=== PATIENT | male | born 1945 | race Caucasian/White ===

== ENCOUNTER 2020-01-08 07:59 | Emergency (ER) | payer MEDICARE, MEDICAID, SELFPAY ==
--- NOTE | ~2020-01-08 | CT_ITS ---
EXAMINATION: CT lumbar spine wo con DATE: 01/08/2020 09:04 INDICATION: Fall presenting with pain at the low back/buttock's. TECHNIQUE: Computed tomography (CT) of the lumbar spine was performed without intravenous contrast. A utomated exposure control and iterative reconstruction technique were employed. The dose-length produ ct was 911.61 mGy-cm. COMPARISON: None FINDINGS: Mild lumbar dextroscoliosis. There is anterior fusion across the left side of the L4-L5 disc space an d across portions of the T12-L1 disc space. There is also posterior spinal fusion at the bilateral fa cet joints L4-L5. Vertebral body heights are normal. No fracture. Severe disc height loss at L2-L3, r ight side of L1-L2 and L5-S1. Moderate disc height loss at L3-L4. L5 is partially sacralized on the r ight 2 mm noncalcified stone at the lower pole of the right kidney. Anastomotic suture line a few div erticula along the sigmoid colon. The following disc levels are specifically discussed: T11-T12: The disc does not extend beyond the endplate margin. There is mild bilateral facet joint ost eoarthritis. There is no neural foraminal stenosis. There is no central canal stenosis. T12-L1: Mild hypertrophic change across the fused mid to left posterior margin of the disc space. The re is mild to moderate bilateral facet joint osteoarthritis. There is no neural foraminal stenosis. T here is minimal central canal stenosis. L1-L2: Disc osteophyte complex with small posterior endplate osteophytes along the inferior endplate of L1. There is mild to moderate bilateral facet joint osteoarthritis. There is moderate bilateral ne ural foraminal stenosis. There is mild central canal stenosis. L2-L3: Mild disc osteophyte complex. There is moderate right and severe left facet joint osteoarthrit is. There is moderate bilateral neural foraminal stenosis. There is mild central canal stenosis. L3-L4: The disc does not extend beyond the endplate margin. There is moderate left and moderate to se dominic right facet joint osteoarthritis. There is moderate right and mild to moderate left neural kelechi inal stenosis. There is mild central canal stenosis. L4-L5: Mild hypertrophic change along the posterior margin of the fused disc space. Prominent hypertr ophic change at the bilateral fused facet joints. There is moderate right and mild to moderate left n eural foraminal stenosis. There is moderate to severe central canal stenosis. L5-S1: The disc does not extend beyond the endplate margin. There is moderate to severe left and lashonda re right facet joint osteoarthritis. There is mild bilateral neural foraminal stenosis. There is no c entral canal stenosis. IMPRESSION: 1. Mild lumbar dextroscoliosis with severe spondylosis. No acute osseous abnormality. Reviewed, dictated and finalized at location A. EHOLD COORDINATOR IMPRESSION: 1. Mild lumbar dextroscoliosis with severe spondylosis. No acute osseous abnorm ality.
--- NOTE | ~2020-01-08 | CT_ITS ---
EXAMINATION: CT brain wo con DATE: 01/08/2020 09:05 INDICATION: Fall. Head injury. TECHNIQUE: Computed tomography (CT) of the head was performed without intravenous contrast. The mA wa s adjusted according to patient size. Iterative reconstruction technique was employed. Exam dose: 68 1.00 mGy-cm total exam DLP. COMPARISON: 12/05/2018 CT brain FINDINGS: There are prominent bilateral carotid siphon and right supraclinoid internal carotid artery calcifications. There is nonspecific diminished attenuation of the subcortical and periventricular cerebral white mat ter, likely due to chronic small vessel ischemic changes. There is prominent cerebral atrophy. No intracranial mass lesion or hemorrhage or cerebrovascular accident is evident. No midline shifts o r mass effects. There is minimal mucoperiosteal thickening of the maxillary sinuses. The paranasal sinuses and mastoi d air cells otherwise appear well-developed and aerated. No fracture or bone destruction of the cranial vault is detected. IMPRESSION: Cerebral atherosclerosis and chronic small vessel ischemic changes of the cerebral white matter No acute intracranial finding or skull fracture Reviewed, dictated and finalized at Location A. Reviewed, dictated and finalized at location B. DRY BAG PUNCH OPERATOR
[2020-01-08 08:06] VITALS: BP 103/67; PULSE 80; RESP 16; TEMP 36.2; O2SAT 96
--- NOTE | 2020-01-08 08:16 | ECG_ITS ---
Measurements Intervals [place] Rate: 61 P: 57 [place]: 173 QRS: -52 QRSD: 110 T: 26 QT: 398 QTc: 401 Interpretive Statements SINUS RHYTHM LEFT ANTERIOR FASCICULAR BLOCK BORDERLINE ST-T WAVE ABNORMALITY- ANTERIOR LEADS ABNORMAL ECG Electronically Signed On 01-08-2020 10:51:49 STERILIZATION TECHNICIAN by Angel Meeks D.O.
[2020-01-08 08:40] LABS: Basophils Percent Auto 0.3 % (0.2-1.2); Eosinophils Absolute Auto 0.1 K/mm3 (0-0.3); Eosinophils Percent Auto 1.5 % (0-4.4); Hemoglobin 14.8 g/dL (14.0-18.0); Immature Granulocyte Absolute 0.02 K/mm3 (0.00-0.031); Immature Granulocyte Percent A 0.3 % (0-0.5); Lymphocytes Absolute Auto 1.32 K/mm3 (0.9-3.2); Lymphocytes Percent Auto 22.4 % (18.3-44.2); Mean Corpuscular HGB Conc 33.6 g/dl (32-36); Mean Corpuscular Hemoglobin 30.3 pg (26-34); Monocytes Absolute Auto 0.5 K/mm3 (0.1-0.6); Monocytes Percent Auto 8.3 % (2.6-8.5); Neutrophils Percent Auto 67.2 % (45.5-73.1); Platelet Count Result 219 k/mm3 (150-375); Red Blood Count 4.89 M/mm3 (4.6-6.20); Red Cell Distribution Width 12.7 % (11.5-14.5); White Blood Count 5.9 K/mm3 (4.5-10.0)
--- NOTE | 2020-01-08 08:45 | ED.GENADULT ---
HPI - General Adult General Chief complaint: Fall Stated complaint: fall out of bed, buttock, right arm pain Time Seen by Provider: 01/08/20 08:04 Source: patient Mode of arrival: ambulatory Limitations: no limitations History of Present Illness HPI narrative: Patient is a 74-year-old male who presents to emergency department for evaluation of buttock pain after rolling out of his bed this morning also sustaining some skin tears to the right elbow region but denies any right upper extremity pain denies head injury syncope loss of consciousness presents per private vehicle resting comfortably in the room in no distress patient is afebrile nontoxic-appearing on arrival resting comfortably in the room on arrival per private vehicle patient has not taken anything for his symptoms. Patient notes feeling slightly dizzy since the fall but did take 100 mg tramadol Related Data Home Medications Medication Instructions Recorded Confirmed cholecalciferol (vitamin D3) 25 1,000 unit PO DAILY 10/23/19 12/15/19 mcg (1,000 unit) capsule diltiazem HCl 240 mg 240 mg PO DAILY 10/23/19 01/08/20 capsule,extended release 24 hr lisinopril 5 mg tablet 5 mg PO DAILY 10/23/19 12/15/19 rivaroxaban 20 mg tablet 20 mg PO DAILY 10/23/19 12/15/19 sildenafil (pulm.hypertension) 20 40 mg PO TID tablet 10/23/19 12/15/19 mg tablet tamsulosin 0.4 mg capsule 0.4 mg PO DAILY 10/23/19 12/15/19 tramadol 50 mg tablet 50 mg PO Q6H PRN 10/23/19 12/15/19 valacyclovir 1 gram tablet 1,000 mg PO DAILY 10/23/19 12/15/19 bupropion HCl 150 mg PO BID 01/08/20 mirabegron [Myrbetriq] 50 mg PO DAILY 01/08/20 01/08/20 multivitamin 1 cap PO DAILY 01/08/20 01/08/20 Allergies Allergy/AdvReac Type Severity Reaction Status Date / Time hydromorphone Allergy Unknown Unknown Verified 12/15/19 11:52 escitalopram [From Lexapro] AdvReac sexual Verified 12/15/19 11:52 disfunction Review of Systems Review of Systems: All systems reviewed & are unremarkable except as noted in HPI and below PMFSH Past Medical History Medical History (Updated 01/08/20 @ 10:29 by Sukhwinder Penn PA-C) Arthritis Atrial fibrillation Atrial fibrillation and flutter Basal cell carcinoma (BCC) Erectile dysfunction Essential (primary) hypertension Hypertension Surgical History Surgical History H/O arthroscopy of left knee H/O arthroscopy of right knee H/O hernia repair H/O prostate biopsy History of knee replacement History of liver biopsy Social History Social History Smoking status: Former smoker Smoking end date: 11/22/17 Alcohol intake: never Exam Narrative: Exam Narrative: GENERAL: Well-appearing, well-nourished, and in no acute distress. HEAD: Normocephalic, atraumatic. EYES: PERRLA and EOMI. ENT: Nares clear, no rhinorrhea or epistaxis. Mucous membranes moist. Oropharynx without tonsillar hypertrophy exudate or other lesions. NECK: Supple. No adenopathy or masses. CHEST: Clear to auscultation. No respiratory distress. No wheezes rales or rhonchi HEART: Regular rate and rhythm. No murmur heard. Normal peripheral pulses. ABDOMEN: Soft, nontender, nondistended EXTREMITIES: Normal range of motion. No edema midline lumbar sacral tenderness no bruising or deformity no cervical or thoracic tenderness. SKIN: Warm, dry, no rash. Superficial half centimeter skin tear right upper extremity just above the elbow NEURO: No focal deficits. Alert and oriented x3. Cranial nerves II through XII grossly intact. Neurovascularly intact. Normal speech PSYCH: Normal mood and affect. Course Course Emergency Course: Patient in the room in no distress aware of case findings treatment plan and diagnosis felt appropriate for outpatient reevaluation agreeing to follow-up as directed or to return if symptoms worsen or concerns Vital Signs Vital signs: Vital Signs Tempera
[2020-01-08 08:51] LABS: Alanine Aminotransferase 16 U/L (4-50); Albumin Level 4.1 g/dL (3.5-5.1); Alkaline Phosphatase 70 U/L (38-126); Aspartate Amino Transferase 23 U/L (17-59); Bilirubin,Total 0.8 mg/dL (0.2-1.3); Blood Urea Nitrogen 18 mg/dL (9-20); Calcium 9.3 mg/dL (8.4-10.2); Carbon Dioxide 23 mmol/L (22-30); Chloride 101 mmol/L (98-107); Estimated CRCL calculation 66 ml/min; Estimated Glomerular Filt Rate > 60; Glucose 98 mg/dL (75-110); Potassium 3.8 mmol/L (3.4-5.0); Sodium 138 mmol/L (137-145)
[2020-01-08 09:30] VITALS: BP 136/87; PULSE 74; RESP 16; O2SAT 94
[2020-01-08 09:40] LABS: Add Urine Microscopic? YES; Appearance Urine Clear (Clear); Bilirubin Urine Negative (Negative); Blood Urine 1+ (Negative); Color Urine Yellow (Yellow); Glucose Urine UA Negative (Negative); Ketones Urine 1+ mg/dL (Negative); Leukocyte Esterase Ur Negative LEU/UL (Negative); Mucus Urine Rare /lpf; Nitrate Urine Negative (Negative); Protein Urine Negative (Negative); Specific Grav Ur 1.011 (1.001-1.035); Squamous Epithelial Cell Urine Rare /hpf (Few); Urobilinogen Urine Negative mg/dL (<2.0); WBC Urine 0-3 /hpf
[2020-01-08 09:58] VITALS: BP 128/77; PULSE 64
[2020-01-08 10:00] VITALS: BP 102/71; PULSE 78
[2020-01-08 10:02] VITALS: BP 110/78; PULSE 76
[2020-01-08 10:30] VITALS: BP 120/72; PULSE 63; RESP 16; O2SAT 94
== END 2020-01-08 10:30 | disposition home or self-care (01) ==
PROVIDERS: Emergency Medicine Emergency Medical Services; Emergency Provider Family Medicine; PCP Family Medicine
DX: S39.92XA Unspecified injury of lower back, initial encounter (principal); M19.90 Unspecified osteoarthritis, unspecified site; I48.91 Unspecified atrial fibrillation; Z79.01 Long term (current) use of anticoagulants; Z85.828 Personal history of other malignant neoplasm of skin; I10 Essential (primary) hypertension; I48.92 Unspecified atrial flutter; Z87.891 Personal history of nicotine dependence; W06.XXXA Fall from bed, initial encounter; Z96.659 Presence of unspecified artificial knee joint
CPT/HCPCS: 36415; 70450; 72131; 80053; 81001; 85025; 93005; 99284

== ENCOUNTER 2020-07-08 14:00 | Emergency (ER) | payer MEDICARE, MEDICAID, SELFPAY ==
--- NOTE | ~2020-07-08 | XR_ITS ---
EXAMINATION: XR finger 4th LT min 2V INDICATION: Left fourth finger laceration TECHNIQUE: Three views of the left fourth finger are obtained. COMPARISON: None available FINDINGS: There is a soft tissue laceration involving the tuft of the fourth finger. There appears to be a subtle osseous deformity at the proximal base of the volar aspect of the fourth distal phalanx extending to the distal interphalangeal joint. Moderate polyarticular osteoarthritis is noted. No add itional acute osseous abnormality is suspected. IMPRESSION: 1. Suspected open fracture at the palmar base of the fourth distal phalanx. Reviewed, dictated and finalized at location A.
[2020-07-08 14:00] VITALS: BP 117/63; PULSE 70; RESP 18; TEMP 36.7; O2SAT 98
[2020-07-08 15:15] VITALS: BP 127/81; PULSE 66; RESP 18; O2SAT 99
[2020-07-08] MEDS: TETANUS,DIPHTHERIA,AC PERTUSSIS ADULT (0.5 ML) BOOSTRIX IM (16:08)
--- NOTE | 2020-07-08 16:16 | ED.GENADULT ---
HPI - General Adult General Chief complaint: Wound/Laceration Stated complaint: Finger injury Source: patient History of Present Illness HPI narrative: Patient is a 75 y/o male complaining of left ring finger laceration prior to arrival. He states that he got his finger caught in a lawn tractor accidentally. He has severe pain to his finger. He denies any other injury. He denies falling. He is not sure when he had a Tetanus shot last time. Related Data Home Medications Medication Instructions Recorded Confirmed cholecalciferol (vitamin D3) 25 1,000 unit PO DAILY 10/23/19 06/25/20 mcg (1,000 unit) capsule rivaroxaban 20 mg tablet 20 mg PO DAILY 10/23/19 06/25/20 tamsulosin 0.4 mg capsule 0.4 mg PO DAILY 10/23/19 06/25/20 mirabegron [Myrbetriq] 50 mg PO DAILY 01/08/20 06/25/20 multivitamin 1 cap PO DAILY 01/08/20 06/25/20 bupropion HCl 100 mg tablet,12 hr 150 mg PO DAILY tablet 02/22/20 06/25/20 sustained-release melatonin 3 mg tablet 5 mg PO .qhs tablet 04/03/20 06/25/20 Allergies Allergy/AdvReac Type Severity Reaction Status Date / Time hydromorphone Allergy Unknown Unknown Verified 04/03/20 13:35 escitalopram [From Lexapro] AdvReac sexual Verified 04/03/20 13:34 disfunction Review of Systems Constitutional: Constitutional: Denies chills, Denies fever(s), Denies headache(s) and Denies weakness Eyes: Eyes: Denies blurry vision ENT: Denies headache(s) and Denies neck pain Cardiovascular: Cardiovascular: Denies chest pain and Denies dyspnea Respiratory: Respiratory: Denies cough and Denies dyspnea Gastrointestinal: Gastrointestinal: Denies abdominal pain, Denies diarrhea, Denies nausea and Denies vomiting Genitourinary: Genitourinary: Denies hematuria and Denies dysuria Musculoskeletal: Musculoskeletal: Denies back pain, Denies neck pain and Reports other (left ring finger pain) Integumentary/Breasts: Skin/Breast: Reports as per HPI Neurologic: Denies headache(s) and Denies weakness [facility] Past Medical History Medical History Arthritis Atrial fibrillation Atrial fibrillation and flutter Basal cell carcinoma (BCC) Erectile dysfunction Essential (primary) hypertension Hypertension Surgical History Surgical History H/O arthroscopy of left knee H/O arthroscopy of right knee H/O hernia repair H/O prostate biopsy History of knee replacement History of liver biopsy Hx of detached retina repair Family History Family History Mother Family history of gastrointestinal disorder Family history of pancreatic cancer Sibling Family history of Alzheimer's disease Father Family history of heart disease in male family member before age 55 Family history of cardiovascular disease Diabetes mellitus Family history of elevated blood lipids Acute myocardial infarction Other Depression Hypertension Malignant neoplasm of prostate Social History Social History Smoking status: Never smoker Smoking end date: 11/22/17 Alcohol intake: never Gender identity (if verbalized by the patient): Male Exam Const: General: no acute distress and well developed Orientation/consciousness: oriented to person, oriented to place, oriented to time and patient oriented x3 HENMT: Head: normocephalic Ears: external ears normal General nose exam: Normal external nose present Eyes: General: appearance normal, both eyes and all related structures Conjunctivae: conjunctivae normal Neck: Neck: normal visual inspection and full ROM Chest: Chest palpation & inspection: normal inspection of the chest and no tenderness Resp: Effort & Inspection: normal respiratory effort Auscultation: clear to auscultation bilaterally Cardio: Rate: regular rate Rhythm: regular rhythm GI: GI Palp: No abdominal t
[2020-07-08 17:20] VITALS: BP 129/80; PULSE 50; RESP 18; O2SAT 98
[2020-07-08] MEDS: CEPHALEXIN 500 MG CAPSULE PO (18:06)
[2020-07-08 18:28] VITALS: BP 132/70; PULSE 72; RESP 18; O2SAT 98
== END 2020-07-08 18:30 | disposition home or self-care (01) ==
PROVIDERS: Emergency Provider Emergency Medicine; PCP Family Medicine
DX: S62.635B Displaced fracture of distal phalanx of left ring finger, initial encounter for open fracture (principal); Z23 Encounter for immunization; M19.90 Unspecified osteoarthritis, unspecified site; I48.91 Unspecified atrial fibrillation; I10 Essential (primary) hypertension; W28.XXXA Contact with powered lawn mower, initial encounter
CPT/HCPCS: 12002; 73140; 90471; 90715; 99283; A9270

== ENCOUNTER 2021-01-18 20:45 | Inpatient (IN) | payer MEDICARE, MEDICAID, SELFPAY ==
[2021-01-18] VITALS (18 sets, daily range): BP systolic 78–135; BP diastolic 50–107; PULSE 67–92; RESP 19–26; TEMP 36.5; O2SAT 92–93
--- NOTE | ~2021-01-18 | CT_ITS ---
EXAMINATION: CTA chest PE protocol DATE: 01/23/2021 11:21 INDICATION: Hypoxia. TECHNIQUE: Computed tomography angiography (CTA) of the chest was performed with 100 mL Omnipaque-350 intravenous contrast timed to evaluate the pulmonary arteries. Coronal maximum intensity projection 3D-reconstructions were created by the technologist. Automated exposure control and iterative reconst ruction technique were employed. The dose-length product was 208.89 mGy-cm. COMPARISON: CT abdomen and pelvis 01/18/2021, chest CT 08/09/2019, MRCP 01/20/2021 FINDINGS: There is moderate emphysema. There are small pleural effusions. There is dependent passive atelectasis in the lower lobes. There is mild atelectasis in right middle lobe and the upper lobes. C alcified bilateral lung nodules and calcified mediastinal lymph nodes are consistent with old granulo matous disease. Cardiomegaly is noted. No pericardial effusion. There is no pulmonary embolus. There are surgical clips from cholecystectomy. Periportal edema is noted. There is edema in the visualized portion of the upper abdomen, consistent with acute pancreatitis. There is a 1.6 cm mass in right adr enal gland measuring low-attenuation, consistent with an adenoma. There is mild thoracic spondylosis. There is mild chronic anterior wedging of multiple vertebral bodies. IMPRESSION: 1. No pulmonary embolus. 2. Small pleural effusions, worsened from 01/20/2021. 3. Moderate emphysema. 4. Acute pancreatitis. Reviewed, dictated and finalized at location A. ERADICATOR
--- NOTE | ~2021-01-18 | XR_ITS ---
XR chest 2V DATE: 01/18/2021 22:05 INDICATION: Shortness of breath. Nausea and vomiting TECHNIQUE: AP and lateral views COMPARISON: 08/09/[address] chest FINDINGS: Bilateral hyperinflation consistent with COPD. Cardiac megaly. Aortic calcification, ectasia and unfolding. Prominent central pulmonary arteries, consistent with pulmonary hypertension. No pulmonary infiltrate or consolidation, pleural effusion or pulmonary vascular congestion or pneumothorax. Diffuse osteopenia. IMPRESSION: COPD and pulmonary hypertension Cardiomegaly No active pulmonary disease Reviewed, dictated and finalized at location A. NATING MACHINE OPERATOR HELPER
--- NOTE | ~2021-01-18 | XR_ITS ---
EXAMINATION: XR chest 2V DATE: 01/22/2021 17:41 INDICATION: Hypoxia TECHNIQUE: PA and lateral views of the chest are obtained. COMPARISON: 01/18/2021 FINDINGS: Small pleural effusions have developed, left greater than right. Right basilar airspace opa cities are unchanged. Airspace opacities have developed in the left lung base. There is no pneumothor ax. Cardiomegaly is noted.. There is mild thoracic spondylosis. IMPRESSION: 1. Bibasilar airspace opacities, consistent with atelectasis versus pneumonia. 2. Small pleural effusions. Reviewed, dictated and finalized at location A. LE STRAP PUNCHER
--- NOTE | ~2021-01-18 | US_ITS ---
EXAMINATION: US abdomen limited DATE: 01/19/2021 08:57 INDICATION: Right upper quadrant abdominal pain. TECHNIQUE: Multiple grayscale and Doppler ultrasound images of the abdomen were obtained. COMPARISON: CT abdomen and pelvis 01/18/2021 FINDINGS: The pancreas demonstrates heterogeneous echogenicity, consistent with acute pancreatitis. T he liver demonstrates a 6 mm cyst. There is normal flow in main portal vein. The gallbladder is diste nded and contains a gallstone. Gallbladder wall thickening is noted. The common duct is normal and me asures 3 mm. IMPRESSION: 1. Acute pancreatitis. 2. Cholelithiasis. Gallbladder distention is new from 01/18/2021, likely secondary to fasting. Gallbla dder wall thickening is likely secondary to the pancreatitis. Reviewed, dictated and finalized at location A. TIME PARAMEDIC IMPRESSION: 1. Acute pancreatitis. 2. Cholelithiasis. Gallbladder distention is new from 01/18/2021, likely seconda ry to fasting. Gallbladder wall thickening is likely secondary to the pancreati tis.
--- NOTE | ~2021-01-18 | XR_ITS ---
EXAMINATION: XR abdomen obstructive series EXAM DATE: 01/20/2021 11:02 INDICATION: Lower abdominal pain, distention. TECHNIQUE: Frontal upright projection of the upper abdomen, frontal projection of the lower abdomen f or interpretation. Comparison is made to prior examination from 06/09/2019. FINDINGS: There is moderate lumbar dextroscoliosis. There is moderate amount of colonic stool and ga s. No small bowel dilation, nonobstructive bowel gas pattern. Splenic artery calcifications. The re is no organomegaly suspected. There is no significant interval change. IMPRESSION: Moderate amount of colonic stool. Reviewed, dictated and finalized at location A. TH HACKER
--- NOTE | ~2021-01-18 | MR_ITS ---
EXAMINATION: MR MRCP wo/w con/w 3D wo ind DATE: 01/20/2021 12:50 INDICATION: Acute pancreatitis. TECHNIQUE: Magnetic resonance imaging (MRI) of the abdomen was performed without and with 12 mL Multi Jamar intravenous contrast. Sequences included coronal T2-weighted FS FSE, coronal T2-weighted FSE, a xial T1-weighted LAVA, coronal FS FIESTA, axial dual-echo T1-weighted SPGR, coronal lava-FLEX, sagitt al T2-weighted FSE, axial T2-weighted FSE, and axial DWI. Thick-slab T2-weighted FSE images were obta ined for magnetic resonance cholangiopancreatography (MRCP). Maximum intensity projection 3-D reconst ructions of the volumetric data were created by the technologist. Postcontrast sequences included cor onal LAVA-flex and time course of axial T1-weighted LAVA. COMPARISON: MRCP 08/09/2019, ultrasound 01/19/2021, CT abdomen and pelvis 12/06/2018 FINDINGS: ABDOMEN MRI: There are small pleural effusions. The liver is normal. The gallbladder is distended and contains a gallstone. The spleen is normal. Pancreas divisum is noted. There is extensive edema in t he retroperitoneum, consistent with acute pancreatitis. Left adrenal gland is normal. There is a 14 m m mass in right adrenal gland without change in size from 12/07/2018, consistent with an adenoma. Ther e are cysts in the kidneys measuring up to 7 mm on the left. There are no dilated loops of bowel. The re is a small volume of ascites. There are no pathologically enlarged lymph nodes. ABDOMEN MRCP: The common duct measures 8 mm in diameter. No choledocholithiasis. IMPRESSION: 1. Acute interstitial pancreatitis. 2. No choledocholithiasis. 3. Cholelithiasis. Gallbladder distention may be secondary to fasting. 4. Small pleural effusions. Reviewed, dictated and finalized at location A. ING COORDINATOR
--- NOTE | ~2021-01-18 | CT_ITS ---
EXAMINATION: CT abdomen pelvis w con DATE: 01/18/2021 22:07 INDICATION: Generalized abdominal pain. Nausea and vomiting. TECHNIQUE: Computed tomography (CT) of the abdomen and pelvis was performed with 100 cc Omnipaque 350 intravenous contrast. Automated exposure control and iterative reconstruction technique were employe d. Exam dose: 296.83 mGy-cm total exam DLP. COMPARISON: 08/09/2019 MRI MRCP 06/09/2019 CT abdomen pelvis FINDINGS: There is bilateral lower lobe dependent atelectasis. Emphysematous changes of the lungs. Cardiomegaly. No pericardial or pleural effusion. Occasional hepatic cysts, the largest approximately 1.3 cm. There is mild gallbladder distention and thickening of the gallbladder wall. There is intrahepatic an d extra hepatic bile duct dilatation. Common bile duct measures up to 11 mm There is fluid around the pancreas. No pancreatic mass lesion, calcification or pancreatic duct dilat ation. Normal splenic size. Normal morphology of the adrenal glands.. Small upper pole nonobstructing left renal calculus. Two contiguous lower pole right renal nonobstructing calculi. No ureteral calculus or hydroureteronephrosis. Occasional small bilateral renal cysts. There is calcification and tortuosity of the abdominal aorta. No abdominal aortic aneurysm. There is extensive calcification of iliac and femoral arteries. No intraperitoneal or retroperitoneal or pelvi c mass lesion or adenopathy. Small sliding hiatal hernia. Nonspecific fluid distended small bowel in the lower abdomen and pelvis, without thickening of the wa ll, pneumatosis or intraperitoneal free air. No apparent bowel obstruction. Prostate enlargement and calcifications. There is mild diffuse thickening of the urinary bladder wall . Extensive degenerative changes of the lower thoracic spine including diffuse idiopathic skeletal hype rostosis. There is severe degenerative disc disease throughout the lumbar and lumbosacral spine. IMPRESSION: Emphysema Bilateral lower lobe dependent atelectasis Cardiac megaly Occasional hepatic cysts and bilateral small renal cysts Nonspecific bile duct dilatation Fluid around the pancreas Nonobstructive mild bilateral nephrolithiasis Small sliding hiatal hernia Reviewed, dictated and finalized at Location A. Reviewed, dictated and finalized at location A. NGER MACHINE TENDER
--- NOTE | ~2021-01-18 | NM_ITS ---
EXAMINATION: NM hepatobiliary w pharm EXAM DATE: 01/20/2021 15:10 INDICATION: Cholelithiasis, gallbladder wall thickening. TECHNIQUE: 5 mCi Tc-99m mebrofenin (Choletec) was administered intravenously. Scintigraphic images o f the abdomen were obtained for one hour. At the 1 hour time point, 1.2 mcg sincalide (Kinevac) was a dministered by slow intravenous infusion, and imaging was continued for 30 minutes. Gallbladder eject ion fraction was calculated by the technologist. Correlation is made to MRCP earlier same date. FINDINGS: There is normal clearance of radiotracer from the blood pool. There is homogeneous tracer u ptake by the liver. Activity progresses to the gallbladder. Small bowel activity identified definiti vely following CCK administration. The gallbladder ejection fraction (GBEF) is 27 % (most patients wi th gallbladder dysfunction have GBEF < 35%, but there is overlap with the normal range of 10-90%). IMPRESSION: Gallbladder ejection fraction 27%, which may indicate some component of gallbladder dysf unction and/or chronic cholecystitis. Reviewed, dictated and finalized at location A. USION LINE OPERATOR IMPRESSION: Gallbladder ejection fraction 27%, which may indicate some compone nt of gallbladder dysfunction and/or chronic cholecystitis.
--- NOTE | 2021-01-18 20:55 | ECG_ITS ---
Measurements Intervals [place] Rate: 65 P: 128 [place]: 170 QRS: -32 QRSD: 96 T: 151 QT: 351 QTc: 367 Interpretive Statements SINUS RHYTHM LEFT AXIS DEVIATION INCOMPLETE RIGHT BUNDLE BRANCH BLOCK LEFT VENTRICULAR HYPERTROPHY AND ST-T CHANGE BORDERLINE R WAVE PROGRESSION, ANTERIOR LEADS BORDERLINE T WAVE ABNORMALITY- DIFFUSE LEADS BASELINE ARTIFACT- I, II, III, AVR, AVL, AVF, V1-V6 BORDERLINE ECG Electronically Signed On 01-19-2021 7:54:53 REGIONAL MARKETING MANAGER by Angel Meeks D.O.
[2021-01-18 21:24] LABS: Basophils Percent Auto 0.2 % (0.2-1.2); Eosinophils Percent Auto 0.1 % (0-4.4); Hematocrit 49.7 % (42.0-52.0); Hemoglobin 17.1 g/dL (14.0-18.0); Immature Granulocyte Absolute 0.07 K/mm3 (0.00-0.031); Immature Granulocyte Percent A 0.5 % (0-0.5); Lymphocytes Absolute Auto 0.89 K/mm3 (0.9-3.2); Lymphocytes Percent Auto 6.4 % (18.3-44.2); Mean Corpuscular HGB Conc 34.4 g/dl (32-36); Mean Corpuscular Volume 90.2 fl (80-100); Mean Platelet Volume 10.2 fl (7.4-10.4); Monocytes Absolute Auto 1.2 K/mm3 (0.1-0.6); Monocytes Percent Auto 8.3 % (2.6-8.5); Neutrophils Absolute Auto 11.7 K/mm3 (1.3-6.7); Neutrophils Percent Auto 84.5 % (45.5-73.1); Platelet Count Result 241 k/mm3 (150-375); Red Blood Count 5.51 M/mm3 (4.6-6.20); Red Cell Distribution Width 13.2 % (11.5-14.5); White Blood Count 13.8 K/mm3 (4.5-10.0)
[2021-01-18 21:33] LABS: Alveolar/Arterial O2 Gradient 47.5 mmHg; Base Excess ABG -2.9 mEq/l (+/-2.0); Carboxyhemoglobin 0.8 % THb (0-2.0); Fractional Inspired Oxygen 21 %; HCO3 ABG 22.1 mEq/l (22.0-26.0); Methemoglobin ABG 0.4 %THb (0-1.5); Oxygen Content ABG 19.9 %vol (16.0-22.0); Oxygen Saturation ABG 87.8 % (95.0-100.0); Oxyhemoglobin 86.1 % THb (90.0-100.0); PCO2 ABG 39.4 mmHg (35.0-45.0); PO2 ABG 55.1 mmHg (80.0-100.0); PO2 FiO2 Ratio Arterial Blood 2.62 %; Reduced Hemoglobin 12.7 %THb (0-5.0); Total Hemoglobin 16.5 g/dL (12.0-18.0); pH ABG 7.366 (7.350-7.450)
[2021-01-18 21:35] LABS: Device ROOM AIR; Modified Allen's Test Pass; Site Drawn RIGHT RADIAL
[2021-01-18 21:37] LABS: Lactic Acid Reflex 1.8 mmol/L (0.7-2.1)
--- NOTE | 2021-01-18 21:39 | ED.GENADULT ---
HPI - General Adult General Chief complaint: Abdominal Pain Stated complaint: n/v abd pain Time Seen by Provider: 01/18/21 20:48 History of Present Illness HPI narrative: Patient is a 76-year-old male who presents ER with abdominal pain nausea vomiting. Patient reports he had been working out in his yard and came inside. He then started feeling abdominal cramping and started vomiting. Patient reports he has history of IBS. 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 Denies history of bowel obstruction. No chest pain or chest pressure. He was having some lower back pain earlier but that has since stopped. When he is vomiting he denies that he swallowed or aspirated on any of the emesis. He is not having any shortness of breath at this time. No cough. Related Data Home Medications Medication Instructions Recorded Confirmed cholecalciferol (vitamin D3) 25 1,000 unit PO DAILY 10/23/19 11/05/20 mcg (1,000 unit) capsule rivaroxaban 20 mg tablet 20 mg PO DAILY 10/23/19 11/05/20 mirabegron [Myrbetriq] 50 mg PO DAILY 01/08/20 11/05/20 multivitamin 1 cap PO DAILY 01/08/20 11/05/20 bupropion HCl 100 mg tablet,12 hr 150 mg PO DAILY tablet 02/22/20 11/05/20 sustained-release melatonin 3 mg tablet 5 mg PO .qhs tablet 04/03/20 11/05/20 pyridoxine (vitamin B6) 100 mg 100 mg PO .every other day tablet 11/05/20 11/05/20 tablet Allergies Allergy/AdvReac Type Severity Reaction Status Date / Time hydromorphone Allergy Unknown Unknown Verified 01/18/21 20:55 escitalopram [From Lexapro] AdvReac sexual Verified 01/18/21 20:55 disfunction Review of Systems Review of Systems: All systems reviewed & are unremarkable except as noted in HPI and below Constitutional: Constitutional: Denies chills, Denies fever(s) and Denies weakness ENT: Denies nasal congestion and Denies sore throat Cardiovascular: Cardiovascular: Denies chest pain, Denies rapid heart rate and Denies radiating jaw, neck or arm pain Respiratory: Respiratory: Denies cough, Denies dyspnea and Denies wheezing Gastrointestinal: Gastrointestinal: Reports abdominal pain, Denies diarrhea, Reports nausea and Reports vomiting PMFSH Past Medical History Medical History Arthritis Atrial fibrillation Atrial fibrillation and flutter Basal cell carcinoma (BCC) Erectile dysfunction Essential (primary) hypertension Hypertension Tobacco abuse Surgical History Surgical History H/O arthroscopy of left knee H/O arthroscopy of right knee H/O hernia repair H/O prostate biopsy History of knee replacement History of liver biopsy Hx of detached retina repair Family History Family History Mother Family history of gastrointestinal disorder Family history of pancreatic cancer Sibling Family history of Alzheimer's disease Father Family history of heart disease in male family member before age 55 Family history of cardiovascular disease Diabetes mellitus Family history of elevated blood lipids Acute myocardial infarction Other Depression Hypertension Malignant neoplasm of prostate Social History Social History Smoking packs per day: 1 Smoking cigarettes per day: 20.0 Years smoked: 50 Smoking pack-years: 50.00 Smoking status: Former smoker Smoking end date: 11/22/17 Alcohol intake: never Gender identity (if verbalized by the patient): Male Exam Narrative: Exam Narrative: GENERAL: ill-appearing, well-nourished, and in no acute distress. HEAD: Normocephalic, atraumatic. EYES: PERRLA and EOMI. ENT: Mucous membranes moist. CHEST: Clear to auscultation. No respiratory distress. HEART: Regular rate and rhythm. Normal peripheral pulses but poor skin perfusion with greater than 3-
[2021-01-18 21:41] LABS: Alanine Aminotransferase 15 U/L (4-50); Albumin Level 3.6 g/dL (3.5-5.1); Alkaline Phosphatase 67 U/L (38-126); Anion Gap 5 mmol/L (8-16); Aspartate Amino Transferase 32 U/L (17-59); Bilirubin,Total 0.5 mg/dL (0.2-1.3); Blood Urea Nitrogen 27 mg/dL (9-20); Calcium 8.5 mg/dL (8.4-10.2); Carbon Dioxide 30 mmol/L (22-30); Chloride 104 mmol/L (98-107); Estimated CRCL calculation 33 ml/min; Estimated Glomerular Filt Rate 45; Glucose 113 mg/dL (75-110); Potassium 3.9 mmol/L (3.4-5.0); Sodium 139 mmol/L (137-145)
[2021-01-18 21:48] LABS: Troponin I < 0.012 ng/mL (0.000-0.034)
[2021-01-18] MEDS: SODIUM CHLORIDE 0.9% IV 1,000 ML 999 ML IV CONT ×2 (22:00)
--- NOTE | 2021-01-18 23:39 | PM.IMHP ---
H&P: HPI History of Present Illness Date/Time: 01/18/21 23:39 Chief Complaint: Abdominal pain Narrative: This is a pleasant 76 year old male with known past medical history of viral hepatitis, atrial fibrillation on Xarelto, and prostate cancer who presented to the hospital [facility] with a complaint of central abdominal pain radiating towards her back, nausea, and vomiting. 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 He describes getting tired and coming into the house and taking a nap. Later he went back outside and did more yard work until he got tired again and then came back into the house. Around 5 pm he ate some food and shortly afterwards was when his symptoms started. He has no previous history of pancreatitis. [facility] he denies any significant shortness of breath, chest pain, or cough. The patient was found to be hypoxemic on ABG and was started on supplemental oxygen. He reports having part of his sigmoid colon resected for an unknown reason. The patient also denies any fever, headache, dysuria, hematuria, diarrhea, or rectal bleeding. He has a previous history of alcoholism as a young adult but has not drank any alcohol for years now. He also quit smoking [address] abd/pelvis was obtained in the ER and demonstrated acute pancreatitis. On routine labs his lipase was [phone]. We have been asked to admit the patient to the hospital for further care. No other complaints. Review of Systems Review of Systems: All systems reviewed & are unremarkable except as noted in HPI and below PMFSH Past Medical History Medical History Arthritis Atrial fibrillation Atrial fibrillation and flutter Basal cell carcinoma (BCC) Erectile dysfunction Essential (primary) hypertension Hypertension Tobacco abuse Surgical History Surgical History H/O arthroscopy of left knee H/O arthroscopy of right knee H/O hernia repair H/O prostate biopsy History of knee replacement History of liver biopsy Hx of detached retina repair Family History Family History Mother Family history of gastrointestinal disorder Family history of pancreatic cancer Sibling Family history of Alzheimer's disease Father Family history of heart disease in male family member before age 55 Family history of cardiovascular disease Diabetes mellitus Family history of elevated blood lipids Acute myocardial infarction Other Depression Hypertension Malignant neoplasm of prostate Social History Social History Smoking packs per day: 1 Smoking cigarettes per day: 20.0 Years smoked: 50 Smoking pack-years: 50.00 Smoking status: Former smoker Tobacco type: cigarettes Smoking end date: 11/22/17 Alcohol intake: former Substance use: former Substance use type: former substance user Gender identity (if verbalized by the patient): Male Spiritual care concerns: No Meds Home Medications and Allergies Home Medications Medication Instructions Recorded Confirmed Type cholecalciferol (vitamin D3) 25 1,000 unit PO DAILY 10/23/19 01/19/21 History mcg (1,000 unit) capsule rivaroxaban 20 mg tablet 20 mg PO DAILY 10/23/19 01/19/21 History mirabegron [Myrbetriq] 50 mg PO DAILY 01/08/20 01/19/21 History multivitamin 1 cap PO DAILY 01/08/20 01/19/21 History bupropion HCl 100 mg tablet,12 hr 150 mg PO DAILY tablet 02/22/20 01/19/21 History sustained-release melatonin 3 mg tablet 5 mg PO .qhs tablet 04/03/20 01/19/21 History tramadol 50 mg tablet 50 mg PO Q6H PRN #60 tablet 08/26/20 01/19/21 Rx gabapentin 300 mg capsule 300 mg PO TID #90 cap 09/17/20 01/19/21 Rx sildenafil (pulm.hypertension) 20 60 mg PO DAILY PRN #60 tablet 09/17/20 01/19/21 Rx mg tablet diltiazem HCl 180 mg 180 mg PO DAILY
[2021-01-19] VITALS (9 sets, daily range): BP systolic 120–149; BP diastolic 65–97; PULSE 74–86; RESP 20; TEMP 36.7–37.2; O2SAT 89–96; BMI 20.2
--- NOTE | 2021-01-19 00:33 | PC.NURSE ---
This patient, Carlos Medley, was received from [ ED] on 01/19/21 at 0030. Patient/family oriented to unit policies and routines
[2021-01-19 01:09] LABS: Add Urine Microscopic? YES; Appearance Urine Clear (Clear); Bilirubin Urine Negative (Negative); Blood Urine 1+ (Negative); Color Urine Yellow (Yellow); Glucose Urine UA Negative (Negative); Ketones Urine Trace mg/dL (Negative); Leukocyte Esterase Ur Negative LEU/UL (Negative); Mucus Urine Rare /lpf; Nitrate Urine Negative (Negative); Protein Urine 1+ mg/dL (Negative); RBC Urine 0-2 /hpf (0-2); Specific Grav Ur 1.041 (1.001-1.035); Squamous Epithelial Cell Urine Rare /hpf (Few); Urobilinogen Urine Negative mg/dL (<2.0)
[2021-01-19] MEDS: ENOXAPARIN 80 MG/0.8 ML SYRINGE 63 MG SUB-Q ×3 (01:09→19:59)
[2021-01-19] MEDS: SODIUM CHLORIDE 0.9% IV 1,000 ML 150 ML IV CONT ×3 (01:14→18:22)
[2021-01-19 01:26] LABS: Amphetamine Screen Urine Negative (Negative); Barbiturate Screen Urine Negative (Negative); Benzodiazepines Screen Urine Negative (Negative); Cannabinoid Screen Urine Negative (Negative); Cocaine Screen Urine Negative (Negative); Methadone Screen Urine Negative (Negative); Opiate Screen Urine Negative (Negative); Phencyclidine Screen Urine Negative (Negative)
--- NOTE | 2021-01-19 01:27 | PC.NURSE ---
Patient is a former alcoholic and opiate user, specifically requested NO pain meds that you can get hooked on .
--- NOTE | 2021-01-19 05:25 | PC.NURSE ---
Spoke to Dr. Dubon on phone about getting additional orders for pain management and nausea. Pt received IV tylenol and reported no relief. Pts kidney function poor, toradol not a good fit. Will follow up after orders placed. -AEW RN
[2021-01-19] MEDS: MORPHINE SULFATE (*CRX) 2 MG/ML INJ IV PUSH ×4 (06:07→22:40)
[2021-01-19 06:21] LABS: Basophils Percent Auto 0.1 % (0.2-1.2); Hematocrit 46.5 % (42.0-52.0); Hemoglobin 15.9 g/dL (14.0-18.0); Immature Granulocyte Absolute 0.08 K/mm3 (0.00-0.031); Immature Granulocyte Percent A 0.6 % (0-0.5); Lymphocytes Absolute Auto 0.74 K/mm3 (0.9-3.2); Lymphocytes Percent Auto 5.2 % (18.3-44.2); Mean Corpuscular HGB Conc 34.2 g/dl (32-36); Mean Corpuscular Hemoglobin 30.8 pg (26-34); Mean Corpuscular Volume 89.9 fl (80-100); Mean Platelet Volume 10.8 fl (7.4-10.4); Monocytes Absolute Auto 0.7 K/mm3 (0.1-0.6); Monocytes Percent Auto 4.9 % (2.6-8.5); Neutrophils Absolute Auto 12.8 K/mm3 (1.3-6.7); Neutrophils Percent Auto 89.2 % (45.5-73.1); Platelet Count Result 216 k/mm3 (150-375); Red Blood Count 5.17 M/mm3 (4.6-6.20); Red Cell Distribution Width 13.3 % (11.5-14.5); White Blood Count 14.4 K/mm3 (4.5-10.0)
[2021-01-19 06:45] LABS: LDL Cholesterol Direct 49 mg/dL
[2021-01-19] MEDS: ONDANSETRON INJ 4 MG/2 ML VIAL IV PUSH (06:52)
[2021-01-19 07:20] LABS: Anion Gap 10 mmol/L (8-16); Blood Urea Nitrogen 28 mg/dL (9-20); Calcium 8.2 mg/dL (8.4-10.2); Carbon Dioxide 23 mmol/L (22-30); Chloride 106 mmol/L (98-107); Cholesterol 109 mg/dL (0-200); Estimated CRCL calculation 38 ml/min; Estimated Glomerular Filt Rate 54; Glucose 118 mg/dL (75-110); HDL Direct 49 mg/dL; Magnesium 1.8 mg/dL (1.6-2.3); Potassium 4.5 mmol/L (3.4-5.0); Sodium 139 mmol/L (137-145); Triglycerides 41 mg/dL (<150)
[2021-01-19 09:10] LABS: Lipase 4729 U/L (23-300)
--- NOTE | 2021-01-19 11:14 | PM.IMPN ---
Progress Note: A&P Assessment and Plan (1) Acute pancreatitis: Qualifiers: Acute pancreatitis complication: no infection or necrosis Pancreatitis type: unspecified pancreatitis type Qualified Code(s): K85.90 - Acute pancreatitis without necrosis or infection, unspecified Code(s): K85.90 - Acute pancreatitis without necrosis or infection, unspecified Status: Acute Assessment and Plan: Acute onset. Lipase [address] abd/pelvis showed fluid around the pancreas. CT also showed mild gallbladder distention and wall thickening with intra and extrahepatic duct dilatation which was also present on CT from 08/2019 as well. He has a prior hx of alcoholism but reports abstinence for approximately 17 years. Lipid panel negative for hypertriglyceridemia. He does have a hx of cholelithiasis and he has seen Dr. Westfall in the past and they discussed surgery in the future should he become symptomatic. LFTs are normal. Continue bowel rest with NPO for today and overnight Continue analgesics as needed for pain Continue antiemetics as needed Continue IV fluids and will decrease rate to 125cc/hr Await results of RUQ US and will consider general surgery consultation once those results are available given known hx of cholelithiasis (2) Leukocytosis: Qualifiers: Leukocytosis type: unspecified Qualified Code(s): D72.829 - Elevated white blood cell count, unspecified Code(s): D72.829 - Elevated white blood cell count, unspecified Status: Acute Assessment and Plan: Secondary to acute pancreatitis. Monitor CBCd. (3) Acute renal failure: Qualifiers: Acute renal failure type: unspecified Qualified Code(s): N17.9 - Acute kidney failure, unspecified Code(s): N17.9 - Acute kidney failure, unspecified Status: Acute Assessment and Plan: Likely secondary to volume depletion from vomiting, sweating, and poor PO intake. Baseline Cr appears to be 0.7-0.8. Cr was 1.5 on admission and has improved to 1.3 with IV fluids. Continue IV fluid hydration Monitor urine output and renal function (4) Essential (primary) hypertension: Code(s): I10 - Essential (primary) hypertension Status: Chronic Assessment and Plan: He was hypotensive yesterday evening in the emergency department and this improved with IV fluids. Continue diltiazem with sip Plan to resume lisinopril for tomorrow (5) Paroxysmal A-fib: Code(s): I48.0 - Paroxysmal atrial fibrillation Status: Chronic Assessment and Plan: Currently in sinus rhythm. Continue lovenox SQ and transition to oral xarelto when he is eating again. Will give cardizem with a sip of water Continue to monitor Subjective Date/time seen: 01/19/21 11:14 Mr. Medley is a 76 y.o. male with PMH significant for atrial fibrillation on anticoagulation, hypertension, former hx of alcoholism and abstinent for 17 years who is seen in follow-up for acute pancreatitis. He is having significant pain in the epigastrium/RUQ which radiates to the back and does not feel it is much better today. He is still uncomfortable and doesn't notice significant diffserence with position changes. The morphine is helping but his pain comes back within 2 hours after the morphine. He feels a bit bloated still and he is not passing gas. He reports no nausea or vomiting. His mouth is very dry and he feels like he could tolerate a few sips of water. He has no chest pain or dyspnea. he has no dizziness or lightheadedness. He has not had any bowel movements. He has no voiding complaints. Review of Systems Review of Systems: All systems reviewed & are unremarkable except as noted in HPI and below Exam Narrative: Exam Narrative: General: Pleasant, well-developed, and thin 76 y.o. male who is lying semi-recumbent in bed resting. He is uncomfortable due to abdominal pain. HEENMT: No
[2021-01-19] MEDS: dilTIAZem HCL CD 180 MG CAP.ER.24H PO (12:07)
[2021-01-20] VITALS (11 sets, daily range): BP systolic 132–149; BP diastolic 69–82; PULSE 64–104; RESP 16–20; TEMP 36.4–36.7; O2SAT 84–97
[2021-01-20] MEDS: SODIUM CHLORIDE 0.9% IV 1,000 ML 150 ML IV CONT (01:15)
[2021-01-20] MEDS: MORPHINE SULFATE (*CRX) 2 MG/ML INJ IV PUSH ×4 (01:21→07:39)
[2021-01-20 06:11] LABS: Basophils Percent Auto 0.1 % (0.2-1.2); Hematocrit 45.3 % (42.0-52.0); Hemoglobin 15.2 g/dL (14.0-18.0); Immature Granulocyte Absolute 0.13 K/mm3 (0.00-0.031); Immature Granulocyte Percent A 0.9 % (0-0.5); Lymphocytes Absolute Auto 0.85 K/mm3 (0.9-3.2); Lymphocytes Percent Auto 5.8 % (18.3-44.2); Mean Corpuscular HGB Conc 33.6 g/dl (32-36); Mean Corpuscular Hemoglobin 30.4 pg (26-34); Mean Corpuscular Volume 90.6 fl (80-100); Mean Platelet Volume 10.8 fl (7.4-10.4); Monocytes Absolute Auto 1.2 K/mm3 (0.1-0.6); Monocytes Percent Auto 8.4 % (2.6-8.5); Neutrophils Absolute Auto 12.5 K/mm3 (1.3-6.7); Neutrophils Percent Auto 84.8 % (45.5-73.1); Platelet Count Result 186 k/mm3 (150-375); Red Cell Distribution Width 13.7 % (11.5-14.5); White Blood Count 14.8 K/mm3 (4.5-10.0)
[2021-01-20 06:19] LABS: Alanine Aminotransferase 13 U/L (4-50); Alkaline Phosphatase 54 U/L (38-126); Anion Gap 7 mmol/L (8-16); Aspartate Amino Transferase 22 U/L (17-59); Bilirubin,Total 0.8 mg/dL (0.2-1.3); Blood Urea Nitrogen 21 mg/dL (9-20); Calcium 7.8 mg/dL (8.4-10.2); Carbon Dioxide 25 mmol/L (22-30); Chloride 110 mmol/L (98-107); Estimated CRCL calculation 59 ml/min; Estimated Glomerular Filt Rate > 60; Glucose 110 mg/dL (75-110); Lipase 505 U/L (23-300); Potassium 3.8 mmol/L (3.4-5.0); Sodium 142 mmol/L (137-145)
[2021-01-20] MEDS: dilTIAZem HCL CD 180 MG CAP.ER.24H PO (08:23)
[2021-01-20] MEDS: ENOXAPARIN 80 MG/0.8 ML SYRINGE 63 MG SUB-Q ×2 (08:23→20:27)
[2021-01-20] MEDS: SODIUM CHLORIDE 0.9% IV 1,000 ML 125 ML IV CONT (09:21)
--- NOTE | 2021-01-20 09:29 | PM.IMPN ---
Progress Note: A&P Assessment and Plan (1) Acute pancreatitis: Qualifiers: Acute pancreatitis complication: no infection or necrosis Pancreatitis type: unspecified pancreatitis type Qualified Code(s): K85.90 - Acute pancreatitis without necrosis or infection, unspecified Code(s): K85.90 - Acute pancreatitis without necrosis or infection, unspecified Status: Acute Assessment and Plan: Acute onset. Lipase [address] abd/pelvis showed fluid around the pancreas. CT also showed mild gallbladder distention and wall thickening with intra and extrahepatic duct dilatation which was also present on CT from 08/2019 as well. He has a prior hx of alcoholism but reports abstinence for approximately 17 years. Lipid panel negative for hypertriglyceridemia. He does have a hx of cholelithiasis and he has seen Dr. Westfall in the past and they discussed surgery in the future should he become symptomatic. LFTs are normal. Lipase has improved to 505. Will advance to clear liquids today and advance as tolerated Continue analgesics as needed for pain Continue antiemetics as needed Continue IV fluids and will decrease rate to 100cc/hr General surgery consulted for cholelithiasis in setting of pancreatitis, HIDA ordered and pending Will order MRCP Check plain films of the abdomen due to distention, lower quadrant pain (2) Leukocytosis: Qualifiers: Leukocytosis type: unspecified Qualified Code(s): D72.829 - Elevated white blood cell count, unspecified Code(s): D72.829 - Elevated white blood cell count, unspecified Status: Acute Assessment and Plan: Secondary to acute pancreatitis. Monitor CBCd. (3) Acute renal failure: Qualifiers: Acute renal failure type: unspecified Qualified Code(s): N17.9 - Acute kidney failure, unspecified Code(s): N17.9 - Acute kidney failure, unspecified Status: Resolved Assessment and Plan: Resolved. Likely secondary to volume depletion from vomiting, sweating, and poor PO intake. Baseline Cr appears to be 0.7-0.8. Cr was 1.5 on admission and has improved to 0.8 with IV fluids. Continue IV fluid hydration, decrease rate to 100cc/hr and will discontinue fluids once he is tolerating a diet Monitor urine output and renal function (4) Essential (primary) hypertension: Code(s): I10 - Essential (primary) hypertension Status: Chronic Assessment and Plan: Blood pressure was low on admission and this improved with IV fluids. Most recent BP 148/75. Continue diltiazem and lisiniopril Continue to monitor and adjust treatment as necessary (5) Paroxysmal A-fib: Code(s): I48.0 - Paroxysmal atrial fibrillation Status: Chronic Assessment and Plan: Currently in sinus rhythm. Continue lovenox SQ and transition to oral xarelto when he is eating again and pending if he will require surgery. Continue cardizem Continue to monitor (6) Cholelithiasis: Code(s): K80.20 - Calculus of gallbladder without cholecystitis without obstruction Status: Acute Assessment and Plan: Noted on CT abd/pelvis and RUQ US. He has seen Dr. Westfall in the past for cholelithiasis. Given acute episode of pancreatitis, he will likely require cholecystectomy. HIDA ordered and pending General surgery consulted and input is appreciated At this time, I do not feel antibiotics are indicated as imaging findings are likely secondary to pancreatitis and not acute cholecystitis but will review HIDA and MRCP which are ordered for today (7) Hypoxia: Code(s): R09.02 - Hypoxemia Status: Acute Assessment and Plan: He had hypoxia overnight and was placed on 2 liters, likely related to [place] and morphine use. He is supposed to be wearing CPAP at night. He is back on room air today. He does have evidence of COPD on CXR and follows with pulmonology.
--- NOTE | 2021-01-20 11:58 | PM.CNGS ---
Assessment and Plan Assessment and plan (1) Acute pancreatitis: Qualifiers: Acute pancreatitis complication: no infection or necrosis Pancreatitis type: unspecified pancreatitis type Qualified Code(s): K85.90 - Acute pancreatitis without necrosis or infection, unspecified Code(s): K85.90 - Acute pancreatitis without necrosis or infection, unspecified Status: Acute Assessment and Plan: Patient has been admitted for acute pancreatitis which does appear to be gradually improving. His symptoms are somewhat improved and his lipase is normalizing. Will await further evaluation with MRCP today. Due to the likely cause of this pancreatitis being gallbladder related, I have discussed that proceeding with laparoscopic cholecystectomy during this hospitalization is recommended. He is on long-term anticoagulation for AFib, but this has been held since his admission. Will continue therapeutic Lovenox until timing of surgery. The patient has multiple medical comorbidities which make him higher risk for perioperative complications. I have discussed with him that complications of recurrent pancreatitis could be much higher and license distributor. Will plan to repeat labs in the morning and check PT/INR. If he is medically cleared for surgery, then will plan for laparoscopic cholecystectomy with intraoperative cholangiogram, possible open in the next 1-2 days. (2) Cholelithiasis: Code(s): K80.20 - Calculus of gallbladder without cholecystitis without obstruction Status: Acute (3) Hepatitis C: Code(s): B19.20 - Unspecified viral hepatitis C without hepatic coma Status: Inactive (4) [place] (obstructive sleep apnea): Code(s): G47.33 - Obstructive sleep apnea (adult) (pediatric) Status: Acute (5) Pulmonary hypertension: Code(s): I27.20 - Pulmonary hypertension, unspecified Status: Acute (6) Paroxysmal A-fib: Code(s): I48.0 - Paroxysmal atrial fibrillation Status: Chronic History of Present Illness Consult details Consult date: 01/20/21 Reason for consult: other (gallstone pancreatitis) Requesting physician: Yu Dobbs PA-C Narrative: This is a 76-year-old man who presented to the hospital with acute pancreatitis. On 01/18, he began having some upper abdominal pain that radiated to his back. He noticed this after eating leftover lasagna. He had never experienced symptoms quite like this before but does have some other history a of chronic pain. He was evaluated in the emergency department and CT showed evidence of acute pancreatitis and gallbladder wall thickening. He was also noted to have an elevated lipase and elevated white blood count. He was admitted for further treatment. States that his pain is intermittent but does seem to have been gradually improving. He denies any fevers. I had seen the patient in my office electively in 2019 for a finding of cholelithiasis and bile duct dilatation. At that time he was having no symptoms and did not have elevated liver enzymes or any jaundice. Surgery was not offered at that time due to him being completely asymptomatic. He does also report a history of hepatitis C and was treated at [facility] for this. His surgical history also includes a periumbilical hernia repair, sigmoid colectomy for colovesical fistula, and G-tube placement. Review of Systems Review of Systems: All systems reviewed & are unremarkable except as noted in HPI and below Eyes: Eyes: Denies change in vision ENT: Denies hearing loss, Denies neck pain and Denies sore throat Cardiovascular: Cardiovascular: Denies chest pain and Denies dyspnea Respiratory: Respiratory: Denies cough, Denies dyspnea and Denies wheezing Gastrointestinal: Gastrointestinal: Reports as per HPI Genitourinary: Genitourinary: Denies hematuria and Denies dysuria Musculoskeletal: Musculoskeletal: Denies arthralgias, Denies joint swelling and Denies neck pain Allergic/Imm
[2021-01-20] MEDS: GABAPENTIN 300 MG CAPSULE PO (15:19)
[2021-01-20] MEDS: lisinopriL 5 MG TABLET PO (15:20)
[2021-01-20] MEDS: MIRABEGRON 50 MG ER TABLET PO (15:20)
[2021-01-20] MEDS: MAGNESIUM CITRATE 300 ML BTL 150 ML PO (16:05)
[2021-01-20] MEDS: ONDANSETRON INJ 4 MG/2 ML VIAL IV PUSH (17:48)
--- NOTE | 2021-01-20 19:20 | PC.NURSE ---
1700 Patient refused to finish drinking mag citrate. Patient stated is was too acidic and made him nauseous.
[2021-01-20] MEDS: traMADol HCL (*CRX) 50 MG TABLET PO (20:26)
[2021-01-20] MEDS: MELATONIN 5 MG TABLET PO (20:26)
[2021-01-20] MEDS: SODIUM CHLORIDE 0.9% IV 1,000 ML 75 ML IV CONT (20:35)
[2021-01-21] VITALS (17 sets, daily range): BP systolic 108–161; BP diastolic 46–89; PULSE 50–102; RESP 12–22; TEMP 36.4–37.3; O2SAT 91–98
[2021-01-21 06:17] LABS: Basophils Percent Auto 0.2 % (0.2-1.2); Eosinophils Percent Auto 0.2 % (0-4.4); Hematocrit 39.5 % (42.0-52.0); Hemoglobin 13.3 g/dL (14.0-18.0); Immature Granulocyte Absolute 0.15 K/mm3 (0.00-0.031); Immature Granulocyte Percent A 1.2 % (0-0.5); Lymphocytes Absolute Auto 0.93 K/mm3 (0.9-3.2); Lymphocytes Percent Auto 7.4 % (18.3-44.2); Mean Corpuscular HGB Conc 33.7 g/dl (32-36); Mean Platelet Volume 10.5 fl (7.4-10.4); Monocytes Absolute Auto 0.9 K/mm3 (0.1-0.6); Monocytes Percent Auto 7.2 % (2.6-8.5); Neutrophils Absolute Auto 10.5 K/mm3 (1.3-6.7); Neutrophils Percent Auto 83.8 % (45.5-73.1); Platelet Count Result 177 k/mm3 (150-375); Red Blood Count 4.44 M/mm3 (4.6-6.20); Red Cell Distribution Width 13.3 % (11.5-14.5); White Blood Count 12.5 K/mm3 (4.5-10.0)
[2021-01-21 06:26] LABS: INR 1.3; Prothrombin Time 16.4 Seconds (11.1-14.7)
[2021-01-21 06:27] LABS: Alanine Aminotransferase 12 U/L (4-50); Alkaline Phosphatase 48 U/L (38-126); Anion Gap 4 mmol/L (8-16); Aspartate Amino Transferase 21 U/L (17-59); Bilirubin,Total 0.8 mg/dL (0.2-1.3); Blood Urea Nitrogen 21 mg/dL (9-20); Calcium 8.1 mg/dL (8.4-10.2); Carbon Dioxide 27 mmol/L (22-30); Chloride 110 mmol/L (98-107); Estimated CRCL calculation 59 ml/min; Estimated Glomerular Filt Rate > 60; Glucose 110 mg/dL (75-110); Lipase 56 U/L (23-300); Potassium 3.8 mmol/L (3.4-5.0); Sodium 141 mmol/L (137-145)
[2021-01-21] MEDS: traMADol HCL (*CRX) 50 MG TABLET PO (07:41)
[2021-01-21] MEDS: BISACODYL 10 MG SUPPOSITORY RECTAL (09:49)
--- NOTE | 2021-01-21 11:27 | PM.PNGS ---
Progress Note: A&P Assessment and Plan (1) Acute pancreatitis: Qualifiers: Acute pancreatitis complication: no infection or necrosis Pancreatitis type: unspecified pancreatitis type Qualified Code(s): K85.90 - Acute pancreatitis without necrosis or infection, unspecified Code(s): K85.90 - Acute pancreatitis without necrosis or infection, unspecified Status: Acute Assessment and Plan: He continues to show clinical improvement. Lipase normal today and white count is trending down. MRCP showed acute interstitial pancreatitis with cholelithiasis, but no choledocholithiasis. I discussed proceeding with surgery again today with the patient and he is agreeable to proceed. We will add the patient onto the schedule for a laparoscopic cholecystectomy, possible open, by Dr. Westfall today. (2) Cholelithiasis: Code(s): K80.20 - Calculus of gallbladder without cholecystitis without obstruction Status: Acute Subjective Subjective Date/Time Seen: 01/21/21 09:27 Patient reports: no new complaints, feels better and pain is less Interval history: Patient reports feeling better today. Main complaint is arthritic pain throughout the joints in his body and his back. Reports abdominal pain has improved and he is actually not having any at the time of my exam. No nausea or vomiting. No other complaints. Review of Systems Review of Systems: All systems reviewed & are unremarkable except as noted in HPI and below Exam Const: General: alert; No acute distress Orientation/consciousness: patient oriented x3 GI: Inspection: normal to inspection and non-distended GI Palp: Yes Soft to palpation, No Tenderness to palpation present (GI) and No Guarding due to palpation present (GI) Auscultation: normal bowel sounds Neuro: General: moves all extremities and no focal motor deficits Extrem: General: normal to inspection and capillary refill normal Psych: Mental Status: mental status grossly normal Insight: Fair insight present (Psych) Judgement: Good judgement present (Psych) Objective Data Vital Signs Vital Signs: Vital Signs - 24 hr 01/20/21 13:02 01/20/21 14:00 01/20/21 16:00 Temperature 97.9 F Pulse Rate 104 H Respiratory Rate 16 Blood Pressure 149/82 H Pulse Oximetry 90 90 84 L 01/20/21 16:48 01/20/21 20:00 01/20/21 21:16 Temperature 98.0 F Pulse Rate 81 Respiratory Rate 20 Blood Pressure 132/69 Pulse Oximetry 94 94 94 01/20/21 21:56 01/21/21 00:00 01/21/21 05:34 Temperature 98.0 F 97.9 F Pulse Rate 94 50 L Respiratory Rate 20 20 Blood Pressure 120/80 108/46 L Pulse Oximetry 93 92 96 01/21/21 08:00 01/21/21 09:02 Temperature Pulse Rate Respiratory Rate Blood Pressure Pulse Oximetry 92 92 Intake/Output Intake/Output: Intake & Output 01/18/21 01/19/21 01/20/21 01/21/21 23:59 23:59 23:59 23:59 Intake Total 1999 2100 3440 600 Output Total 650 1050 375 Balance 1999 8600 6188 225 Meds/Results Medications: Active Medications Generic Name Dose Route Start Last Admin Trade Name Freq PRN Reason Stop Dose Admin Albuterol 2.5 mg 01/19/21 00:07 Albuterol Sulfate Neb 2.5 Mg/0.5 Ml Inh INHALATION Q4HRT PRN Shortness Of Breath Bupropion HCl 150 mg 01/20/21 09:40 01/20/21 15:20 Bupropion Hcl Sr (12hr) 150 Mg Tab PO 150 mg DAILY HESHAM Administration Diltiazem HCl 180 mg 01/19/21 11:15 01/20/21 08:23 Diltiazem Hcl Cd 180 Mg Cap.Er.24h PO 180 mg DAILY HESHAM Administration Enoxaparin Sodium 63 mg 01/19/21 00:20 01/20/21 20:27 Enoxaparin 80 Mg/0.8 Ml Syringe SUB-Q 63 mg Q12HR HESHAM Administration Gabapentin 300 mg 01/20/21 13:00 01/21/21 08:57 Gabapentin 300 Mg Capsule PO Not Given TID HESHAM Sodium Chloride 1,000 mls @ 75 mls/hr 01/18/21 23:20 01/21/21 07:26 Normal Saline Iv IV CONT Not Given .[id number] HESHAM Cefazolin Sodium 2 gm in 50 mls @ 100 mls/hr 01/21/21 13:00 Anc
--- NOTE | 2021-01-21 11:56 | PM.IMPN ---
Progress Note: A&P Assessment and Plan (1) Acute pancreatitis: Qualifiers: Acute pancreatitis complication: no infection or necrosis Pancreatitis type: unspecified pancreatitis type Qualified Code(s): K85.90 - Acute pancreatitis without necrosis or infection, unspecified Code(s): K85.90 - Acute pancreatitis without necrosis or infection, unspecified Status: Acute Assessment and Plan: Acute onset. Lipase [address] abd/pelvis showed fluid around the pancreas. CT also showed mild gallbladder distention and wall thickening with intra and extrahepatic duct dilatation which was also present on CT from 08/2019 as well. He has history of cholecystitis. He has a prior hx of alcoholism but reports abstinence for approximately 17 years. Lipid panel negative for hypertriglyceridemia. LFTs are normal. Lipase has declined to normal limits at 56 General surgery is following and input is appreciated. Planning for laparoscopic cholecystectomy today. Currently NPO. Continue analgesics as needed for pain Continue IV fluids. NS at 75cc/hr (2) Cholelithiasis: Code(s): K80.20 - Calculus of gallbladder without cholecystitis without obstruction Status: Acute Assessment and Plan: Noted on CT abd/pelvis and RUQ US. He has seen Dr. Westfall in the past for cholelithiasis. MRCP evaluated on 01/20 which demonstrated cholelithiasis with gallbladder distension and no evidence of choledocholithiasis. HIDA scan showed a gallbladder ejection fraction of 27% Plan for laparoscopic cholecystectomy today with Dr. Westfall. Analgesics and antiemetics available as needed Advance diet post-operatively per general surgery (3) Leukocytosis: Qualifiers: Leukocytosis type: unspecified Qualified Code(s): D72.829 - Elevated white blood cell count, unspecified Code(s): D72.829 - Elevated white blood cell count, unspecified Status: Acute Assessment and Plan: Secondary to acute pancreatitis. Improved today. Monitor CBCd. (4) Acute renal failure: Qualifiers: Acute renal failure type: unspecified Qualified Code(s): N17.9 - Acute kidney failure, unspecified Code(s): N17.9 - Acute kidney failure, unspecified Status: Resolved Assessment and Plan: Resolved. Likely secondary to volume depletion from vomiting, sweating, and poor PO intake. Baseline Cr appears to be 0.7-0.8. Cr was 1.5 on admission and improved following IV fluids. Creatinine has returned to baseline. Continue IV fluid hydration while NPO. Will plan to discontinue IV fluids once tolerating diet Monitor urine output and renal function (5) Essential (primary) hypertension: Code(s): I10 - Essential (primary) hypertension Status: Chronic Assessment and Plan: Blood pressure was low on admission (78/66 lowest) and has improved with IV fluids. BP has improved overall, however this morning BP on low end of normal at 108/46. Oral antihypertensives on hold as patient is NPO for surgery. Resume when clinically appropriate Continue to monitor and adjust treatment as necessary (6) Paroxysmal A-fib: Code(s): I48.0 - Paroxysmal atrial fibrillation Status: Chronic Assessment and Plan: Demonstrated to be in normal sinus rhythm based on EKG on presentation. Rate has been well controlled. Continue therapeutic dose lovenox SQ. Transition to oral xarelto when okay with general surgery Cardizem held this morning for surgery. Resume following procedure (7) Hypoxia: Code(s): R09.02 - Hypoxemia Status: Acute Assessment and Plan: He had two episodes of hypoxia 01/20 and was placed on 2 liters supplemental O2. [place] to be related to [place] and morphine use. He does have evidence of COPD on CXR as well as known pulmonary hypertension and follows with pulmonology. CPAP titrated to home settings should be continued
--- NOTE | 2021-01-21 12:07 | WPDANESEPPF ---
Anes - Initial Pre Proc Eval Procedure: Operation Date: 01/21/21 14:30 Proposed Procedures p Laparoscopic Cholecystectomy,Possible Open - Vladimir Westfall DO Date/Time: 01/21/21 12:07 Surgeon: Cheryl Sherwood PA-C Pre Op Diagnosis: pancreatitis Patient Data Age: 76 Gender: M Height: 1.75 m Weight: 62.3 kg Last Vital Signs Temp 36.6 C 01/21/21 05:34 Pulse 50 L 01/21/21 05:34 Resp 20 01/21/21 05:34 BP 108/46 L 01/21/21 05:34 Pulse Ox 92 01/21/21 09:02 Allergies Allergy/AdvReac Type Severity Reaction Status Date / Time hydromorphone Allergy Unknown Unknown Verified 01/18/21 20:55 escitalopram [From Lexapro] AdvReac sexual Verified 01/18/21 20:55 disfunction Home Medications Medication Instructions Recorded Confirmed Type cholecalciferol (vitamin D3) 25 1,000 unit PO DAILY 10/23/19 01/19/21 History mcg (1,000 unit) capsule rivaroxaban 20 mg tablet 20 mg PO DAILY 10/23/19 01/19/21 History mirabegron [Myrbetriq] 50 mg PO DAILY 01/08/20 01/19/21 History multivitamin 1 cap PO DAILY 01/08/20 01/19/21 History bupropion HCl 100 mg tablet,12 hr 150 mg PO DAILY tablet 02/22/20 01/19/21 History sustained-release melatonin 3 mg tablet 5 mg PO .qhs tablet 04/03/20 01/19/21 History tramadol 50 mg tablet 50 mg PO Q6H PRN #60 tablet 08/26/20 01/19/21 Rx gabapentin 300 mg capsule 300 mg PO TID #90 cap 09/17/20 01/19/21 Rx sildenafil (pulm.hypertension) 20 60 mg PO DAILY PRN #60 tablet 09/17/20 01/19/21 Rx mg tablet diltiazem HCl 180 mg 180 mg PO DAILY #30 tablet 11/05/20 01/19/21 Rx tablet,extended release 24 hr pyridoxine (vitamin B6) 100 mg 100 mg PO .every other day tablet 11/05/20 01/19/21 History tablet lisinopril 5 mg tablet 5 mg PO DAILY #90 tablet 01/10/21 01/19/21 Rx Laboratory Tests 01/21/21 01/21/21 01/21/21 06:00 06:00 06:00 WBC 12.5 K/mm3 H K/mm3 (4.5-10.0) RBC 4.44 M/mm3 L M/mm3 (4.6-6.20) Hgb 13.3 g/dL L g/dL (14.0-18.0) Hct 39.5 % L % (42.0-52.0) MCV 89.0 fl fl (80-100) MCH 30.0 pg pg (26-34) MCHC 33.7 g/dl g/dl (32-36) RDW 13.3 % % (11.5-14.5) Plt Count 177 k/mm3 k/mm3 (150-375) MPV 10.5 fl H fl (7.4-10.4) Immature Gran % (Auto) 1.2 % H % (0-0.5) Neut % (Auto) 83.8 % H % (45.5-73.1) Lymph % (Auto) 7.4 % L % (18.3-44.2) [place] % (Auto) 7.2 % % (2.6-8.5) Eos % (Auto) 0.2 % % (0-4.4) Baso % (Auto) 0.2 % % (0.2-1.2) Lymph # (Auto) 0.93 K/mm3 K/mm3 (0.9-3.2) [place] # (Auto) 0.9 K/mm3 H K/mm3 (0.1-0.6) Eos # (Auto) 0.0 K/mm3 K/mm3 (0-0.3) Baso # (Auto) 0.0 K/mm3 K/mm3 (0.0-0.1) Abs Immat Gran (auto) 0.15 K/mm3 H K/mm3 (0.00-0.031) Absolute Neuts (auto) 10.5 K/mm3 H K/mm3 (1.3-6.7) Absolute Nucleated RBC 0.0 K/mm3 K/mm3 (0.0-0.012) Nucleated RBC % 0.0 % % (0.0-0.2) PT 16.4 Seconds H Seconds (11.1-14.7) INR 1.3 Sodium 141 mmol/L mmol/L (137-145) Potassium 3.8 mmol/L mmol/L (3.4-5.0) Chloride 110 mmol/L H mmol/L (98-107) Carbon Dioxide 27 mmol/L mmol/L (22-30) Anion Gap 4 mmol/L L mmol/L (8-16) BUN 21 mg/dL H mg/dL (9-20) Creatinine 0.80 mg/dL mg/dL (0.7-1.3) Estim Creat Clear Calc 59 ml/min ml/min Estimated GFR > 60 (59 - ) Glucose 110 mg/dL mg/dL (75-110) Calcium 8.1 mg/dL L mg/dL (8.4-10.2) Magnesium 2.0 mg/dL mg/dL (1.6-2.3) Total Bilirubin 0.8 mg/dL mg/dL (0.2-1.3) AST 21 U/L U/L (17-59) ALT 12 U/L U/L (4-50) Alkaline Phosphatase 48 U/L U/L (38-126) Total Protein 6.0 g/dL L g/dL (6.3-8.2) Albumin 3.0 g/dL L g/dL (3.5-5.1) Lipase 56 U/L U/L
--- NOTE | 2021-01-21 13:07 | PC.NURSE ---
Pt to surgery per bed
[2021-01-21] MEDS: LACTATED RINGERS 1,000 ML 30 ML IV CONT ×2 (13:20→16:21)
[2021-01-21] MEDS: ceFAZolin 2 GM/D5W 50 ML 2 GM/50 ML BAG IVPB (15:23)
[2021-01-21] MEDS: BUPIVACAINE/EPINEPHRINE 0.5% 30 ML VIAL INFILTRATE (15:53)
--- NOTE | 2021-01-21 16:15 | PM.PROC ---
Procedure Note - Detailed Date of procedure: 01/21/21 Pre-op diagnosis: Acute pancreatitis, cholelithiasis Post-op diagnosis: same Procedure performed: Laparoscopic Cholecystectomy Description of procedure: Procedure as well as risks, benefits, and alternatives were discussed with patient. Written consent was obtained and placed in chart prior to procedure. The patient was brought back to surgical suite. Patient was placed in supine position on operating table. Time-out was done to confirm patient and procedure. Patient was then intubated by the anesthesia department. Abdomen was prepped and draped in sterile fashion using chlorhexidine prep. 0.5% bupivacaine with epinephrine was infiltrated at each site of incision. An 11 millimeter Transverse incision was made just superior to the umbilicus using a 15 blade scalpel. Blunt dissection was carried down to the linea alba. The linea alba was then incised using a 15 blade scalpel. The peritoneum was then bluntly entered. An 11 millimeter trocar was inserted and cabon dioxied insuflation was used to create a pneumoperitoneum. The camera was inserted and the abdomen was inspected. The patient was placed in reverse Trendelenberg position and rotated slightly to the left. A 5 millimeter incision was made in the epigastric region, and a 5 millimeter trocar was inserted under direct visualization. Two 5 millimeter incisions were made in the right upper quadrant, and two 5 millimeter trocars were inserted under direct visualization. The gallbladder was identified and grasped at the fundus and retracted superiorly. It was then grasped at the infundibulum retracted laterally. Careful dissection around the neck of the gallbladder was performed using blunt dissection with a [place] grasper and hook electrocautery. The cystic duct was identified, and a window was created behind it. The cystic artery was also identified and a window was created behind it. The critical view of safety was identified, visualizing the cystic duct running directly into the neck of the gallbladder, and the cystic artery running directly into the wall of the gallbladder. A 5 millimeter clip academic affairs assistant was then used to place 2 clips proximally and 1 clip distally on both the cystic duct and cystic artery. They were then both transected using endoscopic scissors. Once safely away from the eric hepatitis, the gallbladder was dissected free from the liver bed using hook electrocautery. Hemostasis was achieved along the way. The gallbladder was removed completely and then removed through the subxiphoid port. The liver bed was then inspected. Hemostasis appeared adequate, and our clips appeared secure. The area was gently irrigated with sterile saline. No other abnormalities were seen. The patient was flattened out in bed, and 1 final inspection was made around the abdominal cavity. The ports were then removed under direct visualization, the camera was removed, and the pneumoperitoneum was released. The fascia of the umbilical incision was approximated using an 0 Vicryl [id number] suture. The skin of the incisions was approximated using 4-0 Monocryl subcuticular sutures. Exofin glue was applied on top. The patient was then awakened from anesthesia, extubated, and transferred to recovery. Anesthesia: GETA and local (0.5% bupivicaine with epinephrine) Surgeon: Vladimir Westfall DO Estimated blood loss (mL): 20 Pathology: yes Complications: No immediate complications Condition: stable Disposition: floor Findings: This is a 76-year-old man who presented to the emergency department with epigastric pain radiating to his back. He had evidence of pancreatitis with high lipase and CT evidence of inflammation around the pancreas. He was admitted for treatment and subsequent workup showed evidence of cholelithiasis as well. An MRCP showed no evidence of choledocholithiasis and his liver enzymes remained normal. Discussions were made with zuri
[2021-01-21] MEDS: ONDANSETRON INJ 4 MG/2 ML VIAL IV PUSH (16:42)
[2021-01-21] MEDS: diphenhydrAMINE HCl INJ 50 MG/ML VIAL 12.5 MG IV PUSH ×2 (17:00→17:10)
[2021-01-21] MEDS: fentaNYL CITRATE INJ (*CRX) 100 MCG/2 ML VIAL 25 MCG IV PUSH ×2 (17:08→17:11)
[2021-01-21] MEDS: lisinopriL 5 MG TABLET PO (17:50)
[2021-01-21] MEDS: MIRABEGRON 50 MG ER TABLET PO (17:50)
[2021-01-21] MEDS: GABAPENTIN 300 MG CAPSULE PO (17:50)
[2021-01-21] MEDS: dilTIAZem HCL CD 180 MG CAP.ER.24H PO (17:50)
[2021-01-21] MEDS: HYDROcodone/acetaminophen (*CRX) 7.5-325 MG TABLET 1 TAB PO ×2 (18:02→22:25)
[2021-01-21] MEDS: MELATONIN 5 MG TABLET PO (22:25)
[2021-01-22] VITALS (12 sets, daily range): BP systolic 120–149; BP diastolic 58–79; PULSE 51–85; RESP 16–20; TEMP 36.5–37.3; O2SAT 79–92
[2021-01-22 06:35] LABS: Hematocrit 40.4 % (42.0-52.0); Hemoglobin 13.3 g/dL (14.0-18.0); Mean Corpuscular HGB Conc 32.9 g/dl (32-36); Mean Corpuscular Hemoglobin 30.4 pg (26-34); Mean Corpuscular Volume 92.4 fl (80-100); Mean Platelet Volume 10.4 fl (7.4-10.4); Platelet Count Result 184 k/mm3 (150-375); Red Blood Count 4.37 M/mm3 (4.6-6.20); Red Cell Distribution Width 13.5 % (11.5-14.5)
[2021-01-22 06:48] LABS: Alanine Aminotransferase 14 U/L (4-50); Albumin Level 3.2 g/dL (3.5-5.1); Alkaline Phosphatase 52 U/L (38-126); Anion Gap 4 mmol/L (8-16); Aspartate Amino Transferase 23 U/L (17-59); Bilirubin,Total 0.7 mg/dL (0.2-1.3); Blood Urea Nitrogen 22 mg/dL (9-20); Calcium 8.4 mg/dL (8.4-10.2); Carbon Dioxide 31 mmol/L (22-30); Chloride 106 mmol/L (98-107); Estimated CRCL calculation 59 ml/min; Estimated Glomerular Filt Rate > 60; Glucose 120 mg/dL (75-110); Potassium 3.8 mmol/L (3.4-5.0); Sodium 141 mmol/L (137-145)
[2021-01-22] MEDS: MIRABEGRON 50 MG ER TABLET PO (09:37)
[2021-01-22] MEDS: lisinopriL 5 MG TABLET PO (09:38)
--- NOTE | 2021-01-22 09:51 | PM.PNGS ---
Progress Note: A&P Assessment and Plan (1) Cholelithiasis: Code(s): K80.20 - Calculus of gallbladder without cholecystitis without obstruction Status: Acute Assessment and Plan: POD#1 and doing well. Pain well-controlled. Tolerating a diet. Will ask the python django developer to educate the patient on low fat diet, per the pateint's request. Okay from our standpoint to discharge the patient when okay with other services. F/u in [address] Westfall. (2) Acute pancreatitis: Qualifiers: Acute pancreatitis complication: no infection or necrosis Pancreatitis type: unspecified pancreatitis type Qualified Code(s): K85.90 - Acute pancreatitis without necrosis or infection, unspecified Code(s): K85.90 - Acute pancreatitis without necrosis or infection, unspecified Status: Acute (3) Paroxysmal A-fib: Code(s): I48.0 - Paroxysmal atrial fibrillation Status: Chronic Assessment and Plan: Okay to restart Xarelto with this evening's dose. Additional Plan Discussed plan of care with Dr. Westfall. Subjective Subjective Date/Time Seen: 01/22/21 09:51 Post Op day: 1 (lap irvin) Patient reports: no new complaints, feels better and flatus Interval history: Patient doing well today. Reports having one [place] for abd pain last night, but none since. No incisional pain this morning. No other complaints. Review of Systems Review of Systems: All systems reviewed & are unremarkable except as noted in HPI and below Exam Const: General: comfortable, no acute distress, alert and awake Orientation/consciousness: patient oriented x3 Resp: Effort & Inspection: normal respiratory effort Auscultation: clear to auscultation bilaterally Cardio: Rate: regular rate Rhythm: regular rhythm GI: Inspection: non-distended GI Palp: Yes Soft to palpation and Yes Tenderness to palpation present (GI) (incisional, mild) Auscultation: normal bowel sounds Rectal Exam: deferred Other: Abdominal incision clean and dry, glue intact. Scant dry serosanguineous drainage on gauze dressing over right-sided incision. Skin: General skin exam: normal color Neuro: General: moves all extremities and no focal motor deficits Cranial nerves: Yes CN's II-XII intact bilaterally Speech: normal speech Extrem: General: normal to inspection, no clubbing, cyanosis or edema and no calf tenderness Psych: Mental Status: mental status grossly normal Attitude: cooperative Thought process: Normal thought process present Thought content: Yes Normal thought content present Insight: Good insight present (Psych) Judgement: Good judgement present (Psych) Objective Data Vital Signs Vital Signs: Vital Signs - 24 hr 01/21/21 13:36 01/21/21 16:21 01/21/21 16:35 Temperature 99.1 F 98.1 F Pulse Rate 51 L 65 53 L Respiratory Rate 20 22 H 15 Blood Pressure 149/69 H 137/75 146/89 H Pulse Oximetry 95 96 98 01/21/21 16:50 01/21/21 17:05 01/21/21 17:20 Temperature Pulse Rate 56 L 54 L 51 L Respiratory Rate 19 16 12 Blood Pressure 148/75 H 157/83 H 141/72 H Pulse Oximetry 98 95 94 01/21/21 17:35 01/21/21 17:50 01/21/21 18:10 Temperature 97.9 F 97.6 F Pulse Rate 58 L 62 77 Respiratory Rate 16 18 18 Blood Pressure 155/70 H 157/67 H Pulse Oximetry 94 94 92 01/21/21 18:20 01/21/21 19:20 01/21/21 20:00 Temperature 97.9 F 98.5 F Pulse Rate 102 H 57 L 57 L Respiratory Rate 18 18 18 Blood Pressure 161/69 H 139/51 L Pulse Oximetry 95 91 91 01/21/21 23:15 01/22/21 00:00 01/22/21 04:00 Temperature 97.7 F 98.1 F Pulse Rate 60 60 Respiratory Rate 20 20 Blood Pressure 123/61 149/79 H Pulse Oximetry 91 92 91 01/22/21 08:30 Temperature 99.2 F Pulse Rate 57 L Respiratory Rate 16 Blood Pressure 130/67 Pulse Oximetry 90 Intake/Output Intake/Output: Intake & Output 01/19/21 01/20/21 01/21/21 01/22/21 23:59 23:59 23:59 23:59 Intake Total 2100 3440 1070 340 Output Total 650 1050 550 300 Balance 14
--- NOTE | 2021-01-22 11:37 | PCDIET ---
Nutrition consult for low fat diet instruction. See Nutritional Teaching Intervention. Thank you for the consult.
[2021-01-22] MEDS: dilTIAZem HCL CD 180 MG CAP.ER.24H PO (11:56)
[2021-01-22] MEDS: GABAPENTIN 300 MG CAPSULE PO ×2 (12:14→18:44)
--- NOTE | 2021-01-22 12:37 | WPDANESPN ---
Anes - Prog Note Post-Op Date/Time: 01/22/21 12:37 Cardiovascular status: normal Respiratory status: normal Airway patency: baseline Mental status: baseline Post-Op hydration status: normal Vital Signs: Last Vital Signs Temp 37.3 C 01/22/21 08:30 Pulse 57 L 01/22/21 08:30 Resp 16 01/22/21 08:30 BP 130/67 01/22/21 08:30 Pulse Ox 90 01/22/21 08:30 Pain Score (VAS): 1 I/O: Intake & Output 01/21/21 01/22/21 01/22/21 23:59 07:59 15:59 Intake Total 420 100 240 Output Total 100 300 Balance 320 -200 240 Laboratory Tests 01/22/21 06:11 01/22/21 06:11 01/22/21 01/22/21 06:11 06:11 WBC 12.0 H RBC 4.37 L Hgb 13.3 L Hct 40.4 L MCV 92.4 MCH 30.4 MCHC 32.9 RDW 13.5 Plt Count 184 MPV 10.4 Sodium 141 Potassium 3.8 Chloride 106 Carbon Dioxide 31 H Anion Gap 4 L BUN 22 H Creatinine 0.80 Estim Creat Clear Calc 59 Estimated GFR > 60 Glucose 120 H Calcium 8.4 Total Bilirubin 0.7 AST 23 ALT 14 Alkaline Phosphatase 52 Total Protein 6.0 L Albumin 3.2 L Post-procedural complaints: none Patient Feedback: Patient satisfied with anesthetic care.
[2021-01-22] MEDS: ALBUTEROL SULFATE NEB 2.5 MG/0.5 ML INH INHALATION ×3 (13:10→21:09)
--- NOTE | 2021-01-22 16:20 | PM.IMPN ---
Progress Note: A&P Assessment and Plan (1) Acute pancreatitis: Qualifiers: Acute pancreatitis complication: no infection or necrosis Pancreatitis type: unspecified pancreatitis type Qualified Code(s): K85.90 - Acute pancreatitis without necrosis or infection, unspecified Code(s): K85.90 - Acute pancreatitis without necrosis or infection, unspecified Status: Acute Assessment and Plan: Resolved. Acute onset. Lipase [address] abd/pelvis showed fluid around the pancreas felt to be secondary to cholelithiasis. He has a prior hx of alcoholism but reports abstinence for approximately 17 years. Lipid panel negative for hypertriglyceridemia. LFTs are normal. Lipase has declined to normal limits at 56 Continue low-fat diet (2) Cholelithiasis: Code(s): K80.20 - Calculus of gallbladder without cholecystitis without obstruction Status: Acute Assessment and Plan: CT showed mild gallbladder distention and wall thickening with intra and extrahepatic duct dilatation which was also present on CT from 08/2019 as well. He has history of cholecystitis and has seen Dr. Westfall in the past for cholelithiasis. MRCP evaluated on 01/20 which demonstrated cholelithiasis with gallbladder distension and no evidence of choledocholithiasis. HIDA scan showed a gallbladder ejection fraction of 27%. He underwent laparoscopic cholecystectomy on 01/21/[address] Westfall. Tolerated the procedure well and pain is well controlled. Continue low-fat diet. Outpatient follow-up with Dr. Westfall in 2 weeks. (3) Hypoxia: Code(s): R09.02 - Hypoxemia Status: Acute Assessment and Plan: He became hypoxic on 01/20/21, requiring 2 L supplemental O2. Oxygen was weaned he was on room air this morning. However today he was noted to be hypoxic on room air at 79%, although he remained asymptomatic. Etiology for this is likely multifactorial given COPD, pulmonary hypertension, and untreated [place]. He may have a progression of his chronic lung disease and have a chronic O2 requirement. Continue supplemental O2 with goal saturation 90% or above. Wean to goal. Repeat CXR to evaluate for any acute findings Check ABG Continue CPAP titrated to home settings during inpatient stay. Will transition to scheduled albuterol Q 6 Incentive spirometry postoperatively Consider home O2 eval tomorrow if patient is still requiring supplemental O2 with negative workup for acute findings based on workup as described (4) Leukocytosis: Qualifiers: Leukocytosis type: unspecified Qualified Code(s): D72.829 - Elevated white blood cell count, unspecified Code(s): D72.829 - Elevated white blood cell count, unspecified Status: Acute Assessment and Plan: Secondary to acute pancreatitis with continued improvement today. Monitor CBCd. (5) Acute renal failure: Qualifiers: Acute renal failure type: unspecified Qualified Code(s): N17.9 - Acute kidney failure, unspecified Code(s): N17.9 - Acute kidney failure, unspecified Status: Resolved Assessment and Plan: Resolved. Likely secondary to volume depletion from vomiting, sweating, and poor PO intake. Baseline Cr appears to be 0.7-0.8. Cr was 1.5 on admission and improved following IV fluids. Creatinine has returned to baseline. Monitor urine output and renal function (6) Essential (primary) hypertension: Code(s): I10 - Essential (primary) hypertension Status: Chronic Assessment and Plan: Blood pressure was low on admission (78/66 lowest) and has improved with IV fluids. BP has improved overall. Last BP 130/67. Continue Cardizem and lisinopril Monitor BP daily (7) Paroxysmal A-fib: Code(s): I48.0 - Paroxysmal atrial fibrillation Status: Chronic Assessment and Plan: Demonstrated to be in normal sinus rhythm based on EKG on presentation.
[2021-01-22 17:14] LABS: Alveolar/Arterial O2 Gradient 103.8 mmHg; Base Excess ABG 4.8 mEq/l (+/-2.0); Fractional Inspired Oxygen 28 %; HCO3 ABG 27.7 mEq/l (22.0-26.0); Oxygen Content ABG 16.7 %vol (16.0-22.0); Oxygen Saturation ABG 91.1 % (95.0-100.0); Oxyhemoglobin 88.8 % THb (90.0-100.0); PCO2 ABG 35.5 mmHg (35.0-45.0); PO2 FiO2 Ratio Arterial Blood 1.93 %; Total Hemoglobin 13.4 g/dL (12.0-18.0)
[2021-01-22 17:18] LABS: Device NASAL CANNULA; Modified Allen's Test Pass; Site Drawn RIGHT RADIAL
[2021-01-22] MEDS: FUROSEMIDE INJ 40 MG/4 ML VIAL IV PUSH (18:44)
[2021-01-22] MEDS: RIVAROXABAN 20 MG TABLET PO (19:33)
[2021-01-22] MEDS: DOCUSATE SODIUM 100 MG CAPSULE PO (20:50)
[2021-01-22] MEDS: MELATONIN 5 MG TABLET PO (20:50)
[2021-01-22] MEDS: IPRATROPIUM BR 0.02% INH SOLN 0.5 MG/2.5 ML VIAL INHALATION (21:09)
[2021-01-23] VITALS (13 sets, daily range): BP systolic 104–128; BP diastolic 69–80; PULSE 73–102; RESP 16–20; TEMP 36.7–36.9; O2SAT 90–95
[2021-01-23] MEDS: IPRATROPIUM BR 0.02% INH SOLN 0.5 MG/2.5 ML VIAL INHALATION ×4 (02:09→20:44)
[2021-01-23] MEDS: ALBUTEROL SULFATE NEB 2.5 MG/0.5 ML INH INHALATION ×4 (02:09→20:45)
[2021-01-23 06:53] LABS: Hematocrit 40.9 % (42.0-52.0); Hemoglobin 14.1 g/dL (14.0-18.0); Mean Corpuscular HGB Conc 34.5 g/dl (32-36); Mean Corpuscular Hemoglobin 30.8 pg (26-34); Mean Corpuscular Volume 89.3 fl (80-100); Mean Platelet Volume 10.5 fl (7.4-10.4); Platelet Count Result 191 k/mm3 (150-375); Red Blood Count 4.58 M/mm3 (4.6-6.20); Red Cell Distribution Width 13.3 % (11.5-14.5); White Blood Count 9.7 K/mm3 (4.5-10.0)
[2021-01-23 07:08] LABS: Anion Gap 3 mmol/L (8-16); Blood Urea Nitrogen 21 mg/dL (9-20); Calcium 7.9 mg/dL (8.4-10.2); Carbon Dioxide 36 mmol/L (22-30); Chloride 99 mmol/L (98-107); Estimated CRCL calculation 53 ml/min; Estimated Glomerular Filt Rate > 60; Glucose 102 mg/dL (75-110); Potassium 3.2 mmol/L (3.4-5.0); Sodium 138 mmol/L (137-145)
[2021-01-23] MEDS: GABAPENTIN 300 MG CAPSULE PO ×3 (09:36→18:23)
[2021-01-23] MEDS: lisinopriL 5 MG TABLET PO (09:36)
[2021-01-23] MEDS: DOCUSATE SODIUM 100 MG CAPSULE PO ×2 (09:36→20:33)
[2021-01-23] MEDS: MIRABEGRON 50 MG ER TABLET PO (09:36)
[2021-01-23] MEDS: dilTIAZem HCL CD 180 MG CAP.ER.24H PO (09:36)
[2021-01-23] MEDS: POTASSIUM CHLORIDE 20 MEQ TABLET 40 MEQ PO (12:14)
--- NOTE | 2021-01-23 15:49 | PM.IMPN ---
Progress Note: A&P Assessment and Plan (1) Acute pancreatitis: Qualifiers: Acute pancreatitis complication: no infection or necrosis Pancreatitis type: unspecified pancreatitis type Qualified Code(s): K85.90 - Acute pancreatitis without necrosis or infection, unspecified Code(s): K85.90 - Acute pancreatitis without necrosis or infection, unspecified Status: Acute Assessment and Plan: Resolved. Lipase [address] abd/pelvis showed fluid around the pancreas felt to be secondary to cholelithiasis. He has a prior hx of alcoholism but reports abstinence for approximately 17 years. Lipid panel negative for hypertriglyceridemia. LFTs are normal. Lipase has declined to normal limits at 56 Continue low-fat diet (2) Cholelithiasis: Code(s): K80.20 - Calculus of gallbladder without cholecystitis without obstruction Status: Acute Assessment and Plan: CT showed mild gallbladder distention and wall thickening with intra and extrahepatic duct dilatation which was also present on CT from 08/2019 as well. He has history of cholecystitis and has seen Dr. Westfall in the past for cholelithiasis. MRCP evaluated on 01/20 which demonstrated cholelithiasis with gallbladder distension and no evidence of choledocholithiasis. HIDA scan showed a gallbladder ejection fraction of 27%. He underwent laparoscopic cholecystectomy on 01/21/[address] Westfall. Tolerated the procedure well and pain is well controlled. Continue low-fat diet. Outpatient follow-up with Dr. Westfall in 2 weeks. (3) Hypoxia: Code(s): R09.02 - Hypoxemia Status: Acute Assessment and Plan: He became hypoxic on 01/20/21, requiring 2 L supplemental O2. Oxygen was weaned down to room air, however on 01/22, he was noted to be hypoxic on room air at 79%, although he remained asymptomatic. Etiology for this is likely multifactorial given COPD, pulmonary hypertension, and untreated [place]. He may have a progression of his chronic lung disease and have a chronic O2 requirement. ABG consistent with respiratory alkalosis. CTA evaluated given hypoxia in post-op setting is negative for PE. CTA does demonstrate emphysema as well as slight increase in small pleural effusions. Continue supplemental O2 with goal saturation 90% or above. Wean to goal. Consult placed to pulmonology and input is appreciated. Discussed case with Dr. Navarrete. Obtain echocardiogram Overnight oximetry study recommended per pulmonology. Continue Zosyn at this time until further pulmonology evaluation, per discussion with Dr. Navarrete. Clinically, patient does not appear to have underlying infection and hospital-acquired pneumonia seems less likely. Continue CPAP titrated to home settings during inpatient stay. He needs to obtain an outpatient sleep study and obtain home CPAP. Albuterol q6h Incentive spirometry postoperatively Plan for possible home O2 evaluation tomorrow. (4) Leukocytosis: Qualifiers: Leukocytosis type: unspecified Qualified Code(s): D72.829 - Elevated white blood cell count, unspecified Code(s): D72.829 - Elevated white blood cell count, unspecified Status: Acute Assessment and Plan: Secondary to acute pancreatitis with continued improvement. White count within normal limits today. Monitor CBCd. (5) Acute renal failure: Qualifiers: Acute renal failure type: unspecified Qualified Code(s): N17.9 - Acute kidney failure, unspecified Code(s): N17.9 - Acute kidney failure, unspecified Status: Resolved Assessment and Plan: Resolved. Likely secondary to volume depletion from vomiting, sweating, and poor PO intake. Baseline Cr appears to be 0.7-0.8. Cr was 1.5 on admission and improved following IV fluid rehydration. Creatinine has returned to baseline. Monitor urine output and renal function Close monitoring given contrast required for CTA today (
--- NOTE | 2021-01-23 15:52 | PM.CNPUL ---
Assessment and Plan Assessment and plan (1) Hypoxia: Code(s): R09.02 - Hypoxemia Status: Acute Additional Plan Patient with a history of severe panlobular emphysema on his CT scan, mild obstructive abnormality with a PaO2 of 71 on room air on 12/17/2017 who is recovering from pancreatitis and laparoscopic cholecystectomy and now requires oxygen. Patient has no PE and bilateral pleural effusion with compressive atelectasis on a CT scan. Etiology of hypoxemia include fluid overload with bilateral pleural effusions, possible pneumonia -tracheobronchitis, pancreatitis, recent laparoscopic cholecystectomy, progression of his COPD And untreated obstructive sleep apnea.. I will give patient 20 mg IV Lasix now. Patient did cough up green thick phlegm and has some basilar infiltrates on a CT scan. I will continue Zosyn for now. Anticipate discharge on Levaquin 750 mg p.o. q.day. Patient is recovering from pancreatitis which can cause pleural effusions especially on the left side. S/P laparoscopic cholecystectomy With decreased deep breathing and some compromise of diaphragmatic function from an abdominal operation can lead to hypoxemia. I agree with continuation of albuterol and ipratropium nebulizers at this time. I do not see a need for inhaled or systemic steroids. I will perform an overnight oximetry apnea link study on room air to see if patient qualifies for oxygen at night. Patient will ultimately need an outpatient sleep study to requalify him for CPAP. Is written in the medical record that the patient has pulmonary hypertension. Patient denies pulmonary hypertension. Patient does state he takes sildenafil for erectile dysfunction and does not take Flick done a file on a daily basis for any pulmonary hypertension. I will obtain an echocardiogram to assess LV and RV function. will follow with you History of Present Illness History of Present Illness Consult date: 01/23/21 Reason for consult: hypoxemia Chief complaint: Acute pancreatitis, cholelithiasis Narrative: This is a new pulmonary consult on 01/23/2021 for hypoxemia and pulmonary hypertension. Patient is a 76-year-old male with a history of COPD diagnosed approximately 6 years ago with most recent PFTs on 12/17/2017 with post bronchodilator FEV1 of 3.01 L, 106% predicted. TLC 121% predicted functional residual capacity 124% predicted residual volume 129% predicted DLCO corrected for alveolar volume 88%. Patient had a room air blood gas at that time which was pH 7.45 / 32/71. History of obstructive sleep apnea diagnosed a proximally 2-3 years ago he wore CPAP 14 briefly but has been off CPAP recently. Prostate cancer 2009 on sildenafil p.r.n., AFib on Xarelto. Patient's last encounter with the pulmonary clinic was on 11/05/2020 and that was a virtual visit. At that time patient was without respiratory symptoms. And would only get it should short of breath with strenuous activity, M MRC grade 0. Patient was on no inhaled medicines as he had no recent exacerbations and minimal symptoms. Since patient was off his CPAP at home he required a new home sleep study prior to getting a new CPAP machine. This was never completed.was last. patient denies ever having history of pulmonary hypertension. Patient presented on 01/18/2021 with abdominal pain and was found to have pancreatitis. Patient was treated conservatively and improved. During this hospitalization patient also underwent a laparoscopic cholecystectomy on 01/21/2021. Patient did well postoperatively. On 01/22 patient had desaturations to 78% on room air. On 01/[address] angiogram of the chest that showed no pulmonary embolus, small bilateral pleural effusions left greater than right and increased from 01/20/2021, severe panlobular emphysema with an apical predominance and acute pancreatitis. I was consulted for hypoxemia and pulmonary hypertension. 01/23 Currently patient is awake and in no
[2021-01-23 17:14] LABS: NT Pro B Type Natriuretic Pept 1990 PG/ML (5-100)
[2021-01-23] MEDS: FUROSEMIDE INJ 40 MG/4 ML VIAL 20 MG IV PUSH (18:21)
[2021-01-23] MEDS: RIVAROXABAN 20 MG TABLET PO (18:22)
[2021-01-23] MEDS: MELATONIN 5 MG TABLET PO (20:33)
[2021-01-24] VITALS (9 sets, daily range): BP systolic 117–139; BP diastolic 70–93; PULSE 60–113; RESP 14–20; TEMP 36.4–36.6; O2SAT 91–97
--- NOTE | 2021-01-24 | ECHO_ITS ---
Patient Info Name: Carlos Medley Age: 76 years : 1945 Gender: Male Ht: 69 in Wt: 137 lbs BSA: 1.73 m2 BP: 139 / 70 mmHg Heart Rhythm: Atrial Fibrillation Technical Quality: Good Exam Date: 01/24/2021 8:59 AM Exam Location: [facility] Patient Status: Inpatient Admit Date: 01/18/2021 Staff Ordering Physician: Cheryl Sherwood PA-C Commercial Coordinator: Mina Hernandez RDCS, RT Attending Provider: Cheryl Sherwood PA-C Referring Physician: Presley POWER; Exam Type: CA echo doppler color flow Study Info Indications J90 - Pleural effusion, not elsewhere classified I27.0 - Primary pulmonary hypertension Complete two-dimensional, color flow and Doppler transthoracic echocardiogram is performed. Strain analysis performed. Summary 1. Complete two-dimensional, color flow and Doppler transthoracic echocardiogram is performed. 2. Left ventricular chamber dimension is normal. 3. Left ventricular systolic function is mildly reduced, estimated at 40-45%. 4. There is trace mitral valve regurgitation. 5. Atrial fibrillation. Left Ventricle Left ventricular chamber dimension is normal. Left ventricular systolic function is mildly reduced, estimated at 40-45%. Right Ventricle Right ventricular chamber dimension is normal. Left Atria Left atrial chamber dimension is moderately enlarged. Right Atria Right atrial chamber dimension is mildly enlarged. Aortic Valve The aortic valve is normal. Pulmonic Valve The pulmonic valve is not well visualized. Mitral Valve The mitral valve has normal leaflets. There is trace mitral valve regurgitation. Tricuspid Valve The tricuspid valve leaflets are normal. Pericardium/Pleural The pericardium appears normal. Aorta The aortic root size at the sinus of Valsalva is normal. Left Ventricular Outflow Tract Name Value Normal LVOT 2D LVOT Diameter 2.2 cm LVOT Doppler LVOT Peak Gradient 2 mmHg LVOT Mean Gradient 1 mmHg LVOT VTI 12 cm LVOT VTI/AV VTI Ratio 0.8 LVOT Stroke Volume 45 ml LVOT CO 4.3 l/min LVOT CI 2.5 l/min/m2 Mitral Valve Name Value Normal MV Doppler MV Decel [place] 605 cm/s2 MV PHT 40 ms MV Area (PHT) 5.5 cm2 4.0-5.0 MV Diastolic Function MV E Peak Velocity 83 cm/s MV A Peak Velocity 46 cm/s MV E/A 1.8 MV Decel Time 137 ms MV Annular TDI
[2021-01-24 06:17] LABS: Hematocrit 43.4 % (42.0-52.0); Hemoglobin 14.6 g/dL (14.0-18.0); Mean Corpuscular HGB Conc 33.6 g/dl (32-36); Mean Corpuscular Hemoglobin 30.3 pg (26-34); Mean Platelet Volume 10.2 fl (7.4-10.4); Platelet Count Result 209 k/mm3 (150-375); Red Blood Count 4.82 M/mm3 (4.6-6.20); Red Cell Distribution Width 13.1 % (11.5-14.5); White Blood Count 10.3 K/mm3 (4.5-10.0)
[2021-01-24 06:31] LABS: Anion Gap 3 mmol/L (8-16); Blood Urea Nitrogen 20 mg/dL (9-20); Calcium 8.2 mg/dL (8.4-10.2); Carbon Dioxide 35 mmol/L (22-30); Chloride 99 mmol/L (98-107); Estimated CRCL calculation 53 ml/min; Estimated Glomerular Filt Rate > 60; Glucose 128 mg/dL (75-110); Potassium 3.3 mmol/L (3.4-5.0); Sodium 137 mmol/L (137-145)
[2021-01-24] MEDS: ALBUTEROL SULFATE NEB 2.5 MG/0.5 ML INH INHALATION ×2 (07:53→13:44)
[2021-01-24] MEDS: IPRATROPIUM BR 0.02% INH SOLN 0.5 MG/2.5 ML VIAL INHALATION ×2 (07:54→13:44)
--- NOTE | 2021-01-24 08:04 | PCNWS ---
Weekly nutritional screen. Patient is tolerating current diet with adequate intake. Patient has been educated on a low fat diet. No nutritional needs at this time.
[2021-01-24] MEDS: dilTIAZem HCL CD 180 MG CAP.ER.24H PO (08:38)
[2021-01-24] MEDS: GABAPENTIN 300 MG CAPSULE PO ×2 (08:38→12:44)
[2021-01-24] MEDS: lisinopriL 5 MG TABLET PO (08:38)
[2021-01-24] MEDS: MIRABEGRON 50 MG ER TABLET PO (08:38)
[2021-01-24] MEDS: DOCUSATE SODIUM 100 MG CAPSULE PO (08:38)
--- NOTE | 2021-01-24 10:04 | PM.PNPUL ---
Progress Note: A&P Assessment and Plan (1) Hypoxia: Code(s): R09.02 - Hypoxemia Status: Acute Assessment and Plan: Patient with a history of COPD (quit tobacco 2017) with severe panlobular emphysema on his CT scan from 01/23/2021, 08/09/2019, and mild panlobular emphysema on CT from 03/24/2004, with mild obstructive abnormality on PFTs 12/17/2017 with a PaO2 of 71 on room air on 12/17/2017 who is recovering from pancreatitis and laparoscopic cholecystectomy and now requires oxygen. Patient has no PE and bilateral pleural effusion with compressive atelectasis on a CT scan. Etiology of hypoxemia include fluid overload with bilateral pleural effusions, possible pneumonia -tracheobronchitis, pancreatitis, recent laparoscopic cholecystectomy, progression of his COPD And untreated obstructive sleep apnea.. I will give patient 20 mg IV Lasix now. Patient did cough up green thick phlegm and has some basilar infiltrates on a CT scan. I will continue Zosyn for now. Anticipate discharge on Levaquin 750 mg p.o. q.day. Patient is recovering from pancreatitis which can cause pleural effusions especially on the left side. S/P laparoscopic cholecystectomy With decreased deep breathing and some compromise of diaphragmatic function from an abdominal operation can lead to hypoxemia. I agree with continuation of albuterol and ipratropium nebulizers at this time. I do not see a need for inhaled or systemic steroids. I will perform an overnight oximetry apnea link study on room air to see if patient qualifies for oxygen at night. Patient will ultimately need an outpatient sleep study to requalify him for CPAP. Is written in the medical record that the patient has pulmonary hypertension. Patient denies pulmonary hypertension. Patient does state he takes sildenafil for erectile dysfunction and does not take on a daily basis for any pulmonary hypertension. I will obtain an echocardiogram to assess LV and RV function. 01/24 Patient ready for discharge from my perspective. He does qualify for nocturnal oxygen with saturations less than 88% for 246 minutes or 63% of the monitored time. Awaiting echo to assess his chamber sizes and pulmonary hypertension. Discharge on: Rescue albuterol inhaler 2 puffs Q 4 H PRN SOB/wheezing. Oxygen per formal home O2 assessment. Nocturnal oxygen at 2 L. Follow up in pulmonary clinic in 2 weeks. He will need an out patient sleep study to requalify for CPAP use. Discussed with hospitlaist, call with any questions. Subjective Date/time seen: 01/24/21 10:04 Interval history: Narrative: This is a new pulmonary consult on 01/23/2021 for hypoxemia and pulmonary hypertension. Patient is a 76-year-old male with a history of COPD diagnosed approximately 6 years ago with most recent PFTs on 12/17/2017 with post bronchodilator FEV1 of 3.01 L, 106% predicted. TLC 121% predicted functional residual capacity 124% predicted residual volume 129% predicted DLCO corrected for alveolar volume 88%. Patient had a room air blood gas at that time which was pH 7.45 / 32/71. History of obstructive sleep apnea diagnosed a proximally 2-3 years ago he wore CPAP 14 briefly but has been off CPAP recently. Prostate cancer 2008 on sildenafil p.r.n., AFib on Xarelto. Patient's last encounter with the pulmonary clinic was on 11/05/2020 and that was a virtual visit. At that time patient was without respiratory symptoms. And would only get it should short of breath with strenuous activity, M MRC grade 0. Patient was on no inhaled medicines as he had no recent exacerbations and minimal symptoms. Since patient was off his CPAP at home he required a new home sleep study prior to getting a new CPAP machine. This was never completed.was last. patient denies ever having history of pulmonary hypertension. Patient presented on 01/18/2021 with abdominal pain and was found to have pancreatitis. Patient was treated conservatively and improved.
--- NOTE | 2021-01-24 14:25 | PM.DS ---
DS: Admitting Diagnosis Admitting Diagnosis Admitting Diagnosis: pancreatitis DS: Discharge Diagnosis Discharge Diagnosis (1) Acute pancreatitis: Qualifiers: Acute pancreatitis complication: no infection or necrosis Pancreatitis type: unspecified pancreatitis type Qualified Code(s): K85.90 - Acute pancreatitis without necrosis or infection, unspecified Code(s): K85.90 - Acute pancreatitis without necrosis or infection, unspecified Status: Acute Assessment and Plan: Resolved. Lipase [address] abd/pelvis showed fluid around the pancreas felt to be secondary to cholelithiasis. He has a prior hx of alcoholism but reports abstinence for approximately 17 years. Lipid panel negative for hypertriglyceridemia. LFTs are normal. Lipase declined to normal limits at 56. Continue low-fat diet (2) Cholelithiasis: Code(s): K80.20 - Calculus of gallbladder without cholecystitis without obstruction Status: Acute Assessment and Plan: CT showed mild gallbladder distention and wall thickening with intra and extrahepatic duct dilatation which was also present on CT from 08/2019 as well. He has history of cholecystitis and has seen Dr. Westfall in the past for cholelithiasis. MRCP evaluated on 01/20 which demonstrated cholelithiasis with gallbladder distension and no evidence of choledocholithiasis. HIDA scan showed a gallbladder ejection fraction of 27%. He underwent laparoscopic cholecystectomy on 01/21/[address] Westfall. Tolerated the procedure well and pain is well controlled. Continue low-fat diet. Outpatient follow-up with Dr. Westfall in 2 weeks. (3) Hypoxia: Code(s): R09.02 - Hypoxemia Status: Acute Assessment and Plan: He became hypoxic on 01/20/21, requiring 2 L supplemental O2. Oxygen was weaned down to room air, however on 01/22, he was noted to be hypoxic on room air at 79%, although he remained asymptomatic. Etiology for this is likely multifactorial given COPD and untreated [place]. He may have a progression of his chronic lung disease. ABG consistent with respiratory alkalosis. CTA evaluated given hypoxia in post-op setting is negative for PE. CTA does demonstrate emphysema as well as slight increase in small pleural effusions and possible pneumonia vs tracheobronchitis. He had an echo which did not demonstrate pulmonary hypertension. Pulmonology was consulted. Overnight oximetry study demonstrated need for 2 L O2 at night. He was started on Zosyn for pneumonia and will continue with Levaquin for 1 week. He will need to follow up with pulmonology for sleep study to obtain CPAP. Continue prn albuterol. (4) Leukocytosis: Qualifiers: Leukocytosis type: unspecified Qualified Code(s): D72.829 - Elevated white blood cell count, unspecified Code(s): D72.829 - Elevated white blood cell count, unspecified Status: Acute Assessment and Plan: Secondary to acute pancreatitis with gradual improvement. (5) Acute renal failure: Qualifiers: Acute renal failure type: unspecified Qualified Code(s): N17.9 - Acute kidney failure, unspecified Code(s): N17.9 - Acute kidney failure, unspecified Status: Resolved Assessment and Plan: Resolved. Likely secondary to volume depletion from vomiting, sweating, and poor PO intake. Baseline Cr appears to be 0.7-0.8. Cr was 1.5 on admission and improved following IV fluid rehydration. Creatinine returned to baseline. (6) Essential (primary) hypertension: Code(s): I10 - Essential (primary) hypertension Status: Chronic Assessment and Plan: Blood pressure was low on admission (78/66 lowest) and improved with IV fluids. BP reviewed and remained stable on home cardizem and lisinopril. (7) Paroxysmal A-fib: Code(s): I48.0 - Paroxysmal atrial fibrillation Status: Chronic Assessment and Plan: Demonstrated to be in normal sinus rhyth
--- NOTE | 2021-01-24 15:30 | PCRCNOTE ---
PT HAS BEEN SET -UP WITH NOCTURNAL O2, CARE MEDICAL ARRANGING FOR SET UP THIS AFTERNOON/EVENING UPON DISCHARGE. PT WILL HAVE A FORMAL SLEEP STUDY OUTPT. AT A LATER DATE, PER DR TURPIN.
== END 2021-01-24 16:25 | disposition home or self-care (01) | DRG 418 ==
LOC: ANHED 23:36 → ANH3MEDSUR 01-19 07:19
PROVIDERS: Internal Medicine Pulmonary Disease; Physician Assistant; Surgery; Admitting Provider Family Medicine; Emergency Provider Emergency Medicine; PCP Family Medicine; Visit Provider Physician Assistant
PROC: 0FT44ZZ Resection of Gallbladder, Percutaneous Endoscopic Approach (ICD-10-PCS; CPT 47562; principal; 2021-01-21 14:30)
DX: K85.90 Acute pancreatitis without necrosis or infection, unspecified (principal); N17.9 Acute kidney failure, unspecified; J43.1 Panlobular emphysema; K80.20 Calculus of gallbladder without cholecystitis without obstruction; I10 Essential (primary) hypertension; G47.33 Obstructive sleep apnea (adult) (pediatric); I48.0 Paroxysmal atrial fibrillation; E78.2 Mixed hyperlipidemia; R09.02 Hypoxemia; K59.00 Constipation, unspecified; F10.21 Alcohol dependence, in remission; Z79.01 Long term (current) use of anticoagulants; Z85.46 Personal history of malignant neoplasm of prostate; Z86.19 Personal history of other infectious and parasitic diseases; Z87.891 Personal history of nicotine dependence
CPT/HCPCS: 36415; 36600; 71046; 71275; 74019; 74177; 74183; 76376; 76705; 78227; 80048; 80053; 80061; 80307; 81001; 82375; 82805; 83050; 83605; 83690; 83735; 83880; 84484; 85025; 85027; 85610; 86850; 86900; 86901; 87040; 87070; 87205; 88304; 93005; 93306; 94618; 94640; 94762; 99285; A9270; A9537; A9577; J0131; J0690; J1100; J1200; J1650; J1940; J2270; J2405; J2543; J2704; J2710; J2805; J3010; J7030; J7120; Q9967

== ENCOUNTER 2021-02-11 11:18 | Inpatient (IN) | payer MEDICARE, MEDICAID, SELFPAY ==
[2021-02-11] VITALS (14 sets, daily range): BP systolic 89–107; BP diastolic 57–75; PULSE 64–90; RESP 16–28; TEMP 36.4–36.9; O2SAT 86–97; BMI 19.5
--- NOTE | ~2021-02-11 | CT_ITS ---
EXAMINATION: CTA chest PE protocol DATE: 02/11/2021 14:24 INDICATION: Shortness of breath TECHNIQUE: Computed tomography angiography (CTA) of the chest was performed with 100 mL Omnipaque-350 intravenous contrast timed to evaluate the pulmonary arteries. Coronal maximum intensity projection 3D-reconstructions were created by the technologist. Automated exposure control and iterative reconst ruction technique were employed. Exam dose: 181.69 mGy-cm total exam DLP. FINDINGS: There is diagnostic contrast enhancement of the pulmonary arteries and no evidence of pulmo nary embolism. Thoracic aortic aneurysm; the aortic arch measures 3.3 cm diameter. Descending thoracic aorta measure s approximately 3.1 cm diameter. Heart size is within normal range. No pericardial or pleural effusion. No hilar or mediastinal mass lesion or lymphadenopathy. There is severe bullous emphysematous change of the lungs. There are interval bilateral predominantly peripheral upper, middle lobe and lower lobe lobe intersti tial infiltrates and scattered focal patchy peripheral areas of atelectasis and/or consolidation, par ticularly in the right lower lobe, since 01/23/2021. There is interval nearly complete resolution of bi lateral pleural effusions and compressive bilateral lower lung atelectasis since 01/23/2021. Diffuse osteopenia. Degenerative changes of the cervical, thoracic and lumbar spine. There is mild anterolisthesis at C7- T1. IMPRESSION: No evidence of pulmonary embolism Extensive bilateral pulmonary infiltrates Severe bullous emphysema Reviewed, dictated and finalized at [facility]. Reviewed, dictated and finalized at [facility].
--- NOTE | ~2021-02-11 | XR_ITS ---
XR chest 2V 02/11/2021 12:34 Indication: Shortness of breath. Hypertension. COPD. Procedure: 2 view chest Comparison: Comparison to multiple prior studies sequentially, with oldest reviewed study dated 12/05. Findings: Heart size normal. Interval development of patchy bilateral airspace disease, compatible wi th pneumonia. Possible small effusion. The lungs are hyperinflated which is consistent with, but not diagnostic of chronic obstructive pulmonary disease. No pneumothorax identified. Impression: 1: Patchy bilateral airspace disease, compatible with pneumonia. Reviewed, dictated and finalized at location [facility]. Impression: 1: Patchy bilateral airspace disease, compatible with pneumonia.
--- NOTE | 2021-02-11 11:57 | ED.GENADULT ---
HPI - General Adult General Chief complaint: Shortness of Breath/Dyspnea Stated complaint: sob Time Seen by Provider: 02/11/21 11:33 Source: patient History of Present Illness HPI narrative: Patient is 76 y/o male complaining of moderate to severe SOB starting 2-3 weeks ago. He states that resting helps with his symptoms and exertion makes his SOB worse. He has some cough. He has no chest pain or fever. He has chronic SOB due to COPD, but his SOB got worse a few days after his lap irvin on 01/21. He states that he had J&J COVID vaccine shortly after surgery. Related Data Home Medications Medication Instructions Recorded Confirmed cholecalciferol (vitamin D3) 25 1,000 unit PO DAILY 10/23/19 01/19/21 mcg (1,000 unit) capsule rivaroxaban 20 mg tablet 20 mg PO DAILY 10/23/19 01/19/21 Myrbetriq 50 mg PO DAILY 01/08/20 01/19/21 multivitamin 1 cap PO DAILY 01/08/20 01/19/21 bupropion HCl 100 mg tablet,12 hr 150 mg PO DAILY tablet 02/22/20 01/19/21 sustained-release melatonin 3 mg tablet 5 mg PO .qhs tablet 04/03/20 01/19/21 pyridoxine (vitamin B6) 100 mg 100 mg PO .every other day tablet 11/05/20 01/19/21 tablet Allergies Allergy/AdvReac Type Severity Reaction Status Date / Time hydromorphone Allergy Unknown Unknown Verified 02/11/21 12:46 escitalopram [From Lexapro] AdvReac sexual Verified 02/11/21 12:46 disfunction Review of Systems Constitutional: Constitutional: Denies chills, Denies fever(s), Denies headache(s) and Denies weakness Eyes: Eyes: Denies blurry vision ENT: Denies headache(s) and Denies neck pain Cardiovascular: Cardiovascular: Denies chest pain and Reports dyspnea Respiratory: Respiratory: Reports cough and Reports dyspnea Gastrointestinal: Gastrointestinal: Denies abdominal pain, Denies diarrhea, Denies nausea and Denies vomiting Genitourinary: Genitourinary: Denies hematuria and Denies dysuria Musculoskeletal: Musculoskeletal: Denies back pain and Denies neck pain Neurologic: Denies headache(s) and Denies weakness [facility] Past Medical History Medical History Arthritis Atrial fibrillation Atrial fibrillation and flutter Basal cell carcinoma (BCC) Benign prostatic hyperplasia Erectile dysfunction Essential (primary) hypertension Hepatitis C Hypertension Major depressive disorder, single episode, unspecified Mixed hyperlipidemia [place] (obstructive sleep apnea) [place] (obstructive sleep apnea) Paroxysmal A-fib Pulmonary emphysema Pulmonary hypertension Tobacco abuse Surgical History Surgical History H/O arthroscopy of left knee H/O arthroscopy of right knee H/O hernia repair H/O prostate biopsy History of knee replacement History of liver biopsy History of partial colectomy Hx of detached retina repair Family History Family History Mother Family history of gastrointestinal disorder Family history of pancreatic cancer Sibling Family history of Alzheimer's disease Father Family history of heart disease in male family member before age 55 Family history of cardiovascular disease Diabetes mellitus Family history of elevated blood lipids Acute myocardial infarction Other Depression Hypertension Malignant neoplasm of prostate Social History Social History Smoking packs per day: 1 Smoking cigarettes per day: 20.0 Years smoked: 50 Smoking pack-years: 50.00 Smoking status: Former smoker Tobacco type: cigarettes Smoking end date: 11/22/17 Alcohol intake: former Substance use: former Substance use type: former substance user Gender identity (if verbalized by the patient): Male Spiritual care concerns: No Exam Const: General: no acute distress and ill appearing Orientation/consciousness: oriented to person, oriented to place, orient
--- NOTE | 2021-02-11 12:00 | ECG_ITS ---
Measurements Intervals [place] Rate: 99 P: TN: 0 QRS: -41 QRSD: 112 T: 28 QT: 357 QTc: 458 Interpretive Statements ATRIAL FIBRILLATION LEFT AXIS DEVIATION INTRAVENTRICULAR CONDUCTION DELAY BORDERLINE R WAVE PROGRESSION, ANTERIOR LEADS ABNORMAL ECG Electronically Signed On 02-11-2021 13:59:42 CDT by Angel Meeks D.O.
[2021-02-11 12:15] LABS: Alveolar/Arterial O2 Gradient 162.1 mmHg; Base Excess ABG -0.9 mEq/l (+/-2.0); Device NASAL CANNULA; Fractional Inspired Oxygen 36 %; Modified Allen's Test Pass; Oxyhemoglobin 90.3 % THb (90.0-100.0); PCO2 ABG 27.7 mmHg (35.0-45.0); PO2 ABG 62.5 mmHg (80.0-100.0); PO2 FiO2 Ratio Arterial Blood 1.74 %; Site Drawn RIGHT RADIAL; Total Hemoglobin 14.2 g/dL (12.0-18.0); pH ABG 7.497 (7.350-7.450)
[2021-02-11 12:18] LABS: Basophils Percent Auto 0.3 % (0.2-1.2); Eosinophils Absolute Auto 0.1 K/mm3 (0-0.3); Eosinophils Percent Auto 0.8 % (0-4.4); Hemoglobin 14.8 g/dL (14.0-18.0); Immature Granulocyte Absolute 0.04 K/mm3 (0.00-0.031); Immature Granulocyte Percent A 0.5 % (0-0.5); Lymphocytes Absolute Auto 0.74 K/mm3 (0.9-3.2); Lymphocytes Percent Auto 9.3 % (18.3-44.2); Mean Corpuscular HGB Conc 33.6 g/dl (32-36); Mean Corpuscular Hemoglobin 29.4 pg (26-34); Mean Corpuscular Volume 87.3 fl (80-100); Mean Platelet Volume 9.8 fl (7.4-10.4); Monocytes Absolute Auto 0.7 K/mm3 (0.1-0.6); Monocytes Percent Auto 9.3 % (2.6-8.5); Neutrophils Absolute Auto 6.4 K/mm3 (1.3-6.7); Neutrophils Percent Auto 79.8 % (45.5-73.1); Platelet Count Result 354 k/mm3 (150-375); Red Blood Count 5.04 M/mm3 (4.6-6.20); Red Cell Distribution Width 13.3 % (11.5-14.5)
[2021-02-11 12:27] LABS: INR 1.7; Prothrombin Time 20.9 Seconds (11.1-14.7)
[2021-02-11 12:28] LABS: Alanine Aminotransferase 18 U/L (4-50); Albumin Level 3.1 g/dL (3.5-5.1); Alkaline Phosphatase 76 U/L (38-126); Anion Gap 5 mmol/L (8-16); Aspartate Amino Transferase 27 U/L (17-59); Bilirubin,Total 0.7 mg/dL (0.2-1.3); Blood Urea Nitrogen 17 mg/dL (9-20); Calcium 8.2 mg/dL (8.4-10.2); Carbon Dioxide 26 mmol/L (22-30); Chloride 107 mmol/L (98-107); Estimated CRCL calculation 61 ml/min; Estimated Glomerular Filt Rate > 60; Glucose 109 mg/dL (75-110); Partial Thromboplastin Time 30.5 SECONDS (22.3-36.8); Potassium 4.1 mmol/L (3.4-5.0); Sodium 138 mmol/L (137-145)
[2021-02-11 12:41] LABS: NT Pro B Type Natriuretic Pept 1730 PG/ML (5-100); Troponin I < 0.012 ng/mL (0.000-0.034)
[2021-02-11] MEDS: methylPREDNISolone SOD SUCC 125 MG VIAL IV PUSH (12:46)
[2021-02-11 13:33] LABS: D Dimer 2.02 ug/mL (<0.48)
[2021-02-11 16:28] LABS: Lactic Acid Reflex 1.4 mmol/L (0.7-2.1)
[2021-02-11 16:39] LABS: Troponin I < 0.012 ng/mL (0.000-0.034)
--- NOTE | 2021-02-11 18:49 | ADMGEN ---
This patient, Carlos Medley, was admitted to IMU Room 209-01. Patient/family oriented to hospital policies and general routines including ID bracelet, bed and alarms, visiting hours, pain management, procedures, bathroom and other care routines, personal items, smoking policy, room service/diet, and visiting hours. Information on how to activate the Rapid Response Team has been discussed. Patient/Family are encouraged to report perceived risks to care and to ask questions if they do not understand what they are told or what they should do.
[2021-02-11 19:02] LABS: Troponin I < 0.012 ng/mL (0.000-0.034)
--- NOTE | 2021-02-11 20:36 | PM.IMHP ---
H&P: HPI History of Present Illness Date/Time: 02/11/21 20:36 Chief Complaint: shortness of breath Narrative: This is a 76-year-old male with known history of paroxysmal atrial fibrillation chronically anticoagulated on Xarelto, HTN, and prostate cancer who just underwent a laparoscopic cholecystectomy approximately 2 weeks ago and now presented to the hospital with worsening shortness of breath. He reports that 2-3 days after he left the hospital he started to develop worsening shortness of breath as well as a worsening poorly productive cough. His shortness of breath has only worsened over the past few days he has noticed severe shortness of breath. His cough seems to have gotten better. Today when he was having a follow-up visit he was found to have a pulse ox in the 70s on room air. He also reports that he had a COVID vaccine shortly after surgery approximately 2 weeks ago. He denies any significant fever. The patient also has not had any headache, sore throat, chest pain, dysuria, hematuria, nausea, vomiting, diarrhea, lower extremity swelling, redness, or pain. He reports that his surgical incision sites are closed dry and healing well. CTA chest was obtained in the emergency room today which did not demonstrate a pulmonary embolism but did demonstrate extensive bilateral pulmonary infiltrates. The patient was treated with IV antibiotics and was placed on 4 L of oxygen via nasal cannula to maintain his pulse ox sats. On my encounter with the [facility] he is resting comfortably and doing well on 4 L of oxygen he has no other complaints at this time. The patient was sw[facility] for COVID-[facility]. Review of Systems Review of Systems: All systems reviewed & are unremarkable except as noted in HPI and below PMFSH Past Medical History Medical History Arthritis Atrial fibrillation Atrial fibrillation and flutter Basal cell carcinoma (BCC) Benign prostatic hyperplasia Erectile dysfunction Essential (primary) hypertension Hepatitis C Hypertension Major depressive disorder, single episode, unspecified Mixed hyperlipidemia [place] (obstructive sleep apnea) [place] (obstructive sleep apnea) Paroxysmal A-fib Pulmonary emphysema Pulmonary hypertension Tobacco abuse Surgical History Surgical History H/O arthroscopy of left knee H/O arthroscopy of right knee H/O hernia repair H/O prostate biopsy History of knee replacement History of liver biopsy History of partial colectomy Hx of detached retina repair Family History Family History Mother Family history of gastrointestinal disorder Family history of pancreatic cancer Sibling Family history of Alzheimer's disease Father Family history of heart disease in male family member before age 55 Family history of cardiovascular disease Diabetes mellitus Family history of elevated blood lipids Acute myocardial infarction Other Depression Hypertension Malignant neoplasm of prostate Social History Social History Smoking packs per day: 0.5 Smoking cigarettes per day: 10.0 Years smoked: 46 Smoking pack-years: 23.00 Smoking status: Former smoker Tobacco type: cigarettes Smoking end date: 11/22/17 Alcohol intake: former Substance use: never Substance use type: former substance user Gender identity (if verbalized by the patient): Male Spiritual care concerns: No Meds Home Medications and Allergies Home Medications Medication Instructions Recorded Confirmed Type cholecalciferol (vitamin D3) 25 1,000 unit PO DAILY 10/23/19 02/11/21 History mcg (1,000 unit) capsule rivaroxaban 20 mg tablet 20 mg PO DAILY 10/23/19 02/11/21 History Myrbetriq 50 mg PO DAILY 01/08/20 02/11/21 History multivitamin 1 cap PO DAILY 01/08/20
[2021-02-11] MEDS: RIVAROXABAN 20 MG TABLET PO (21:06)
[2021-02-11] MEDS: MELATONIN 5 MG TABLET PO (21:06)
[2021-02-12] VITALS (17 sets, daily range): BP systolic 98–112; BP diastolic 60–68; PULSE 63–85; RESP 18–22; TEMP 36.2–36.7; O2SAT 90–96
[2021-02-12] MEDS: ALBUTEROL SULFATE NEB 2.5 MG/0.5 ML INH 5 MG INHALATION (01:46)
[2021-02-12 02:01] LABS: SARS-CoV-2 RNA PCR Positive
[2021-02-12 07:55] LABS: Basophils Percent Auto 0.2 % (0.2-1.2); Hematocrit 35.5 % (42.0-52.0); Hemoglobin 12.1 g/dL (14.0-18.0); Immature Granulocyte Absolute 0.04 K/mm3 (0.00-0.031); Immature Granulocyte Percent A 0.7 % (0-0.5); Lymphocytes Absolute Auto 0.67 K/mm3 (0.9-3.2); Lymphocytes Percent Auto 11.2 % (18.3-44.2); Mean Corpuscular HGB Conc 34.1 g/dl (32-36); Mean Corpuscular Hemoglobin 29.5 pg (26-34); Mean Corpuscular Volume 86.6 fl (80-100); Mean Platelet Volume 9.4 fl (7.4-10.4); Monocytes Absolute Auto 0.3 K/mm3 (0.1-0.6); Monocytes Percent Auto 5.3 % (2.6-8.5); Neutrophils Percent Auto 82.6 % (45.5-73.1); Platelet Count Result 285 k/mm3 (150-375); Red Cell Distribution Width 13.1 % (11.5-14.5)
[2021-02-12 08:17] LABS: Anion Gap 4 mmol/L (8-16); Blood Urea Nitrogen 19 mg/dL (9-20); Calcium 8.1 mg/dL (8.4-10.2); Carbon Dioxide 27 mmol/L (22-30); Chloride 108 mmol/L (98-107); Estimated CRCL calculation 62 ml/min; Estimated Glomerular Filt Rate > 60; Glucose 173 mg/dL (75-110); Sodium 139 mmol/L (137-145)
[2021-02-12] MEDS: CHOLECALCIFEROL 1,000 UNITS TABLET 1000 UNITS PO (09:21)
[2021-02-12] MEDS: GABAPENTIN 300 MG CAPSULE PO ×3 (09:22→16:52)
[2021-02-12] MEDS: MULTIVITAMINS THERAPEUTIC TAB (*BKC) 1 TABLET PO (09:22)
[2021-02-12] MEDS: lisinopriL 5 MG TABLET PO (09:22)
[2021-02-12] MEDS: dilTIAZem HCL CD 180 MG CAP.ER.24H PO (09:22)
[2021-02-12] MEDS: REMDESIVIR 200 MG/NS 250 ML 200 MG/250 ML BAG 250 MG IVPB (09:53)
[2021-02-12] MEDS: DEXAMETHASONE SOD PHOS INJ 4 MG/ML VIAL 6 MG IV PUSH (09:53)
--- NOTE | 2021-02-12 10:52 | PM.CNPUL ---
Assessment and Plan Assessment and plan (1) Acute respiratory failure with hypoxia: Code(s): J96.01 - Acute respiratory failure with hypoxia Status: Acute Assessment and Plan: continue oxygenation to maintain O2 sats of 92% or greater (2) Pneumonia due to COVID-19 virus: Code(s): U07.1 - COVID-19; J12.82 - Pneumonia due to coronavirus disease 2019 Status: Acute Assessment and Plan: despite his late presentation he may still benefit from antiviral medication and systemic steroids -Will start dexamethasone 6 mg IV Q 6 hours for 9 days. He received Solu-Medrol 125 mg IV x1 in the emergency department last night -Will start Remdesivir 200 mg x 1 today followed by 100 mg daily starting tomorrow for a total of 9 days (3) COPD (chronic obstructive pulmonary disease): Code(s): J44.9 - Chronic obstructive pulmonary disease, unspecified Status: Acute Assessment and Plan: Will start him on the Symbicort 160/4.5 mcg 2 puffs q.12 hours as well as Spiriva 18 mcg 1 puff daily History of Present Illness History of Present Illness Consult date: 02/12/21 Chief complaint: pneumonia/hypoxia Narrative: This is a very pleasant 76-year-old male with a history of COPD, atrial fibrillation, hepatitis C and obstructive sleep apnea Who presents with shortness of breath going on for approximately 2-3 weeks. He had a laparoscopic cholecystectomy on January 21, 2021 he received a Deshaun and Deshaun COVID-19 vaccine on January 22 or and later began to have shortness of breath approximately 3-4 days later. He was admitted yesterday with acute hypoxemic respiratory failure and is currently on 6 L by face mask satting in the low 90s. He had bilateral subpleural airspace and ground-glass infiltrates and his SARS-CoV-2 PCR was positive. It is likely that the patient contracted COVID-19 within the past 2-3 weeks and before full immunity has developed from the vaccination. He denies loss of taste or smell or decrease in appetite, nausea or vomiting. His only two symptoms are cough and dyspnea on exertion. Review of Systems Review of Systems: All systems reviewed & are unremarkable except as noted in HPI and below PMFSH Past Medical History Medical History Arthritis Atrial fibrillation Atrial fibrillation and flutter Basal cell carcinoma (BCC) Benign prostatic hyperplasia Erectile dysfunction Essential (primary) hypertension Hepatitis C Hypertension Major depressive disorder, single episode, unspecified Mixed hyperlipidemia [place] (obstructive sleep apnea) [place] (obstructive sleep apnea) Paroxysmal A-fib Pulmonary emphysema Pulmonary hypertension Tobacco abuse Surgical History Surgical History H/O arthroscopy of left knee H/O arthroscopy of right knee H/O hernia repair H/O prostate biopsy History of knee replacement History of liver biopsy History of partial colectomy Hx of detached retina repair Family History Family History Mother Family history of gastrointestinal disorder Family history of pancreatic cancer Sibling Family history of Alzheimer's disease Father Family history of heart disease in male family member before age 55 Family history of cardiovascular disease Diabetes mellitus Family history of elevated blood lipids Acute myocardial infarction Other Depression Hypertension Malignant neoplasm of prostate Social History Social History Smoking packs per day: 0.5 Smoking cigarettes per day: 10.0 Years smoked: 46 Smoking pack-years: 23.00 Smoking status: Former smoker Tobacco type: cigarettes Smoking end date: 11/22/17 Alcohol intake: former Substance use: never Substance use type: former substance user Gender identity (if verbalized by the pa
[2021-02-12] MEDS: RIVAROXABAN 20 MG TABLET PO (16:52)
--- NOTE | 2021-02-12 16:59 | PM.IMPN ---
Progress Note: A&P Assessment and Plan (1) Acute respiratory failure with hypoxia: Code(s): J96.01 - Acute respiratory failure with hypoxia Status: Acute Assessment and Plan: Patient has been admitted to IMU, continue oxygen supplementation and treatment for pneumonia. Wean off oxygen when possible. Continuous pulse oximetry. RT assess and treat. Patient is a 76-year-old male with history of COPD, hypertension, and defibrillator, he recently received COVID-19 vaccine on January 22, however he presented emergency depart with a complaint of cough and shortness of breath CT scan of the chest showed bilateral infiltrate suspicious COVID do more patient is seen by pulmonology and suspect the patient may have contracted COVID-19 2-3 weeks a and now he presents for evaluation, patient has not had fever however his oxygen requirement is high to 6 L per [place], commercial cleaner has started the patient dexamethasone 12/23/ and remdesivir 01/01 is clinically stable will continue to monitor, patient be seen by commercial cleaner and further recommendation to follow (2) Pneumonia: Qualifiers: Laterality: bilateral Lung location: unspecified part of lung Pneumonia type: due to unspecified organism Qualified Code(s): J18.9 - Pneumonia, unspecified organism Code(s): J18.9 - Pneumonia, unspecified organism Status: Acute Assessment and Plan: Rule out acute bacterial pneumonia versus COVID-19 pneumonia. Patient likely developed pneumonia after surgery probably from atelectasis. Continue IV antibiotics, blood and sputum cultures pending. Continue oxygen supplementation. Continue bronchodilators. Antitussives as needed. (3) Person under investigation for COVID-19: Code(s): Z20.822 - Contact with and (suspected) exposure to COVID-19 Status: Acute Assessment and Plan: Patient has been swab for COVID-19. Continue droplet isolation. Continue supportive care. COVID-19 results pending. (4) Paroxysmal A-fib: Code(s): I48.0 - Paroxysmal atrial fibrillation Status: Chronic Assessment and Plan: Currently rate controlled. Continue Xarelto and Cardizem. (5) Essential (primary) hypertension: Code(s): I10 - Essential (primary) hypertension Status: Chronic Assessment and Plan: Stable. Monitor blood pressure. Continue home antihypertensives. Subjective Date/time seen: Patient is a 76-year-old male with history of COPD, hypertension, and defibrillator, he recently received COVID-19 vaccine on January 22, however he presented emergency depart with a complaint of cough and shortness of breath CT scan of the chest showed bilateral infiltrate suspicious COVID do more patient is seen by pulmonology and suspect the patient may have contracted COVID-19 2-3 weeks a and now he presents for evaluation, patient has not had fever however his oxygen requirement is high to 6 L per [place], commercial cleaner has started the patient dexamethasone 12/23/ and remdesivir 01/01 is clinically stable will continue to monitor, patient be seen by commercial cleaner and further recommendation to follow Review of Systems Review of Systems: All systems reviewed & are unremarkable except as noted in HPI and below Exam Narrative: Exam Narrative: Patient appears chronically ill Patient is comfortable, NAD HEENT: eyes are clear and none icteric LUNGS: Normal respiratory effort ABD: Not distended Lower extremities: no edema SKIN: nonjaundiced Neuro: grossly intact and normal speech. Objective Data Vital Signs Vital Signs: Vital Signs - 24 hr 02/11/21 17:30 02/11/21 17:55 02/11/21 18:00 Temperature 98.5 F Pulse Rate 82 75 77 Respiratory Rate 22 H 22 H Blood Pressure 95/67 L 98/62 L Pulse Oximetry 93 92 02/11/21 18:59 02/11/21 20:00 02/11/21 22:00 Temperature 97.6 F Pulse Rate 82 72 Respiratory Rate 16 Blood Pressure 100/62 Pulse Oximetry 94 93 02/11/21 23:17 02/12/21 00:00 03
[2021-02-12] MEDS: MIRABEGRON 50 MG ER TABLET PO (21:17)
[2021-02-12] MEDS: MELATONIN 5 MG TABLET PO (21:17)
[2021-02-13] VITALS (21 sets, daily range): BP systolic 97–118; BP diastolic 57–71; PULSE 58–92; RESP 12–24; TEMP 36.6–37.1; O2SAT 90–97
[2021-02-13] MEDS: BUDESONIDE/FORMOTEROL (*SP) 160-4.5 MCG 6 GM INH 2 PUFF INHALATION (02:11)
[2021-02-13] MEDS: traMADol HCL (*CRX) 50 MG TABLET PO (03:34)
[2021-02-13 05:10] LABS: Hematocrit 35.4 % (42.0-52.0); Hemoglobin 11.8 g/dL (14.0-18.0); Mean Corpuscular HGB Conc 33.3 g/dl (32-36); Mean Corpuscular Hemoglobin 29.3 pg (26-34); Mean Corpuscular Volume 87.8 fl (80-100); Mean Platelet Volume 9.7 fl (7.4-10.4); Platelet Count Result 306 k/mm3 (150-375); Red Blood Count 4.03 M/mm3 (4.6-6.20); Red Cell Distribution Width 13.2 % (11.5-14.5); White Blood Count 15.8 K/mm3 (4.5-10.0)
[2021-02-13 05:26] LABS: Alanine Aminotransferase 17 U/L (4-50); Anion Gap 5 mmol/L (8-16); Blood Urea Nitrogen 21 mg/dL (9-20); Calcium 8.6 mg/dL (8.4-10.2); Carbon Dioxide 26 mmol/L (22-30); Chloride 108 mmol/L (98-107); Estimated CRCL calculation 61 ml/min; Estimated Glomerular Filt Rate > 60; Glucose 135 mg/dL (75-110); Potassium 4.2 mmol/L (3.4-5.0); Sodium 139 mmol/L (137-145)
[2021-02-13] MEDS: BUDESONIDE RESPULE NEB 0.5 MG/2 ML AMP 1 MG INHALATION ×2 (09:39→20:11)
[2021-02-13] MEDS: FUROSEMIDE INJ 40 MG/4 ML VIAL 20 MG IV PUSH (10:58)
[2021-02-13] MEDS: GABAPENTIN 300 MG CAPSULE PO ×3 (11:01→18:34)
[2021-02-13] MEDS: DEXAMETHASONE SOD PHOS INJ 4 MG/ML VIAL 6 MG IV PUSH (11:01)
[2021-02-13] MEDS: lisinopriL 5 MG TABLET PO (11:01)
[2021-02-13] MEDS: CHOLECALCIFEROL 1,000 UNITS TABLET 1000 UNITS PO (11:02)
[2021-02-13] MEDS: REMDESIVIR 100 MG/NS 250 ML 100 MG/250 ML BAG 250 MG IVPB (11:02)
[2021-02-13] MEDS: MULTIVITAMINS THERAPEUTIC TAB (*BKC) 1 TABLET PO (11:02)
[2021-02-13] MEDS: dilTIAZem HCL CD 180 MG CAP.ER.24H PO (11:02)
--- NOTE | 2021-02-13 12:33 | PM.PNPUL ---
Progress Note: A&P Assessment and Plan (1) Pneumonia due to COVID-19 virus: Code(s): U07.1 - COVID-19; J12.82 - Pneumonia due to coronavirus disease 2019 Status: Acute Assessment and Plan: despite his late presentation he may still benefit from antiviral medication and systemic steroids -Will start dexamethasone 6 mg IV Q 6 hours for 9 days. He received Solu-Medrol 125 mg IV x1 in the emergency department last night -Will start Remdesivir 200 mg x 1 today followed by 100 mg daily starting tomorrow for a total of 9 days (2) COPD (chronic obstructive pulmonary disease): Code(s): J44.9 - Chronic obstructive pulmonary disease, unspecified Status: Acute Assessment and Plan: d/c Symbicort and will start Ipratropium 0.5 mg Q6h along with Pulmicort 0.5 mg Q12h (3) Acute respiratory failure with hypoxia: Code(s): J96.01 - Acute respiratory failure with hypoxia Status: Acute Assessment and Plan: Has EF of 40-45%. Will give 20 mg IV lasix today since he is in positive fluid balance. Should try to keep euvolemic. BP and HR well controlled. Subjective Date/time seen: 02/13/21 12:33 Interval history: No significant change since yesterday. Still on high doses of oxygen by face mask but does not appear in any respiratory distress. He claims his appetite is still well and he is not short of breath at rest. Review of Systems Review of Systems: All systems reviewed & are unremarkable except as noted in HPI and below Exam Const: General: cooperative, healthy appearing, comfortable, no acute distress, well developed, alert, awake and Physically active Orientation/consciousness: oriented to person and oriented to place Eyes: General: appearance normal, both eyes and all related structures Neck: Neck: trachea midline and supple Resp: Effort & Inspection: normal respiratory effort Auscultation: diminished lung sounds Cardio: Rate: regular rate Rhythm: regular rhythm Heart sounds: S1 normal heart sound present and S2 normal heart sound present Skin: General skin exam: normal color and no rashes or lesions noted Neuro: General: oriented to person, oriented to place, oriented to time and patient oriented x3 Extrem: General: normal to inspection and no clubbing, cyanosis or edema Psych: Appearance: grossly normal and well kempt Mental Status: mental status grossly normal Objective Data Vital Signs Vital Signs: Vital Signs - 24 hr 02/12/21 14:00 02/12/21 16:00 02/12/21 18:00 Temperature 36.5 C Pulse Rate 76 72 75 Respiratory Rate 20 Blood Pressure 105/64 Pulse Oximetry 92 02/12/21 19:48 02/12/21 20:00 02/12/21 21:50 Temperature 36.2 C L Pulse Rate 74 76 Respiratory Rate 18 Blood Pressure 98/60 L Pulse Oximetry 93 93 93 02/12/21 22:00 02/12/21 23:49 02/13/21 00:00 Temperature 36.7 C Pulse Rate 74 85 68 Respiratory Rate 20 Blood Pressure 102/67 Pulse Oximetry 91 92 02/13/21 02:00 02/13/21 03:34 02/13/21 04:00 Temperature 37.1 C Pulse Rate 70 70 70 Respiratory Rate 20 Blood Pressure 115/71 Pulse Oximetry 92 94 02/13/21 06:00 02/13/21 08:00 02/13/21 08:33 Temperature 36.6 C Pulse Rate 61 58 L 64 Respiratory Rate 24 H 20 Blood Pressure 118/66 Pulse Oximetry 93 93 02/13/21 09:39 02/13/21 09:49 02/13/21 10:00 Temperature Pulse Rate 85 81 77 Respiratory Rate 20 20 Blood Pressure Pulse Oximetry 02/13/21 12:00 Temperature Pulse Rate Respiratory Rate Blood Pressure Pulse Oximetry 93 Intake/Output Intake/Output: Intake & Output 02/10/21 02/11/21 02/12/21 02/13/21 23:59 23:59 23:59 23:59 Intake Total 300 1350 712 Output Total 510 200 140 Balance -210 1150 572 Meds/Results Medications: Active Medications Generic Name Dose Route Start Last Admin Trade Name Freq PRN Reason Stop Dose Admin Albuterol 2.5 mg 02/12/21 13:46 Albuterol Sulfate Neb 2.5 Mg/0.5 Ml In
[2021-02-13] MEDS: IPRATROPIUM BR 0.02% INH SOLN 0.5 MG/2.5 ML VIAL INHALATION ×2 (13:49→20:11)
--- NOTE | 2021-02-13 16:42 | PM.IMPN ---
Progress Note: A&P Assessment and Plan (1) Acute respiratory failure with hypoxia: Code(s): J96.01 - Acute respiratory failure with hypoxia Status: Acute Assessment and Plan: 02/13/21 16:42 Patient has been admitted to IMU, continue oxygen supplementation and treatment for pneumonia. Wean off oxygen when possible. Continuous pulse oximetry. RT assess and treat. Patient is a 76-year-old male with history of COPD, hypertension, and defibrillator, he recently received COVID-19 vaccine on January 22, however he presented emergency depart with a complaint of cough and shortness of breath CT scan of the chest showed bilateral infiltrate suspicious COVID do more patient is seen by pulmonology and suspect the patient may have contracted COVID-19 2-3 weeks a and now he presents for evaluation, patient has not had fever however his oxygen requirement is high to 6 L per [place], food service clerk has started the patient is clinically stable will continue to monitor, patient be seen by food service clerk and further recommendation to follow. 02/13 patient remains afebrile he is requiring FiO2 of 50% and rate of 15, he is sitting on the bed and able to communicate, will continue dexamethasone 3/10 and remdesivir 3/ patient seen by food service clerk and further recommendation to follow and appreciate. (2) Pneumonia: Qualifiers: Laterality: bilateral Lung location: unspecified part of lung Pneumonia type: due to unspecified organism Qualified Code(s): J18.9 - Pneumonia, unspecified organism Code(s): J18.9 - Pneumonia, unspecified organism Status: Acute Assessment and Plan: Rule out acute bacterial pneumonia versus COVID-19 pneumonia. Patient likely developed pneumonia after surgery probably from atelectasis. Continue IV antibiotics, blood and sputum cultures pending. Continue oxygen supplementation. Continue bronchodilators. Antitussives as needed. (3) Person under investigation for COVID-19: Code(s): Z20.822 - Contact with and (suspected) exposure to COVID-19 Status: Acute Assessment and Plan: Patient has been swab for COVID-19. Continue droplet isolation. Continue supportive care. COVID-19 results pending. (4) Paroxysmal A-fib: Code(s): I48.0 - Paroxysmal atrial fibrillation Status: Chronic Assessment and Plan: Currently rate controlled. Continue Xarelto and Cardizem. (5) Essential (primary) hypertension: Code(s): I10 - Essential (primary) hypertension Status: Chronic Assessment and Plan: Stable. Monitor blood pressure. Continue home antihypertensives. Subjective Date/time seen: 02/13/21 16:42 Patient has been admitted to IMU, continue oxygen supplementation and treatment for pneumonia. Wean off oxygen when possible. Continuous pulse oximetry. RT assess and treat. Patient is a 76-year-old male with history of COPD, hypertension, and defibrillator, he recently received COVID-19 vaccine on January 22, however he presented emergency depart with a complaint of cough and shortness of breath CT scan of the chest showed bilateral infiltrate suspicious COVID do more patient is seen by pulmonology and suspect the patient may have contracted COVID-19 2-3 weeks a and now he presents for evaluation, patient has not had fever however his oxygen requirement is high to 6 L per [place], food service clerk has started the patient is clinically stable will continue to monitor, patient be seen by food service clerk and further recommendation to follow. 02/13 patient remains afebrile he is requiring FiO2 of 50% and rate of 15, he is sitting on the bed and able to communicate, will continue dexamethasone 3/10 and remdesivir 3/10 patient seen by food service clerk and further recommendation to follow and appreciate. Exam Narrative: Exam Narrative: Patient appears chronically ill Patient is comfortable, NAD HEENT: eyes are clear and none icteric LUNGS: Normal respiratory effort ABD:
[2021-02-13] MEDS: RIVAROXABAN 20 MG TABLET PO (18:34)
[2021-02-13] MEDS: ALBUTEROL SULFATE NEB 2.5 MG/0.5 ML INH INHALATION (20:11)
[2021-02-13] MEDS: MELATONIN 5 MG TABLET PO (20:43)
[2021-02-13] MEDS: MIRABEGRON 50 MG ER TABLET PO (20:43)
[2021-02-14] VITALS (22 sets, daily range): BP systolic 100–115; BP diastolic 57–69; PULSE 56–94; RESP 14–20; TEMP 36–37.1; O2SAT 64–98
[2021-02-14] MEDS: ALBUTEROL SULFATE NEB 2.5 MG/0.5 ML INH INHALATION ×2 (02:40→22:17)
[2021-02-14] MEDS: IPRATROPIUM BR 0.02% INH SOLN 0.5 MG/2.5 ML VIAL INHALATION ×4 (02:40→22:16)
[2021-02-14 05:10] LABS: Hematocrit 33.8 % (42.0-52.0); Hemoglobin 11.6 g/dL (14.0-18.0); Mean Corpuscular HGB Conc 34.3 g/dl (32-36); Mean Corpuscular Hemoglobin 29.4 pg (26-34); Mean Corpuscular Volume 85.8 fl (80-100); Mean Platelet Volume 9.7 fl (7.4-10.4); Platelet Count Result 333 k/mm3 (150-375); Red Blood Count 3.94 M/mm3 (4.6-6.20); Red Cell Distribution Width 13.2 % (11.5-14.5); White Blood Count 13.5 K/mm3 (4.5-10.0)
[2021-02-14 05:35] LABS: Alanine Aminotransferase 21 U/L (4-50); Anion Gap 3 mmol/L (8-16); Blood Urea Nitrogen 25 mg/dL (9-20); Calcium 8.3 mg/dL (8.4-10.2); Carbon Dioxide 29 mmol/L (22-30); Chloride 105 mmol/L (98-107); Estimated CRCL calculation 69 ml/min; Estimated Glomerular Filt Rate > 60; Glucose 135 mg/dL (75-110); Potassium 4.4 mmol/L (3.4-5.0); Sodium 137 mmol/L (137-145)
[2021-02-14 06:58] LABS: Pneumococcal Antigen Urine Not Detected (Not Detected)
[2021-02-14] MEDS: BUDESONIDE RESPULE NEB 0.5 MG/2 ML AMP 1 MG INHALATION ×2 (08:17→22:16)
[2021-02-14] MEDS: DEXAMETHASONE SOD PHOS INJ 4 MG/ML VIAL 6 MG IV PUSH (08:33)
[2021-02-14] MEDS: FUROSEMIDE INJ 40 MG/4 ML VIAL 20 MG IV PUSH (08:33)
[2021-02-14] MEDS: GABAPENTIN 300 MG CAPSULE PO ×3 (08:33→17:28)
[2021-02-14] MEDS: CHOLECALCIFEROL 1,000 UNITS TABLET 1000 UNITS PO (08:33)
[2021-02-14] MEDS: MULTIVITAMINS THERAPEUTIC TAB (*BKC) 1 TABLET PO (08:34)
[2021-02-14] MEDS: dilTIAZem HCL CD 180 MG CAP.ER.24H PO (08:34)
[2021-02-14] MEDS: lisinopriL 5 MG TABLET PO (08:34)
[2021-02-14] MEDS: REMDESIVIR 100 MG/NS 250 ML 100 MG/250 ML BAG 250 MG IVPB (10:30)
--- NOTE | 2021-02-14 13:28 | PM.PNPUL ---
Progress Note: A&P Assessment and Plan (1) Pneumonia due to COVID-19 virus: Code(s): U07.1 - COVID-19; J12.82 - Pneumonia due to coronavirus disease 2019 Status: Acute Assessment and Plan: despite his late presentation he may still benefit from antiviral medication and systemic steroids -Will start dexamethasone 6 mg IV Q 6 hours for 9 days. He received Solu-Medrol 125 mg IV x1 in the emergency department last night -Will start Remdesivir 200 mg x 1 today followed by 100 mg daily starting tomorrow for a total of 9 days (2) COPD (chronic obstructive pulmonary disease): Code(s): J44.9 - Chronic obstructive pulmonary disease, unspecified Status: Acute Assessment and Plan: d/c Symbicort and will start Ipratropium 0.5 mg Q6h along with Pulmicort 0.5 mg Q12h (3) Acute respiratory failure with hypoxia: Code(s): J96.01 - Acute respiratory failure with hypoxia Status: Acute Assessment and Plan: clinically improving oxygenation is weaning down to 4 L today. Consider limiting the antiviral therapy and systemic steroids to 5 days instead of 10 days depending on how well he continues to improve. (4) CHF (congestive heart failure): Code(s): I50.9 - Heart failure, unspecified Status: Acute Assessment and Plan: EF of 40-45%. Low-doseLasix p.r.n. as needed to keep euvolemic. Subjective Date/time seen: 02/14/21 13:28 Interval history: He is doing much better today. His oxygen has been weaned to 4 L per nasal cannula. This is likely in response to diuresis. His ejection fraction is 40-45%. He feels well and his appetite is doing good. Review of Systems Review of Systems: All systems reviewed & are unremarkable except as noted in HPI and below Exam Const: General: cooperative, healthy appearing, comfortable, no acute distress, well developed, alert, awake and Physically active Orientation/consciousness: oriented to person and oriented to place Eyes: General: appearance normal, both eyes and all related structures Neck: Neck: trachea midline and supple Resp: Effort & Inspection: normal respiratory effort Auscultation: diminished lung sounds Cardio: Rate: regular rate Rhythm: regular rhythm Heart sounds: S1 normal heart sound present and S2 normal heart sound present Skin: General skin exam: normal color and no rashes or lesions noted Neuro: General: oriented to person, oriented to place, oriented to time and patient oriented x3 Extrem: General: normal to inspection and no clubbing, cyanosis or edema Psych: Appearance: grossly normal and well kempt Mental Status: mental status grossly normal Objective Data Vital Signs Vital Signs: Vital Signs - 24 hr 02/13/21 13:49 02/13/21 13:58 02/13/21 14:00 Temperature Pulse Rate 72 68 64 Respiratory Rate 18 18 Blood Pressure Pulse Oximetry 02/13/21 16:00 02/13/21 18:00 02/13/21 20:00 Temperature 36.6 C 37.0 C Pulse Rate 70 71 68 Respiratory Rate 22 H 18 Blood Pressure 114/60 97/57 L Pulse Oximetry 93 93 02/13/21 20:11 02/13/21 20:27 02/13/21 22:00 Temperature Pulse Rate 67 70 61 Respiratory Rate 20 18 Blood Pressure Pulse Oximetry 93 02/13/21 23:44 02/14/21 00:00 02/14/21 02:00 Temperature 36.8 C Pulse Rate 61 67 56 L Respiratory Rate 18 18 Blood Pressure 106/63 Pulse Oximetry 97 97 02/14/21 02:40 02/14/21 02:51 02/14/21 04:00 Temperature 37.1 C Pulse Rate 69 74 94 Respiratory Rate 18 18 20 Blood Pressure 108/66 Pulse Oximetry 64 L 02/14/21 06:00 02/14/21 07:32 02/14/21 08:00 Temperature 36.9 C Pulse Rate 60 67 58 L Respiratory Rate 18 Blood Pressure 113/69 Pulse Oximetry 93 98 02/14/21 08:17 02/14/21 09:00 02/14/21 10:00 Temperature Pulse Rate 70 64 Respiratory Rate 18 Blood Pressure Pulse Oximetry 97 02/14/21 10:05 02/14/21 12:00 Temperature 36.6 C Pulse Rate 70 77 Respiratory Rate 20
--- NOTE | 2021-02-14 14:40 | PM.IMPN ---
Progress Note: A&P Assessment and Plan (1) Pneumonia due to COVID-19 virus: Code(s): U07.1 - COVID-19; J12.82 - Pneumonia due to coronavirus disease 2019 Status: Acute Assessment and Plan: Patient is a 76-year-old male with history of COPD, hypertension, and defibrillator, he recently received COVID-19 vaccine on January 22, suspect the patient may have contracted COVID-19 2-3 weeks Now saturating 92% on 4 L NC dexamethasone 03/01 remdesivir 03/01 Vit C/D and Zn Continuous pulse oximetry. patient seen by cable coverer recommendations appreciated Transfer to [facility] [employer] remote tele (2) Acute respiratory failure with hypoxia: Code(s): J96.01 - Acute respiratory failure with hypoxia Status: Acute Assessment and Plan: improving Now saturating 92% on 4 L NC Continuous pulse oximetry. patient seen by cable coverer recommendations appreciated Transfer to [facility] [employer] remote tele (3) COPD (chronic obstructive pulmonary disease): Code(s): J44.9 - Chronic obstructive pulmonary disease, unspecified Status: Acute Assessment and Plan: emphysema cont current care (4) Paroxysmal A-fib: Code(s): I48.0 - Paroxysmal atrial fibrillation Status: Chronic Assessment and Plan: Currently rate controlled. Continue Xarelto and Cardizem. (5) Essential (primary) hypertension: Code(s): I10 - Essential (primary) hypertension Status: Chronic Assessment and Plan: Stable. Monitor blood pressure. Continue home antihypertensives. Additional Plan The patient will likely need at least 2 nights of inpatient medical therapy for his acute respiratory failure, pneumonia, and comorbid conditions listed above. Date of service was February 11, 2021 at approximately 8:00 p.m. Time Spent With Patient Time with patient: Greater than 35 minutes Subjective Date/time seen: 02/14/21 14:40 15L down to 5L pulm note reviewed Patient states that he is feeling okay. His oxygen is improving and is looking forward to going home soon. He has no new complaints at the time of my interview. Review of Systems Review of Systems: All systems reviewed & are unremarkable except as noted in HPI and below Exam Narrative: Exam Narrative: GEN: NAD, AAOx3, cooperative HEENT: NCAT, MMM, EOMI Neck: no JVD Lungs: Symmetric chest rise, no use of accessory muscles, no respiratory distress Abd: soft, NT, ND Ext: moves all, no cyanosis, no clubbing, no edema Objective Data Vital Signs Vital Signs: Vital Signs - 24 hr 02/13/21 16:00 02/13/21 18:00 02/13/21 20:00 Temperature 97.8 F 98.6 F Pulse Rate 70 71 68 Respiratory Rate 22 H 18 Blood Pressure 114/60 97/57 L Pulse Oximetry 93 93 02/13/21 20:11 02/13/21 20:27 02/13/21 22:00 Temperature Pulse Rate 67 70 61 Respiratory Rate 20 18 Blood Pressure Pulse Oximetry 93 02/13/21 23:44 02/14/21 00:00 02/14/21 02:00 Temperature 98.3 F Pulse Rate 61 67 56 L Respiratory Rate 18 18 Blood Pressure 106/63 Pulse Oximetry 97 97 02/14/21 02:40 02/14/21 02:51 02/14/21 04:00 Temperature 98.7 F Pulse Rate 69 74 94 Respiratory Rate 18 18 20 Blood Pressure 108/66 Pulse Oximetry 64 L 02/14/21 06:00 02/14/21 07:32 02/14/21 08:00 Temperature 98.5 F Pulse Rate 60 67 58 L Respiratory Rate 18 Blood Pressure 113/69 Pulse Oximetry 93 98 02/14/21 08:17 02/14/21 09:00 02/14/21 10:00 Temperature Pulse Rate 70 64 Respiratory Rate 18 Blood Pressure Pulse Oximetry 97 02/14/21 10:05 02/14/21 12:00 02/14/21 14:11 Temperature 97.9 F Pulse Rate 70 77 68 Respiratory Rate 20 20 18 Blood Pressure 115/60 Pulse Oximetry 92 93 Intake/Output Intake/Output: Intake & Output 02/11/21 02/12/21 02/13/21 02/14/21 23:59 23:59 23:59 23:59 Intake Total 300 1350 2034 840 Output Total 054 147 8115 140 Balance -210 1150 714 700 Meds/Results Medications: Active Me
[2021-02-14] MEDS: RIVAROXABAN 20 MG TABLET PO (17:28)
[2021-02-14] MEDS: MIRABEGRON 50 MG ER TABLET PO (20:19)
[2021-02-14] MEDS: MELATONIN 5 MG TABLET PO (20:19)
--- NOTE | 2021-02-14 23:26 | PC.NURSE ---
This patient, Carlos Medley, was transferred to [Room 324] on 02/14/21 at 2315. Personal belongings sent with patient. Report given to [Nurse Joshua]. Appropriate documentation sent with patient.
[2021-02-15] VITALS (14 sets, daily range): BP systolic 107–112; BP diastolic 60–72; PULSE 55–94; RESP 18–20; TEMP 36.4–36.8; O2SAT 90–98
--- NOTE | 2021-02-15 04:36 | PCRCNOTE ---
Window of time for administration has passed. See next scheduled administration.
[2021-02-15 06:53] LABS: Hematocrit 35.9 % (42.0-52.0); Hemoglobin 12.3 g/dL (14.0-18.0); Mean Corpuscular HGB Conc 34.3 g/dl (32-36); Mean Corpuscular Hemoglobin 29.9 pg (26-34); Mean Corpuscular Volume 87.1 fl (80-100); Mean Platelet Volume 9.3 fl (7.4-10.4); Platelet Count Result 312 k/mm3 (150-375); Red Blood Count 4.12 M/mm3 (4.6-6.20); Red Cell Distribution Width 13.3 % (11.5-14.5)
[2021-02-15 07:07] LABS: Alanine Aminotransferase 37 U/L (4-50); Anion Gap 5 mmol/L (8-16); Blood Urea Nitrogen 25 mg/dL (9-20); Calcium 8.3 mg/dL (8.4-10.2); Carbon Dioxide 27 mmol/L (22-30); Chloride 103 mmol/L (98-107); Estimated CRCL calculation 61 ml/min; Estimated Glomerular Filt Rate > 60; Glucose 124 mg/dL (75-110); Potassium 4.4 mmol/L (3.4-5.0); Sodium 135 mmol/L (137-145)
[2021-02-15] MEDS: BUDESONIDE RESPULE NEB 0.5 MG/2 ML AMP 1 MG INHALATION ×2 (07:26→19:51)
[2021-02-15] MEDS: IPRATROPIUM BR 0.02% INH SOLN 0.5 MG/2.5 ML VIAL INHALATION ×3 (07:27→19:51)
[2021-02-15] MEDS: DEXAMETHASONE SOD PHOS INJ 4 MG/ML VIAL 6 MG IV PUSH (08:21)
[2021-02-15] MEDS: ASCORBIC ACID 500 MG TABLET PO ×2 (08:21→16:06)
[2021-02-15] MEDS: GABAPENTIN 300 MG CAPSULE PO ×3 (08:22→16:06)
[2021-02-15] MEDS: lisinopriL 5 MG TABLET PO (08:22)
[2021-02-15] MEDS: CHOLECALCIFEROL 1,000 UNITS TABLET 1000 UNITS PO (08:22)
[2021-02-15] MEDS: ZINC SULFATE 220 MG CAPSULE PO (08:23)
[2021-02-15] MEDS: dilTIAZem HCL CD 180 MG CAP.ER.24H PO (08:23)
[2021-02-15] MEDS: REMDESIVIR 100 MG/NS 250 ML 100 MG/250 ML BAG 250 MG IVPB (09:50)
--- NOTE | 2021-02-15 10:11 | PC.NURSE ---
Nurse before wv stated that pt was transferred from the IMU on 02/14/21.
--- NOTE | 2021-02-15 13:02 | PM.IMPN ---
Progress Note: A&P Assessment and Plan (1) Pneumonia due to COVID-19 virus: Code(s): U07.1 - COVID-19; J12.82 - Pneumonia due to coronavirus disease 2019 Status: Acute Assessment and Plan: Now on 3 L NC dexamethasone 5/10 remdesivir 5/10 Continuous pulse oximetry. (2) Acute respiratory failure with hypoxia: Code(s): J96.01 - Acute respiratory failure with hypoxia Status: Acute Assessment and Plan: Due to COVID-19 pneumonia. Wean oxygen as tolerated. (3) COPD (chronic obstructive pulmonary disease): Qualifiers: COPD type: unspecified COPD Qualified Code(s): J44.9 - Chronic obstructive pulmonary disease, unspecified Code(s): J44.9 - Chronic obstructive pulmonary disease, unspecified Status: Acute Assessment and Plan: emphysema cont current care (4) Paroxysmal A-fib: Code(s): I48.0 - Paroxysmal atrial fibrillation Status: Chronic Assessment and Plan: Currently rate controlled. Continue Xarelto and Cardizem. (5) Essential (primary) hypertension: Code(s): I10 - Essential (primary) hypertension Status: Chronic Assessment and Plan: Stable. Monitor blood pressure. Continue home antihypertensives. Subjective Date/time seen: 02/15/21 13:02 Interval history: Admitted February 11 for COVID-19 pneumonia. 02/15. Tolerating diet. Denied pain. Very tired. Somewhat short of breath with activity. Still requiring 3 L of oxygen even at rest. Review of Systems Review of Systems: All systems reviewed & are unremarkable except as noted in HPI and below Exam Narrative: Exam Narrative: HEENT: PERRL, sclerae nonicteric, pharyngeal mucosa pink and intact NECK: No JVD CHEST: Clear to auscultation. Normal effort. HEART: NL S1/S2, regular, no murmur ABDOMEN: BS+, soft, nontender, no mass, no bruits EXTREMITIES: No cyanosis, edema, or clubbing NEUROLOGIC: CN intact and symmetric to inspection. MUSCULOSKELETAL: Tone and strength symmetric. PSYCH: Alert. Oriented to person, place, and time. Objective Data Vital Signs Vital Signs: Vital Signs - 24 hr 02/14/21 14:00 02/14/21 14:11 02/14/21 16:00 Temperature 98.5 F Pulse Rate 62 68 64 Respiratory Rate 18 14 Blood Pressure 107/57 L Pulse Oximetry 93 02/14/21 18:00 02/14/21 20:00 02/14/21 22:18 Temperature 97.5 F L Pulse Rate 71 60 57 L Respiratory Rate 16 18 Blood Pressure 100/66 Pulse Oximetry 94 02/14/21 22:20 02/14/21 22:32 02/14/21 23:10 Temperature 96.8 F L Pulse Rate 56 L 59 L 56 L Respiratory Rate 20 20 18 Blood Pressure 107/65 Pulse Oximetry 95 96 02/15/21 00:00 02/15/21 04:00 02/15/21 07:27 Temperature 97.6 F Pulse Rate 59 L 59 L 55 L Respiratory Rate 18 20 Blood Pressure 110/60 Pulse Oximetry 94 02/15/21 07:58 02/15/21 08:00 02/15/21 09:36 Temperature 97.5 F L Pulse Rate 94 58 L 55 L Respiratory Rate 20 20 20 Blood Pressure 110/63 Pulse Oximetry 98 90 95 02/15/21 12:00 Temperature 98.2 F Pulse Rate 73 Respiratory Rate 20 Blood Pressure 112/72 Pulse Oximetry 90 Intake/Output Intake/Output: Intake & Output 02/12/21 02/13/21 02/14/21 02/15/21 23:59 23:59 23:59 23:59 Intake Total 1350 2034 1280 685 Output Total 200 1320 610 200 Balance 1150 714 670 485 Meds/Results Medications: Active Medications Generic Name Dose Route Start Last Admin Trade Name Freq PRN Reason Stop Dose Admin Albuterol 2.5 mg 02/12/21 13:46 02/14/21 22:17 Albuterol Sulfate Neb 2.5 Mg/0.5 Ml Inh INHALATION 2.5 mg Q6HRT PRN Administration Dyspnea Ascorbic Acid 500 mg 02/15/21 09:00 02/15/21 08:21 Ascorbic Acid 500 Mg Tablet PO 500 mg BID HESHAM Administration Budesonide 1 mg 02/13/21 09:20 02/15/21 07:26 Budesonide Respule Neb 0.5 Mg/2 Ml Amp INHALATION 1 mg Q12HRT HESHAM Administration Bupropion HCl 150 mg 02/12/21 09:00 02/15/21 08:23 Bupropion Hcl Sr (12hr
--- NOTE | 2021-02-15 13:53 | PM.PNPUL ---
Progress Note: A&P Assessment and Plan (1) Pneumonia due to COVID-19 virus: Code(s): U07.1 - COVID-19; J12.82 - Pneumonia due to coronavirus disease 2019 Status: Acute Assessment and Plan: despite his late presentation he may still benefit from antiviral medication and systemic steroids -Will start dexamethasone 6 mg IV Q 6 hours for 9 days. He received Solu-Medrol 125 mg IV x1 in the emergency department last night -Will start Remdesivir 200 mg x 1 today followed by 100 mg daily starting tomorrow for a total of 9 days (2) COPD (chronic obstructive pulmonary disease): Code(s): J44.9 - Chronic obstructive pulmonary disease, unspecified Status: Acute Assessment and Plan: d/c Symbicort and will start Ipratropium 0.5 mg Q6h along with Pulmicort 0.5 mg Q12h (3) Acute respiratory failure with hypoxia: Code(s): J96.01 - Acute respiratory failure with hypoxia Status: Acute Assessment and Plan: clinically improving oxygenation is weaning down to 4 L today. Consider limiting the antiviral therapy and systemic steroids to 5 days instead of 10 days depending on how well he continues to improve. (4) CHF (congestive heart failure): Code(s): I50.9 - Heart failure, unspecified Status: Acute Assessment and Plan: EF of 40-45%. Low-doseLasix p.r.n. as needed to keep euvolemic. Subjective Date/time seen: 02/15/21 13:53 Interval history: He is doing much better today. His oxygen has been weaned to 3 L per nasal cannula. This is likely in response to diuresis. His ejection fraction is 40-45%. He feels well and his appetite is doing good. Review of Systems Review of Systems: All systems reviewed & are unremarkable except as noted in HPI and below Exam Const: General: cooperative, healthy appearing, comfortable, no acute distress, well developed, alert, awake and Physically active Orientation/consciousness: oriented to person and oriented to place Eyes: General: appearance normal, both eyes and all related structures Neck: Neck: trachea midline and supple Resp: Effort & Inspection: normal respiratory effort Auscultation: diminished lung sounds Cardio: Rate: regular rate Rhythm: regular rhythm Heart sounds: S1 normal heart sound present and S2 normal heart sound present Skin: General skin exam: normal color and no rashes or lesions noted Neuro: General: oriented to person, oriented to place, oriented to time and patient oriented x3 Extrem: General: normal to inspection and no clubbing, cyanosis or edema Psych: Appearance: grossly normal and well kempt Mental Status: mental status grossly normal Objective Data Vital Signs Vital Signs: Vital Signs - 24 hr 02/14/21 14:00 02/14/21 14:11 02/14/21 16:00 Temperature 36.9 C Pulse Rate 62 68 64 Respiratory Rate 18 14 Blood Pressure 107/57 L Pulse Oximetry 93 02/14/21 18:00 02/14/21 20:00 02/14/21 22:18 Temperature 36.4 C L Pulse Rate 71 60 57 L Respiratory Rate 16 18 Blood Pressure 100/66 Pulse Oximetry 94 02/14/21 22:20 02/14/21 22:32 02/14/21 23:10 Temperature 36.0 C L Pulse Rate 56 L 59 L 56 L Respiratory Rate 20 20 18 Blood Pressure 107/65 Pulse Oximetry 95 96 02/15/21 00:00 02/15/21 04:00 02/15/21 07:27 Temperature 36.4 C Pulse Rate 59 L 59 L 55 L Respiratory Rate 18 20 Blood Pressure 110/60 Pulse Oximetry 94 02/15/21 07:58 02/15/21 08:00 02/15/21 09:36 Temperature 36.4 C L Pulse Rate 94 58 L 55 L Respiratory Rate 20 20 20 Blood Pressure 110/63 Pulse Oximetry 98 90 95 02/15/21 12:00 Temperature 36.8 C Pulse Rate 73 Respiratory Rate 20 Blood Pressure 112/72 Pulse Oximetry 90 Intake/Output Intake/Output: Intake & Output 02/12/21 02/13/21 02/14/21 02/15/21 23:59 23:59 23:59 23:59 Intake Total 1350 2034 1280 685 Output Total 200 1320 610 200 Balance 1150 714 670 485 Meds/Results Medications: Active Medication
[2021-02-15] MEDS: RIVAROXABAN 20 MG TABLET PO (16:06)
[2021-02-15] MEDS: ALBUTEROL SULFATE NEB 2.5 MG/0.5 ML INH INHALATION (19:51)
[2021-02-15] MEDS: MIRABEGRON 50 MG ER TABLET PO (21:06)
[2021-02-15] MEDS: MELATONIN 5 MG TABLET PO (21:06)
[2021-02-16] VITALS (21 sets, daily range): BP systolic 91–119; BP diastolic 51–69; PULSE 63–101; RESP 18–22; TEMP 36.2–36.8; O2SAT 86–98
[2021-02-16] MEDS: IPRATROPIUM BR 0.02% INH SOLN 0.5 MG/2.5 ML VIAL INHALATION ×4 (02:35→20:07)
[2021-02-16] MEDS: ALBUTEROL SULFATE NEB 2.5 MG/0.5 ML INH INHALATION ×3 (02:35→13:39)
[2021-02-16 06:42] LABS: Hematocrit 36.7 % (42.0-52.0); Hemoglobin 12.4 g/dL (14.0-18.0); Mean Corpuscular HGB Conc 33.8 g/dl (32-36); Mean Corpuscular Hemoglobin 29.2 pg (26-34); Mean Corpuscular Volume 86.6 fl (80-100); Mean Platelet Volume 9.3 fl (7.4-10.4); Platelet Count Result 314 k/mm3 (150-375); Red Blood Count 4.24 M/mm3 (4.6-6.20); Red Cell Distribution Width 13.2 % (11.5-14.5); White Blood Count 11.4 K/mm3 (4.5-10.0)
[2021-02-16 07:02] LABS: Alanine Aminotransferase 33 U/L (4-50); Anion Gap 3 mmol/L (8-16); Blood Urea Nitrogen 26 mg/dL (9-20); Calcium 8.1 mg/dL (8.4-10.2); Carbon Dioxide 29 mmol/L (22-30); Chloride 102 mmol/L (98-107); Estimated CRCL calculation 70 ml/min; Estimated Glomerular Filt Rate > 60; Glucose 114 mg/dL (75-110); Potassium 3.9 mmol/L (3.4-5.0); Sodium 134 mmol/L (137-145)
[2021-02-16] MEDS: BUDESONIDE RESPULE NEB 0.5 MG/2 ML AMP 1 MG INHALATION ×2 (08:05→20:07)
[2021-02-16] MEDS: CHOLECALCIFEROL 1,000 UNITS TABLET 1000 UNITS PO (08:54)
[2021-02-16] MEDS: ASCORBIC ACID 500 MG TABLET PO ×2 (08:55→16:35)
[2021-02-16] MEDS: PYRIDOXINE HCL 50 MG TABLET 100 MG PO (08:55)
[2021-02-16] MEDS: lisinopriL 5 MG TABLET PO (08:55)
[2021-02-16] MEDS: DEXAMETHASONE SOD PHOS INJ 4 MG/ML VIAL 6 MG IV PUSH (08:55)
[2021-02-16] MEDS: GABAPENTIN 300 MG CAPSULE PO ×3 (08:55→16:35)
[2021-02-16] MEDS: dilTIAZem HCL CD 180 MG CAP.ER.24H PO (08:56)
--- NOTE | 2021-02-16 09:17 | PM.PNPUL ---
Progress Note: A&P Assessment and Plan (1) Pneumonia due to COVID-19 virus: Code(s): U07.1 - COVID-19; J12.82 - Pneumonia due to coronavirus disease 2019 Status: Acute Assessment and Plan: despite his late presentation he may still benefit from antiviral medication and systemic steroids continue dexamethasone 6 mg IV Q 6 hours for 9 days. Recieved Remdesivir for total of 5 days and given rapid improvement, can discontinue at this stage (2) COPD (chronic obstructive pulmonary disease): Qualifiers: COPD type: unspecified COPD Qualified Code(s): J44.9 - Chronic obstructive pulmonary disease, unspecified Code(s): J44.9 - Chronic obstructive pulmonary disease, unspecified Status: Acute Assessment and Plan: Continue Ipratropium 0.5 mg Q6h along with Pulmicort 0.5 mg Q12h Home O2 evaluation (3) Acute respiratory failure with hypoxia: Code(s): J96.01 - Acute respiratory failure with hypoxia Status: Acute Assessment and Plan: clinically improving oxygenation is weaning down to 4 L today. Consider limiting the antiviral therapy and systemic steroids to 5 days instead of 10 days depending on how well he continues to improve. (4) CHF (congestive heart failure): Code(s): I50.9 - Heart failure, unspecified Status: Acute Assessment and Plan: EF of 40-45%. Low-doseLasix p.r.n. as needed to keep euvolemic. Subjective Date/time seen: 02/16/21 09:17 Interval history: doing well and no complaints Review of Systems Review of Systems: All systems reviewed & are unremarkable except as noted in HPI and below Exam Const: General: cooperative, healthy appearing, comfortable, no acute distress, well developed, alert, awake and Physically active Orientation/consciousness: oriented to person and oriented to place Eyes: General: appearance normal, both eyes and all related structures Neck: Neck: trachea midline and supple Resp: Effort & Inspection: normal respiratory effort Auscultation: diminished lung sounds Cardio: Rate: regular rate Rhythm: regular rhythm Heart sounds: S1 normal heart sound present and S2 normal heart sound present Skin: General skin exam: normal color and no rashes or lesions noted Neuro: General: oriented to person, oriented to place, oriented to time and patient oriented x3 Extrem: General: normal to inspection and no clubbing, cyanosis or edema Psych: Appearance: grossly normal and well kempt Mental Status: mental status grossly normal Objective Data Vital Signs Vital Signs: Vital Signs - 24 hr 02/15/21 09:36 02/15/21 12:00 02/15/21 14:40 Temperature 36.8 C Pulse Rate 55 L 73 56 L Respiratory Rate 20 20 20 Blood Pressure 112/72 Pulse Oximetry 95 90 02/15/21 16:00 02/15/21 16:27 02/15/21 17:00 Temperature 36.6 C Pulse Rate 61 64 64 Respiratory Rate 18 18 Blood Pressure 112/61 Pulse Oximetry 94 94 02/15/21 19:52 02/15/21 20:00 02/15/21 20:06 Temperature 36.5 C Pulse Rate 71 72 69 Respiratory Rate 20 18 20 Blood Pressure 107/64 Pulse Oximetry 92 91 02/16/21 00:00 02/16/21 02:36 02/16/21 02:45 Temperature 36.5 C Pulse Rate 66 65 66 Respiratory Rate 18 18 18 Blood Pressure 119/69 Pulse Oximetry 96 02/16/21 04:00 02/16/21 07:59 02/16/21 08:00 Temperature 36.2 C L 36.8 C Pulse Rate 63 71 72 Respiratory Rate 18 20 18 Blood Pressure 91/51 L 113/69 Pulse Oximetry 96 92 90 02/16/21 08:06 02/16/21 08:10 02/16/21 08:34 Temperature Pulse Rate 70 72 Respiratory Rate 18 18 Blood Pressure Pulse Oximetry 90 Intake/Output Intake/Output: Intake & Output 02/13/21 02/14/21 02/15/21 02/16/21 23:59 23:59 23:59 23:59 Intake Total 2034 1280 1665 490 Output Total 1320 610 800 900 Balance 711 526 865 410 Meds/Results Medications: Active Medications Generic Name Dose Route Start Last Admin Trade Name Freq PRN Reason Stop Dose Admin Al
[2021-02-16] MEDS: REMDESIVIR 100 MG/NS 250 ML 100 MG/250 ML BAG 250 MG IVPB (09:53)
--- NOTE | 2021-02-16 11:45 | HOMEO2EVAL ---
Home Oxygen Evaluation RC: Home Oxygen (O2) Evaluation Start: 02/16/21 08:32 Freq: ONCE Status: Active Protocol: RPE Activity Type Activity Date Activity User E-Sign Co-Sign Detail Recorded Client Recorded Date Recorded By Document 02/16/21 11:19 KRM [email or web address] 02/16/21 11:45 KRM Document 02/16/21 11:20 [email or web address] [email or web address] 02/16/21 11:45 KRM Document 02/16/21 11:21 [email or web address] [email or web address] 02/16/21 11:45 KRM Document 02/16/21 11:22 KRM [email or web address] 02/16/21 11:45 KRM 02/16/21 02/16/21 02/16/21 11:19 11:20 11:21 Home O2 Evaluation Test Phase Resting Resting Resting Oxygen Delivery Room Air Nasal Cannula Nasal Cannula Oxygen Flow Rate (L/min) 1 2 Pulse Oximetry (90-100 %) 86 L 87 L 90 Pulse Rate (60-100 beats/min) 85 101 H 100 Activity Tolerance Ambulation Distance (feet) Home Oxygen Evaluation Comments Treatment Charges 02/16/21 11:22 Home O2 Evaluation Test Phase Exercise Oxygen Delivery Nasal Cannula Oxygen Flow Rate (L/min) 2 Pulse Oximetry (90-100 %) 90 Pulse Rate (60-100 beats/min) 101 H Activity Tolerance Good Ambulation Distance (feet) 50 Home Oxygen Evaluation Comments REQUIRES 2LPM AT REST AND WITH ACTIVITY. Treatment Charges O2 Evaluation - Inpatient
--- NOTE | 2021-02-16 12:23 | PM.IMPN ---
Progress Note: A&P Assessment and Plan (1) Pneumonia due to COVID-19 virus: Code(s): U07.1 - COVID-19; J12.82 - Pneumonia due to coronavirus disease 2019 Status: Acute Assessment and Plan: Now on 2 L NC Inflammatory markers encouraging Steroids (now dexamethasone) 05/01 on 02/16 (received methylprednisolone in ED 02/11) Remdesivir 5/5 on 02/16 (2) Acute respiratory failure with hypoxia: Code(s): J96.01 - Acute respiratory failure with hypoxia Status: Acute Assessment and Plan: Due to COVID-19 pneumonia. Wean oxygen as tolerated, 02/16 down to 2 L (3) COPD (chronic obstructive pulmonary disease): Qualifiers: COPD type: unspecified COPD Qualified Code(s): J44.9 - Chronic obstructive pulmonary disease, unspecified Code(s): J44.9 - Chronic obstructive pulmonary disease, unspecified Status: Acute Assessment and Plan: emphysema cont current care (4) Paroxysmal A-fib: Code(s): I48.0 - Paroxysmal atrial fibrillation Status: Chronic Assessment and Plan: Currently rate controlled. Continue Xarelto and Cardizem. (5) Essential (primary) hypertension: Code(s): I10 - Essential (primary) hypertension Status: Chronic Assessment and Plan: Stable. Monitor blood pressure. Continue home antihypertensives. Subjective Date/time seen: 02/16/21 12:23 Interval history: Admitted February 11 for COVID-19 pneumonia. 02/15. Tolerating diet and eating well. Food tastes good. Denied pain. Tired. Short of breath with activity. Oxygen requirement down to 2 L. Review of Systems Review of Systems: All systems reviewed & are unremarkable except as noted in HPI and below Exam Narrative: Exam Narrative: HEENT: PERRL, sclerae nonicteric, pharyngeal mucosa pink and intact NECK: No JVD CHEST: Clear to auscultation. Normal effort. HEART: NL S1/S2, regular, no murmur ABDOMEN: BS+, soft, nontender, no mass, no bruits EXTREMITIES: No cyanosis, edema, or clubbing NEUROLOGIC: CN intact and symmetric to inspection. MUSCULOSKELETAL: Tone and strength symmetric. PSYCH: Alert. Oriented to person, place, and time. Objective Data Vital Signs Vital Signs: Vital Signs - 24 hr 02/15/21 14:40 02/15/21 16:00 02/15/21 16:27 Temperature Pulse Rate 56 L 61 64 Respiratory Rate 20 18 Blood Pressure Pulse Oximetry 94 02/15/21 17:00 02/15/21 19:52 02/15/21 20:00 Temperature 97.8 F 97.7 F Pulse Rate 64 71 72 Respiratory Rate 18 20 18 Blood Pressure 112/61 107/64 Pulse Oximetry 94 92 02/15/21 20:06 02/16/21 00:00 02/16/21 02:36 Temperature 97.7 F Pulse Rate 69 66 65 Respiratory Rate 20 18 18 Blood Pressure 119/69 Pulse Oximetry 91 96 02/16/21 02:45 02/16/21 04:00 02/16/21 07:59 Temperature 97.2 F L 98.2 F Pulse Rate 66 63 71 Respiratory Rate 18 18 20 Blood Pressure 91/51 L 113/69 Pulse Oximetry 96 92 02/16/21 08:00 02/16/21 08:06 02/16/21 08:10 Temperature Pulse Rate 74 70 Respiratory Rate 18 18 Blood Pressure Pulse Oximetry 90 90 02/16/21 08:34 02/16/21 11:19 02/16/21 11:20 Temperature Pulse Rate 72 85 101 H Respiratory Rate 18 Blood Pressure Pulse Oximetry 86 L 87 L 02/16/21 11:21 02/16/21 11:22 02/16/21 11:41 Temperature 98.2 F Pulse Rate 100 101 H 63 Respiratory Rate 20 Blood Pressure 110/64 Pulse Oximetry 90 90 95 Intake/Output Intake/Output: Intake & Output 02/13/21 02/14/21 02/15/21 02/16/21 23:59 23:59 23:59 23:59 Intake Total 2034 1280 1665 490 Output Total 1320 610 800 900 Balance 714 002 865 -410 Meds/Results Medications: Active Medications Generic Name Dose Route Start Last Admin Trade Name Freq PRN Reason Stop Dose Admin Albuterol 2.5 mg 02/12/21 13:46 02/16/21 08:06 Albuterol Sulfate Neb 2.5 Mg/0.5 Ml Inh INHALATION 2.5 mg Q6HRT PRN Administration Dyspnea Ascorbic Acid 500 mg 02/15/21 09:00 02/16/21 08:5
--- NOTE | 2021-02-16 12:26 | PCRCNOTE ---
PT. REQUIRES HOME OXYGEN 2LPM AT REST AND WITH ACTIVITY. PT. HAS RECENTLY BEEN SET UP WITH [facility] ON A PREVIOUS ADMISSION. FAXED UPDATED INFO TO [facility] AND CALLED [facility] TO UPDATE HIM. TANK IN THE ROOM.
[2021-02-16] MEDS: RIVAROXABAN 20 MG TABLET PO (16:35)
[2021-02-16] MEDS: MELATONIN 5 MG TABLET PO (20:00)
[2021-02-16] MEDS: MIRABEGRON 50 MG ER TABLET PO (20:00)
[2021-02-17] VITALS (15 sets, daily range): BP systolic 103–122; BP diastolic 66–76; PULSE 58–88; RESP 16–20; TEMP 36.3–36.6; O2SAT 85–96
[2021-02-17] MEDS: IPRATROPIUM BR 0.02% INH SOLN 0.5 MG/2.5 ML VIAL INHALATION ×4 (01:57→20:32)
[2021-02-17 06:22] LABS: Anion Gap 2 mmol/L (8-16); Blood Urea Nitrogen 24 mg/dL (9-20); Calcium 8.1 mg/dL (8.4-10.2); Carbon Dioxide 30 mmol/L (22-30); Chloride 103 mmol/L (98-107); Estimated CRCL calculation 65 ml/min; Estimated Glomerular Filt Rate > 60; Glucose 113 mg/dL (75-110); Potassium 4.3 mmol/L (3.4-5.0); Sodium 135 mmol/L (137-145)
[2021-02-17 06:32] LABS: Hematocrit 38.3 % (42.0-52.0); Hemoglobin 12.9 g/dL (14.0-18.0); Mean Corpuscular HGB Conc 33.7 g/dl (32-36); Mean Corpuscular Hemoglobin 29.7 pg (26-34); Mean Corpuscular Volume 88.2 fl (80-100); Mean Platelet Volume 9.4 fl (7.4-10.4); Platelet Count Result 330 k/mm3 (150-375); Red Blood Count 4.34 M/mm3 (4.6-6.20); Red Cell Distribution Width 13.2 % (11.5-14.5)
[2021-02-17] MEDS: lisinopriL 5 MG TABLET PO (08:31)
[2021-02-17] MEDS: GABAPENTIN 300 MG CAPSULE PO ×3 (08:31→16:37)
[2021-02-17] MEDS: ASCORBIC ACID 500 MG TABLET PO ×2 (08:31→16:38)
[2021-02-17] MEDS: CHOLECALCIFEROL 1,000 UNITS TABLET 1000 UNITS PO (08:31)
[2021-02-17] MEDS: DEXAMETHASONE SOD PHOS INJ 4 MG/ML VIAL 6 MG IV PUSH (08:31)
[2021-02-17] MEDS: dilTIAZem HCL CD 180 MG CAP.ER.24H PO (08:32)
[2021-02-17] MEDS: BUDESONIDE RESPULE NEB 0.5 MG/2 ML AMP 1 MG INHALATION ×2 (08:48→20:32)
--- NOTE | 2021-02-17 13:59 | PM.IMPN ---
Progress Note: A&P Assessment and Plan (1) Pneumonia due to COVID-19 virus: Code(s): U07.1 - COVID-19; J12.82 - Pneumonia due to coronavirus disease 2019 Status: Acute Assessment and Plan: The patient completed Remdesivir. Seems to have improved Has required supplemental O2 continue to monitor with try to wean off (2) Acute respiratory failure with hypoxia: Code(s): J96.01 - Acute respiratory failure with hypoxia Status: Acute Assessment and Plan: Improved On supplemental oxygen (3) Paroxysmal A-fib: Code(s): I48.0 - Paroxysmal atrial fibrillation Status: Chronic Assessment and Plan: Rate controlled and anticoagulated Continue to monitor (4) [place] (obstructive sleep apnea): Code(s): G47.33 - Obstructive sleep apnea (adult) (pediatric) Status: Acute Assessment and Plan: CPAP at night (5) COPD (chronic obstructive pulmonary disease): Qualifiers: COPD type: unspecified COPD Qualified Code(s): J44.9 - Chronic obstructive pulmonary disease, unspecified Code(s): J44.9 - Chronic obstructive pulmonary disease, unspecified Status: Acute Assessment and Plan: Continuing inhaled as steroids Continue breathing treatments Not actively wheezing Subjective Date/time seen: 02/17/21 13:59 I feel fine Review of Systems Review of Systems: Narrative: Patient denies any issues quadrant Constitutional: Comments: No fevers no chills Cardiovascular: Comments: No PND nor orthopnea Respiratory: Comments: No shortness of breath no cough no sputum production Gastrointestinal: Comments: No nausea no vomiting no diarrhea no abdominal pain Musculoskeletal: Comments: No joint pain or muscular pain Integumentary/Breasts: Comments: No rashes. Neurologic: Comments: No sensorimotor deficits Exam Const: General: comfortable, no acute distress, well developed, alert and awake Nutritional Appearance: thin Orientation/consciousness: patient oriented x3 HENMT: Head: normal to inspection, normocephalic and atraumatic Ears: hearing grossly normal bilaterally Face and sinus: normal facial exam Eyes: General: appearance normal, both eyes and all related structures Pupils: Equal, round and reactive pupils present EOM: EOMs intact bilaterally Neck: Neck: full ROM, no lymphadenopathy and no JVD Thyroid: thyroid normal Lymphatic: no lymphadenopathy noted Resp: Effort & Inspection: normal respiratory effort and able to speak in complete sentences Auscultation: clear to auscultation bilaterally Cardio: Jugular venous distension: no JVD Rate: regular rate Rhythm: regular rhythm Heart sounds: S1 normal heart sound present and S2 normal heart sound present GI: GI Palp: Yes Soft to palpation and Yes No hepatosplenomegaly present : General: Yes deferred Skin: Rashes: no rashes Wounds: no wounds Neuro: General: patient oriented x3 and CN's II-XI intact bilaterally Cranial nerves: Yes CN's II-XII intact bilaterally and Yes Equal, round and reactive pupils present Cognition (Neuro): normal cognition Speech: normal speech Gait exam (Neuro): Normal gait present Motor exam (neuro): 5/5 motor strength present throughout Extrem: General: normal to inspection, full ROM, no joint enlargement and no pedal edema Objective Data Vital Signs Vital Signs: Vital Signs - 24 hr 02/16/21 16:00 02/16/21 20:00 02/16/21 20:07 Temperature 98.1 F 97.6 F Pulse Rate 70 67 80 Respiratory Rate 18 22 H 20 Blood Pressure 104/66 102/63 Pulse Oximetry 95 98 93 02/16/21 20:08 02/17/21 00:00 02/17/21 01:57 Temperature 97.9 F Pulse Rate 80 69 68 Respiratory Rate 20 20 20 Blood Pressure 113/75 Pulse Oximetry 96 02/17/21 04:00 02/17/21 08:00 02/17/21 08:50 Temperature 97.8 F 97.6 F Pulse Rate 67 62 74 Respiratory Rate 20 16 18 Blood Pressure 119/72 110/69 Pulse Oximetry 96 90 02/17/21 08:51 02/17/21 09:06 02/17/21 12:00
--- NOTE | 2021-02-17 14:02 | PM.IMPN ---
Progress Note: A&P Assessment and Plan (1) Pneumonia due to COVID-19 virus: Code(s): U07.1 - COVID-19; J12.82 - Pneumonia due to coronavirus disease 2019 Status: Acute Assessment and Plan: Now on 2 L NC Inflammatory markers encouraging Steroids (now dexamethasone) /10 on 02/16 (received methylprednisolone in ED 02/11) Remdesivir 5/5 on 02/1602/17/21 14:02 Patient has been admitted to IMU, continue oxygen supplementation and treatment for pneumonia. Wean off oxygen when possible. Continuous pulse oximetry. RT assess and treat. Patient is a 76-year-old male with history of COPD, hypertension, and defibrillator, he recently received COVID-19 vaccine on January 22, however he presented emergency depart with a complaint of cough and shortness of breath CT scan of the chest showed bilateral infiltrate suspicious COVID do more patient is seen by pulmonology and suspect the patient may have contracted COVID-19 2-3 weeks a and now he presents for evaluation, patient has not had fever however his oxygen requirement is high to 6 L per NC, automotive metalsmith has started the patient is clinically stable will continue to monitor, patient be seen by automotive metalsmith and further recommendation to follow. 02/13 patient remains afebrile he is requiring FiO2 of 50% and rate of 15, he is sitting on the bed and able to communicate, will continue dexamethasone 01/29 and remdesivir 01/29 patient seen by automotive metalsmith and further recommendation to follow and appreciate. 02/17 patient clinical symptoms have improved he is now requiring 2 L of oxygen N/C, dexamethasone 05/31 and on 02/16 patient completed 5 day course of remdesivir, will continue for another 5 days 05/01, patient is seen by automotive metalsmith and further recommendation to follow and appreciate. Will have a PT OT evaluate the patient and further recommendation to (2) Acute respiratory failure with hypoxia: Code(s): J96.01 - Acute respiratory failure with hypoxia Status: Acute Assessment and Plan: Due to COVID-19 pneumonia. Wean oxygen as tolerated, 02/16 down to 2 L (3) COPD (chronic obstructive pulmonary disease): Qualifiers: COPD type: unspecified COPD Qualified Code(s): J44.9 - Chronic obstructive pulmonary disease, unspecified Code(s): J44.9 - Chronic obstructive pulmonary disease, unspecified Status: Acute Assessment and Plan: emphysema cont current care (4) Paroxysmal A-fib: Code(s): I48.0 - Paroxysmal atrial fibrillation Status: Chronic Assessment and Plan: Currently rate controlled. Continue Xarelto and Cardizem. (5) Essential (primary) hypertension: Code(s): I10 - Essential (primary) hypertension Status: Chronic Assessment and Plan: Stable. Monitor blood pressure. Continue home antihypertensives. Subjective Date/time seen: 02/17/21 14:02 Patient has been admitted to IMU, continue oxygen supplementation and treatment for pneumonia. Wean off oxygen when possible. Continuous pulse oximetry. RT assess and treat. Patient is a 76-year-old male with history of COPD, hypertension, and defibrillator, he recently received COVID-19 vaccine on January 22, however he presented emergency depart with a complaint of cough and shortness of breath CT scan of the chest showed bilateral infiltrate suspicious COVID do more patient is seen by pulmonology and suspect the patient may have contracted COVID-19 2-3 weeks a and now he presents for evaluation, patient has not had fever however his oxygen requirement is high to 6 L per NC, automotive metalsmith has started the patient is clinically stable will continue to monitor, patient be seen by automotive metalsmith and further recommendation to follow. 02/13 patient remains afebrile he is requiring FiO2 of 50% and rate of 15, he is sitting on the bed and able to communicate, will continue dexamethasone 01/29 and remdesivir / patient seen by automotive metalsmith and further recommendation
[2021-02-17] MEDS: REMDESIVIR 100 MG/NS 250 ML 100 MG/250 ML BAG 250 MG IVPB (15:29)
[2021-02-17 15:33] LABS: Alanine Aminotransferase 32 U/L (4-50); Estimated CRCL calculation 52 ml/min; Estimated Glomerular Filt Rate > 60
[2021-02-17] MEDS: RIVAROXABAN 20 MG TABLET PO (16:37)
[2021-02-17] MEDS: MELATONIN 5 MG TABLET PO (20:23)
[2021-02-17] MEDS: MIRABEGRON 50 MG ER TABLET PO (20:24)
[2021-02-18] VITALS (9 sets, daily range): BP systolic 95–106; BP diastolic 50–67; PULSE 54–86; RESP 18–20; TEMP 36.3–36.6; O2SAT 93–97
[2021-02-18] MEDS: IPRATROPIUM BR 0.02% INH SOLN 0.5 MG/2.5 ML VIAL INHALATION ×3 (01:46→14:30)
[2021-02-18 06:07] LABS: Hematocrit 37.4 % (42.0-52.0); Hemoglobin 12.8 g/dL (14.0-18.0); Mean Corpuscular HGB Conc 34.2 g/dl (32-36); Mean Corpuscular Hemoglobin 29.4 pg (26-34); Mean Platelet Volume 9.3 fl (7.4-10.4); Platelet Count Result 306 k/mm3 (150-375); Red Blood Count 4.35 M/mm3 (4.6-6.20); Red Cell Distribution Width 13.4 % (11.5-14.5); White Blood Count 13.7 K/mm3 (4.5-10.0)
[2021-02-18 06:18] LABS: Alanine Aminotransferase 27 U/L (4-50); Albumin Level 2.5 g/dL (3.5-5.1); Alkaline Phosphatase 53 U/L (38-126); Anion Gap -1 mmol/L (8-16); Aspartate Amino Transferase 19 U/L (17-59); Bilirubin,Total 0.3 mg/dL (0.2-1.3); Blood Urea Nitrogen 27 mg/dL (9-20); Calcium 7.7 mg/dL (8.4-10.2); Carbon Dioxide 29 mmol/L (22-30); Chloride 105 mmol/L (98-107); Estimated CRCL calculation 65 ml/min; Estimated Glomerular Filt Rate > 60; Glucose 122 mg/dL (75-110); Potassium 4.2 mmol/L (3.4-5.0); Sodium 133 mmol/L (137-145)
[2021-02-18] MEDS: BUDESONIDE RESPULE NEB 0.5 MG/2 ML AMP 1 MG INHALATION (08:08)
[2021-02-18] MEDS: ALBUTEROL SULFATE NEB 2.5 MG/0.5 ML INH INHALATION (08:08)
[2021-02-18] MEDS: lisinopriL 5 MG TABLET PO (09:34)
[2021-02-18] MEDS: CHOLECALCIFEROL 1,000 UNITS TABLET 1000 UNITS PO (09:34)
[2021-02-18] MEDS: DEXAMETHASONE SOD PHOS INJ 4 MG/ML VIAL 6 MG IV PUSH (09:34)
[2021-02-18] MEDS: ASCORBIC ACID 500 MG TABLET PO (09:34)
[2021-02-18] MEDS: GABAPENTIN 300 MG CAPSULE PO ×2 (09:34→13:33)
[2021-02-18] MEDS: dilTIAZem HCL CD 180 MG CAP.ER.24H PO (09:34)
[2021-02-18] MEDS: REMDESIVIR 100 MG/NS 250 ML 100 MG/250 ML BAG 250 MG IVPB (09:37)
--- NOTE | 2021-02-18 09:46 | WPDCDIQUERY2 ---
CDI Query Clarification Request -02/13 Has EF of 40-45%. Will give 20 mg IV lasix today since he is in positive fluid balance. Should try to keep euvolemic. documented by pulmonary - CHF, EF of 40-45% and low dose Lasix prn as need to keep euvolemic documented by refrigeration supervisor -Lasix 20mg IV given 02/13 and 02/14 -No mention of CHF by hospitalists Please clarify if CHF has been ruled in or ruled out. Also, if ruled in, please further clarify type and acuity of CHF. <Daniella Telles RN - Last Filed: 02/18/21 10:03> Clarified Diagnosis (1) Acute on chronic systolic (congestive) heart failure: Code(s): I50.23 - Acute on chronic systolic (congestive) heart failure <Daniella Telles RN - Last Filed: 02/18/21 10:03> Status: Acute <Daniella Telles RN - Last Filed: 02/18/21 10:03> Assessment and Plan: patient with moderately systolic dysfunction with EF of 45 most likely patient acute on chronic systolic congestive heart failure patient was treated with IV Lasix and patient's symptoms improved <Elena Dietrich MD - Last Filed: 03/10/21 17:16>
--- NOTE | 2021-02-18 14:54 | PM.DS ---
DS: Admitting Diagnosis Admitting Diagnosis Admitting Diagnosis: Shortness of breath DS: Discharge Diagnosis Discharge Diagnosis (1) Pneumonia due to COVID-19 virus: Code(s): U07.1 - COVID-19; J12.82 - Pneumonia due to coronavirus disease 2019 Status: Acute Assessment and Plan: The patient completed Remdesivir. Seems to have improved Has required supplemental O2 continue to monitor with try to wean off (2) Acute respiratory failure with hypoxia: Code(s): J96.01 - Acute respiratory failure with hypoxia Status: Acute Assessment and Plan: Improved On supplemental oxygen (3) Paroxysmal A-fib: Code(s): I48.0 - Paroxysmal atrial fibrillation Status: Chronic Assessment and Plan: Rate controlled and anticoagulated Continue to monitor (4) [place] (obstructive sleep apnea): Code(s): G47.33 - Obstructive sleep apnea (adult) (pediatric) Status: Acute Assessment and Plan: CPAP at night (5) COPD (chronic obstructive pulmonary disease): Qualifiers: COPD type: unspecified COPD Qualified Code(s): J44.9 - Chronic obstructive pulmonary disease, unspecified Code(s): J44.9 - Chronic obstructive pulmonary disease, unspecified Status: Acute Assessment and Plan: Continuing inhaled as steroids Continue breathing treatments Not actively wheezing (6) Essential (primary) hypertension: Code(s): I10 - Essential (primary) hypertension Status: Chronic DS: Summary Hospital Course Reason for hospitalization: Chief Complaint: shortness of breath Narrative: This is a 76-year-old male with known history of paroxysmal atrial fibrillation chronically anticoagulated on Xarelto, HTN, and prostate cancer who just underwent a laparoscopic cholecystectomy approximately 2 weeks ago and now presented to the hospital with worsening shortness of breath. He reports that 2-3 days after he left the hospital he started to develop worsening shortness of breath as well as a worsening poorly productive cough. His shortness of breath has only worsened over the past few days he has noticed severe shortness of breath. His cough seems to have gotten better. Today when he was having a follow-up visit he was found to have a pulse ox in the 70s on room air. He also reports that he had a COVID vaccine shortly after surgery approximately 2 weeks ago. He denies any significant fever. The patient also has not had any headache, sore throat, chest pain, dysuria, hematuria, nausea, vomiting, diarrhea, lower extremity swelling, redness, or pain. He reports that his surgical incision sites are closed dry and healing well. CTA chest was obtained in the emergency room today which did not demonstrate a pulmonary embolism but did demonstrate extensive bilateral pulmonary infiltrates. The patient was treated with IV antibiotics and was placed on 4 L of oxygen via nasal cannula to maintain his pulse ox sats. On my encounter with the patient viviana he is resting comfortably and doing well on 4 L of oxygen he has no other complaints at this time. The patient was swabbed for COVID-19 in the ER [facility]. Hospital Course: The patient completed Remdesivir. Seems to have improved Has required supplemental O2 continue to monitor with try to wean off Patient is clinically stable, will discharge patient home with home health to follow up with his primary care. Status at Discharge Functional status at discharge: uses cane/walker Overall status at discharge: patient is back to baseline Time Spent with Patient Time attestation: Total time spent providing and/or coordinating discharge services: Patient was seen and examined at the time of the discharge Condition at discharge is stable Code status: Full code. Time spent preparing discharge summary, discharge medications, discussing discharge planning with disease case manager and patient is 35 minutes. Time spent: Greater than 30 minutes Ex
== END 2021-02-18 16:20 | disposition home health service (06) | DRG 177 ==
LOC: ANHED 11:34 → ANHIMU 16:55 → ANH3MEDSUR 02-15 10:12 → ANHIMU 02-19 10:37
PROVIDERS: Family Medicine; Admitting Provider Internal Medicine; Emergency Provider Emergency Medicine; PCP Family Medicine; Visit Provider Family Medicine
DX: U07.1 COVID-19 (principal); J12.82 Pneumonia due to coronavirus disease 2019; J96.01 Acute respiratory failure with hypoxia; I50.23 Acute on chronic systolic (congestive) heart failure; I11.0 Hypertensive heart disease with heart failure; J43.9 Emphysema, unspecified; I48.0 Paroxysmal atrial fibrillation; G47.33 Obstructive sleep apnea (adult) (pediatric); N40.0 Benign prostatic hyperplasia without lower urinary tract symptoms; M19.90 Unspecified osteoarthritis, unspecified site; Z85.828 Personal history of other malignant neoplasm of skin; Z87.891 Personal history of nicotine dependence; Z86.19 Personal history of other infectious and parasitic diseases; Z79.01 Long term (current) use of anticoagulants
CPT/HCPCS: 36415; 36600; 71046; 71275; 80048; 80053; 82565; 82805; 83605; 83735; 83880; 84460; 84484; 85025; 85027; 85380; 85610; 85730; 87040; 87070; 87205; 87899; 93005; 94618; 94640; 96374; 97161; 97165; 99291; A9270; C9803; J0456; J0696; J1100; J1940; J2930; Q9967; U0003; U0005

== ENCOUNTER 2021-04-04 11:16 | Outpatient (NON) | payer MEDICARE, OTHER, SELFPAY ==
[2021-04-04 12:02] LABS: Hematocrit 42.2 % (42.0-52.0); Hemoglobin 14.1 g/dL (14.0-18.0); Mean Corpuscular HGB Conc 33.4 g/dl (32-36); Mean Corpuscular Hemoglobin 30.1 pg (26-34); Mean Corpuscular Volume 90.2 fl (80-100); Mean Platelet Volume 10.9 fl (7.4-10.4); Platelet Count Result 217 k/mm3 (150-375); Red Blood Count 4.68 M/mm3 (4.6-6.20); White Blood Count 6.4 K/mm3 (4.5-10.0)
[2021-04-04 12:14] LABS: Alanine Aminotransferase 13 U/L (4-50); Alkaline Phosphatase 79 U/L (38-126); Anion Gap 4 mmol/L (8-16); Aspartate Amino Transferase 33 U/L (17-59); Bilirubin,Total 0.4 mg/dL (0.2-1.3); Blood Urea Nitrogen 19 mg/dL (9-20); Calcium 9.5 mg/dL (8.4-10.2); Carbon Dioxide 30 mmol/L (22-30); Chloride 104 mmol/L (98-107); Cholesterol 139 mg/dL (0-200); Estimated Glomerular Filt Rate > 60; Glucose 90 mg/dL (75-110); HDL Direct 49 mg/dL; Sodium 138 mmol/L (137-145); Triglycerides 59 mg/dL (<150)
[2021-04-04 12:23] LABS: LDL Cholesterol Direct 77 mg/dL
[2021-04-04 12:32] LABS: Hemoglobin A1C 5.2 % (<5.7)
[2021-04-04 12:42] LABS: Prostate Specific Antigen 0.4 ng/mL (< OR = 4.0)
[2021-04-04 13:43] LABS: Potassium 4.2 mmol/L (3.4-5.0)
[2021-04-07 14:13] LABS: Basophils Percent Auto 0.6 % (0.2-1.2); Eosinophils Absolute Auto 0.2 K/mm3 (0-0.3); Eosinophils Percent Auto 2.4 % (0-4.4); Immature Granulocyte Absolute 0.01 K/mm3 (0.00-0.031); Immature Granulocyte Percent A 0.2 % (0-0.5); Lymphocytes Percent Auto 20.4 % (18.3-44.2); Monocytes Absolute Auto 0.7 K/mm3 (0.1-0.6); Monocytes Percent Auto 10.8 % (2.6-8.5); Neutrophils Absolute Auto 4.2 K/mm3 (1.3-6.7); Neutrophils Percent Auto 65.6 % (45.5-73.1)
[2021-04-07 14:41] LABS: Burr Cells 2+ (NORMAL); Platelet Estimate Adequate (Adequate)
== END 2021-04-04 11:17 | disposition home or self-care (01) ==
PROVIDERS: PCP Family Medicine; Visit Provider Physician Assistant
DX: G47.33 Obstructive sleep apnea (adult) (pediatric) (principal); E78.2 Mixed hyperlipidemia; I48.0 Paroxysmal atrial fibrillation; J44.9 Chronic obstructive pulmonary disease, unspecified; F32.9 Major depressive disorder, single episode, unspecified; Z79.899 Other long term (current) drug therapy; Z85.46 Personal history of malignant neoplasm of prostate
CPT/HCPCS: 80053; 80061; 83036; 84153; 84443; 85025; 85027

== ENCOUNTER → 2021-04-25 03:00 | Outpatient (CLI) | payer MEDICARE, MEDICAID, SELFPAY ==
[2021-04-25 18:15] LABS: SARS-CoV-2 RNA PCR Negative
== END ==
PROVIDERS: PCP Family Medicine; Visit Provider Internal Medicine Critical Care Medicine
DX: Z01.812 Encounter for preprocedural laboratory examination (principal); Z20.822 Contact with and (suspected) exposure to COVID-19
CPT/HCPCS: C9803; U0003; U0005

== ENCOUNTER 2021-04-28 08:52 | Outpatient (CLI) | payer MEDICARE, MEDICAID, SELFPAY ==
--- NOTE | 2021-05-05 11:20 | WPDSLEEPSTUD ---
Sleep Study Date of Study: 04/28/21 Ordering Provider: Nate Aguero APRN Interpreting Physician: Summer Brewer MD Sleep Study Type: Split Polysomnogram Height: 1.75 m Weight: 63.049 kg Body Mass Index: 20.5 Neck Circumference (inches): 15 Reason for Sleep Study history of obstructive sleep apnea on CPAP, has COPD and emphysema, Sleep History Carlos Medley is a 76 year old man with known [place], COPD; had worsening hypoxemia after a laparoscopic cholecystectomy went home on 2 L of oxygen, had COVID, now using O2 @ 2 l/min . He is not having good qulaity sleep on his current CPAP settings, now presents for repeat titration. He has nocturia 2 x a night. HE has systolic CHF, echo 01/24/2021 - Left ventricular systolic function is mildly reduced, estimated at 40-45%. 04/12/2019 he had a split night study, his body mass index was 21.9. He had sleep apnea prior to this study in 2018. He had excessive daytime sleepiness with an [place] of 19. He had obstructive sleep apnea with severe myoclonus, optimal pressure was 14 cm. He also recently 2020 had an [facility] in the hospital because he had daytime fatigue, frequent napping, and nocturia. He also has congestive heart failure. He does not awaken from sleep feeling short of breath, does not awaken at night with heartburn, belching or coughing and he does not snore while using CPAP. He does not have trouble sleeping with a cold and he does not wake up gasping for breath at night. He does not sweat excessively at night or notices heart pounding or beating irregularly at night. He rarely falls asleep, never involuntarily and never while driving. He does not have loss of muscle tone was strong emotion. He does have some difficulties in the daytime due to his excessive sleepiness. He does not feel paralyzed on waking or falling asleep. He does not have vivid p. He does not have nightmares. He rarely remembers his dreams. He does not have racing thoughts. He denies feeling sad or depressed. He rarely has anxiety. He rarely has muscular tension. He rarely notices parts of his body jerking. He does not kick at night. He occasionally has crawling and aching feelings in his legs. He occasionally has leg pain at night. He does not have morning jaw pain. He does not grind his teeth during sleep. He constantly is bothered by pain during the day. He frequently is awakened by pain during the night. He does not wake up feeling stiff in the morning, does not have sore achy muscles are pain in the neck and spine. He has fatigue, sexual problems. dreamlike scenes upon awakening or falling asleep. He does not feel afraid to go to sleep. He never awakens feeling refreshed. Normal bedtime is 11:00 p.m. falling asleep within 15 minutes sometimes taking much longer. He wakes up several times at night. Sometimes these awakenings last 10 minutes and sometimes they will last for hours. He wakes the morning at 8:00 a.m.. He estimates getting just a few hours of sleep overnight. He takes naps in the afternoon or evening. These naps last 10 or 15 minutes in these may be refreshing. He is drowsy in the morning for 3 hours or longer. He feels better in the afternoon and evening compared to the morning. Habits: Never smoked tobacco. Caffeine 2 cups per day. No alcohol or recreational drugs. [facility] Past Medical History Medical History Arthritis Atrial fibrillation Atrial fibrillation and flutter Basal cell carcinoma (BCC) Benign prostatic hyperplasia CHF (congestive heart failure) Erectile dysfunction Essential (primary) hypertension Hepatitis C Hypertension Major depressive disorder, single episode, unspecified Mixed hyperlipidemia [place] (obstructive sleep apnea) [place] (obstructive sleep apnea) Paroxysmal A-fib Pulmonary emphysema Pulmonary hypertension Tobacco abuse Surgical History Surgical History (Reviewed 03/14/21 @ 15:08 by Prisca
[2021-05-05 12:02] VITALS: BMI 20.5
--- NOTE | 2022-10-27 14:25 | SLEEP ---
pt is not doing well with pap therapy pt was switched to nasal mask d/t romero. pt is not tolerating well and is switching back to ffm.
== END 2021-04-29 06:48 | disposition home or self-care (01) ==
LOC: ANHCSM 08:56
PROVIDERS: PCP Family Medicine; Visit Provider Nurse Practitioner Family
DX: G47.30 Sleep apnea, unspecified (principal); G47.33 Obstructive sleep apnea (adult) (pediatric)
CPT/HCPCS: 95811

== ENCOUNTER 2021-05-30 13:36 | Outpatient (CLI) | payer MEDICARE, MEDICAID, SELFPAY ==
--- NOTE | 2021-06-04 15:39 | WPDSIXMINUTE ---
Six Minute Walk Procedure Procedure Performed Pulmonary Stress Test (6 min walk) Six Minute Walk Six Minute Walk: DATE: 05/30/2021 REQUESTING: Nate Aguero APRN REASON: shortness of breath SIX MINUTE WALK The patient has O2 at home, did not wear it at the test. He walked 900 feet/274 meters in six minutes without stopping to rest. The lowest saturation is 91%. The pulse maximum was 101. This was conducted per ATS guidelines. The room air saturation was 95% and the pulse was 75 beats per minute. The patient did not require supplemental O2 during testing. His saturation was 96% and pulse was 77 after recovery. IMPRESSION: No supplemental oxygen indicated with exertion. Summer Brewer MD
--- NOTE | 2021-06-04 16:59 | WPDPFTINT ---
PFT Interpretation DOS: 05/30/2021 REQUESTING: Nate Aguero APRN REASON FOR TESTING: Dyspnea PULMONARY FUNCTION TESTS The results are reliable and reproducible. Spirometry: FEV1 is 97%, normal, 2.0 liters. FVC is 96% predicted. The FEV1/FVC is 75%, normal. There is no increase with bronchodilator administration. Lung volumes: Total lung capacity is mildly decreased 77% predicted. rResidual volume 62% normal. RV/TLC is 30% , normal. Mild restriction and no air trapping. Normal airway resistance. Diffusion: DLCO 45% moderately decreased. Flow volume loop: Nonspecific pattern. IMPRESSION: This pulmonary function study shows normal spirometry, mild restriction and a moderate diffusion impairment. The diffusion impairment is the most significant finding. Restriction and low DLCO can be seen in interstitial lung disease, pneumonitis, heart failure, sarcoidosis and other conditions. Clinical correlation is recommended. Summer Brewer MD
== END 2021-05-30 13:37 | disposition home or self-care (01) ==
LOC: ANHPFT 13:38
PROVIDERS: PCP Family Medicine; Visit Provider Nurse Practitioner Family
DX: J44.9 Chronic obstructive pulmonary disease, unspecified (principal)
CPT/HCPCS: 94060; 94618; 94726; 94729

== ENCOUNTER 2021-09-30 16:01 | Emergency (ER) | payer OTHER, SELFPAY ==
--- NOTE | ~2021-09-30 | XR_ITS ---
EXAMINATION: XR chest 2V DATE: 09/30/2021 16:37 INDICATION: Shortness of breath TECHNIQUE: PA and lateral views of the chest are obtained. COMPARISON: 02/11/2021 FINDINGS: The lungs are free of acute opacities. There is no pleural effusion or pneumothorax. Cardio megaly is noted. There is mild thoracic spondylosis. IMPRESSION: 1. No acute cardiopulmonary abnormality. Reviewed, dictated and finalized at location [facility]
--- NOTE | 2021-09-30 11:10 | ECG_ITS ---
Measurements Intervals [place] Rate: 88 P: CO: 0 QRS: -58 QRSD: 136 T: 40 QT: 339 QTc: 412 Interpretive Statements ATRIAL FIBRILLATION INTRAVENTRICULAR CONDUCTION DELAY ABNORMAL ECG Electronically Signed On 10-02-2021 19:22:55 [employer] by Angel Meeks D.O.
--- NOTE | 2021-09-30 16:07 | ED.SOB ---
HPI - SOB/Dyspnea General Chief Complaint: Shortness of Breath/Dyspnea Stated Complaint: SOB/COUGH Time Seen by Provider: 09/30/21 16:22 Source: patient and RN notes reviewed Mode of arrival: ambulatory Limitations: no limitations History of Present Illness HPI Narrative: 76-year-old male with history of of an infection, COPD, congestive heart failure presents with concern for shortness of breath. He reports in January of this year he was hospitalized for Covid, went home on oxygen. Reports he is on oxygen for 2 months after his Covid infection. Reports he subsequently had a COPD and CHF diagnosis. Patient is a poor historian, reports over the past several weeks he has had shortness of breath. He denies coughing, fatigue, general malaise. Denies fever, body aches, chills. He denies exacerbating or relieving factors. MD elicited complaint: shortness of breath Related Data Home Medications Medication Instructions Recorded Confirmed Myrbetriq 50 mg PO DAILY 01/08/20 09/01/21 multivitamin 1 cap PO DAILY 01/08/20 09/01/21 bupropion HCl 100 mg tablet,12 hr 150 mg PO DAILY tablet 02/22/20 09/01/21 sustained-release melatonin 3 mg tablet 5 mg PO .qhs tablet 04/03/20 09/01/21 albuterol sulfate 90 mcg/actuation 1 puff INHALATION Q4H PRN 03/07/21 09/01/21 aerosol inhaler diltiazem HCl 180 mg 180 mg PO DAILY 08/12/21 09/01/21 tablet,extended release 24 hr tamsulosin 0.4 mg capsule 0.4 mg PO DAILY 09/01/21 09/01/21 Allergies Allergy/AdvReac Type Severity Reaction Status Date / Time hydromorphone Allergy Unknown Unknown Verified 09/01/21 13:58 escitalopram [From Lexapro] AdvReac sexual Verified 09/01/21 13:58 disfunction Review of Systems Review of Systems: CONSTITUTIONAL: Denies malaise, chills, sweats, or fever. EYES: Denies visual changes, redness, or discharge. ENT: Reports rhinorrhea, congestion, sinus pain, otalgia and sore throat. CARDIOVASCULAR: Denies chest pain, palpitations, or edema. RESPIRATORY: Denies cough. Reports dyspnea. GASTROINTESTINAL: Denies abdominal pain, nausea, vomiting, diarrhea SKIN: Denies rash or itching. MUSCULOSKELETAL: Denies myalgia. NEUROLOGIC: Denies headache. All systems reviewed & are unremarkable except as noted in HPI and below PMFSH Past Medical History Medical History Arthritis Atrial fibrillation Atrial fibrillation and flutter Basal cell carcinoma (BCC) Benign prostatic hyperplasia CHF (congestive heart failure) Erectile dysfunction Essential (primary) hypertension Hepatitis C Hypertension Major depressive disorder, single episode, unspecified Mixed hyperlipidemia [place] (obstructive sleep apnea) [place] (obstructive sleep apnea) Paroxysmal A-fib Pulmonary emphysema Pulmonary hypertension Tobacco abuse Surgical History Surgical History H/O arthroscopy of left knee H/O arthroscopy of right knee H/O hernia repair H/O prostate biopsy History of knee replacement History of liver biopsy History of partial colectomy Hx of detached retina repair Family History Family History Mother Family history of gastrointestinal disorder Family history of pancreatic cancer Sibling Family history of Alzheimer's disease Father Family history of heart disease in male family member before age 55 Family history of cardiovascular disease Diabetes mellitus Family history of elevated blood lipids Acute myocardial infarction Other Depression Hypertension Malignant neoplasm of prostate Social History Social History Smoking packs per day: 0.5 Smoking cigarettes per day: 10.0 Years smoked: 46 Smoking pack-years: 23.00 Tobacco type: cigarettes Smoking end date: 11/22/17 Alcohol intake: former Substance use: never Substance use type: f
[2021-09-30 16:09] VITALS: BP 145/77; PULSE 63; RESP 20; TEMP 36.7; O2SAT 98
== END 2021-09-30 17:24 | disposition home or self-care (01) ==
PROVIDERS: Emergency Provider Nurse Practitioner; PCP Family Medicine
DX: R06.02 Shortness of breath (principal); F17.210 Nicotine dependence, cigarettes, uncomplicated; M19.90 Unspecified osteoarthritis, unspecified site; Z85.828 Personal history of other malignant neoplasm of skin; N40.0 Benign prostatic hyperplasia without lower urinary tract symptoms; I11.0 Hypertensive heart disease with heart failure; I50.9 Heart failure, unspecified; E78.2 Mixed hyperlipidemia; G47.33 Obstructive sleep apnea (adult) (pediatric); J43.9 Emphysema, unspecified; Z96.659 Presence of unspecified artificial knee joint; I48.0 Paroxysmal atrial fibrillation
CPT/HCPCS: 71046; 93005; 99213; G0463

== ENCOUNTER 2021-10-09 16:57 | Emergency (ER) | payer OTHER, SELFPAY ==
[2021-10-09 17:06] VITALS: BP 113/76; PULSE 67; RESP 24; TEMP 36.6; O2SAT 100
--- NOTE | 2021-10-09 17:22 | ED.WOUNDLAC ---
HPI - Wound/Laceration General Chief Complaint: Wound/Laceration Stated Complaint: leg wound Source: patient Mode of arrival: ambulatory Limitations: no limitations History of Present Illness HPI narrative: Patient is a 76-year-old male who presents complaining of wound to right medial ankle x5 days. Patient is unsure if he injured, however, he does do a large amount of yard work. Slight swelling noted to right lower extremity. Patient is on blood thinners. He denies all other complaints at this time. Related Data Home Medications Medication Instructions Recorded Confirmed Myrbetriq 50 mg PO DAILY 01/08/20 10/09/21 multivitamin 1 cap PO DAILY 01/08/20 10/09/21 bupropion HCl 100 mg tablet,12 hr 150 mg PO DAILY tablet 02/22/20 10/09/21 sustained-release melatonin 3 mg tablet 5 mg PO .qhs tablet 04/03/20 10/09/21 albuterol sulfate 90 mcg/actuation 1 puff INHALATION Q4H PRN 03/07/21 10/09/21 aerosol inhaler diltiazem HCl 180 mg 180 mg PO DAILY 08/12/21 10/09/21 tablet,extended release 24 hr tamsulosin 0.4 mg capsule 0.4 mg PO DAILY 09/01/21 10/09/21 cholecalciferol (vitamin D3) 25 mcg PO DAILY 10/09/21 10/09/21 [Vitamin D3] Allergies Allergy/AdvReac Type Severity Reaction Status Date / Time hydromorphone Allergy Unknown Unknown Verified 10/09/21 17:07 escitalopram [From Lexapro] AdvReac sexual Verified 10/09/21 17:07 disfunction Review of Systems Review of Systems: CONSTITUTIONAL: Denies fever, chills, or sweats. EYES: Denies visual changes, redness, or discharge. ENT: Denies rhinorrhea, congestion, sore throat, or otalgia. CARDIOVASCULAR: Denies chest pain, palpitations, or edema. RESPIRATORY: Denies cough or dyspnea. GASTROINTESTINAL: Denies abdominal pain, nausea, vomiting, or diarrhea. GENITOURINARY: Denies dysuria or hematuria. SKIN: Wound to right lower leg MUSCULOSKELETAL: Denies back pain, joint pain, or myalgia. NEUROLOGIC: Denies headache, numbness, dizziness, or weakness. PSYCHIATRIC: Denies anxiety or depression. [facility] Past Medical History Medical History Arthritis Atrial fibrillation Atrial fibrillation and flutter Basal cell carcinoma (BCC) Benign prostatic hyperplasia CHF (congestive heart failure) Erectile dysfunction Essential (primary) hypertension Hepatitis C Hypertension Major depressive disorder, single episode, unspecified Mixed hyperlipidemia [place] (obstructive sleep apnea) [place] (obstructive sleep apnea) Paroxysmal A-fib Pulmonary emphysema Pulmonary hypertension Tobacco abuse Surgical History Surgical History H/O arthroscopy of left knee H/O arthroscopy of right knee H/O hernia repair H/O prostate biopsy History of knee replacement History of liver biopsy History of partial colectomy Hx of detached retina repair Family History Family History Mother Family history of gastrointestinal disorder Family history of pancreatic cancer Sibling Family history of Alzheimer's disease Father Family history of heart disease in male family member before age 55 Family history of cardiovascular disease Diabetes mellitus Family history of elevated blood lipids Acute myocardial infarction Other Depression Hypertension Malignant neoplasm of prostate Social History Social History Smoking packs per day: 0.5 Smoking cigarettes per day: 10.0 Years smoked: 46 Smoking pack-years: 23.00 Tobacco type: cigarettes Smoking end date: 11/22/17 Alcohol intake: former Substance use: never Substance use type: former substance user Gender identity (if verbalized by the patient): Male Spiritual care concerns: No Comments At the time of signature, I have reviewed and agree with nursing past medical, surgical, social, and family history u
== END 2021-10-09 17:40 | disposition home or self-care (01) ==
PROVIDERS: Emergency Provider Nurse Practitioner; PCP Family Medicine
DX: S91.001A Unspecified open wound, right ankle, initial encounter (principal); X58.XXXA Exposure to other specified factors, initial encounter; Z87.891 Personal history of nicotine dependence; M19.90 Unspecified osteoarthritis, unspecified site; I48.91 Unspecified atrial fibrillation; I11.0 Hypertensive heart disease with heart failure; I50.9 Heart failure, unspecified; E78.2 Mixed hyperlipidemia; G47.33 Obstructive sleep apnea (adult) (pediatric); I48.0 Paroxysmal atrial fibrillation; Z85.828 Personal history of other malignant neoplasm of skin; N40.0 Benign prostatic hyperplasia without lower urinary tract symptoms; F32.9 Major depressive disorder, single episode, unspecified
CPT/HCPCS: 99213; G0463

== ENCOUNTER 2021-11-04 00:19 | Day surgery (SDC) | payer MEDICARE, MEDICAID, SELFPAY ==
--- NOTE | 2021-11-04 08:00 | ECG_ITS ---
Measurements Intervals [place] Rate: 60 P: 81 [place]: 211 QRS: -49 QRSD: 126 T: -7 QT: 432 QTc: 434 Interpretive Statements SINUS RHYTHM WITH FIRST DEGREE AV BLOCK ATRIAL COUPLET AND ATRIAL PREMATURE COMPLEX LEFT ANTERIOR FASCICULAR BLOCK BORDERLINE T WAVE ABNORMALITY- ANT/INF LEADS ABNORMAL ECG Electronically Signed On 11-04-2021 10:03:59 LANGUAGE THERAPIST by Angel Meeks D.O.
[2021-11-04 08:45] VITALS: BP 112/81; RESP 21; O2SAT 96; BMI 21.4
--- NOTE | 2021-11-04 09:35 | WPDMODSED ---
Moderate Sedation Note-Pt Data Patient Data Allergies Allergy/AdvReac Type Severity Reaction Status Date / Time escitalopram [From Lexapro] AdvReac Intermediate sexual Verified 11/04/21 08:30 disfunction hydromorphone AdvReac Intermediate Nightmare Verified 11/04/21 08:29 Home Medications Medication Instructions Recorded Confirmed Type Myrbetriq 25 mg PO DAILY 01/08/20 11/04/21 History multivitamin 1 cap PO DAILY 01/08/20 11/04/21 History bupropion HCl 100 mg tablet,12 hr 150 mg PO DAILY tablet 02/22/20 11/04/21 History sustained-release melatonin 3 mg tablet 5 mg PO .qhs tablet 04/03/20 11/04/21 History polyethylene glycol 3350 [Miralax] 17 g PO QAM PRN #30 ea 01/24/21 11/04/21 Rx albuterol sulfate 90 mcg/actuation 1 puff INHALATION Q4H PRN 03/07/21 11/04/21 History aerosol inhaler rivaroxaban 20 mg tablet 20 mg PO DAILY #90 tablet 05/30/21 11/04/21 Rx diltiazem HCl 180 mg 180 mg PO DAILY 08/12/21 11/04/21 History tablet,extended release 24 hr tamsulosin 0.4 mg capsule 0.4 mg PO DAILY 09/01/21 11/04/21 History tramadol 50 mg tablet 50 mg PO Q6H PRN #60 tablet 09/01/21 11/04/21 Rx gabapentin 300 mg capsule See Rx Instructions .ROUTE 10/03/21 11/04/21 Rx .COMPLEX #120 cap cholecalciferol (vitamin D3) 25 mcg PO DAILY 10/09/21 11/04/21 History [Vitamin D3] lisinopril 5 mg tablet See Rx Instructions .ROUTE 10/28/21 11/04/21 Rx .COMPLEX #90 tablet sildenafil (pulm.hypertension) 20 mg PO 2XW PRN 11/04/21 11/04/21 History [Revatio] Current Medications: Active Medications Sodium Chloride (Normal Saline Iv) 500 mls @ 30 mls/hr IV CONT .[id number] HESHAM Sedation/Anesthesia: No previous sedation/anesthesia problems (including family history). [facility] Past Medical History Medical History Arthritis Atrial fibrillation Atrial fibrillation and flutter Basal cell carcinoma (BCC) Benign prostatic hyperplasia CHF (congestive heart failure) Erectile dysfunction Essential (primary) hypertension Hepatitis C Hypertension Major depressive disorder, single episode, unspecified Mixed hyperlipidemia [place] (obstructive sleep apnea) [place] (obstructive sleep apnea) Paroxysmal A-fib Pulmonary emphysema Pulmonary hypertension Tobacco abuse Surgical History Surgical History H/O arthroscopy of left knee H/O arthroscopy of right knee H/O hernia repair H/O prostate biopsy History of knee replacement History of liver biopsy History of partial colectomy Hx of detached retina repair Family History Family History Mother Family history of gastrointestinal disorder Family history of pancreatic cancer Sibling Family history of Alzheimer's disease Father Family history of heart disease in male family member before age 55 Family history of cardiovascular disease Diabetes mellitus Family history of elevated blood lipids Acute myocardial infarction Other Depression Hypertension Malignant neoplasm of prostate Social History Social History Smoking packs per day: 0.5 Smoking cigarettes per day: 10.0 Years smoked: 46 Smoking pack-years: 23.00 Tobacco type: cigarettes Smoking end date: 11/22/17 Alcohol intake: former Substance use: never Substance use type: former substance user Gender identity (if verbalized by the patient): Male Spiritual care concerns: No Mod Sed Physical Exam Physical Exam Pre Procedural Exam: Normal: Airway Hours since solid foods: 10 Hours since liquid intake: 10 Mallampati Classification: class II Internal Medicine - PN: Obj Da Vital Signs Vital Signs: Vital Signs - 24 hr 11/04/21 08:45 Respiratory Rate 21 H Blood Pressure 112/81 Pulse Oximetry 96 Meds/Results Medications: Active Medications Generic Name Dose Rou
--- NOTE | 2021-11-04 09:45 | ECG_ITS ---
Measurements Intervals [place] Rate: 65 P: [place]: 0 QRS: -53 QRSD: 118 T: 17 QT: 401 QTc: 420 Interpretive Statements ATRIAL FIBRILLATION LEFT ANTERIOR FASCICULAR BLOCK BORDERLINE T WAVE ABNORMALITY- ANT/INF LEADS BASELINE ARTIFACT- I, II, AVR, AVL, AVF, V1 ABNORMAL ECG Electronically Signed On 11-04-2021 8:33:29 METEOROLOGY INSTRUCTOR by Angel Meeks D.O.
--- NOTE | 2021-11-04 09:57 | WPDHPUPDATE1 ---
History and Physical Update Update Date/Time: 11/04/21 09:57 History and Physical has been reviewed, including an updated exam of the patient. There are NO changes in the patient's condition. Risks, benefits, and alternatives have been discussed and questions answered. Patient agrees to proceed with procedure.
[2021-11-04 09:58] VITALS: BP 113/71; PULSE 58; RESP 14; O2SAT 97
--- NOTE | 2021-11-04 09:58 | WPDCARDVER ---
Cardioversion Cardioversion Date of procedure: 11/04/21 Description of procedure: DATE OF PROCEDURE: 11/04/2021 INDICATION FOR PROCEDURE: Symptomatic, persistent atrial fibrillation Benefits, risks and alternatives of the procedure were discussed with the patient and informed consent was taken prior to the procedure. Patient had already been on chronic anticoagulation with rivaroxaban, therefore, transesophageal echocardiogram was not necessary prior to the DC cardioversion. PROCEDURES PERFORMED: 1. Successful synchronized DC cardioversion with amish of sinus rhythm 2. Moderate sedation -CPT 68684 SEDATION: Propofol 40 mg ; start time 0953 minutes, stop time 0959 minutes; total [id number] time 6 minutes; Ruby Humphreys RN was trained observer for the moderate sedation. PROCEDURE: Informed consent was taken prior to the procedure. Transcutaneous pads were placed in the right parasternal and left paravertebral positions. After adequate conscious sedation with IV propofol, synchronized DC cardioversion was performed with 200 joules x 1 with amish of sinus rhythm. Postprocedure EKG showed sinus rhythm, first-degree AV block and PACs. Patient tolerated procedure well without any immediate procedure related complications. CONCLUSIONS: Successful synchronized DC cardioversion with amish of sinus rhythm. RECOMMENDATIONS: Patient will continue on anticoagulation with rivaroxaban for CVA prophylaxis, in addition to other medications. Outpatient follow-up at cardiology clinic.
[2021-11-04 10:15] VITALS: BP 108/75; PULSE 63; RESP 16; O2SAT 94
[2021-11-04 10:30] VITALS: BP 140/68; PULSE 68; RESP 18; O2SAT 95
--- NOTE | 2021-11-04 10:43 | SUR.PHASEII ---
DISCHARGE INSTRUCTION REVIEWED WITH PT AND FRIEND. ALL QUESTIONS ANSWERED. ESCORTED OFF FLOOR.
[2021-11-04 10:45] VITALS: BP 113/80
== END 2021-11-04 10:57 | disposition home or self-care (01) ==
PROVIDERS: PCP Family Medicine; Visit Provider Internal Medicine Cardiovascular Disease
PROC: 5A2204Z Restoration of Cardiac Rhythm, Single (ICD-10-PCS; principal; 2021-11-04 09:30)
DX: I48.19 Other persistent atrial fibrillation (principal); I11.0 Hypertensive heart disease with heart failure; I50.9 Heart failure, unspecified; G47.33 Obstructive sleep apnea (adult) (pediatric); F32.9 Major depressive disorder, single episode, unspecified; N40.0 Benign prostatic hyperplasia without lower urinary tract symptoms; Z87.891 Personal history of nicotine dependence; Z79.01 Long term (current) use of anticoagulants; Z79.51 Long term (current) use of inhaled steroids
CPT/HCPCS: 92960; J2704; J7030

== ENCOUNTER 2021-11-05 10:28 | Outpatient (CLI) | payer MEDICARE, MEDICAID, SELFPAY ==
--- NOTE | 2021-11-05 13:04 | NEURO_ITS ---
PATIENT NUMBER: [id number] IMPRESSION : Complains of numbness of left hand. # Left moderate Carpal Tunnel Syndrome. # Left ulnar neuropathy across the elbow. # Abnormal needle exam. Nerve Conduction Studies Anti Sensory Summary Table Stim Site NR Peak (ms) P-T Amp (?V) Site1 Site2 Delta-P (ms) Dist (cm) Jose G (m/s) Left Median Anti Sensory (2-3nd Digit) Wrist 5.6 7.5 Wrist 2-3nd Digit 5.6 14.0 25 Wrist 6.3 6.0 Wrist 2-3nd Digit 5.6 14.0 25 Left Radial Anti Sensory (Base 1st Digit) Wrist 2.2 16.4 Wrist Base 1st Digit 2.2 0.0 Left Ulnar Anti Sensory (5th Digit) Wrist 3.0 24.3 Wrist 5th Digit 3.0 14.0 47 Motor Summary Table Stim Site NR Onset (ms) O-P Amp (mV) Site1 Site2 Delta-0 (ms) Dist (cm) Jose G (m/s) Left Median Motor (Abd Poll Brev) Wrist 4.6 0.4 Elbow Wrist 5.3 31.0 58 Elbow 9.9 2.2 Left Ulnar Motor (Abd Dig Minimi) Wrist 2.7 5.5 A Elbow Wrist 5.8 30.0 52 A Elbow 8.5 4.5 B Elbow Wrist 3.9 24.0 62 B Elbow 6.6 4.5 F Wave Studies NR F-Lat (ms) L-R F-Lat (ms) Left Median (Mrkrs) (Abd Poll Brev) 29.42 Left Ulnar (Mrkrs) (Abd Dig Min) 28.75 EMG Side Muscle Nerve Root Ins Act Fibs Amp Dur Recrt Comment Left 1stDorInt Ulnar C8-T1 Nml Nml Nml >12ms Reduced Left Ext Indicis Radial (Post Int) C7-8 Nml Nml Nml Nml Nml Left Ext Digitorum Radial (Post Int) C7-8 Nml Nml Nml Nml Nml Left BrachioRad Radial C5-6 Nml Nml Nml Nml Nml Left PronatorTeres Median C6-7 Nml Nml Nml Nml Nml Left Abd Poll Brev Median C8-T1 Nml Nml Nml >12ms Reduced Left Abd Poll Long Radial (Post Int) C7-8 Nml Nml Nml Nml Nml MTDD
== END 2021-11-05 10:29 | disposition home or self-care (01) ==
PROVIDERS: PCP Family Medicine; Visit Provider Physician Assistant
DX: G56.02 Carpal tunnel syndrome, left upper limb (principal); G56.22 Lesion of ulnar nerve, left upper limb
CPT/HCPCS: 95886; 95909

== ENCOUNTER 2022-06-05 14:06 | Emergency (ER) | payer MEDICARE, MEDICAID, SELFPAY ==
[2022-06-05 14:08] VITALS: PULSE 95; RESP 16; TEMP 36.6; O2SAT 95
[2022-06-05 15:08] LABS: Basophils Percent Auto 0.4 % (0.2-1.2); Eosinophils Percent Auto 0.6 % (0-4.4); Hematocrit 45.8 % (42.0-52.0); Hemoglobin 15.2 g/dL (14.0-18.0); Immature Granulocyte Absolute 0.02 K/mm3 (0.00-0.031); Immature Granulocyte Percent A 0.4 % (0-0.5); Lymphocytes Absolute Auto 1.51 K/mm3 (0.9-3.2); Lymphocytes Percent Auto 28.4 % (18.3-44.2); Mean Corpuscular HGB Conc 33.2 g/dl (32-36); Mean Corpuscular Hemoglobin 30.6 pg (26-34); Mean Corpuscular Volume 92.2 fl (80-100); Mean Platelet Volume 10.8 fl (7.4-10.4); Monocytes Absolute Auto 0.6 K/mm3 (0.1-0.6); Monocytes Percent Auto 11.3 % (2.6-8.5); Neutrophils Absolute Auto 3.1 K/mm3 (1.3-6.7); Neutrophils Percent Auto 58.9 % (45.5-73.1); Platelet Count Result 161 k/mm3 (150-375); Red Blood Count 4.97 M/mm3 (4.6-6.20); Red Cell Distribution Width 14.4 % (11.5-14.5); White Blood Count 5.3 K/mm3 (4.5-10.0)
[2022-06-05 15:19] LABS: Alanine Aminotransferase 17 U/L (6-50); Alkaline Phosphatase 60 U/L (38-126); Anion Gap 4 mmol/L (8-16); Aspartate Amino Transferase 23 U/L (17-59); Bilirubin,Total 1.1 mg/dL (0.2-1.3); Blood Urea Nitrogen 19 mg/dL (9-20); Calcium 8.5 mg/dL (8.4-10.2); Carbon Dioxide 27 mmol/L (22-30); Chloride 104 mmol/L (98-107); Estimated CRCL calculation 46 ml/min; Estimated Glomerular Filt Rate > 60; Glucose 76 mg/dL (65-110); Potassium 4.2 mmol/L (3.4-5.0); Sodium 135 mmol/L (137-145)
[2022-06-05 15:45] LABS: SARS-CoV-2 RNA PCR Negative
--- NOTE | 2022-06-05 15:54 | ED.NAVMDI ---
HPI - Nausea/Vomiting/Diarrhea General Chief complaint: Nausea/Vomiting/Diarrhea Stated complaint: diarrhea, blood on skin Time Seen by Provider: 06/05/22 14:19 History of Present Illness HPI Narrative: This is a 77M with past medical history of coronary disease, status post cardiac catheterization yesterday, who presents emergency department complaining of loose stools x12 in the past day, with 2 episodes of bright red blood and pain with wiping. His pain is described as soreness, 1 out of 10, aggravated by wiping, not radiating, without nausea/vomiting, abdominal pain loss of consciousness or bleeding elsewhere. He states he has held his Xarelto over the past 2 days and has not yet taken a dose. He denies cough, congestion, shortness of breath or known sick contacts. He is primarily concerned with the bleeding. Related Data Home Medications Medication Instructions Recorded Confirmed mirabegron 50 mg tablet,extended 25 mg PO DAILY 01/08/20 04/27/22 release 24 hr (Myrbetriq) multivitamin 1 cap PO DAILY 01/08/20 04/27/22 bupropion HCl 100 mg tablet,12 hr 150 mg PO DAILY 02/22/20 04/27/22 sustained-release melatonin 3 mg tablet ([place]) 5 mg PO .qhs 04/03/20 04/27/22 tamsulosin 0.4 mg capsule 0.4 mg PO DAILY 09/01/21 04/27/22 cholecalciferol (vitamin D3) 25 25 mcg PO DAILY 10/09/21 04/27/22 mcg (1,000 unit) capsule (Vitamin D3) metoprolol tartrate 100 mg tablet 100 mg PO Q12H 02/10/22 04/27/22 sacubitril 24 mg-valsartan 26 mg 1 tablet PO BID 02/10/22 04/27/22 tablet empagliflozin 10 mg tablet 10 mg PO 04/27/22 04/27/22 (Jardiance) Allergies Allergy/AdvReac Type Severity Reaction Status Date / Time escitalopram [From Lexapro] AdvReac Intermediate sexual Verified 04/27/22 15:43 disfunction hydromorphone AdvReac Intermediate Nightmare Verified 04/27/22 15:43 Review of Systems Review of Systems: CONSTITUTIONAL: Denies fever, chills, or sweats. EYES: Denies visual changes, redness, or discharge. ENT: Denies rhinorrhea, congestion, sore throat, or otalgia. CARDIOVASCULAR: Denies chest pain, palpitations, or edema. RESPIRATORY: Denies cough or dyspnea. GASTROINTESTINAL: Bright red blood with wiping, Denies abdominal pain, nausea, vomiting, or diarrhea. GENITOURINARY: Denies dysuria or hematuria. SKIN: Denies rash or itching. MUSCULOSKELETAL: Denies back pain, joint pain, or myalgia. NEUROLOGIC: Denies headache, numbness, dizziness, or weakness. PSYCHIATRIC: Denies anxiety or depression. ON LICENSE OF [facility] Past Medical History Medical History (Updated 06/05/22 @ 22:50 by Koffi Nguyen MD) Arthritis Atrial fibrillation Atrial fibrillation and flutter Basal cell carcinoma (BCC) Benign prostatic hyperplasia CHF (congestive heart failure) Cholelithiasis NOS Erectile dysfunction Essential (primary) hypertension Hepatitis C Hypertension Major depressive disorder, single episode, unspecified Mixed hyperlipidemia [place] (obstructive sleep apnea) [place] (obstructive sleep apnea) Paroxysmal A-fib Pulmonary emphysema Pulmonary hypertension Tobacco abuse Surgical History Surgical History H/O arthroscopy of left knee H/O arthroscopy of right knee H/O hernia repair H/O prostate biopsy History of knee replacement History of liver biopsy History of partial colectomy Hx of detached retina repair Family History Family History Mother Family history of gastrointestinal disorder Family history of pancreatic cancer Sibling Family history of Alzheimer's disease Father Family history of heart disease in male family member before age 55 Family history of cardiovascular disease Diabetes mellitus Family history of elevated blood lipids Acute myocardial infarction Other Depression Hypertension Malignant neoplasm of prostate Social History Social History (Reviewed 04/27/22 @ 15:44 by SON Barcenas
[2022-06-05 16:50] VITALS: BP 102/60; PULSE 63; RESP 14; O2SAT 97
== END 2022-06-05 16:50 | disposition home or self-care (01) ==
PROVIDERS: Emergency Provider Preventive Medicine Aerospace Medicine; PCP Physician Assistant
DX: R19.7 Diarrhea, unspecified (principal); K62.89 Other specified diseases of anus and rectum; Z20.822 Contact with and (suspected) exposure to COVID-19; Z98.890 Other specified postprocedural states; I25.10 Atherosclerotic heart disease of native coronary artery without angina pectoris; I48.0 Paroxysmal atrial fibrillation; I48.92 Unspecified atrial flutter; I50.9 Heart failure, unspecified; I11.0 Hypertensive heart disease with heart failure; I27.20 Pulmonary hypertension, unspecified; E78.2 Mixed hyperlipidemia; N40.0 Benign prostatic hyperplasia without lower urinary tract symptoms; G47.33 Obstructive sleep apnea (adult) (pediatric); M19.90 Unspecified osteoarthritis, unspecified site; Z96.659 Presence of unspecified artificial knee joint; Z90.49 Acquired absence of other specified parts of digestive tract; Z85.828 Personal history of other malignant neoplasm of skin; Z86.711 Personal history of pulmonary embolism; Z86.19 Personal history of other infectious and parasitic diseases; Z87.891 Personal history of nicotine dependence
CPT/HCPCS: 36415; 80053; 85025; 99283; C9803; U0003; U0005

== ENCOUNTER 2022-06-18 14:19 | Outpatient (CLI) | payer MEDICARE, MEDICAID, SELFPAY ==
--- NOTE | ~2022-06-18 | PE_ITS ---
EXAMINATION: PET_PETPSMAST_PT DATE: 06/18/2022 16:32 INDICATION: Prostate cancer TECHNIQUE: 10.021 mCi of pipflufolastat F-18 (18-F-DCFPyL) was administered i.v. Low dose computed t omography (CT) images were acquired from the base of the brain to the base of the brain to the proxim al thighs for attenuation correction and anatomic localization. Positron emission tomography (PET) im ages were acquired in the same distribution beginning 95 minutes after injection. Images including fu sed PET/CT images were reconstructed in axial, coronal, and sagittal planes. Automated exposure contr ol technique was employed. The dose-length product was 501.88mGy-cm. COMPARISON: None FINDINGS: Head/neck: Typical pattern of symmetric physiologic increased activity in the lacrimal, parotid and submandibula r glands as well as along the mucosa of the oropharynx and nasopharynx. There is a small focus of the increased uptake with maximal SUV of 5.0 along the superficial margin of the left masseter muscle wi thout radiologic correlate in typical location for an accessory parotid gland. No pathologically enla rged cervical lymphadenopathy or other suspicious foci of increased uptake in the visualized head or neck. Chest: Severe emphysema with dependent atelectasis. And a few small calcified nodules in the right lung and calcified right hilar lymph nodes consistent with old granulomatous disease. Cardiomegaly. Small amou nt of atherosclerotic coronary artery calcific lesions. No pericardial effusion. No pathologically en larged or the SMA avid thoracic lymphadenopathy. Abdomen/pelvis/proximal thighs: Physiologic renal accumulation and excretion of activity in the kidneys, bladder and along portions o f ureters. Normal degree and slightly heterogenous pattern of increased uptake throughout the liver a nd spleen without radiologic correlate or dominant PSMA avid lesion. Cholecystectomy clips at the gal lbladder fossa. Pancreas and bilateral adrenal glands are normal. Moderate uptake scattered throughou t the bowels with typical duodenal predominance and without radiologic correlate, also likely physiol ogic. Anastomotic suture line along the sigmoid colon. Mild prostatomegaly measuring approximately 4. 0 x 4.0 cm without discrete PSMA avid lesion. No other abnormal foci of increased uptake or pathologi arley enlarged lymphadenopathy in the abdomen, pelvis or proximal thighs. Musculoskeletal: Mild lumbar dextroscoliosis with severe spondylosis. Moderate cervical and thoracic spondylosis with few chronic mild compression fractures in the lower thoracic spine. No suspicious lytic, blastic or P SMA avid bone lesions. IMPRESSION: 1. Prostatomegaly without discrete PSMA avid lesion. No evident metastatic disease. Reviewed, dictated and finalized at location A. IMPRESSION: 1. Prostatomegaly without discrete PSMA avid lesion. No evident metastatic dise ase.
== END 2022-06-18 14:20 | disposition home or self-care (01) ==
LOC: ANHIMG 14:24
PROVIDERS: PCP Physician Assistant; Visit Provider Nurse Practitioner Adult Health
DX: C61 Malignant neoplasm of prostate (principal); J43.9 Emphysema, unspecified; J98.11 Atelectasis; R91.8 Other nonspecific abnormal finding of lung field; I51.7 Cardiomegaly
CPT/HCPCS: 78815; A9595

== ENCOUNTER 2022-06-24 14:15 | Emergency (ER) | payer MEDICARE, MEDICAID, SELFPAY ==
[2022-06-24 14:22] VITALS: BP 112/84; PULSE 78; RESP 16; TEMP 37.2; O2SAT 99
--- NOTE | 2022-06-24 14:22 | ED.EYEPROB ---
HPI - Eye Problem General Chief complaint: Eye Problems Stated complaint: FB EYE Time Seen by Provider: 06/24/22 14:20 Source: patient and RN notes reviewed Mode of arrival: ambulatory Limitations: no limitations History of Present Illness HPI Narrative: 77-year-old man presents with concern for right eye irritation. Reports he thinks he got something in his eye while cutting the grass. He does not believe there is still a foreign body in his eye however he has irritation. He denies any vision changes, drainage. MD chief complaint: eye pain Related Data Home Medications Medication Instructions Recorded Confirmed mirabegron 50 mg tablet,extended 25 mg PO DAILY 01/08/20 04/27/22 release 24 hr (Myrbetriq) multivitamin 1 cap PO DAILY 01/08/20 04/27/22 bupropion HCl 100 mg tablet,12 hr 150 mg PO DAILY 02/22/20 04/27/22 sustained-release melatonin 3 mg tablet (Mel[place]) 5 mg PO .qhs 04/03/20 04/27/22 tamsulosin 0.4 mg capsule 0.4 mg PO DAILY 09/01/21 04/27/22 cholecalciferol (vitamin D3) 25 25 mcg PO DAILY 10/09/21 04/27/22 mcg (1,000 unit) capsule (Vitamin D3) metoprolol tartrate 100 mg tablet 100 mg PO Q12H 02/10/22 04/27/22 sacubitril 24 mg-valsartan 26 mg 1 tablet PO BID 02/10/22 04/27/22 tablet empagliflozin 10 mg tablet 10 mg PO 04/27/22 04/27/22 (Jardiance) Allergies Allergy/AdvReac Type Severity Reaction Status Date / Time escitalopram [From Lexapro] AdvReac Intermediate sexual Verified 04/27/22 15:43 disfunction hydromorphone AdvReac Intermediate Nightmare Verified 04/27/22 15:43 Review of Systems Review of Systems: CONSTITUTIONAL: Denies malaise, chills, sweats, or fever. EYES: Denies visual changes. Reports right eye irritation. Denies redness, discharge. ENT: Denies rhinorrhea, congestion, sinus pain, otalgia or sore throat. SKIN: Denies rash or itching. NEUROLOGIC: Denies numbness, weakness, or headache. PSYCHIATRIC: Denies anxiety or depression. All systems reviewed & are unremarkable except as noted in HPI and below PMFSH Past Medical History Medical History (Updated 06/24/22 @ 14:35 by Ruby Truong NP) Arthritis Atrial fibrillation Atrial fibrillation and flutter Basal cell carcinoma (BCC) Benign prostatic hyperplasia CHF (congestive heart failure) Cholelithiasis NOS Erectile dysfunction Essential (primary) hypertension Hepatitis C Hypertension Major depressive disorder, single episode, unspecified Mixed hyperlipidemia [place] (obstructive sleep apnea) [place] (obstructive sleep apnea) Paroxysmal A-fib Pulmonary emphysema Pulmonary hypertension Tobacco abuse Surgical History Surgical History H/O arthroscopy of left knee H/O arthroscopy of right knee H/O hernia repair H/O prostate biopsy History of knee replacement History of liver biopsy History of partial colectomy Hx of detached retina repair Family History Family History Mother Family history of gastrointestinal disorder Family history of pancreatic cancer Sibling Family history of Alzheimer's disease Father Family history of heart disease in male family member before age 55 Family history of cardiovascular disease Diabetes mellitus Family history of elevated blood lipids Acute myocardial infarction Other Depression Hypertension Malignant neoplasm of prostate Social History Social History Smoking packs per day: 0.5 Smoking cigarettes per day: 10.0 Years smoked: 46 Smoking pack-years: 23.00 Smoking status: Former smoker Tobacco type: cigarettes Smoking end date: 11/22/17 Alcohol intake: former Substance use: never Substance use type: former substance user Gender identity (if verbalized by the patient): Male Spiritual care concerns: No Comments At time of signature, agree with nursing past medical, surg
== END 2022-06-24 14:46 | disposition home or self-care (01) ==
PROVIDERS: Emergency Provider Nurse Practitioner; PCP Physician Assistant
DX: S05.01XA Injury of conjunctiva and corneal abrasion without foreign body, right eye, initial encounter (principal); X58.XXXA Exposure to other specified factors, initial encounter; Z87.891 Personal history of nicotine dependence; M19.90 Unspecified osteoarthritis, unspecified site; I48.0 Paroxysmal atrial fibrillation; N40.0 Benign prostatic hyperplasia without lower urinary tract symptoms; I11.0 Hypertensive heart disease with heart failure; I50.9 Heart failure, unspecified; E78.2 Mixed hyperlipidemia; G47.33 Obstructive sleep apnea (adult) (pediatric); Z86.19 Personal history of other infectious and parasitic diseases; Z85.828 Personal history of other malignant neoplasm of skin; J43.9 Emphysema, unspecified
CPT/HCPCS: 99213; A9270; G0463

== ENCOUNTER 2023-02-27 14:18 | Emergency (ER) | payer MEDICARE, OTHER, SELFPAY ==
--- NOTE | 2023-02-27 14:26 | ED.GENADULT ---
HPI - General Adult General Chief complaint: Wound/Laceration Stated complaint: L HAND LACERATION Time Seen by Provider: 02/27/23 14:27 Source: patient, RN notes reviewed and old records reviewed Mode of arrival: ambulatory Limitations: no limitations History of Present Illness HPI narrative: 78 year old male who presents to [facility] care with laceration which occurred prior to arrival while he was working in his garden. He reports that he cut his left thumb at [place] on a metal stake in his garden. Patient had band-aide covering over wound and proceeded in triage to remove band-aide in quick motion and obtained 2cm skin tear to area below MCP joint left hand. Bleeding is controlled to wounds. Patient 's tetanus is up to date from 2019. MD complaint: laceration to left thumb and skin tear Onset (ago): hour(s) (within past hour prior to arrival) Treatments prior to arrival: other (soap and water and band-aide) Related Data Home Medications Medication Instructions Recorded Confirmed mirabegron 50 mg tablet,extended 25 mg PO DAILY 01/08/20 02/27/23 release 24 hr (Myrbetriq) bupropion HCl 100 mg tablet,12 hr 150 mg PO DAILY 02/22/20 02/27/23 sustained-release tamsulosin 0.4 mg capsule 0.4 mg PO DAILY 09/01/21 02/27/23 empagliflozin 10 mg tablet 10 mg PO DAILY 04/27/22 02/27/23 (Jardiance) sacubitril 24 mg-valsartan 26 mg 1 tablet PO BID 09/02/22 02/27/23 tablet (Entresto) carboxymethylcellulose sodium 0.5 1 drp EACH EYE BID 09/09/22 02/27/23 % eye drops (Refresh Tears) metoprolol succinate 50 mg 50 mg PO DAILY 11/02/22 02/27/23 tablet,extended release 24 hr melatonin 5 mg capsule 5 mg PO 1XD 02/19/23 02/27/23 Allergies Allergy/AdvReac Type Severity Reaction Status Date / Time escitalopram [From Lexapro] AdvReac Intermediate sexual Verified 02/27/23 14:24 disfunction hydromorphone AdvReac Intermediate Nightmare Verified 02/27/23 14:24 Review of Systems Review of Systems: CONSTITUTIONAL: Denies fever, chills, or sweats. CARDIOVASCULAR: Denies chest pain, palpitations, or edema. RESPIRATORY: Denies cough or dyspnea. SKIN: Reports laceration to the left thumb region thenar eminence and skin tear below MCP joint left hand MUSCULOSKELETAL: Denies musculoskeletal pain NEUROLOGIC: Denies numbness, or weakness. All systems reviewed & are unremarkable except as noted in HPI and below PMFSH Past Medical History Medical History Arthritis Arthritis of right knee Atrial fibrillation Atrial fibrillation and flutter Basal cell carcinoma (BCC) Cancer CHF (congestive heart failure) Cholelithiasis NOS Erectile dysfunction Essential (primary) hypertension Hepatitis Hepatitis C Hypertension Major depressive disorder, single episode, unspecified Mixed hyperlipidemia [place] (obstructive sleep apnea) Pulmonary emphysema Pulmonary hypertension Tobacco abuse Surgical History Surgical History H/O arthroscopy of left knee H/O arthroscopy of right knee H/O hernia repair H/O prostate biopsy History of cholecystectomy History of knee replacement Lt TKA 01/14/17 History of liver biopsy History of partial colectomy Hx of detached retina repair Family History Family History Mother Family history of gastrointestinal disorder Family history of pancreatic cancer Sibling Family history of Alzheimer's disease Alcoholism Father Family history of heart disease in male family member before age 55 Family history of cardiovascular disease Diabetes mellitus Family history of elevated blood lipids Acute myocardial infarction Depression Other Hypertension Malignant neoplasm of prostate Social History Social History Smoking packs per day: 0.5 Smoking cigarettes per day: 10.0 Years
[2023-02-27 14:30] VITALS: BP 100/75; PULSE 134; RESP 16; TEMP 37.1; O2SAT 98
--- NOTE | 2023-02-27 15:07 | ED.WOUNDLAC ---
HPI - Wound/Laceration General Chief Complaint: Wound/Laceration Stated Complaint: L HAND LACERATION Time Seen by Provider: 02/27/23 14:27 Source: patient, RN notes reviewed and old records reviewed Mode of arrival: ambulatory Limitations: no limitations Related Data Home Medications Medication Instructions Recorded Confirmed mirabegron 50 mg tablet,extended 25 mg PO DAILY 01/08/20 02/19/23 release 24 hr (Myrbetriq) bupropion HCl 100 mg tablet,12 hr 150 mg PO DAILY 02/22/20 02/19/23 sustained-release tamsulosin 0.4 mg capsule 0.4 mg PO DAILY 09/01/21 02/19/23 empagliflozin 10 mg tablet 10 mg PO 04/27/22 02/19/23 (Jardiance) sacubitril 24 mg-valsartan 26 mg 1 tablet PO BID 09/02/22 02/19/23 tablet (Entresto) carboxymethylcellulose sodium 0.5 1 drp EACH EYE BID 09/09/22 02/19/23 % eye drops (Refresh Tears) metoprolol succinate 50 mg 50 mg PO 11/02/22 02/19/23 tablet,extended release 24 hr melatonin 5 mg capsule mg PO 1XD 02/19/23 02/19/23 Allergies Allergy/AdvReac Type Severity Reaction Status Date / Time escitalopram [From Lexapro] AdvReac Intermediate sexual Verified 02/27/23 14:24 disfunction hydromorphone AdvReac Intermediate Nightmare Verified 02/27/23 14:24 [facility] Past Medical History Medical History Arthritis Arthritis of right knee Atrial fibrillation Atrial fibrillation and flutter Basal cell carcinoma (BCC) Cancer CHF (congestive heart failure) Cholelithiasis NOS Erectile dysfunction Essential (primary) hypertension Hepatitis Hepatitis C Hypertension Major depressive disorder, single episode, unspecified Mixed hyperlipidemia [place] (obstructive sleep apnea) Pulmonary emphysema Pulmonary hypertension Tobacco abuse Surgical History Surgical History H/O arthroscopy of left knee H/O arthroscopy of right knee H/O hernia repair H/O prostate biopsy History of cholecystectomy History of knee replacement Lt TKA 01/14/17 History of liver biopsy History of partial colectomy Hx of detached retina repair Family History Family History Mother Family history of gastrointestinal disorder Family history of pancreatic cancer Sibling Family history of Alzheimer's disease Alcoholism Father Family history of heart disease in male family member before age 55 Family history of cardiovascular disease Diabetes mellitus Family history of elevated blood lipids Acute myocardial infarction Depression Other Hypertension Malignant neoplasm of prostate Social History Social History Smoking packs per day: 0.5 Smoking cigarettes per day: 10.0 Years smoked: 46 Smoking pack-years: 23.00 Smoking status: Former smoker Tobacco type: cigarettes Smoking end date: 11/22/17 Alcohol intake: former Substance use: never Substance use type: former substance user Living arrangements: alone Occupation/Education: retired Gender identity (if verbalized by the patient): Male Spiritual care concerns: No Course Vital Signs Vital signs: Vital Signs Temperature 37.1 C 02/27/23 14:30 Pulse Rate 134 H 02/27/23 14:30 Respiratory Rate 16 02/27/23 14:30 Blood Pressure 100/75 02/27/23 14:30 Pulse Oximetry 98 02/27/23 14:30 Temperature 37.1 C 02/27/23 14:30 Pulse Rate 134 H 02/27/23 14:30 Respiratory Rate 16 02/27/23 14:30 Blood Pressure 100/75 02/27/23 14:30 Pulse Oximetry 98 02/27/23 14:30 Discharge Plan Discharge Clinical Impression: Laceration Patient Disposition: Home, Self-Care Condition: Stable Instructions: Antibiotic Form Additional Instructions: Keep the area clean and dry No continuous water contact like dishes or swimming You may bathe and wash you hair caution with hair pr
== END 2023-02-27 15:30 | disposition home or self-care (01) ==
PROVIDERS: Emergency Provider Registered Nurse; PCP Emergency Medicine
DX: S61.012A Laceration without foreign body of left thumb without damage to nail, initial encounter (principal); W45.8XXA Other foreign body or object entering through skin, initial encounter; Z87.891 Personal history of nicotine dependence; M17.11 Unilateral primary osteoarthritis, right knee; I48.91 Unspecified atrial fibrillation; Z85.828 Personal history of other malignant neoplasm of skin; I11.0 Hypertensive heart disease with heart failure; I50.9 Heart failure, unspecified; E78.2 Mixed hyperlipidemia; J43.9 Emphysema, unspecified; I27.20 Pulmonary hypertension, unspecified; Z96.652 Presence of left artificial knee joint; F32.9 Major depressive disorder, single episode, unspecified
CPT/HCPCS: 12002; 99213; G0463

== ENCOUNTER 2023-04-30 11:06 | Emergency (ER) | payer MEDICARE, MEDICAID, SELFPAY ==
--- NOTE | ~2023-04-30 | CT_ITS ---
EXAMINATION: CT brain wo con DATE: 04/30/2023 11:14 INDICATION: Head injury, laceration at the top of the head. Patient on blood thinners. Altered level of consciousness. TECHNIQUE: Computed tomography (CT) of the head was performed without intravenous contrast. The mA wa s adjusted according to patient size. Iterative reconstruction technique was employed. Exam dose: 68 1.00 mGy-cm total exam DLP. COMPARISON: 01/08/2020 CT brain FINDINGS: Left vertebral artery, basilar artery and bilateral carotid siphon and supraclinoid interna l carotid artery calcifications are noted. There is nonspecific diminished attenuation of the cerebra l white matter, likely due to chronic small vessel ischemic changes. Bilateral cerebral cortical atrophy, particularly in the frontal lobes and high over the convexities. No intracranial mass lesion or hemorrhage or cerebrovascular accident is evident. No midline shift or mass effect. No subdural or epidural hematoma. The mastoid air cells and paranasal sinuses appear normally developed and aerated. No fracture or bone destruction of the cranial vault. IMPRESSION: Cerebral atherosclerosis and chronic small vessel ischemic changes of the cerebral white matter Cerebral cortical atrophy No skull fracture or acute intracranial finding Reviewed, dictated and finalized at [facility]. Reviewed, dictated and finalized at location []
[2023-04-30 10:58] VITALS: BP 135/103; PULSE 112; RESP 17; TEMP 36.4; O2SAT 94
[2023-04-30 11:25] VITALS: PULSE 88
[2023-04-30 11:53] LABS: Basophils Percent Auto 0.3 % (0.2-1.2); Eosinophils Absolute Auto 0.1 K/mm3 (0-0.3); Eosinophils Percent Auto 1.1 % (0-4.4); Hematocrit 45.7 % (42.0-52.0); Hemoglobin 15.3 g/dL (14.0-18.0); Immature Granulocyte Absolute 0.02 K/mm3 (0.00-0.031); Immature Granulocyte Percent A 0.3 % (0-0.5); Lymphocytes Absolute Auto 2.41 K/mm3 (0.9-3.2); Mean Corpuscular HGB Conc 33.5 g/dl (32-36); Mean Corpuscular Hemoglobin 30.6 pg (26-34); Mean Corpuscular Volume 91.4 fl (80-100); Mean Platelet Volume 10.8 fl (7.4-10.4); Monocytes Absolute Auto 0.6 K/mm3 (0.1-0.6); Monocytes Percent Auto 8.9 % (2.6-8.5); Neutrophils Absolute Auto 3.4 K/mm3 (1.3-6.7); Neutrophils Percent Auto 52.4 % (45.5-73.1); Platelet Count Result 169 k/mm3 (150-375); Red Cell Distribution Width 13.8 % (11.5-14.5); White Blood Count 6.5 K/mm3 (4.5-10.0)
[2023-04-30 11:58] LABS: INR 1.6; Prothrombin Time 20.3 Seconds (11.1-14.7)
[2023-04-30 11:59] LABS: Partial Thromboplastin Time 36.2 SECONDS (22.3-36.8)
[2023-04-30 12:01] VITALS: BP 127/93; PULSE 86; RESP 14; O2SAT 92
[2023-04-30 12:01] LABS: Alanine Aminotransferase 25 U/L (6-50); Albumin Level 3.9 g/dL (3.5-5.1); Alkaline Phosphatase 52 U/L (38-126); Anion Gap 5 mmol/L (8-16); Aspartate Amino Transferase 31 U/L (17-59); Bilirubin,Total 0.8 mg/dL (0.2-1.3); Blood Urea Nitrogen 21 mg/dL (9-20); Calcium 8.5 mg/dL (8.4-10.2); Carbon Dioxide 27 mmol/L (22-30); Chloride 104 mmol/L (98-107); Estimated CRCL calculation 50 ml/min; Estimated Glomerular Filt Rate > 60; Glucose 107 mg/dL (65-110); Potassium 4.1 mmol/L (3.4-5.0); Sodium 136 mmol/L (137-145)
[2023-04-30 12:31] VITALS: BP 127/90; PULSE 84; RESP 13; O2SAT 96
--- NOTE | 2023-04-30 13:21 | ED.GENADULT ---
HPI - General Adult General Chief complaint: Altered Mental Status Stated complaint: AMS Time Seen by Provider: 04/30/23 11:06 History of Present Illness HPI narrative: Patient is a 78-year-old male who presents ER after suffering a head injury. He was driving a lawnmower when he struck his head on some tree branches. He did not fall off the lawnmower. He did not lose consciousness. He does take Xarelto. No headache or change in vision. EMS initially thought patient was altered. He is oriented x3 for me. Chart review shows a updated tetanus shot on 07/08/20. Related Data Home Medications Medication Instructions Recorded Confirmed mirabegron 50 mg tablet,extended 25 mg PO DAILY 01/08/20 02/27/23 release 24 hr (Myrbetriq) bupropion HCl 100 mg tablet,12 hr 150 mg PO DAILY 02/22/20 02/27/23 sustained-release tamsulosin 0.4 mg capsule 0.4 mg PO DAILY 09/01/21 02/27/23 empagliflozin 10 mg tablet 10 mg PO DAILY 04/27/22 02/27/23 (Jardiance) sacubitril 24 mg-valsartan 26 mg 1 tablet PO BID 09/02/22 02/27/23 tablet (Entresto) carboxymethylcellulose sodium 0.5 1 drp EACH EYE BID 09/09/22 02/27/23 % eye drops (Refresh Tears) metoprolol succinate 50 mg 50 mg PO DAILY 11/02/22 02/27/23 tablet,extended release 24 hr melatonin 5 mg capsule 5 mg PO 1XD 02/19/23 02/27/23 Allergies Allergy/AdvReac Type Severity Reaction Status Date / Time escitalopram [From Lexapro] AdvReac Intermediate sexual Verified 03/12/23 10:04 disfunction hydromorphone AdvReac Intermediate Nightmare Verified 03/12/23 10:04 Review of Systems Review of Systems: All systems reviewed & are unremarkable except as noted in HPI and below Constitutional: Constitutional: Denies chills and Denies fever(s) Eyes: Eyes: Denies change in vision Musculoskeletal: Musculoskeletal: Denies back pain, Denies arthralgias and Denies joint swelling Neurologic: Denies syncope, Denies headache(s), Denies focal weakness and Denies numbness PMF Past Medical History Medical History Arthritis Arthritis of right knee Atrial fibrillation Atrial fibrillation and flutter Basal cell carcinoma (BCC) Cancer CHF (congestive heart failure) Cholelithiasis NOS Erectile dysfunction Essential (primary) hypertension Hepatitis Hepatitis C Hypertension Major depressive disorder, single episode, unspecified Mixed hyperlipidemia [place] (obstructive sleep apnea) Pulmonary emphysema Pulmonary hypertension Tobacco abuse Surgical History Surgical History H/O arthroscopy of left knee H/O arthroscopy of right knee H/O hernia repair H/O prostate biopsy History of cholecystectomy History of knee replacement Lt TKA 01/14/17 History of liver biopsy History of partial colectomy Hx of detached retina repair Family History Family History Mother Family history of gastrointestinal disorder Family history of pancreatic cancer Sibling Family history of Alzheimer's disease Alcoholism Father Family history of heart disease in male family member before age 55 Family history of cardiovascular disease Diabetes mellitus Family history of elevated blood lipids Acute myocardial infarction Depression Other Hypertension Malignant neoplasm of prostate Social History Social History (Updated 03/12/23 @ 10:13 by Yu Mantilla MA) Smoking packs per day: 0.5 Smoking cigarettes per day: 10.0 Years smoked: 46 Smoking pack-years: 23.00 Smoking status: Former smoker Tobacco type: cigarettes Smoking end date: 11/22/17 Alcohol intake: former Substance use: never Substance use type: former substance user Lack of Transportation: No Lack of Food: Never True Current Housing: I Have Housing Concerned About Future Housing: No Difficulty Paying Gas/Electric Bills: No Difficulty Pay
[2023-04-30 13:57] VITALS: BP 128/90; PULSE 80; RESP 14; O2SAT 96
--- NOTE | 2023-04-30 15:58 | ECG_ITS ---
Measurements Intervals [place] Rate: 89 P: [place]: 0 QRS: -57 QRSD: 113 T: 23 QT: 345 QTc: 422 Interpretive Statements ATRIAL FIBRILLATION LEFT ANTERIOR FASCICULAR BLOCK [QRS AXIS <= -45, QR IN I, RS IN II] COMPARED TO ECG 11/04/2021 09:57:32 ATRIAL FIBRILLATION NOW PRESENT Electronically Signed On 05-01-2023 8:43:42 CDT by Abby Ruth M.D.
== END 2023-04-30 14:00 | disposition home or self-care (01) ==
PROVIDERS: Emergency Provider Emergency Medicine; PCP Emergency Medicine
DX: S00.01XA Abrasion of scalp, initial encounter (principal); M19.90 Unspecified osteoarthritis, unspecified site; I48.91 Unspecified atrial fibrillation; Z79.01 Long term (current) use of anticoagulants; I11.0 Hypertensive heart disease with heart failure; I50.9 Heart failure, unspecified; F32.A Depression, unspecified; G47.30 Sleep apnea, unspecified; W22.09XA Striking against other stationary object, initial encounter
CPT/HCPCS: 36415; 70450; 80053; 85025; 85610; 85730; 93005; 99284; L0140

== ENCOUNTER 2023-05-01 10:06 | Emergency (ER) | payer MEDICARE, MEDICAID, SELFPAY ==
--- NOTE | 2023-05-01 10:10 | ED.GENADULT ---
HPI - General Adult General Chief complaint: Unspecified Stated complaint: refill med Time Seen by Provider: 05/01/23 10:19 Source: patient, RN notes reviewed and old records reviewed Mode of arrival: ambulatory Limitations: no limitations History of Present Illness HPI narrative: 78-year-old male presents to the [facility] with a request for medication refills. patient states that he tried calling his primary care provider today, Wednesday for a refill, was not able to get through. States that he went to [facility] where they would not just give him pills. Patient requesting gabapentin 300 mg 1 tab 4 times a day. patient is verbalizing that he is upset that there is no one to take his phone call and the pharmacy will not give him pills to get through till his appointment on Wednesday. Related Data Home Medications Medication Instructions Recorded Confirmed mirabegron 50 mg tablet,extended 25 mg PO DAILY 01/08/20 05/01/23 release 24 hr (Myrbetriq) bupropion HCl 100 mg tablet,12 hr 150 mg PO DAILY 02/22/20 05/01/23 sustained-release tamsulosin 0.4 mg capsule 0.4 mg PO DAILY 09/01/21 05/01/23 empagliflozin 10 mg tablet 10 mg PO DAILY 04/27/22 05/01/23 (Jardiance) sacubitril 24 mg-valsartan 26 mg 1 tablet PO BID 09/02/22 05/01/23 tablet (Entresto) carboxymethylcellulose sodium 0.5 1 drp EACH EYE BID 09/09/22 05/01/23 % eye drops (Refresh Tears) metoprolol succinate 50 mg 50 mg PO DAILY 11/02/22 05/01/23 tablet,extended release 24 hr melatonin 5 mg capsule 5 mg PO 1XD 02/19/23 05/01/23 Allergies Allergy/AdvReac Type Severity Reaction Status Date / Time escitalopram [From Lexapro] AdvReac Intermediate sexual Verified 05/01/23 10:10 disfunction hydromorphone AdvReac Intermediate Nightmare Verified 05/01/23 10:10 Review of Systems Review of Systems: All systems reviewed & are unremarkable except as noted in HPI and below Constitutional: Constitutional: Reports no additional constitutional complaints Eyes: Eyes: Reports no additional eye complaints ENT: Reports system reviewed and no additional complaints, except as documented Cardiovascular: Cardiovascular: Reports no additional cardiovascular complaints, Denies chest pain and Denies dyspnea Respiratory: Respiratory: Reports no additional respiratory complaints, Denies chest congestion, Denies cough and Denies dyspnea Gastrointestinal: Gastrointestinal: Reports no additional gastrointestinal complaints Neurologic: Reports system reviewed and no additional complaints, except as documented Psychiatric: Psychiatric: Reports no additional psychiatric complaints Allergic/Immunologic: Allergic/Immunologic: Reports no additional allergic/immunologic complaints PMFSH Past Medical History Medical History Arthritis Arthritis of right knee Atrial fibrillation Atrial fibrillation and flutter Basal cell carcinoma (BCC) Cancer CHF (congestive heart failure) Cholelithiasis NOS Erectile dysfunction Essential (primary) hypertension Hepatitis Hepatitis C Hypertension Major depressive disorder, single episode, unspecified Mixed hyperlipidemia [place] (obstructive sleep apnea) Pulmonary emphysema Pulmonary hypertension Tobacco abuse Surgical History Surgical History H/O arthroscopy of left knee H/O arthroscopy of right knee H/O hernia repair H/O prostate biopsy History of cholecystectomy History of knee replacement Lt TKA 01/14/17 History of liver biopsy History of partial colectomy Hx of detached retina repair Family History Family History Mother Family history of gastrointestinal disorder Family history of pancreatic cancer Sibling Family history of Alzheimer's disease Alcoholism Father Family history of heart disease in male family member before age 55 Family history of cardiovasc
[2023-05-01 10:14] VITALS: BP 141/88; PULSE 91; RESP 16; TEMP 36.4; O2SAT 96
== END 2023-05-01 10:35 | disposition home or self-care (01) ==
PROVIDERS: Emergency Provider Nurse Practitioner; PCP Emergency Medicine
DX: Z76.0 Encounter for issue of repeat prescription (principal); Z87.891 Personal history of nicotine dependence; I48.91 Unspecified atrial fibrillation; I11.0 Hypertensive heart disease with heart failure; I50.9 Heart failure, unspecified; E78.2 Mixed hyperlipidemia; M17.11 Unilateral primary osteoarthritis, right knee; Z85.828 Personal history of other malignant neoplasm of skin; J43.9 Emphysema, unspecified; I27.20 Pulmonary hypertension, unspecified; Z96.652 Presence of left artificial knee joint; Z90.49 Acquired absence of other specified parts of digestive tract; F32.9 Major depressive disorder, single episode, unspecified
CPT/HCPCS: 99211; G0463

== ENCOUNTER 2023-07-07 12:46 | Outpatient (CLI) | payer MEDICARE, MEDICAID, SELFPAY ==
--- NOTE | ~2023-07-07 | XR_ITS ---
EXAMINATION:XR_[id number] DATE: 07/07/2023 13:09 INDICATION: Cervical radiculopathy TECHNIQUE: AP, lateral, lateral swimmers and odontoid views of the cervical spine are provided. COMPARISON: None FINDINGS: Exaggerated cervical lordosis. Odontoid is intact. Normal atlantoaxial interval. Vertebral body heig hts are normal. Vertebral body heights are normal. No evident fractures. Moderate disc height loss at C5-C6, mild to moderate disc height loss at C6-C7 and C3-C4 and mild disc height loss at C4-C5. Mult ilevel bilateral moderate to severe cervical facet osteoarthritis. Prevertebral soft tissues are nor mal. IMPRESSION: 1. Exaggerated cervical lordosis with moderate spondylosis. Reviewed, dictated and finalized at [facility].
== END 2023-07-07 12:47 | disposition home or self-care (01) ==
PROVIDERS: PCP Emergency Medicine; Visit Provider Nurse Practitioner Family
DX: M54.12 Radiculopathy, cervical region (principal); M43.02 Spondylolysis, cervical region; M40.50 Lordosis, unspecified, site unspecified
CPT/HCPCS: 72040

== ENCOUNTER 2023-07-23 14:58 | Outpatient (CLI) | payer MEDICARE, MEDICAID, SELFPAY ==
--- NOTE | ~2023-07-23 | XR_ITS ---
EXAMINATION: XR shoulder LT min 2V DATE: 07/23/2023 15:49 INDICATION: Left shoulder injury and pain. TECHNIQUE: 5 views of left shoulder were obtained. COMPARISON: None. FINDINGS: Bone alignment is normal. No fracture. There is mild osteoarthritis of glenohumeral joint a nd severe osteoarthritis of acromioclavicular joint. IMPRESSION: 1. Polyarticular osteoarthritis. Reviewed, dictated and finalized at [facility].
== END 2023-07-23 14:59 | disposition home or self-care (01) ==
PROVIDERS: PCP Emergency Medicine; Visit Provider Emergency Medicine
DX: S49.92XA Unspecified injury of left shoulder and upper arm, initial encounter (principal); X58.XXXA Exposure to other specified factors, initial encounter; M19.012 Primary osteoarthritis, left shoulder
CPT/HCPCS: 73030

== ENCOUNTER 2023-09-23 14:49 | Emergency (ER) | payer MEDICARE, MEDICAID, SELFPAY ==
[2023-09-23] VITALS (8 sets, daily range): BP systolic 104–117; BP diastolic 78–85; PULSE 89–123; RESP 16–23; TEMP 36.3–36.7; O2SAT 94–98
--- NOTE | ~2023-09-23 | CT_ITS ---
EXAMINATION: CT brain wo con DATE: 09/23/2023 15:21 INDICATION: Slurred speech and facial droop TECHNIQUE: Computed tomography (CT) of the head was performed without intravenous contrast. Sagittal and coronal reconstructions were performed. The mA was adjusted according to patient size. Iterative reconstruction technique was employed. The dose-length product was 681.00 mGy-cm. COMPARISON: head CT dated 04/30/2023 FINDINGS: Moderate to large left subdural hematoma overlying the left frontal and parietal lobes which extends 13.5 cm anteroposteriorly, 5.6 cm craniocaudally and up to 2.7 cm in thickness. This likely subacute with regions of near CSF attenuation and additional regions with relatively well-defined margins) den sity to the adjacent brain. The subdural hematoma exerts mass effect upon the underlying left cerebra l hemisphere with effacement of a few of the immediately overlying sulci. There is also mass effect u vandana the left lateral ventricle with mild volume loss. Remaining ventricles remain normal. Basal ciste rns are patent. There is 4 mm left to right midline shift at the level of the ventricular septum. No evident higher attenuation acute intracranial hemorrhage. No acute infarction. There is mild to moder ate scattered white matter hypoattenuation consistent with chronic small vessel ischemic disease. No abnormal soft tissue masses. Intracranial calcified cerebral atherosclerosis is noted. Changes of tiana ateral intraocular lens replacement. The orbits, paranasal sinuses and mastoid air cells are normal. IMPRESSION: 1. Moderate to large likely subacute left subdural hematoma which exerts mass effect upon the underly ing left frontal and parietal lobes and left lateral ventricle and with up to 4 mm [id number] midl ine shift. Dr. Grande discussed these findings with Dr. Eid at 3:35 PM. 2. Mild/moderate scattered white matter hypoattenuation consistent with chronic small vessel ischemic disease. Reviewed, dictated and finalized at location A. IMPRESSION: 1. Moderate to large likely subacute left subdural hematoma which exerts mass e ffect upon the underlying left frontal and parietal lobes and left lateral vent ricle and with up to 4 mm [id number] midline shift. Dr. Grande discussed t hese findings with Dr. Eid at 3:35 PM. 2. Mild/moderate scattered white matter hypoattenuation consistent with chronic small vessel ischemic disease.
--- NOTE | ~2023-09-23 | XR_ITS ---
XR chest 1V 09/23/2023 15:27 Indication: Possible stroke Procedure: AP view of the chest Comparison: Comparison to multiple prior studies sequentially, with oldest reviewed study dated 01/18. Findings: Borderline heart size. The lungs are hyperinflated which is consistent with, but not diagno stic of chronic obstructive pulmonary disease. There is atherosclerosis of the aorta. No focal air sp fidelia disease, pulmonary edema, pleural effusion or suspected pneumothorax. Impression: 1: No acute cardiopulmonary disease. Reviewed, dictated and finalized at location A. Impression: 1: No acute cardiopulmonary disease.
--- NOTE | 2023-09-23 15:07 | ECG_ITS ---
Measurements Intervals [place] Rate: 109 P: AL: 0 QRS: -63 QRSD: 102 T: 0 QT: 328 QTc: 443 Interpretive Statements ATRIAL FIBRILLATION WITH RAPID VENTRICULAR RESPONSE LEFT ANTERIOR FASCICULAR BLOCK BORDERLINE T WAVE ABNORMALITY- INFERIOR LEADS ABNORMAL ECG COMPARED TO ECG 04/30/2023 11:17:19 HEART RATE HAS INCREASED Electronically Signed On 09-23-2023 15:14:27 CDT by Angel Meeks D.O.
[2023-09-23 15:23] LABS: Basophils Percent Auto 0.3 % (0.2-1.2); Eosinophils Percent Auto 0.1 % (0-4.4); Hematocrit 51.1 % (42.0-52.0); Hemoglobin 17.1 g/dL (14.0-18.0); Immature Granulocyte Absolute 0.02 K/mm3 (0.00-0.031); Immature Granulocyte Percent A 0.3 % (0-0.5); Mean Corpuscular HGB Conc 33.5 g/dl (32-36); Mean Corpuscular Hemoglobin 30.6 pg (26-34); Mean Corpuscular Volume 91.6 fl (80-100); Mean Platelet Volume 10.3 fl (7.4-10.4); Monocytes Absolute Auto 0.5 K/mm3 (0.1-0.6); Monocytes Percent Auto 7.2 % (2.6-8.5); Neutrophils Absolute Auto 5.7 K/mm3 (1.3-6.7); Neutrophils Percent Auto 77.1 % (45.5-73.1); Platelet Count Result 225 k/mm3 (150-375); Red Blood Count 5.58 M/mm3 (4.6-6.20); Red Cell Distribution Width 13.6 % (11.5-14.5); White Blood Count 7.3 K/mm3 (4.5-10.0)
[2023-09-23 15:39] LABS: INR 1.9; Prothrombin Time 22.7 Seconds (11.1-14.7)
[2023-09-23 15:40] LABS: Partial Thromboplastin Time 37.4 SECONDS (22.3-36.8)
[2023-09-23 15:54] LABS: Alanine Aminotransferase 20 U/L (6-50); Albumin Level 4.1 g/dL (3.5-5.1); Alkaline Phosphatase 67 U/L (38-126); Anion Gap 10 mmol/L (8-16); Aspartate Amino Transferase 22 U/L (17-59); Bilirubin,Total 1.8 mg/dL (0.2-1.3); Blood Urea Nitrogen 24 mg/dL (9-20); Calcium 9.3 mg/dL (8.4-10.2); Carbon Dioxide 26 mmol/L (22-30); Chloride 99 mmol/L (98-107); Estimated CRCL calculation 39 ml/min; Estimated Glomerular Filt Rate 58; Glucose 115 mg/dL (65-110); Potassium 4.1 mmol/L (3.4-5.0); Sodium 135 mmol/L (137-145); Troponin I < 0.012 ng/mL (0.000-0.034)
--- NOTE | 2023-09-23 16:33 | ED.NEUROSD ---
HPI - Neuro Symptoms/Deficit General Chief Complaint: Neuro Symptoms/Deficit Stated Complaint: tia Time Seen by Provider: 09/23/23 14:54 Source: patient and EMS Mode of arrival: EMS Limitations: no limitations History of Present Illness HPI Narrative: 78-year-old with a history of atrial fibrillation on Xarelto was brought in from a store with complaints of left-sided facial droop. As per the EMS patient was upset and was arguing with his home health aide during this proximal process as she noticed him having left-sided facial droop and some confusion. She later called 911 upon their arrival patient is alert oriented x3 had no neuro deficit however was later transferred to the ER. Upon arrival patient is wide awake alert has no headache, chest pain or motor weakness. He stated he was feeling fine . Onset (ago): minute(s) (45) Last Observed Normal: 14:30 Timing confirmed by: caregiver Location: left face History of same: Yes Severity: moderate Quality: improving Relieving factors: none Exacerbating factors: none Context: sudden onset Associated symptoms: denies other symptoms Treatments Prior to Arrival: none Related Data Home Medications Medication Instructions Recorded Confirmed tamsulosin 0.4 mg capsule 0.4 mg PO DAILY 09/01/21 08/20/23 empagliflozin 10 mg tablet 10 mg PO DAILY 04/27/22 08/20/23 (Jardiance) sacubitril 24 mg-valsartan 26 mg 1 tablet PO BID 09/02/22 08/20/23 tablet (Entresto) carboxymethylcellulose sodium 0.5 1 drp EACH EYE BID 09/09/22 08/20/23 % eye drops (Refresh Tears) metoprolol succinate 50 mg 50 mg PO DAILY 11/02/22 08/20/23 tablet,extended release 24 hr melatonin 5 mg capsule 5 mg PO 1XD 02/19/23 08/20/23 bupropion HCl 150 mg 24 hr tablet, 150 mg PO 06/07/23 08/20/23 extended release Allergies Allergy/AdvReac Type Severity Reaction Status Date / Time escitalopram [From Lexapro] AdvReac Intermediate sexual Verified 07/23/23 14:08 disfunction hydromorphone AdvReac Intermediate Nightmare Verified 07/23/23 14:08 Review of Systems Review of Systems: All systems reviewed & are unremarkable except as noted in HPI and below Constitutional: Constitutional: Reports no additional constitutional complaints Eyes: Eyes: Reports no additional eye complaints ENT: Reports system reviewed and no additional complaints, except as documented Cardiovascular: Cardiovascular: Reports no additional cardiovascular complaints Respiratory: Respiratory: Reports no additional respiratory complaints Gastrointestinal: Gastrointestinal: Reports no additional gastrointestinal complaints Musculoskeletal: Musculoskeletal: Reports no additional musculoskeletal complaints Integumentary/Breasts: Skin/Breast: Reports system reviewed and no additional complaints, except as docu Neurologic: Reports as per HPI Psychiatric: Psychiatric: Reports no additional psychiatric complaints Endocrine: Endocrine: Reports no additional endocrine complaints [facility] Past Medical History Medical History Arthritis Arthritis of right knee Atrial fibrillation Atrial fibrillation and flutter Basal cell carcinoma (BCC) Cancer CHF (congestive heart failure) Cholelithiasis NOS Erectile dysfunction Essential (primary) hypertension Hepatitis Hepatitis C Hypertension Major depressive disorder, single episode, unspecified Mixed hyperlipidemia [place] (obstructive sleep apnea) Pulmonary emphysema Pulmonary hypertension Tobacco abuse Surgical History Surgical History H/O arthroscopy of left knee H/O arthroscopy of right knee H/O hernia repair H/O prostate biopsy History of cholecystectomy History of knee replacement Lt TKA 01/14/17 History of liver biopsy History of partial colectomy Hx of detached retina repair Family History Family History Mother
[2023-09-23] MEDS: levETIRAcetam 1000MG/NACL100ML 1,000 MG/100 ML BAG 400 MG IVPB (16:44)
[2023-09-23] MEDS: HUMAN PROTHROMBIN COMPLEX IV CONT (16:44)
[2023-09-23] MEDS: PREMIXIV IV CONT (16:44)
== END 2023-09-23 17:06 | disposition short-term general hospital (02) ==
PROVIDERS: Emergency Provider Family Medicine; PCP Emergency Medicine
DX: I62.00 Nontraumatic subdural hemorrhage, unspecified (principal); R29.700 NIHSS score 0; I48.91 Unspecified atrial fibrillation; I48.92 Unspecified atrial flutter; I50.9 Heart failure, unspecified; I11.0 Hypertensive heart disease with heart failure; I27.20 Pulmonary hypertension, unspecified; J43.9 Emphysema, unspecified; E78.2 Mixed hyperlipidemia; G47.33 Obstructive sleep apnea (adult) (pediatric); M17.11 Unilateral primary osteoarthritis, right knee; F32.9 Major depressive disorder, single episode, unspecified; Z96.652 Presence of left artificial knee joint; Z85.828 Personal history of other malignant neoplasm of skin; Z87.891 Personal history of nicotine dependence; Z90.49 Acquired absence of other specified parts of digestive tract; Z79.01 Long term (current) use of anticoagulants; Z79.84 Long term (current) use of oral hypoglycemic drugs; I44.4 Left anterior fascicular block; R94.31 Abnormal electrocardiogram [ECG] [EKG]
CPT/HCPCS: 36415; 70450; 71045; 80053; 84484; 85025; 85610; 85730; 93005; 96365; 96375; 99291; J1953; J7168

== ENCOUNTER 2023-11-24 18:34 | Emergency (ER) | payer MEDICARE, MEDICAID, SELFPAY ==
[2023-11-24 18:38] VITALS: BP 114/65; PULSE 87; RESP 18; TEMP 36.7; O2SAT 95
--- NOTE | 2023-11-24 18:57 | PC.NURSE ---
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 Pt also states he took 2 500mg tramadol QUARTZ CUTTER after incident.
--- NOTE | 2023-11-24 20:10 | ED.BURNSMOKE ---
HPI - Burn/Smoke Inhalation General Chief complaint: Burn/Smoke Inhalation Stated complaint: water burn Time Seen by Provider: 11/24/23 19:25 History of Present Illness HPI Narrative: 78-year-old male presents with his friend at bedside for evaluation for a burn to his left leg. Patient states a couple hours ago, he was in the kitchen cooking when he was trying to pour a pot of boiling water and peanut oil and to obtain an. States he accidentally spilled on to his left leg. He called his friend who brought to the ED. last tetanus unknown. Denies other areas of burn or injury. Denies sensory loss. Related Data Home Medications Medication Instructions Recorded Confirmed tamsulosin 0.4 mg capsule 0.4 mg PO DAILY 09/01/21 11/02/23 empagliflozin 10 mg tablet 10 mg PO DAILY 04/27/22 11/02/23 (Jardiance) sacubitril 24 mg-valsartan 26 mg 1 tablet PO BID 09/02/22 11/02/23 tablet (Entresto) carboxymethylcellulose sodium 0.5 1 drp EACH EYE BID 09/09/22 11/02/23 % eye drops (Refresh Tears) metoprolol succinate 50 mg 50 mg PO DAILY 11/02/22 11/02/23 tablet,extended release 24 hr melatonin 5 mg capsule 5 mg PO 1XD 02/19/23 11/02/23 bupropion HCl 150 mg 24 hr tablet, 150 mg PO 06/07/23 11/02/23 extended release levetiracetam 500 mg tablet 500 mg PO Q12H 10/07/23 11/02/23 (Keppra) Allergies Allergy/AdvReac Type Severity Reaction Status Date / Time escitalopram [From Lexapro] AdvReac Intermediate sexual Verified 11/02/23 13:25 disfunction hydromorphone AdvReac Intermediate Nightmare Verified 11/02/23 13:25 Review of Systems Review of Systems: CONSTITUTIONAL: Denies fever, chills, or sweats. EYES: Denies visual changes, redness, or discharge. ENT: Denies rhinorrhea, congestion, sore throat, or otalgia. CARDIOVASCULAR: Denies chest pain, palpitations, or edema. RESPIRATORY: Denies cough or dyspnea. GASTROINTESTINAL: Denies abdominal pain, nausea, vomiting, or diarrhea. GENITOURINARY: Denies dysuria or hematuria. SKIN: See HPI MUSCULOSKELETAL: Denies back pain, joint pain, or myalgia. NEUROLOGIC: Denies headache, numbness, or weakness. PSYCHIATRIC: Denies anxiety or depression. [facility] Past Medical History Medical History Arthritis Arthritis of right knee Atrial fibrillation Atrial fibrillation and flutter Basal cell carcinoma (BCC) Cancer CHF (congestive heart failure) Cholelithiasis NOS Erectile dysfunction Essential (primary) hypertension Hepatitis Hepatitis C Hypertension Major depressive disorder, single episode, unspecified Mixed hyperlipidemia [place] (obstructive sleep apnea) Pulmonary emphysema Pulmonary hypertension Tobacco abuse Surgical History Surgical History H/O arthroscopy of left knee H/O arthroscopy of right knee H/O hernia repair H/O prostate biopsy History of cholecystectomy History of knee replacement Lt TKA 01/14/17 History of liver biopsy History of partial colectomy Hx of detached retina repair Family History Family History Mother Family history of gastrointestinal disorder Family history of pancreatic cancer Sibling , 2-3 months ago(male) Family history of Alzheimer's disease Alcoholism Father Family history of heart disease in male family member before age 55 Family history of cardiovascular disease Diabetes mellitus Family history of elevated blood lipids Acute myocardial infarction Depression Other Hypertension Malignant neoplasm of prostate Social History Social History Social History: Caffeine-coffee Smoking packs per day: 0.5 Smoking cigarettes per day: 10.0 Years smoked: 46 Smoking pack-years: 23.00 Smoking status: Former smoker Tobacco type: cigarettes Smoking end date: 11/22/17 [facility]
[2023-11-24] MEDS: TETANUS,DIPHTHERIA,AC PERTUSSIS ADULT (0.5 ML) BOOSTRIX IM (20:46)
[2023-11-24] MEDS: SILVER SULFADIAZINE 1% CR 50 GM JAR (*BKC) 1 APPLIC TOPICAL (20:47)
== END 2023-11-24 20:55 | disposition home or self-care (01) ==
PROVIDERS: Emergency Provider Physician Assistant; PCP Emergency Medicine
DX: T24.112A Burn of first degree of left thigh, initial encounter (principal); X12.XXXA Contact with other hot fluids, initial encounter; I11.0 Hypertensive heart disease with heart failure; I50.9 Heart failure, unspecified; E78.2 Mixed hyperlipidemia; G47.33 Obstructive sleep apnea (adult) (pediatric); I48.91 Unspecified atrial fibrillation; F32.9 Major depressive disorder, single episode, unspecified; J43.9 Emphysema, unspecified; Z86.19 Personal history of other infectious and parasitic diseases; Z87.891 Personal history of nicotine dependence; Z79.84 Long term (current) use of oral hypoglycemic drugs; Z79.51 Long term (current) use of inhaled steroids; Z23 Encounter for immunization
CPT/HCPCS: 90471; 90715; 99283; A9270

== ENCOUNTER 2023-12-28 09:53 | Outpatient (CLI) | payer MEDICARE, MEDICAID, SELFPAY ==
--- NOTE | ~2023-12-28 | XR_ITS ---
EXAMINATION: XR lumbar spine min 4V DATE: 12/28/2023 10:22 INDICATION: Left-sided low back pain. TECHNIQUE: 5 views of lumbar spine were obtained. COMPARISON: Lumbar spine radiographs 07/14/2011 FINDINGS: There is 17 degrees dextroscoliosis of lumbar spine. There is 6 mm anterolisthesis of L4 on L5. There is a chronic compression fracture of L1. There is severely decreased disc height from T12- L1 through L5-S1. There is interbody fusion at T12-L1 and L4-L5. There is multilevel severe facet cassidy nt osteoarthritis. There are surgical clips in left abdomen. IMPRESSION: 1. Severe lumbar spondylosis. 2. Lumbar dextroscoliosis. Reviewed, dictated and finalized at location A. [employer]NAL LAW[employer]ER
== END 2023-12-28 09:54 | disposition home or self-care (01) ==
PROVIDERS: PCP Emergency Medicine; Visit Provider Emergency Medicine
DX: M43.06 Spondylolysis, lumbar region (principal); M41.86 Other forms of scoliosis, lumbar region
CPT/HCPCS: 72110

== ENCOUNTER 2024-01-25 22:01 | Emergency (ER) | payer MEDICARE, MEDICAID, SELFPAY ==
[2024-01-25 22:04] VITALS: BP 134/99; PULSE 77; RESP 13; TEMP 36.4; O2SAT 98
[2024-01-25 22:11] VITALS: TEMP 37.2
[2024-01-26 00:01] VITALS: PULSE 63
[2024-01-26 00:03] VITALS: BP 121/91; PULSE 67; RESP 16; O2SAT 98
--- NOTE | 2024-01-26 00:21 | ED.GENADULT ---
HPI - General Adult General Chief complaint: Unspecified <Nini Monahan PA-C - Last Filed: 01/26/24 00:26> Stated complaint: 2 episodes of sleep paralysis <Nini Monahan PA-C - Last Filed: 01/26/24 00:26> Time Seen by Provider: 01/25/24 23:52 <Nini Monahan PA-C - Last Filed: 01/26/24 00:26> History of Present Illness HPI narrative: 79-year-old male presents to the emergency department for reported sleep paralysis. Patient states for the past 2 nights, he will be half awake and half asleep and feels like he cannot move any of his body. Patient states it feels like it ?lasts for ever?. He endorses a remote history of sleep paralysis when he was a child but states he has not had any episodes since. States that his PCP currently started him on trazodone a few weeks ago for insomnia and patient is concerned that this is causing his symptoms. He reports he is fearful to go home to go back to sleep. He endorses anxiety, denies SI or HI. States he has a therapist he sees regularly. Denies chest pain, vision changes, focal numbness or weakness, abdominal pain, nausea vomiting, diarrhea, dysuria, fever, cough or congestion. <Nini Monahan PA-C - Last Filed: 01/26/24 00:26> Related Data Home medications: Home Medications Medication Instructions Recorded Confirmed empagliflozin 10 mg tablet 10 mg PO DAILY 04/27/22 12/28/23 (Jardiance) sacubitril 24 mg-valsartan 26 mg 1 tablet PO BID 09/02/22 12/28/23 tablet (Entresto) carboxymethylcellulose sodium 0.5 1 drp EACH EYE BID 09/09/22 12/28/23 % eye drops (Refresh Tears) metoprolol succinate 50 mg 50 mg PO DAILY 11/02/22 12/28/23 tablet,extended release 24 hr bupropion HCl 150 mg 24 hr tablet, 150 mg PO 06/07/23 12/28/23 extended release levetiracetam 500 mg tablet 500 mg PO Q12H 10/07/23 12/28/23 (Keppra) <Nini Monahan PA-C - Last Filed: 01/26/24 00:26> Allergies/adverse reactions: Allergies Allergy/AdvReac Type Severity Reaction Status Date / Time escitalopram [From Lexapro] AdvReac Intermediate sexual Verified 01/26/24 00:03 disfunction hydromorphone AdvReac Intermediate Nightmare Verified 01/26/24 00:03 <Nini Monahan PA-C - Last Filed: 01/26/24 00:26> Review of Systems Review of Systems: CONSTITUTIONAL: Denies fever, chills, or sweats. EYES: Denies visual changes, redness, or discharge. ENT: Denies rhinorrhea, congestion, sore throat, or otalgia. CARDIOVASCULAR: Denies chest pain, palpitations, or edema. RESPIRATORY: Denies cough or dyspnea. GASTROINTESTINAL: Denies abdominal pain, nausea, vomiting, or diarrhea. GENITOURINARY: Denies dysuria or hematuria. SKIN: Denies rash or itching. MUSCULOSKELETAL: Denies back pain, joint pain, or myalgia. NEUROLOGIC: See HPI PSYCHIATRIC: Denies anxiety or depression. <Nini Monahan PA-C - Last Filed: 01/26/24 00:26> [facility] Past Medical History Medical History: Medical History Arthritis Arthritis of right knee Atrial fibrillation Atrial fibrillation and flutter Basal cell carcinoma (BCC) Cancer CHF (congestive heart failure) Cholelithiasis NOS Erectile dysfunction Essential (primary) hypertension Hepatitis Hepatitis C Hypertension Major depressive disorder, single episode, unspecified Mixed hyperlipidemia [place] (obstructive sleep apnea) Pulmonary emphysema Pulmonary hypertension Tobacco abuse <Nini Monahan PA-C - Last Filed: 01/26/24 00:26> Surgical History Surgical History: Surgical History H/O arthroscopy of left knee H/O arthroscopy of right knee H/O hernia repair H/O prostate biopsy History of cholecystectomy History of knee replacement Lt TKA 01/14/17 History of liver biopsy History of partial colectomy Hx of detached retina repair <Nini Monahan PA-C - Last Filed: 01/26/24 00:26>
[2024-01-26] MEDS: LORazepam (*CRX) 0.5 MG TABLET PO (00:25)
== END 2024-01-26 00:37 | disposition home or self-care (01) ==
PROVIDERS: Emergency Provider Physician Assistant; PCP Emergency Medicine
DX: G47.53 Recurrent isolated sleep paralysis (principal); I48.91 Unspecified atrial fibrillation; I48.92 Unspecified atrial flutter; I50.9 Heart failure, unspecified; I11.0 Hypertensive heart disease with heart failure; I27.20 Pulmonary hypertension, unspecified; E78.2 Mixed hyperlipidemia; G47.33 Obstructive sleep apnea (adult) (pediatric); M17.11 Unilateral primary osteoarthritis, right knee; Z86.19 Personal history of other infectious and parasitic diseases; Z86.711 Personal history of pulmonary embolism; Z87.891 Personal history of nicotine dependence; Z96.652 Presence of left artificial knee joint; Z85.828 Personal history of other malignant neoplasm of skin; Z90.49 Acquired absence of other specified parts of digestive tract
CPT/HCPCS: 99283; A9270

== ENCOUNTER 2024-10-25 13:53 | Outpatient (CLI) | payer MEDICARE, MEDICAID, SELFPAY ==
--- NOTE | ~2024-10-25 | CT_ITS ---
CT Scan of the Chest without Contrast: Clinical Indication: Pulmonary nodule Technique: Contiguous sections were acquired throughout the chest without intravenous contrast. Dose reduction technique was used on this scan by utilizing automated exposure control and iterative recon struction technique. The dose-length product (DLP) was 67.75 mGy-cm. COMPARISON: 02/11/2021 Findings: There is no evidence of any significant mediastinal, hilar or axillary lymphadenopathy. Left atrial a ppendage closure device present. There is no evidence of pleural or pericardial effusion. Severe emphysema present. There is extensive interstitial and patchy alveolar airspace disease is nohemi rly completely resolved. There is minimal residual groundglass opacity in the posterior right lower l obe (axial image 87). Images through the upper abdomen reveal no abnormalities. Impression: Near complete interval resolution of extensive pneumonia since prior exam. There is focal residual gr oundglass opacity in the posterior right lower lobe which could reflect residual pneumonia or postinf lammatory change. Severe emphysema. Reviewed, dictated and finalized at location M. F TENDER Impression: Near complete interval resolution of extensive pneumonia since prior exam. Ther e is focal residual groundglass opacity in the posterior right lower lobe which could reflect residual pneumonia or postinflammatory change. Severe emphysema.
== END 2024-10-25 13:54 | disposition home or self-care (01) ==
PROVIDERS: PCP Emergency Medicine; Visit Provider Physician Assistant
DX: J18.9 Pneumonia, unspecified organism (principal); J43.9 Emphysema, unspecified; R91.1 Solitary pulmonary nodule
CPT/HCPCS: 71250

== ENCOUNTER 2025-07-02 18:03 | Emergency (ER) | payer MEDICARE, MEDICAID, SELFPAY ==
[2025-07-02] VITALS (12 sets, daily range): BP systolic 105–149; BP diastolic 76–109; PULSE 76–108; RESP 14–27; TEMP 36.6; O2SAT 94–99
--- NOTE | ~2025-07-02 | CT_ITS ---
History: Remote history of a fall (the week prior to presentation) without loss of consciousness PROCEDURE: CT head without contrast. COMPARISON: 09/23/2023 TECHNIQUE: Axial imaging of the head performed from the skull base to the vertex without IV contrast. Sagittal a nd coronal reformations obtained. DLP: 681 mGy-cm FINDINGS: The ventricles are enlarged. The dilatation of the ventricles is proportional to the degree of sulcal prominence, not uncommon in the senescent brain. Decreased attenuation is identified within the periventricular white matter, likely secondary to micr ovascular ischemic disease, in a patient of this age. There is no mass, mass effect or midline shift. There is no abnormal extra-axial fluid collection or intracranial hemorrhage. Visualized paranasal sinuses are clear. The mastoid air cells are well aerated. No acute displaced fractures within the overlying cranium. Impression: No acute intracranial hemorrhage or suspicious mass effect. Reviewed, dictated and finalized at location A. Impression: No acute intracranial hemorrhage or suspicious mass effect.
--- OUTSIDE RECORDS SUMMARY | 2025-07-02 18:06 | XMS_ITS | Patient Health Record ---
Author Organization [facility] [employer] Address [address] [place] [address] Care Team Providers Care Medical Records Specialist Name Role Phone Itz Arevalo MD Primary Care Provider Unavail able Mallory Conner Unavailable [phone] Leslee Novak Unavailable [phone] Krishna Edwards Unavailable [phone] Allergies Allergen (clinical drug ingredient) Drug/Non Drug Allergy documented on EMR Reaction Allergy Type Onset Date Status Substance with serotonin re-uptake inhibitor mechanism of action (substance) SSRI's (uncoded) Unknown Allergy Activ e trazodone Trazodone Unknown Drug Allergy Active Reason For Referral No Information Medications Medication SIG (Take, Route, Frequency, Duration) Notes Start Date End Date Status buPROPion HCl ER (XL) 300 MG 1 tablet in the morning Oral Once a day; Duration: 90 days Active Tamsulosin HCl 0.4 MG Oral; Duration: 90 Days Active Metoprolol Succinate ER 50 MG Oral; Duration: 90 Days Active Midodrine HCl 2.5 MG Oral; Duration: 90 Days Active Anoro Ellipta 62.5-25 MCG/ACT Inhalation; Duration: 30 Days Active Jardiance 10 MG Oral; Duration: 30 Days Active Clopidogrel Bisulfate 75 MG Oral; Duration: 90 Days Active Entresto 24-26 MG Oral; Duration: 30 Days Active Sertraline HCl 50 MG Oral; Duration: 90 Days Not-Taking busPIRone HCl 5 MG 1 tablet Orally thre e times a day; Duration: 90 days Active levETIRAcetam 500 MG Oral; Duration: 90 Days Not-Taking buPROPion HCl ER (XL) 300 MG 1 tablet in the morning Oral Once a day; Duration: 90 days Active busPIRone HCl 5 MG TAKE 1 TABLET BY AREN TH TWICE A DAY FOR 90 DAYS; Duration: 90 Not-Taking Sertraline HCl 25 MG 1 tablet Orally Onc e a day; Duration: 30 days 03/08/2025 Not-Meme g Immunizations Vaccine Route Administration Date Status Comme nts Influenza virus vaccine, quadrivalent (IIV4), split virus, 0.25 mL dosage Unknown 11/22/2016 Administered Influenza virus vaccine, quadrivalent (IIV4), split virus, 0.25 mL dosage Unknown 08/28/2019 Administered Influenza virus vaccine, quadrivalent (IIV4), split virus, 0.25 mL dosage Unknown 09/22/2019 Administered Influenza, high dose seasonal Unknown 09/19/2018 Admini stered Influenza, high-dose seasona l, quadrivalent, preservative free >65 yrs Unknown 07/31/2021 Administered Influenza, unspecified formulation Unknown 08/24/2022 A dministered Belkis Covid-19 Vaccine Unknown 01/26/2021 Administere d Novel [id number], preservative free Unknown 08/21/2020 Administered Pfizer Biontech Covid-19 Vac cine 2nd dose Unknown 09/17/2021 Administered Pfizer Biontech Covid-19 Vac cine 2nd dose Unknown 08/02/2022 Administered Pfizer-Biontech Covid-19 Vac cine 1st dose Unknown 03/01/2022 Administered Pneumococcal conjugate PCV 7 Unknown 11/23/2014 Adminis tered Tdap Unknown 07/08/2020 Administered Zoster Unknown 07/09/2019 Administered Zoster Unknown 09/17/2020 Administered Social History Tobacco Use: Social History Observation Description Date Details (start date - stop date) Former Smoker NA - NA Sex Assigned At : Social History Observation Description Sex Assigned At Male Tobacco Control (Standard) Question Answer Notes Tobacco use: Former smoker Section Notes: daughters are his POA daughters are his POA daughters are his POA daughters are his POA daughters are his POA daughters are his POA daughters are his POA daughters are his POA daughters are his POA daughters are his POA daughters are his POA daughters are his POA daughters are his POA Problems Problem Type SNOMED Code ICD Code Onset Dates Problem Status W/U Status Risk Notes Problem Chronic alcoholism in remission (774626255) Alcohol dependence, in remission (F10.21) Active confirmed Problem Mild recurrent major depression (17044964) Major depressive disorder, recurrent, mild (F33.0) 04/03/20 Active confirmed Problem Generalized anxiety disorder (77448953) Generalized anxiety disorder (F41.1) 04/06/20 Active confirmed Problem Primary insomnia (7006840) Primary insomnia (F51.01) 04/03/20 Active confirmed Problem Screening for cardiovascular system disease (562033916) Encounter for screening for cardiovascular disorders (Z13.6) Active confirmed Problem Dietary management surveillance (541202003) Dietary counseling and surveillance (Z71.3) Active confirmed Problem Depression Screening (792766698) Encounter for screening for depression (Z13.31) Active confirmed Problem Essential hypertension (33982422) Essential hypertension (I10) Active confirmed Problem Benign prostatic hyperplasia (992777167) Benign prostatic hyperplasia (N40.0) Active confirmed Problem Obstructive sleep apnea syndrome (59255857) Obstructive sleep apnea syndrome (G47.33) Active confirmed Problem Basal cell carcinoma of skin (899363646) Basal cell carcinoma (BCC) (C44.91) Active confirmed Problem Atrial fibrillation (40889128) Atrial fibrillation and flutter (I48.91) Active confirmed Vital Signs Heart Rate 72 /min 04/10/2025 Respiratory Rate 16 /min 04/05/2025 Blood pressure diastolic 85 mm Hg 04/10/2025 Height-cm 172.72 cm 04/10/2025 Weight-kg 62.14 kg 04/10/2025 Height 68.00 in 04/10/2025 Blood pressure systolic 126 mm Hg 04/10/2025 Weight 137.0 lbs 04/10/2025 BMI 20.83 kg/m2 04/10/2025 Encounters Encounter Location Date Provider Diagnosis [facility] [email or web address] [facility] [address] [id number] 02/12/2025 Mallory Conner [facility], [facility] [address] [address] 03/08/2025 Mallory Conner [facility], [facility] [address] [address] 09/08/2024 Leslee Novak [facility], [facility] [address] [address] 01/19/2025 Leslee Hemann Major depressive disorder, recurrent, mild F33.0 and Alcohol dependence, in remission F10.21 [facility], [facility] [address] [place] [address] 02/08/2025 Leslee Hemann Major depressive disorder, recurrent, mild F33.0 and Alcohol dependence, in remission F10.21 [facility], [facility] [address] [place] [address] 02/22/2025 Leslee Hemann Alcohol dependence, in remission F10.21 and Major depressive disorder, recurrent, mild F33.0 [facility], [facility] [address] [place] [address] 03/08/2025 Leslee Hemann Alcohol dependence, in remission F10.21 and Major depressive disorder, recurrent, mild F33.0 [facility], [facility] [address] [place] [address] 03/22/2025 Leslee Hemann Alcohol dependence, in remission F10.21 and Major depressive disorder, recurrent, mild F33.0 [facility], [facility] [address] [facility] [address] [place] [address] 05/01/2025 Leslee Hemann Alcohol dependence, in remission F10.21 and Major depressive disorder, recurrent, mild F33.0 [facility], [facility] [address] [address] 05/30/2025 Leslee Hemann Alcohol dependence, in remission F10.21 and Major depressive disorder, recurrent, mild F33.0 [facility], [facility] [address] [address] 06/20/2025 Leslee Hemann Alcohol dependence, in remission F10.21 and Major depressive disorder, recurrent, mild F33.0 [facility], [facility] [address] [place] [address] 07/19/2024 Leslee Hemann Alcohol dependence, in remission F10.21 and Major depressive disorder, recurrent, mild F33.0 [facility], [facility] [address] [place] [address] 08/03/2024 Leslee Hemann Alcohol dependence, in remission F10.21 and Major depressive disorder, recurrent, mild F33.0 [facility], [facility] [address] [place] [address] 08/17/2024 Leslee Hemann Major depressive disorder, recurrent, mild F33.0 ; Alcohol dependence, in remission F10.21 and Generalized anxiety disorder F41.1 [facility] [address] [facility] [address] [place] [address] 09/29/2024 Leslee Hemann Major depressive disorder, recurrent, mild F33.0 and Alcohol dependence, in remission F10.21 [facility] [address] [facility] [address] [place] [address] 10/20/2024 Leslee Hemann Major depressive disorder, recurrent, mild F33.0 and Alcohol dependence, in remission F10.21 [facility] [address] [address] 11/09/2024 Leslee Hemann Major depressive disorder, recurrent, mild F33.0 and Alcohol dependence, in remission F10.21 [facility] [address] [address] 12/06/2024 Leslee Hemann Major depressive disorder, recurrent, mild F33.0 and Alcohol dependence, in remission F10.21 [facility] [address] [address] 09/15/2024 Leslee Hemann Major depressive disorder, recurrent, mild F33.0 ; Alcohol dependence, in remission F10.21 and Generalized anxiety disorder F41.1 [facility] [address] [address] 12/26/2024 Leslee Hemann Major depressive disorder, recurrent, mild F33.0 and Alcohol dependence, in remission F10.21 [facility] [address] [address] 01/11/2025 Mallory Conner Major depressive disorder, recurrent, mild F33.0 ; Generalized anxiety disorder F41.1 ; Primary insomnia F51.01 and Essential hypertension I10 [facility] [address] [facility] [address] [place] [address] 09/20/2024 Krishna Edwards Major depressive disorder, recurrent, mild F33.0 ; Generalized anxiety disorder F41.1 ; Primary insomnia F51.01 and Essential hypertension I10 [facility] [address] [facility] [address] [place] [address] 12/19/2024 Mallory Thery Major depressive disorder, recurrent, mild F33.0 ; Generalized anxiety disorder F41.1 ; Primary insomnia F51.01 and Essential hypertension I10 [address] [address] 08/22/2024 Mallory Thery Major depressive disorder, recurrent, mild F33.0 ; Generalized anxiety disorder F41.1 and Primary insomnia F51.[address] [address] 07/13/2024 Mallory Thery Major depressive disorder, recurrent, mild F33.0 ; Generalized anxiety disorder F41.1 and Primary insomnia F51.[address] [address] 04/05/2025 Mallory Thery Encounter for screen ing for depression Z13.31 ; Encounter for screening for cardiovascular disorders Z13.6 ; Dietary counseling and surveillance Z71.3 ; Major depressive disorder, recurrent, mild F33.0 ; Generalized anxiety disorder F41.1 ; Primary insomnia F51.01 and Essential hypertension I10 [address] [address] 04/10/2025 Mallory Thery Encounter for screen ing for depression Z13.31 ; Encounter for screening for cardiovascular disorders Z13.6 ; Dietary counseling and surveillance Z71.3 ; Major depressive disorder, recurrent, mild F33.0 ; Generalized anxiety disorder F41.1 ; Primary insomnia F51.01 ; Essential hypertension I10 and Negative depression screening Z13.[address] [address] 03/08/2025 Mallory Thery Encounter for screen ing for depression Z13.31 ; Encounter for screening for cardiovascular disorders Z13.6 ; Dietary counseling and surveillance Z71.3 ; Major depressive disorder, recurrent, mild F33.0 ; Generalized anxiety disorder F41.1 ; Primary insomnia F51.01 and Essential hypertension I10 [address] [address] 02/15/2025 Mallory Thery Encounter for screen ing for cardiovascular disorders Z13.6 ; Encounter for screening for depression Z13.31 ; Major depressive disorder, recurrent, mild F33.0 ; Generalized anxiety disorder F41.1 ; Primary insomnia F51.01 and Essential hypertension I10 [facility] [email or web address] [facility] [address] [facility] [address] [place] [address] 09/06/2024 Krishna Edwards Major depressive disorder, recurrent, mild F33.0 ; Generalized anxiety disorder F41.1 and Primary insomnia F51.01 Assessments Encounter Date Diagnosis (ICD Code) Assessment Notes Treatment Notes Treatment Clinical Notes Section Notes 07/13/2024 Major depressive disorder, recurrent, mild (ICD-10 - F33.0) Preventing Depression From Coming Back: Care Instructions material was published, Learning About Depression material was published, Learning About Depression Screening material was published, Learning About How to Get Help During a Mental Health Crisis material was published, Depression Treatment: Care Instructions material was published 1. Mild recurrent major depression - Wellbutrin XL 150 mg daily education on all medications educated on all medications, benefits, side effects and risk, and educated on depression, anxiety, and mood d/o and educated on compliance of medications, metabolic and movement d/o education appointment's, continue therapy discussion with patient about course of treatmentand patient instructions. education on serotonin syndrome 2. Generalized anxiety disorder -therapy Leslee continue Medication Management and Follow-Up- Plan:- Schedule follow-up appointments every 2-3 months to monitor the patient's response to the medication regimen.- Reinforce the importance of avoiding recreational drug use due to potential neurotoxicity and interactions with prescribed medications. 3. Primary insomnia -Trazodone 150 mg prescribed by PCP Melatonin 10 mg at night OTC Insomnia pamphlet given 07/13/2024 Generalized anxiety disorder (ICD-10 - F41.1) Learning About Generalized Anxiety Disorder material was published, Learning About Anxiety Disorders material was published 1. Mild recurrent major depression - Wellbutrin XL 150 mg daily education on all medications educated on all medications, benefits, side effects and risk, and educated on depression, anxiety, and mood d/o and educated on compliance of medications, metabolic and movement d/o education appointment's, continue therapy discussion with patient about course of treatmentand patient instructions. education on serotonin syndrome 2. Generalized anxiety disorder -therapy Leslee continue Medication Management and Follow-Up- Plan:- Schedule follow-up appointments every 2-3 months to monitor the patient's response to the medication regimen.- Reinforce the importance of avoiding recreational drug use due to potential neurotoxicity and interactions with prescribed medications. 3. Primary insomnia -Trazodone 150 mg prescribed by PCP Melatonin 10 mg at night OTC Insomnia pamphlet given 07/19/2024 Alcohol dependence, in remission (ICD-10 - F10.21) 07/19/2024 Major depressive disorder, recurrent, mild (ICD-10 - F33.0) 08/03/2024 Alcohol dependence, in remission (ICD-10 - F10.21) 08/03/2024 Major depressive disorder, recurrent, mild (ICD-10 - F33.0) 08/17/2024 Major depressive disorder, recurrent, mild (ICD-10 - F33.0) 08/22/2024 Major depressive disorder, recurrent, mild (ICD-10 - F33.0) Preventing Depression From Coming Back: Care Instructions material was published, Learning About Depression material was published, Learning About Depression Screening material was published, Learning About How to Get Help During a Mental Health Crisis material was published, Depression Treatment: Care Instructions material was published, Preventing Depression From Coming Back: Care Instructions material was published, Learning About Depression material was published, Learning About How to Get Help During a Mental Health Crisis material was published, Learning About Depression Screening material was published, Seasonal Affective Disorder: Care Instructions material was published 1. recurrent major depression - Wellbutrin XL 150 mg daily Discuss and educated on Sertraline 50 mg daily - having increase depression education on all medications educated on all medications, benefits, side effects and risk, and educated on depression, anxiety, and mood d/o and educated on compliance of medications, metabolic and movement d/o education appointment's, continue therapy discussion with patient about course of treatmentand patient instructions. education on serotonin syndrome 2. Generalized anxiety disorder -therapy Leslee continue Medication Management and Follow-Up- Plan:- Schedule follow-up appointments every 2-3 months to monitor the patient's response to the medication regimen.- Reinforce the importance of avoiding recreational drug use due to potential neurotoxicity and interactions with prescribed medications. 3. Primary insomnia - Melatonin 10 mg at night OTC Insomnia pamphlet given 09/06/2024 Major depressive disorder, recurrent, mild (ICD-10 - F33.0) 1. recurrent major depression - Wellbutrin XL 150 mg daily Discuss and educated on Sertraline 50 mg daily - having increase depression education on all medications educated on all medications, benefits, side effects and risk, and educated on depression, anxiety, and mood d/o and educated on compliance of medications, metabolic and movement d/o education appointment's, continue therapy discussion with patient about course of treatmentand patient instructions. education on serotonin syndrome 2. Generalized anxiety disorder -therapy Leslee continue Medication Management and Follow-Up- Plan:- Schedule follow-up appointments every 2-3 months to monitor the patient's response to the medication regimen.- Reinforce the importance of avoiding recreational drug use due to potential neurotoxicity and interactions with prescribed medications. 3. Primary insomnia - Melatonin 10 mg at night OTC Insomnia pamphlet given Depression - Assessment: Currently mild in severity. History of seasonal and situational depression. Previous trial of Sertraline not tolerated (caused 3 days of fatigue and inability to do daily housework). Currently on Wellbutrin (Bupropion) 150 mg, increased from 100 mg 4 years ago. - Plan: - Increase Bupropion dose to 300 mg. - Monitor for improvement in depressive symptoms and any side effects. - Follow up in 2 weeks. Anxiety - Assessment: Related to media exposure. Avoiding news as a coping strategy. - Plan: - Initiate Buspar (Buspirone) 5 mg once daily. - Increase dose if tolerated and needed. - Follow up in 2 weeks to assess response and side effects. Insomnia - Assessment: History of sleep apnea, currently using a machine for 3 years. Good sleep quality for the past 2 months. - Plan: - Continue using sleep apnea machine. - Monitor sleep quality and address any issues in follow-up visits. Suicidal Thoughts - Assessment: Passive suicidal ideation, no active intent or plan. Patient reports thoughts like it would be nice to be but doesn't want to kill himself. - Plan: - Continue monitoring for any changes in suicidal thoughts. - Encourage open communication about mental health and safety concerns. - Provide resources for crisis support if needed. Alcohol Use Disorder - Assessment: In remission for 12 years. Attending Alcoholics Anonymous. - Plan: - Encourage continued participation in Alcoholics Anonymous. - Monitor for any signs of relapse. Cognitive Function - Assessment: No significant concerns at present. Patient has power of workers compensation defense attorney in place (daughter). - Plan: - Perform memory testing today as a precautionary measure. - Continue annual memory testing for early detection of cognitive decline. Follow-up Appointments - Plan: - Cancel appointment with Mallory next week. - Schedule follow-up appointment in 2 weeks to assess medication response and side effects. Additional Notes: - Patient has been receiving care at this facility for about 6 years. - Previously treated with Thorazine in college due to lack of antidepressants at the time. - Patient seeking modern care and open to provider's recommendations. 09/15/2024 Major depressive disorder, recurrent, mild (ICD-10 - F33.0) 09/20/2024 Major depressive disorder, recurrent, mild (ICD-10 - F33.0) Depression - Assessment: Patient reports improvement in anxiety symptoms after adding buspirone to the current regimen. Patient is no longer taking sertraline 50 mg daily. - Plan: Continue bupropion XL 150 mg daily. Discontinue sertraline 50 mg daily. Monitor patient's progress and adjust medications as needed. Anxiety - Assessment: Patient reports significant reduction in anxiety symptoms with the addition of buspirone. - Plan: Continue buspirone as prescribed. Encourage patient to maintain contact with AA sponsor and support network. Congestive Heart Failure - Assessment: Patient reports possible worsening of tiredness and fatigue, which may be related to their heart condition. - Plan: Recommend patient to follow up with their primary care physician or industrial plant custodian for further evaluation and management. Social Support - Assessment: Patient lives alone and has limited family support. Has AA sponsor and 2-3 other members in home group for support. Family members have either or moved to [facility]. - Plan: Encourage patient to continue attending AA meetings and maintain connections with their support network. Cognitive Function - Assessment: Patient's memory score (SLUMS) is 26, which is good for their age (79 years old). - Plan: Repeat cognitive assessment at least once a year or every 6 months if needed. Counseling - Assessment: Patient requires ongoing counseling. - Plan: Schedule an appointment with Mallory for counseling in 3 months. Continue monitoring patient's mental health and adjust treatment plan as necessary. 09/29/2024 Alcohol dependence, in remission (ICD-10 - F10.21) 09/29/2024 Major depressive disorder, recurrent, mild (ICD-10 - F33.0) 10/20/2024 Alcohol dependence, in remission (ICD-10 - F10.21) 10/20/2024 Major depressive disorder, recurrent, mild (ICD-10 - F33.0) 11/09/2024 Alcohol dependence, in remission (ICD-10 - F10.21) 11/09/2024 Major depressive disorder, recurrent, mild (ICD-10 - F33.0) 12/06/2024 Alcohol dependence, in remission (ICD-10 - F10.21) 12/06/2024 Major depressive disorder, recurrent, mild (ICD-10 - F33.0) 12/19/2024 Major depressive disorder, recurrent, mild (ICD-10 - F33.0) Depression - Assessment: Patient reports depression and anxiety - Plan: Continue bupropion XL 150 mg daily. Monitor patient's progress and adjust medications as needed. Anxiety - Assessment: Patient reports anxiety symptoms would like to increase buspirone 5 mg twice a day for anxiety and depression - Plan: buspirone as prescribed. Encourage patient to maintain contact with AA sponsor and support network. Congestive Heart Failure - Assessment: Patient reports possible worsening of tiredness and fatigue, which may be related to their heart condition. - Plan: Recommend patient to follow up with their primary care physician or industrial plant custodian for further evaluation and management. Social Support - Assessment: Patient lives alone and has limited family support. Has AA sponsor and 2-3 other members in home group for support. Family members have either or moved to [facility]. - Plan: Encourage patient to continue attending AA meetings and maintain connections with their support network. Cognitive Function - Assessment: Patient's memory score (SLUMS) is 26, which is good for their age (79 years old). - Plan: Repeat cognitive assessment at least once a year or every 6 months if needed. Counseling - Assessment: Patient requires ongoing counseling. - Plan: Schedule an appointment with Mallory for counseling in 3 months. Continue monitoring patient's mental health and adjust treatment plan as necessary. 12/26/2024 Alcohol dependence, in remission (ICD-10 - F10.21) 12/26/2024 Major depressive disorder, recurrent, mild (ICD-10 - F33.0) 01/11/2025 Major depressive disorder, recurrent, mild (ICD-10 - F33.0) Depression - Assessment: Patient reports depression and anxiety - Plan: Continue bupropion XL 150 mg daily. Reported political situations and being alone triggers depression and anxiety Monitor patient's progress and adjust medications as needed. Anxiety - Assessment: Patient reports anxiety and depression symptoms increase buspirone 5 mg three times a day for anxiety and depression - Plan: buspirone as prescribed. toelrating all rx no s/e Congestive Heart Failure - Assessment: Patient reports possible worsening of tiredness and fatigue, which may be related to their heart condition. - Plan: Recommend patient to follow up with their primary care physician or industrial plant custodian for further evaluation and management. Social Support - Assessment: Patient lives alone and has limited family support. Has AA sponsor and 2-3 other members in home group for support. Family members have either or moved to [facility]. - Plan: Encourage patient to continue attending AA meetings and maintain connections with their support network. Cognitive Function - Assessment: Patient's memory score (SLUMS) is 26, which is good for their age (79 years old). - Plan: Repeat cognitive assessment at least once a year or every 6 months if needed. Counseling - Assessment: Patient requires ongoing counseling. Continue monitoring patient's mental health and adjust treatment plan as necessary. 01/19/2025 Alcohol dependence, in remission (ICD-10 - F10.21) 01/19/2025 Major depressive disorder, recurrent, mild (ICD-10 - F33.0) 02/08/2025 Alcohol dependence, in remission (ICD-10 - F10.21) 02/08/2025 Major depressive disorder, recurrent, mild (ICD-10 - F33.0) 02/22/2025 Alcohol dependence, in remission (ICD-10 - F10.21) 02/22/2025 Major depressive disorder, recurrent, mild (ICD-10 - F33.0) 02/15/2025 Encounter for screening for cardiovascular disorders (ICD-10 - Z13.6) Depression - Assessment: Patient reports depression and anxiety - Plan: Discuss and educated on increase bupropion XL 300 mg daily. monitor depression, anxiety, mood, Reported situations, money and medical, being alone triggers depression and anxiety Monitor patient's progress and and depression s/s discuss adjust medications options for depression and anxiety discuss and educated on critria TMS and Spravato, forms completed for TMS Continue therapy and work on depresison and situations triggers Anxiety - Assessment: Patient reports anxiety and depression symptoms buspirone 5 mg three times a day for anxiety and depression - Plan: buspirone as prescribed. toelrating all rx no s/e Congestive Heart Failure - Assessment: Patient reports possible worsening of tiredness and fatigue, which may be related to their heart condition. - Plan: Recommend patient to follow up with their primary care physician or industrial plant custodian for further evaluation and management. Social Support - Assessment: Patient lives alone and has limited family support. Has AA sponsor and 2-3 other members in home group for support. Family members have either or moved to [facility]. - Plan: Encourage patient to continue attending AA meetings and maintain connections with their support network. Cognitive Function - Assessment: Patient's memory score (SLUMS) is 26, which is good for their age (79 years old). - Plan: Repeat cognitive assessment at least once a year or every 6 months if needed. Counseling - Assessment: Patient requires ongoing counseling. Continue monitoring patient's mental health and adjust treatment plan as necessary. 03/08/2025 Alcohol dependence, in remission (ICD-10 - F10.21) 03/08/2025 Major depressive disorder, recurrent, mild (ICD-10 - F33.0) 03/22/2025 Alcohol dependence, in remission (ICD-10 - F10.21) 03/22/2025 Major depressive disorder, recurrent, mild (ICD-10 - F33.0) 03/08/2025 Encounter for screening for depression (ICD-10 - Z13.31) Depression - Assessment: Patient reports depression and anxiety - Plan: Discuss and educated on all rx Continue bupropion XL 300 mg daily. monitor depression, anxiety, mood, Discuss and educated on adding Zoloft 25 mg daily for depression and anxiety Reported situations, money and medical, being alone triggers depression and anxiety Monitor patient's progress and and depression s/s discuss adjust medications options for depression and anxiety discuss and educated on critria TMS and Spravato, forms completed for TMS Continue therapy and work on depresison and situations triggers Anxiety - Assessment: Patient reports anxiety and depression symptoms buspirone 5 mg three times a day for anxiety and depression - Plan: buspirone as prescribed. toelrating all rx no s/e Congestive Heart Failure - Assessment: Patient reports possible worsening of tiredness and fatigue, which may be related to their heart condition. - Plan: Recommend patient to follow up with their primary care physician or industrial plant custodian for further evaluation and management. Social Support - Assessment: Patient lives alone and has limited family support. Has AA sponsor and 2-3 other members in home group for support. Family members have either or moved to [facility]. - Plan: Encourage patient to continue attending AA meetings and maintain connections with their support network. Cognitive Function - Assessment: Patient's memory score (SLUMS) is 26, which is good for their age (79 years old). - Plan: Repeat cognitive assessment at least once a year or every 6 months if needed. Counseling - Assessment: Patient requires ongoing counseling. Continue monitoring patient's mental health and adjust treatment plan as necessary. 04/05/2025 Encounter for screening for depression (ICD-10 - Z13.31) Depression - Assessment: Patient reports depression and anxiety - Plan: Discuss and educated on all rx Continue bupropion XL 300 mg daily. monitor depression, anxiety, mood, Discuss and educated on all rx Reported situations, money and medical, being alone triggers depression and anxiety Monitor patient's progress and and depression s/s discuss and educated on critria TMS and Spravato, forms completed for TMS Continue therapy and work on depresison and situations triggers therapy helping Anxiety - Assessment: Patient reports anxiety and depression symptoms buspirone 5 mg three times a day for anxiety and depression - Plan: buspirone as prescribed. toelrating all rx no s/e Congestive Heart Failure - Assessment: Patient reports possible worsening of tiredness and fatigue, which may be related to their heart condition. - Plan: Recommend patient to follow up with their primary care physician or industrial plant custodian for further evaluation and management. Social Support - Assessment: Patient lives alone and has limited family support. Has AA sponsor and 2-3 other members in home group for support. Family members have either or moved to [facility]. - Plan: Encourage patient to continue attending AA meetings and maintain connections with their support network. Cognitive Function - Assessment: Patient's memory score (SLUMS) is 26, which is good for their age (79 years old). - Plan: Repeat cognitive assessment at least once a year or every 6 months if needed. Counseling - Assessment: Patient requires ongoing counseling. Continue monitoring patient's mental health and adjust treatment plan as necessary. 04/10/2025 Encounter for screening for depression (ICD-10 - Z13.31) Depression - Assessment: stable Patient reports depression and anxiety - Plan: Discuss and educated on all rx Continue bupropion XL 300 mg daily. monitor depression, anxiety, mood, Discuss and educated on all rx Reported situations, money and medical, being alone triggers depression and anxiety Monitor patient's progress and and depression s/s discuss and educated on critria TMS and Spravato, forms completed for TMS Continue therapy and work on depresison and situations triggers therapy helping Anxiety - Assessment: Patient reports mild anxiety and depression symptoms buspirone 5 mg three times a day for anxiety and depression - Plan: buspirone as prescribed. tolerating all rx no s/e Congestive Heart Failure - Assessment: Patient reports possible worsening of tiredness and fatigue, which may be related to their heart condition. - Plan: Recommend patient to follow up with their primary care physician or industrial plant custodian for further evaluation and management. Social Support - Assessment: Patient lives alone and has limited family support. Has AA sponsor and 2-3 other members in home group for support. Family members have either or moved to [facility]. - Plan: Encourage patient to continue attending AA meetings and maintain connections with their support network. Cognitive Function - Assessment: Patient's memory score (SLUMS) is 26, which is good for their age (79 years old). - Plan: Repeat cognitive assessment at least once a year or every 6 months if needed. Counseling - Assessment: Patient requires ongoing counseling. Continue monitoring patient's mental health and adjust treatment plan as necessary. 05/01/2025 Alcohol dependence, in remission (ICD-10 - F10.21) 05/01/2025 Major depressive disorder, recurrent, mild (ICD-10 - F33.0) 05/30/2025 Alcohol dependence, in remission (ICD-10 - F10.21) 05/30/2025 Major depressive disorder, recurrent, mild (ICD-10 - F33.0) 06/20/2025 Alcohol dependence, in remission (ICD-10 - F10.21) 06/20/2025 Major depressive disorder, recurrent, mild (ICD-10 - F33.0) 09/15/2024 Alcohol dependence, in remission (ICD-10 - F10.21) 04/10/2025 Encounter for screening for cardiovascular disorders (ICD-10 - Z13.6) Depression - Assessment: stable Patient reports depression and anxiety - Plan: Discuss and educated on all rx Continue bupropion XL 300 mg daily. monitor depression, anxiety, mood, Discuss and educated on all rx Reported situations, money and medical, being alone triggers depression and anxiety Monitor patient's progress and and depression s/s discuss and educated on critria TMS and Spravato, forms completed for TMS Continue therapy and work on depresison and situations triggers therapy helping Anxiety - Assessment: Patient reports mild anxiety and depression symptoms buspirone 5 mg three times a day for anxiety and depression - Plan: buspirone as prescribed. tolerating all rx no s/e Congestive Heart Failure - Assessment: Patient reports possible worsening of tiredness and fatigue, which may be related to their heart condition. - Plan: Recommend patient to follow up with their primary care physician or industrial plant custodian for further evaluation and management. Social Support - Assessment: Patient lives alone and has limited family support. Has AA sponsor and 2-3 other members in home group for support. Family members have either or moved to [facility]. - Plan: Encourage patient to continue attending AA meetings and maintain connections with their support network. Cognitive Function - Assessment: Patient's memory score (SLUMS) is 26, which is good for their age (79 years old). - Plan: Repeat cognitive assessment at least once a year or every 6 months if needed. Counseling - Assessment: Patient requires ongoing counseling. Continue monitoring patient's mental health and adjust treatment plan as necessary. 04/05/2025 Encounter for screening for cardiovascular disorders (ICD-10 - Z13.6) Depression - Assessment: Patient reports depression and anxiety - Plan: Discuss and educated on all rx Continue bupropion XL 300 mg daily. monitor depression, anxiety, mood, Discuss and educated on all rx Reported situations, money and medical, being alone triggers depression and anxiety Monitor patient's progress and and depression s/s discuss and educated on critria TMS and Spravato, forms completed for TMS Continue therapy and work on depresison and situations triggers therapy helping Anxiety - Assessment: Patient reports anxiety and depression symptoms buspirone 5 mg three times a day for anxiety and depression - Plan: buspirone as prescribed. toelrating all rx no s/e Congestive Heart Failure - Assessment: Patient reports possible worsening of tiredness and fatigue, which may be related to their heart condition. - Plan: Recommend patient to follow up with their primary care physician or industrial plant custodian for further evaluation and management. Social Support - Assessment: Patient lives alone and has limited family support. Has AA sponsor and 2-3 other members in home group for support. Family members have either or moved to [facility]. - Plan: Encourage patient to continue attending AA meetings and maintain connections with their support network. Cognitive Function - Assessment: Patient's memory score (SLUMS) is 26, which is good for their age (79 years old). - Plan: Repeat cognitive assessment at least once a year or every 6 months if needed. Counseling - Assessment: Patient requires ongoing counseling. Continue monitoring patient's mental health and adjust treatment plan as necessary. 02/15/2025 Encounter for screening for depression (ICD-10 - Z13.31) Depression - Assessment: Patient reports depression and anxiety - Plan: Discuss and educated on increase bupropion XL 300 mg daily. monitor depression, anxiety, mood, Reported situations, money and medical, being alone triggers depression and anxiety Monitor patient's progress and and depression s/s discuss adjust medications options for depression and anxiety discuss and educated on critria TMS and Spravato, forms completed for TMS Continue therapy and work on depresison and situations triggers Anxiety - Assessment: Patient reports anxiety and depression symptoms buspirone 5 mg three times a day for anxiety and depression - Plan: buspirone as prescribed. toelrating all rx no s/e Congestive Heart Failure - Assessment: Patient reports possible worsening of tiredness and fatigue, which may be related to their heart condition. - Plan: Recommend patient to follow up with their primary care physician or industrial plant custodian for further evaluation and management. Social Support - Assessment: Patient lives alone and has limited family support. Has AA sponsor and 2-3 other members in home group for support. Family members have either or moved to [facility]. - Plan: Encourage patient to continue attending AA meetings and maintain connections with their support network. Cognitive Function - Assessment: Patient's memory score (SLUMS) is 26, which is good for their age (79 years old). - Plan: Repeat cognitive assessment at least once a year or every 6 months if needed. Counseling - Assessment: Patient requires ongoing counseling. Continue monitoring patient's mental health and adjust treatment plan as necessary. 03/08/2025 Encounter for screening for cardiovascular disorders (ICD-10 - Z13.6) Depression - Assessment: Patient reports depression and anxiety - Plan: Discuss and educated on all rx Continue bupropion XL 300 mg daily. monitor depression, anxiety, mood, Discuss and educated on adding Zoloft 25 mg daily for depression and anxiety Reported situations, money and medical, being alone triggers depression and anxiety Monitor patient's progress and and depression s/s discuss adjust medications options for depression and anxiety discuss and educated on critria TMS and Spravato, forms completed for TMS Continue therapy and work on depresison and situations triggers Anxiety - Assessment: Patient reports anxiety and depression symptoms buspirone 5 mg three times a day for anxiety and depression - Plan: buspirone as prescribed. toelrating all rx no s/e Congestive Heart Failure - Assessment: Patient reports possible worsening of tiredness and fatigue, which may be related to their heart condition. - Plan: Recommend patient to follow up with their primary care physician or industrial plant custodian for further evaluation and management. Social Support - Assessment: Patient lives alone and has limited family support. Has AA sponsor and 2-3 other members in home group for support. Family members have either or moved to [facility]. - Plan: Encourage patient to continue attending AA meetings and maintain connections with their support network. Cognitive Function - Assessment: Patient's memory score (SLUMS) is 26, which is good for their age (79 years old). - Plan: Repeat cognitive assessment at least once a year or every 6 months if needed. Counseling - Assessment: Patient requires ongoing counseling. Continue monitoring patient's mental health and adjust treatment plan as necessary. 01/11/2025 Generalized anxiety disorder (ICD-10 - F41.1) Depression - Assessment: Patient reports depression and anxiety - Plan: Continue bupropion XL 150 mg daily. Reported political situations and being alone triggers depression and anxiety Monitor patient's progress and adjust medications as needed. Anxiety - Assessment: Patient reports anxiety and depression symptoms increase buspirone 5 mg three times a day for anxiety and depression - Plan: buspirone as prescribed. toelrating all rx no s/e Congestive Heart Failure - Assessment: Patient reports possible worsening of tiredness and fatigue, which may be related to their heart condition. - Plan: Recommend patient to follow up with their primary care physician or industrial plant custodian for further evaluation and management. Social Support - Assessment: Patient lives alone and has limited family support. Has AA sponsor and 2-3 other members in home group for support. Family members have either or moved to [facility]. - Plan: Encourage patient to continue attending AA meetings and maintain connections with their support network. Cognitive Function - Assessment: Patient's memory score (SLUMS) is 26, which is good for their age (79 years old). - Plan: Repeat cognitive assessment at least once a year or every 6 months if needed. Counseling - Assessment: Patient requires ongoing counseling. Continue monitoring patient's mental health and adjust treatment plan as necessary. 12/19/2024 Generalized anxiety disorder (ICD-10 - F41.1) Depression - Assessment: Patient reports depression and anxiety - Plan: Continue bupropion XL 150 mg daily. Monitor patient's progress and adjust medications as needed. Anxiety - Assessment: Patient reports anxiety symptoms would like to increase buspirone 5 mg twice a day for anxiety and depression - Plan: buspirone as prescribed. Encourage patient to maintain contact with AA sponsor and support network. Congestive Heart Failure - Assessment: Patient reports possible worsening of tiredness and fatigue, which may be related to their heart condition. - Plan: Recommend patient to follow up with their primary care physician or industrial plant custodian for further evaluation and management. Social Support - Assessment: Patient lives alone and has limited family support. Has AA sponsor and 2-3 other members in home group for support. Family members have either or moved to [facility]. - Plan: Encourage patient to continue attending AA meetings and maintain connections with their support network. Cognitive Function - Assessment: Patient's memory score (SLUMS) is 26, which is good for their age (79 years old). - Plan: Repeat cognitive assessment at least once a year or every 6 months if needed. Counseling - Assessment: Patient requires ongoing counseling. - Plan: Schedule an appointment with Mallory for counseling in 3 months. Continue monitoring patient's mental health and adjust treatment plan as necessary. 09/20/2024 Generalized anxiety disorder (ICD-10 - F41.1) Depression - Assessment: Patient reports improvement in anxiety symptoms after adding buspirone to the current regimen. Patient is no longer taking sertraline 50 mg daily. - Plan: Continue bupropion XL 150 mg daily. Discontinue sertraline 50 mg daily. Monitor patient's progress and adjust medications as needed. Anxiety - Assessment: Patient reports significant reduction in anxiety symptoms with the addition of buspirone. - Plan: Continue buspirone as prescribed. Encourage patient to maintain contact with AA sponsor and support network. Congestive Heart Failure - Assessment: Patient reports possible worsening of tiredness and fatigue, which may be related to their heart condition. - Plan: Recommend patient to follow up with their primary care physician or industrial plant custodian for further evaluation and management. Social Support - Assessment: Patient lives alone and has limited family support. Has AA sponsor and 2-3 other members in home group for support. Family members have either or moved to [facility]. - Plan: Encourage patient to continue attending AA meetings and maintain connections with their support network. Cognitive Function - Assessment: Patient's memory score (SLUMS) is 26, which is good for their age (79 years old). - Plan: Repeat cognitive assessment at least once a year or every 6 months if needed. Counseling - Assessment: Patient requires ongoing counseling. - Plan: Schedule an appointment with Mallory for counseling in 3 months. Continue monitoring patient's mental health and adjust treatment plan as necessary. 09/06/2024 Generalized anxiety disorder (ICD-10 - F41.1) 1. recurrent major depression - Wellbutrin XL 150 mg daily Discuss and educated on Sertraline 50 mg daily - having increase depression education on all medications educated on all medications, benefits, side effects and risk, and educated on depression, anxiety, and mood d/o and educated on compliance of medications, metabolic and movement d/o education appointment's, continue therapy discussion with patient about course of treatmentand patient instructions. education on serotonin syndrome 2. Generalized anxiety disorder -therapy Leslee continue Medication Management and Follow-Up- Plan:- Schedule follow-up appointments every 2-3 months to monitor the patient's response to the medication regimen.- Reinforce the importance of avoiding recreational drug use due to potential neurotoxicity and interactions with prescribed medications. 3. Primary insomnia - Melatonin 10 mg at night OTC Insomnia pamphlet given Depression - Assessment: Currently mild in severity. History of seasonal and situational depression. Previous trial of Sertraline not tolerated (caused 3 days of fatigue and inability to do daily housework). Currently on Wellbutrin (Bupropion) 150 mg, increased from 100 mg 4 years ago. - Plan: - Increase Bupropion dose to 300 mg. - Monitor for improvement in depressive symptoms and any side effects. - Follow up in 2 weeks. Anxiety - Assessment: Related to media exposure. Avoiding news as a coping strategy. - Plan: - Initiate Buspar (Buspirone) 5 mg once daily. - Increase dose if tolerated and needed. - Follow up in 2 weeks to assess response and side effects. Insomnia - Assessment: History of sleep apnea, currently using a machine for 3 years. Good sleep quality for the past 2 months. - Plan: - Continue using sleep apnea machine. - Monitor sleep quality and address any issues in follow-up visits. Suicidal Thoughts - Assessment: Passive suicidal ideation, no active intent or plan. Patient reports thoughts like it would be nice to be but doesn't want to kill himself. - Plan: - Continue monitoring for any changes in suicidal thoughts. - Encourage open communication about mental health and safety concerns. - Provide resources for crisis support if needed. Alcohol Use Disorder - Assessment: In remission for 12 years. Attending Alcoholics Anonymous. - Plan: - Encourage continued participation in Alcoholics Anonymous. - Monitor for any signs of relapse. Cognitive Function - Assessment: No significant concerns at present. Patient has power of workers compensation defense attorney in place (daughter). - Plan: - Perform memory testing today as a precautionary measure. - Continue annual memory testing for early detection of cognitive decline. Follow-up Appointments - Plan: - Cancel appointment with Mallory next week. - Schedule follow-up appointment in 2 weeks to assess medication response and side effects. Additional Notes: - Patient has been receiving care at this facility for about 6 years. - Previously treated with Thorazine in college due to lack of antidepressants at the time. - Patient seeking modern care and open to provider's recommendations. 08/22/2024 Generalized anxiety disorder (ICD-10 - F41.1) Learning About Generalized Anxiety Disorder material was published, Learning About Anxiety Disorders material was published, Learning About Generalized Anxiety Disorder material was published, Generalized Anxiety Disorder: Care Instructions material was published, Learning About Anxiety Disorders material was published 1. recurrent major depression - Wellbutrin XL 150 mg daily Discuss and educated on Sertraline 50 mg daily - having increase depression education on all medications educated on all medications, benefits, side effects and risk, and educated on depression, anxiety, and mood d/o and educated on compliance of medications, metabolic and movement d/o education appointment's, continue therapy discussion with patient about course of treatmentand patient instructions. education on serotonin syndrome 2. Generalized anxiety disorder -therapy Leslee continue Medication Management and Follow-Up- Plan:- Schedule follow-up appointments every 2-3 months to monitor the patient's response to the medication regimen.- Reinforce the importance of avoiding recreational drug use due to potential neurotoxicity and interactions with prescribed medications. 3. Primary insomnia - Melatonin 10 mg at night OTC Insomnia pamphlet given 08/17/2024 Alcohol dependence, in remission (ICD-10 - F10.21) 07/13/2024 Primary insomnia (ICD-10 - F51.01) Insomnia: Care Instructions material was published, Learning About Sleeping Well material was published 1. Mild recurrent major depression - Wellbutrin XL 150 mg daily education on all medications educated on all medications, benefits, side effects and risk, and educated on depression, anxiety, and mood d/o and educated on compliance of medications, metabolic and movement d/o education appointment's, continue therapy discussion with patient about course of treatmentand patient instructions. education on serotonin syndrome 2. Generalized anxiety disorder -therapy Leslee continue Medication Management and Follow-Up- Plan:- Schedule follow-up appointments every 2-3 months to monitor the patient's response to the medication regimen.- Reinforce the importance of avoiding recreational drug use due to potential neurotoxicity and interactions with prescribed medications. 3. Primary insomnia -Trazodone 150 mg prescribed by PCP Melatonin 10 mg at night OTC Insomnia pamphlet given 08/22/2024 Primary insomnia (ICD-10 - F51.01) Insomnia: Care Instructions material was published, Learning About Sleeping Well material was published, Insomnia: Care Instructions material was published, Learning About Sleeping Well material was published 1. recurrent major depression - Wellbutrin XL 150 mg daily Discuss and educated on Sertraline 50 mg daily - having increase depression education on all medications educated on all medications, benefits, side effects and risk, and educated on depression, anxiety, and mood d/o and educated on compliance of medications, metabolic and movement d/o education appointment's, continue therapy discussion with patient about course of treatmentand patient instructions. education on serotonin syndrome 2. Generalized anxiety disorder -therapy Leslee continue Medication Management and Follow-Up- Plan:- Schedule follow-up appointments every 2-3 months to monitor the patient's response to the medication regimen.- Reinforce the importance of avoiding recreational drug use due to potential neurotoxicity and interactions with prescribed medications. 3. Primary insomnia - Melatonin 10 mg at night OTC Insomnia pamphlet given 08/17/2024 Generalized anxiety disorder (ICD-10 - F41.1) 09/06/2024 Primary insomnia (ICD-10 - F51.01) 1. recurrent major depression - Wellbutrin XL 150 mg daily Discuss and educated on Sertraline 50 mg daily - having increase depression education on all medications educated on all medications, benefits, side effects and risk, and educated on depression, anxiety, and mood d/o and educated on compliance of medications, metabolic and movement d/o education appointment's, continue therapy discussion with patient about course of treatmentand patient instructions. education on serotonin syndrome 2. Generalized anxiety disorder -therapy Leslee continue Medication Management and Follow-Up- Plan:- Schedule follow-up appointments every 2-3 months to monitor the patient's response to the medication regimen.- Reinforce the importance of avoiding recreational drug use due to potential neurotoxicity and interactions with prescribed medications. 3. Primary insomnia - Melatonin 10 mg at night OTC Insomnia pamphlet given Depression - Assessment: Currently mild in severity. History of seasonal and situational depression. Previous trial of Sertraline not tolerated (caused 3 days of fatigue and inability to do daily housework). Currently on Wellbutrin (Bupropion) 150 mg, increased from 100 mg 4 years ago. - Plan: - Increase Bupropion dose to 300 mg. - Monitor for improvement in depressive symptoms and any side effects. - Follow up in 2 weeks. Anxiety - Assessment: Related to media exposure. Avoiding news as a coping strategy. - Plan: - Initiate Buspar (Buspirone) 5 mg once daily. - Increase dose if tolerated and needed. - Follow up in 2 weeks to assess response and side effects. Insomnia - Assessment: History of sleep apnea, currently using a machine for 3 years. Good sleep quality for the past 2 months. - Plan: - Continue using sleep apnea machine. - Monitor sleep quality and address any issues in follow-up visits. Suicidal Thoughts - Assessment: Passive suicidal ideation, no active intent or plan. Patient reports thoughts like it would be nice to be but doesn't want to kill himself. - Plan: - Continue monitoring for any changes in suicidal thoughts. - Encourage open communication about mental health and safety concerns. - Provide resources for crisis support if needed. Alcohol Use Disorder - Assessment: In remission for 12 years. Attending Alcoholics Anonymous. - Plan: - Encourage continued participation in Alcoholics Anonymous. - Monitor for any signs of relapse. Cognitive Function - Assessment: No significant concerns at present. Patient has power of workers compensation defense attorney in place (daughter). - Plan: - Perform memory testing today as a precautionary measure. - Continue annual memory testing for early detection of cognitive decline. Follow-up Appointments - Plan: - Cancel appointment with Mallory next week. - Schedule follow-up appointment in 2 weeks to assess medication response and side effects. Additional Notes: - Patient has been receiving care at this facility for about 6 years. - Previously treated with Thorazine in college due to lack of antidepressants at the time. - Patient seeking modern care and open to provider's recommendations. 09/15/2024 Generalized anxiety disorder (ICD-10 - F41.1) 09/20/2024 Primary insomnia (ICD-10 - F51.01) Depression - Assessment: Patient reports improvement in anxiety symptoms after adding buspirone to the current regimen. Patient is no longer taking sertraline 50 mg daily. - Plan: Continue bupropion XL 150 mg daily. Discontinue sertraline 50 mg daily. Monitor patient's progress and adjust medications as needed. Anxiety - Assessment: Patient reports significant reduction in anxiety symptoms with the addition of buspirone. - Plan: Continue buspirone as prescribed. Encourage patient to maintain contact with AA sponsor and support network. Congestive Heart Failure - Assessment: Patient reports possible worsening of tiredness and fatigue, which may be related to their heart condition. - Plan: Recommend patient to follow up with their primary care physician or industrial plant custodian for further evaluation and management. Social Support - Assessment: Patient lives alone and has limited family support. Has AA sponsor and 2-3 other members in home group for support. Family members have either or moved to [place] and [place]. - Plan: Encourage patient to continue attending AA meetings and maintain connections with their support network. Cognitive Function - Assessment: Patient's memory score (SLUMS) is 26, which is good for their age (79 years old). - Plan: Repeat cognitive assessment at least once a year or every 6 months if needed. Counseling - Assessment: Patient requires ongoing counseling. - Plan: Schedule an appointment with Mallory for counseling in 3 months. Continue monitoring patient's mental health and adjust treatment plan as necessary. 12/19/2024 Primary insomnia (ICD-10 - F51.01) Depression - Assessment: Patient reports depression and anxiety - Plan: Continue bupropion XL 150 mg daily. Monitor patient's progress and adjust medications as needed. Anxiety - Assessment: Patient reports anxiety symptoms would like to increase buspirone 5 mg twice a day for anxiety and depression - Plan: buspirone as prescribed. Encourage patient to maintain contact with AA sponsor and support network. Congestive Heart Failure - Assessment: Patient reports possible worsening of tiredness and fatigue, which may be related to their heart condition. - Plan: Recommend patient to follow up with their primary care physician or industrial plant custodian for further evaluation and management. Social Support - Assessment: Patient lives alone and has limited family support. Has AA sponsor and 2-3 other members in home group for support. Family members have either or moved to [facility]. - Plan: Encourage patient to continue attending AA meetings and maintain connections with their support network. Cognitive Function - Assessment: Patient's memory score (SLUMS) is 26, which is good for their age (79 years old). - Plan: Repeat cognitive assessment at least once a year or every 6 months if needed. Counseling - Assessment: Patient requires ongoing counseling. - Plan: Schedule an appointment with Mallory for counseling in 3 months. Continue monitoring patient's mental health and adjust treatment plan as necessary. 01/11/2025 Primary insomnia (ICD-10 - F51.01) Depression - Assessment: Patient reports depression and anxiety - Plan: Continue bupropion XL 150 mg daily. Reported political situations and being alone triggers depression and anxiety Monitor patient's progress and adjust medications as needed. Anxiety - Assessment: Patient reports anxiety and depression symptoms increase buspirone 5 mg three times a day for anxiety and depression - Plan: buspirone as prescribed. toelrating all rx no s/e Congestive Heart Failure - Assessment: Patient reports possible worsening of tiredness and fatigue, which may be related to their heart condition. - Plan: Recommend patient to follow up with their primary care physician or industrial plant custodian for further evaluation and management. Social Support - Assessment: Patient lives alone and has limited family support. Has AA sponsor and 2-3 other members in home group for support. Family members have either or moved to [facility]. - Plan: Encourage patient to continue attending AA meetings and maintain connections with their support network. Cognitive Function - Assessment: Patient's memory score (SLUMS) is 26, which is good for their age (79 years old). - Plan: Repeat cognitive assessment at least once a year or every 6 months if needed. Counseling - Assessment: Patient requires ongoing counseling. Continue monitoring patient's mental health and adjust treatment plan as necessary. 02/15/2025 Major depressive disorder, recurrent, mild (ICD-10 - F33.0) Depression - Assessment: Patient reports depression and anxiety - Plan: Discuss and educated on increase bupropion XL 300 mg daily. monitor depression, anxiety, mood, Reported situations, money and medical, being alone triggers depression and anxiety Monitor patient's progress and and depression s/s discuss adjust medications options for depression and anxiety discuss and educated on critria TMS and Spravato, forms completed for TMS Continue therapy and work on depresison and situations triggers Anxiety - Assessment: Patient reports anxiety and depression symptoms buspirone 5 mg three times a day for anxiety and depression - Plan: buspirone as prescribed. toelrating all rx no s/e Congestive Heart Failure - Assessment: Patient reports possible worsening of tiredness and fatigue, which may be related to their heart condition. - Plan: Recommend patient to follow up with their primary care physician or industrial plant custodian for further evaluation and management. Social Support - Assessment: Patient lives alone and has limited family support. Has AA sponsor and 2-3 other members in home group for support. Family members have either or moved to [facility]. - Plan: Encourage patient to continue attending AA meetings and maintain connections with their support network. Cognitive Function - Assessment: Patient's memory score (SLUMS) is 26, which is good for their age (79 years old). - Plan: Repeat cognitive assessment at least once a year or every 6 months if needed. Counseling - Assessment: Patient requires ongoing counseling. Continue monitoring patient's mental health and adjust treatment plan as necessary. 03/08/2025 Dietary counseling and surveillance (ICD-10 - Z71.3) Depression - Assessment: Patient reports depression and anxiety - Plan: Discuss and educated on all rx Continue bupropion XL 300 mg daily. monitor depression, anxiety, mood, Discuss and educated on adding Zoloft 25 mg daily for depression and anxiety Reported situations, money and medical, being alone triggers depression and anxiety Monitor patient's progress and and depression s/s discuss adjust medications options for depression and anxiety discuss and educated on critria TMS and Spravato, forms completed for TMS Continue therapy and work on depresison and situations triggers Anxiety - Assessment: Patient reports anxiety and depression symptoms buspirone 5 mg three times a day for anxiety and depression - Plan: buspirone as prescribed. toelrating all rx no s/e Congestive Heart Failure - Assessment: Patient reports possible worsening of tiredness and fatigue, which may be related to their heart condition. - Plan: Recommend patient to follow up with their primary care physician or industrial plant custodian for further evaluation and management. Social Support - Assessment: Patient lives alone and has limited family support. Has AA sponsor and 2-3 other members in home group for support. Family members have either or moved to [facility]. - Plan: Encourage patient to continue attending AA meetings and maintain connections with their support network. Cognitive Function - Assessment: Patient's memory score (SLUMS) is 26, which is good for their age (79 years old). - Plan: Repeat cognitive assessment at least once a year or every 6 months if needed. Counseling - Assessment: Patient requires ongoing counseling. Continue monitoring patient's mental health and adjust treatment plan as necessary. 04/05/2025 Dietary counseling and surveillance (ICD-10 - Z71.3) Depression - Assessment: Patient reports depression and anxiety - Plan: Discuss and educated on all rx Continue bupropion XL 300 mg daily. monitor depression, anxiety, mood, Discuss and educated on all rx Reported situations, money and medical, being alone triggers depression and anxiety Monitor patient's progress and and depression s/s discuss and educated on critria TMS and Spravato, forms completed for TMS Continue therapy and work on depresison and situations triggers therapy helping Anxiety - Assessment: Patient reports anxiety and depression symptoms buspirone 5 mg three times a day for anxiety and depression - Plan: buspirone as prescribed. toelrating all rx no s/e Congestive Heart Failure - Assessment: Patient reports possible worsening of tiredness and fatigue, which may be related to their heart condition. - Plan: Recommend patient to follow up with their primary care physician or industrial plant custodian for further evaluation and management. Social Support - Assessment: Patient lives alone and has limited family support. Has AA sponsor and 2-3 other members in home group for support. Family members have either or moved to [facility]. - Plan: Encourage patient to continue attending AA meetings and maintain connections with their support network. Cognitive Function - Assessment: Patient's memory score (SLUMS) is 26, which is good for their age (79 years old). - Plan: Repeat cognitive assessment at least once a year or every 6 months if needed. Counseling - Assessment: Patient requires ongoing counseling. Continue monitoring patient's mental health and adjust treatment plan as necessary. 04/10/2025 Dietary counseling and surveillance (ICD-10 - Z71.3) Depression - Assessment: stable Patient reports depression and anxiety - Plan: Discuss and educated on all rx Continue bupropion XL 300 mg daily. monitor depression, anxiety, mood, Discuss and educated on all rx Reported situations, money and medical, being alone triggers depression and anxiety Monitor patient's progress and and depression s/s discuss and educated on critria TMS and Spravato, forms completed for TMS Continue therapy and work on depresison and situations triggers therapy helping Anxiety - Assessment: Patient reports mild anxiety and depression symptoms buspirone 5 mg three times a day for anxiety and depression - Plan: buspirone as prescribed. tolerating all rx no s/e Congestive Heart Failure - Assessment: Patient reports possible worsening of tiredness and fatigue, which may be related to their heart condition. - Plan: Recommend patient to follow up with their primary care physician or industrial plant custodian for further evaluation and management. Social Support - Assessment: Patient lives alone and has limited family support. Has AA sponsor and 2-3 other members in home group for support. Family members have either or moved to [facility]. - Plan: Encourage patient to continue attending AA meetings and maintain connections with their support network. Cognitive Function - Assessment: Patient's memory score (SLUMS) is 26, which is good for their age (79 years old). - Plan: Repeat cognitive assessment at least once a year or every 6 months if needed. Counseling - Assessment: Patient requires ongoing counseling. Continue monitoring patient's mental health and adjust treatment plan as necessary. 04/10/2025 Major depressive disorder, recurrent, mild (ICD-10 - F33.0) Depression - Assessment: stable Patient reports depression and anxiety - Plan: Discuss and educated on all rx Continue bupropion XL 300 mg daily. monitor depression, anxiety, mood, Discuss and educated on all rx Reported situations, money and medical, being alone triggers depression and anxiety Monitor patient's progress and and depression s/s discuss and educated on critria TMS and Spravato, forms completed for TMS Continue therapy and work on depresison and situations triggers therapy helping Anxiety - Assessment: Patient reports mild anxiety and depression symptoms buspirone 5 mg three times a day for anxiety and depression - Plan: buspirone as prescribed. tolerating all rx no s/e Congestive Heart Failure - Assessment: Patient reports possible worsening of tiredness and fatigue, which may be related to their heart condition. - Plan: Recommend patient to follow up with their primary care physician or industrial plant custodian for further evaluation and management. Social Support - Assessment: Patient lives alone and has limited family support. Has AA sponsor and 2-3 other members in home group for support. Family members have either or moved to [facility]. - Plan: Encourage patient to continue attending AA meetings and maintain connections with their support network. Cognitive Function - Assessment: Patient's memory score (SLUMS) is 26, which is good for their age (79 years old). - Plan: Repeat cognitive assessment at least once a year or every 6 months if needed. Counseling - Assessment: Patient requires ongoing counseling. Continue monitoring patient's mental health and adjust treatment plan as necessary. 04/05/2025 Major depressive disorder, recurrent, mild (ICD-10 - F33.0) Depression - Assessment: Patient reports depression and anxiety - Plan: Discuss and educated on all rx Continue bupropion XL 300 mg daily. monitor depression, anxiety, mood, Discuss and educated on all rx Reported situations, money and medical, being alone triggers depression and anxiety Monitor patient's progress and and depression s/s discuss and educated on critria TMS and Spravato, forms completed for TMS Continue therapy and work on depresison and situations triggers therapy helping Anxiety - Assessment: Patient reports anxiety and depression symptoms buspirone 5 mg three times a day for anxiety and depression - Plan: buspirone as prescribed. toelrating all rx no s/e Congestive Heart Failure - Assessment: Patient reports possible worsening of tiredness and fatigue, which may be related to their heart condition. - Plan: Recommend patient to follow up with their primary care physician or industrial plant custodian for further evaluation and management. Social Support - Assessment: Patient lives alone and has limited family support. Has AA sponsor and 2-3 other members in home group for support. Family members have either or moved to [facility]. - Plan: Encourage patient to continue attending AA meetings and maintain connections with their support network. Cognitive Function - Assessment: Patient's memory score (SLUMS) is 26, which is good for their age (79 years old). - Plan: Repeat cognitive assessment at least once a year or every 6 months if needed. Counseling - Assessment: Patient requires ongoing counseling. Continue monitoring patient's mental health and adjust treatment plan as necessary. 03/08/2025 Major depressive disorder, recurrent, mild (ICD-10 - F33.0) Depression - Assessment: Patient reports depression and anxiety - Plan: Discuss and educated on all rx Continue bupropion XL 300 mg daily. monitor depression, anxiety, mood, Discuss and educated on adding Zoloft 25 mg daily for depression and anxiety Reported situations, money and medical, being alone triggers depression and anxiety Monitor patient's progress and and depression s/s discuss adjust medications options for depression and anxiety discuss and educated on critria TMS and Spravato, forms completed for TMS Continue therapy and work on depresison and situations triggers Anxiety - Assessment: Patient reports anxiety and depression symptoms buspirone 5 mg three times a day for anxiety and depression - Plan: buspirone as prescribed. toelrating all rx no s/e Congestive Heart Failure - Assessment: Patient reports possible worsening of tiredness and fatigue, which may be related to their heart condition. - Plan: Recommend patient to follow up with their primary care physician or industrial plant custodian for further evaluation and management. Social Support - Assessment: Patient lives alone and has limited family support. Has AA sponsor and 2-3 other members in home group for support. Family members have either or moved to [facility]. - Plan: Encourage patient to continue attending AA meetings and maintain connections with their support network. Cognitive Function - Assessment: Patient's memory score (SLUMS) is 26, which is good for their age (79 years old). - Plan: Repeat cognitive assessment at least once a year or every 6 months if needed. Counseling - Assessment: Patient requires ongoing counseling. Continue monitoring patient's mental health and adjust treatment plan as necessary. 02/15/2025 Generalized anxiety disorder (ICD-10 - F41.1) Depression - Assessment: Patient reports depression and anxiety - Plan: Discuss and educated on increase bupropion XL 300 mg daily. monitor depression, anxiety, mood, Reported situations, money and medical, being alone triggers depression and anxiety Monitor patient's progress and and depression s/s discuss adjust medications options for depression and anxiety discuss and educated on critria TMS and Spravato, forms completed for TMS Continue therapy and work on depresison and situations triggers Anxiety - Assessment: Patient reports anxiety and depression symptoms buspirone 5 mg three times a day for anxiety and depression - Plan: buspirone as prescribed. toelrating all rx no s/e Congestive Heart Failure - Assessment: Patient reports possible worsening of tiredness and fatigue, which may be related to their heart condition. - Plan: Recommend patient to follow up with their primary care physician or industrial plant custodian for further evaluation and management. Social Support - Assessment: Patient lives alone and has limited family support. Has AA sponsor and 2-3 other members in home group for support. Family members have either or moved to [facility]. - Plan: Encourage patient to continue attending AA meetings and maintain connections with their support network. Cognitive Function - Assessment: Patient's memory score (SLUMS) is 26, which is good for their age (79 years old). - Plan: Repeat cognitive assessment at least once a year or every 6 months if needed. Counseling - Assessment: Patient requires ongoing counseling. Continue monitoring patient's mental health and adjust treatment plan as necessary. 01/11/2025 Essential hypertension (ICD-10 - I10) Depression - Assessment: Patient reports depression and anxiety - Plan: Continue bupropion XL 150 mg daily. Reported political situations and being alone triggers depression and anxiety Monitor patient's progress and adjust medications as needed. Anxiety - Assessment: Patient reports anxiety and depression symptoms increase buspirone 5 mg three times a day for anxiety and depression - Plan: buspirone as prescribed. toelrating all rx no s/e Congestive Heart Failure - Assessment: Patient reports possible worsening of tiredness and fatigue, which may be related to their heart condition. - Plan: Recommend patient to follow up with their primary care physician or industrial plant custodian for further evaluation and management. Social Support - Assessment: Patient lives alone and has limited family support. Has AA sponsor and 2-3 other members in home group for support. Family members have either or moved to [facility]. - Plan: Encourage patient to continue attending AA meetings and maintain connections with their support network. Cognitive Function - Assessment: Patient's memory score (SLUMS) is 26, which is good for their age (79 years old). - Plan: Repeat cognitive assessment at least once a year or every 6 months if needed. Counseling - Assessment: Patient requires ongoing counseling. Continue monitoring patient's mental health and adjust treatment plan as necessary. 12/19/2024 Essential hypertension (ICD-10 - I10) Depression - Assessment: Patient reports depression and anxiety - Plan: Continue bupropion XL 150 mg daily. Monitor patient's progress and adjust medications as needed. Anxiety - Assessment: Patient reports anxiety symptoms would like to increase buspirone 5 mg twice a day for anxiety and depression - Plan: buspirone as prescribed. Encourage patient to maintain contact with AA sponsor and support network. Congestive Heart Failure - Assessment: Patient reports possible worsening of tiredness and fatigue, which may be related to their heart condition. - Plan: Recommend patient to follow up with their primary care physician or industrial plant custodian for further evaluation and management. Social Support - Assessment: Patient lives alone and has limited family support. Has AA sponsor and 2-3 other members in home group for support. Family members have either or moved to [facility]. - Plan: Encourage patient to continue attending AA meetings and maintain connections with their support network. Cognitive Function - Assessment: Patient's memory score (SLUMS) is 26, which is good for their age (79 years old). - Plan: Repeat cognitive assessment at least once a year or every 6 months if needed. Counseling - Assessment: Patient requires ongoing counseling. - Plan: Schedule an appointment with Mallory for counseling in 3 months. Continue monitoring patient's mental health and adjust treatment plan as necessary. 09/20/2024 Essential hypertension (ICD-10 - I10) Depression - Assessment: Patient reports improvement in anxiety symptoms after adding buspirone to the current regimen. Patient is no longer taking sertraline 50 mg daily. - Plan: Continue bupropion XL 150 mg daily. Discontinue sertraline 50 mg daily. Monitor patient's progress and adjust medications as needed. Anxiety - Assessment: Patient reports significant reduction in anxiety symptoms with the addition of buspirone. - Plan: Continue buspirone as prescribed. Encourage patient to maintain contact with AA sponsor and support network. Congestive Heart Failure - Assessment: Patient reports possible worsening of tiredness and fatigue, which may be related to their heart condition. - Plan: Recommend patient to follow up with their primary care physician or industrial plant custodian for further evaluation and management. Social Support - Assessment: Patient lives alone and has limited family support. Has AA sponsor and 2-3 other members in home group for support. Family members have either or moved to [facility]. - Plan: Encourage patient to continue attending AA meetings and maintain connections with their support network. Cognitive Function - Assessment: Patient's memory score (SLUMS) is 26, which is good for their age (79 years old). - Plan: Repeat cognitive assessment at least once a year or every 6 months if needed. Counseling - Assessment: Patient requires ongoing counseling. - Plan: Schedule an appointment with Mallory for counseling in 3 months. Continue monitoring patient's mental health and adjust treatment plan as necessary. 02/15/2025 Primary insomnia (ICD-10 - F51.01) Depression - Assessment: Patient reports depression and anxiety - Plan: Discuss and educated on increase bupropion XL 300 mg daily. monitor depression, anxiety, mood, Reported situations, money and medical, being alone triggers depression and anxiety Monitor patient's progress and and depression s/s discuss adjust medications options for depression and anxiety discuss and educated on critria TMS and Spravato, forms completed for TMS Continue therapy and work on depresison and situations triggers Anxiety - Assessment: Patient reports anxiety and depression symptoms buspirone 5 mg three times a day for anxiety and depression - Plan: buspirone as prescribed. toelrating all rx no s/e Congestive Heart Failure - Assessment: Patient reports possible worsening of tiredness and fatigue, which may be related to their heart condition. - Plan: Recommend patient to follow up with their primary care physician or industrial plant custodian for further evaluation and management. Social Support - Assessment: Patient lives alone and has limited family support. Has AA sponsor and 2-3 other members in home group for support. Family members have either or moved to [facility]. - Plan: Encourage patient to continue attending AA meetings and maintain connections with their support network. Cognitive Function - Assessment: Patient's memory score (SLUMS) is 26, which is good for their age (79 years old). - Plan: Repeat cognitive assessment at least once a year or every 6 months if needed. Counseling - Assessment: Patient requires ongoing counseling. Continue monitoring patient's mental health and adjust treatment plan as necessary. 03/08/2025 Generalized anxiety disorder (ICD-10 - F41.1) Depression - Assessment: Patient reports depression and anxiety - Plan: Discuss and educated on all rx Continue bupropion XL 300 mg daily. monitor depression, anxiety, mood, Discuss and educated on adding Zoloft 25 mg daily for depression and anxiety Reported situations, money and medical, being alone triggers depression and anxiety Monitor patient's progress and and depression s/s discuss adjust medications options for depression and anxiety discuss and educated on critria TMS and Spravato, forms completed for TMS Continue therapy and work on depresison and situations triggers Anxiety - Assessment: Patient reports anxiety and depression symptoms buspirone 5 mg three times a day for anxiety and depression - Plan: buspirone as prescribed. toelrating all rx no s/e Congestive Heart Failure - Assessment: Patient reports possible worsening of tiredness and fatigue, which may be related to their heart condition. - Plan: Recommend patient to follow up with their primary care physician or industrial plant custodian for further evaluation and management. Social Support - Assessment: Patient lives alone and has limited family support. Has AA sponsor and 2-3 other members in home group for support. Family members have either or moved to [facility]. - Plan: Encourage patient to continue attending AA meetings and maintain connections with their support network. Cognitive Function - Assessment: Patient's memory score (SLUMS) is 26, which is good for their age (79 years old). - Plan: Repeat cognitive assessment at least once a year or every 6 months if needed. Counseling - Assessment: Patient requires ongoing counseling. Continue monitoring patient's mental health and adjust treatment plan as necessary. 04/05/2025 Generalized anxiety disorder (ICD-10 - F41.1) Depression - Assessment: Patient reports depression and anxiety - Plan: Discuss and educated on all rx Continue bupropion XL 300 mg daily. monitor depression, anxiety, mood, Discuss and educated on all rx Reported situations, money and medical, being alone triggers depression and anxiety Monitor patient's progress and and depression s/s discuss and educated on critria TMS and Spravato, forms completed for TMS Continue therapy and work on depresison and situations triggers therapy helping Anxiety - Assessment: Patient reports anxiety and depression symptoms buspirone 5 mg three times a day for anxiety and depression - Plan: buspirone as prescribed. toelrating all rx no s/e Congestive Heart Failure - Assessment: Patient reports possible worsening of tiredness and fatigue, which may be related to their heart condition. - Plan: Recommend patient to follow up with their primary care physician or industrial plant custodian for further evaluation and management. Social Support - Assessment: Patient lives alone and has limited family support. Has AA sponsor and 2-3 other members in home group for support. Family members have either or moved to [facility]. - Plan: Encourage patient to continue attending AA meetings and maintain connections with their support network. Cognitive Function - Assessment: Patient's memory score (SLUMS) is 26, which is good for their age (79 years old). - Plan: Repeat cognitive assessment at least once a year or every 6 months if needed. Counseling - Assessment: Patient requires ongoing counseling. Continue monitoring patient's mental health and adjust treatment plan as necessary. 04/10/2025 Generalized anxiety disorder (ICD-10 - F41.1) Depression - Assessment: stable Patient reports depression and anxiety - Plan: Discuss and educated on all rx Continue bupropion XL 300 mg daily. monitor depression, anxiety, mood, Discuss and educated on all rx Reported situations, money and medical, being alone triggers depression and anxiety Monitor patient's progress and and depression s/s discuss and educated on critria TMS and Spravato, forms completed for TMS Continue therapy and work on depresison and situations triggers therapy helping Anxiety - Assessment: Patient reports mild anxiety and depression symptoms buspirone 5 mg three times a day for anxiety and depression - Plan: buspirone as prescribed. tolerating all rx no s/e Congestive Heart Failure - Assessment: Patient reports possible worsening of tiredness and fatigue, which may be related to their heart condition. - Plan: Recommend patient to follow up with their primary care physician or industrial plant custodian for further evaluation and management. Social Support - Assessment: Patient lives alone and has limited family support. Has AA sponsor and 2-3 other members in home group for support. Family members have either or moved to [facility]. - Plan: Encourage patient to continue attending AA meetings and maintain connections with their support network. Cognitive Function - Assessment: Patient's memory score (SLUMS) is 26, which is good for their age (79 years old). - Plan: Repeat cognitive assessment at least once a year or every 6 months if needed. Counseling - Assessment: Patient requires ongoing counseling. Continue monitoring patient's mental health and adjust treatment plan as necessary. 04/10/2025 Primary insomnia (ICD-10 - F51.01) Depression - Assessment: stable Patient reports depression and anxiety - Plan: Discuss and educated on all rx Continue bupropion XL 300 mg daily. monitor depression, anxiety, mood, Discuss and educated on all rx Reported situations, money and medical, being alone triggers depression and anxiety Monitor patient's progress and and depression s/s discuss and educated on critria TMS and Spravato, forms completed for TMS Continue therapy and work on depresison and situations triggers therapy helping Anxiety - Assessment: Patient reports mild anxiety and depression symptoms buspirone 5 mg three times a day for anxiety and depression - Plan: buspirone as prescribed. tolerating all rx no s/e Congestive Heart Failure - Assessment: Patient reports possible worsening of tiredness and fatigue, which may be related to their heart condition. - Plan: Recommend patient to follow up with their primary care physician or industrial plant custodian for further evaluation and management. Social Support - Assessment: Patient lives alone and has limited family support. Has AA sponsor and 2-3 other members in home group for support. Family members have either or moved to [facility]. - Plan: Encourage patient to continue attending AA meetings and maintain connections with their support network. Cognitive Function - Assessment: Patient's memory score (SLUMS) is 26, which is good for their age (79 years old). - Plan: Repeat cognitive assessment at least once a year or every 6 months if needed. Counseling - Assessment: Patient requires ongoing counseling. Continue monitoring patient's mental health and adjust treatment plan as necessary. 04/05/2025 Primary insomnia (ICD-10 - F51.01) Depression - Assessment: Patient reports depression and anxiety - Plan: Discuss and educated on all rx Continue bupropion XL 300 mg daily. monitor depression, anxiety, mood, Discuss and educated on all rx Reported situations, money and medical, being alone triggers depression and anxiety Monitor patient's progress and and depression s/s discuss and educated on critria TMS and Spravato, forms completed for TMS Continue therapy and work on depresison and situations triggers therapy helping Anxiety - Assessment: Patient reports anxiety and depression symptoms buspirone 5 mg three times a day for anxiety and depression - Plan: buspirone as prescribed. toelrating all rx no s/e Congestive Heart Failure - Assessment: Patient reports possible worsening of tiredness and fatigue, which may be related to their heart condition. - Plan: Recommend patient to follow up with their primary care physician or industrial plant custodian for further evaluation and management. Social Support - Assessment: Patient lives alone and has limited family support. Has AA sponsor and 2-3 other members in home group for support. Family members have either or moved to [facility]. - Plan: Encourage patient to continue attending AA meetings and maintain connections with their support network. Cognitive Function - Assessment: Patient's memory score (SLUMS) is 26, which is good for their age (79 years old). - Plan: Repeat cognitive assessment at least once a year or every 6 months if needed. Counseling - Assessment: Patient requires ongoing counseling. Continue monitoring patient's mental health and adjust treatment plan as necessary. 03/08/2025 Primary insomnia (ICD-10 - F51.01) Depression - Assessment: Patient reports depression and anxiety - Plan: Discuss and educated on all rx Continue bupropion XL 300 mg daily. monitor depression, anxiety, mood, Discuss and educated on adding Zoloft 25 mg daily for depression and anxiety Reported situations, money and medical, being alone triggers depression and anxiety Monitor patient's progress and and depression s/s discuss adjust medications options for depression and anxiety discuss and educated on critria TMS and Spravato, forms completed for TMS Continue therapy and work on depresison and situations triggers Anxiety - Assessment: Patient reports anxiety and depression symptoms buspirone 5 mg three times a day for anxiety and depression - Plan: buspirone as prescribed. toelrating all rx no s/e Congestive Heart Failure - Assessment: Patient reports possible worsening of tiredness and fatigue, which may be related to their heart condition. - Plan: Recommend patient to follow up with their primary care physician or industrial plant custodian for further evaluation and management. Social Support - Assessment: Patient lives alone and has limited family support. Has AA sponsor and 2-3 other members in home group for support. Family members have either or moved to [facility]. - Plan: Encourage patient to continue attending AA meetings and maintain connections with their support network. Cognitive Function - Assessment: Patient's memory score (SLUMS) is 26, which is good for their age (79 years old). - Plan: Repeat cognitive assessment at least once a year or every 6 months if needed. Counseling - Assessment: Patient requires ongoing counseling. Continue monitoring patient's mental health and adjust treatment plan as necessary. 02/15/2025 Essential hypertension (ICD-10 - I10) Depression - Assessment: Patient reports depression and anxiety - Plan: Discuss and educated on increase bupropion XL 300 mg daily. monitor depression, anxiety, mood, Reported situations, money and medical, being alone triggers depression and anxiety Monitor patient's progress and and depression s/s discuss adjust medications options for depression and anxiety discuss and educated on critria TMS and Spravato, forms completed for TMS Continue therapy and work on depresison and situations triggers Anxiety - Assessment: Patient reports anxiety and depression symptoms buspirone 5 mg three times a day for anxiety and depression - Plan: buspirone as prescribed. toelrating all rx no s/e Congestive Heart Failure - Assessment: Patient reports possible worsening of tiredness and fatigue, which may be related to their heart condition. - Plan: Recommend patient to follow up with their primary care physician or industrial plant custodian for further evaluation and management. Social Support - Assessment: Patient lives alone and has limited family support. Has AA sponsor and 2-3 other members in home group for support. Family members have either or moved to [facility]. - Plan: Encourage patient to continue attending AA meetings and maintain connections with their support network. Cognitive Function - Assessment: Patient's memory score (SLUMS) is 26, which is good for their age (79 years old). - Plan: Repeat cognitive assessment at least once a year or every 6 months if needed. Counseling - Assessment: Patient requires ongoing counseling. Continue monitoring patient's mental health and adjust treatment plan as necessary. 03/08/2025 Essential hypertension (ICD-10 - I10) Depression - Assessment: Patient reports depression and anxiety - Plan: Discuss and educated on all rx Continue bupropion XL 300 mg daily. monitor depression, anxiety, mood, Discuss and educated on adding Zoloft 25 mg daily for depression and anxiety Reported situations, money and medical, being alone triggers depression and anxiety Monitor patient's progress and and depression s/s discuss adjust medications options for depression and anxiety discuss and educated on critria TMS and Spravato, forms completed for TMS Continue therapy and work on depresison and situations triggers Anxiety - Assessment: Patient reports anxiety and depression symptoms buspirone 5 mg three times a day for anxiety and depression - Plan: buspirone as prescribed. toelrating all rx no s/e Congestive Heart Failure - Assessment: Patient reports possible worsening of tiredness and fatigue, which may be related to their heart condition. - Plan: Recommend patient to follow up with their primary care physician or industrial plant custodian for further evaluation and management. Social Support - Assessment: Patient lives alone and has limited family support. Has AA sponsor and 2-3 other members in home group for support. Family members have either or moved to [facility]. - Plan: Encourage patient to continue attending AA meetings and maintain connections with their support network. Cognitive Function - Assessment: Patient's memory score (SLUMS) is 26, which is good for their age (79 years old). - Plan: Repeat cognitive assessment at least once a year or every 6 months if needed. Counseling - Assessment: Patient requires ongoing counseling. Continue monitoring patient's mental health and adjust treatment plan as necessary. 04/05/2025 Essential hypertension (ICD-10 - I10) Depression - Assessment: Patient reports depression and anxiety - Plan: Discuss and educated on all rx Continue bupropion XL 300 mg daily. monitor depression, anxiety, mood, Discuss and educated on all rx Reported situations, money and medical, being alone triggers depression and anxiety Monitor patient's progress and and depression s/s discuss and educated on critria TMS and Spravato, forms completed for TMS Continue therapy and work on depresison and situations triggers therapy helping Anxiety - Assessment: Patient reports anxiety and depression symptoms buspirone 5 mg three times a day for anxiety and depression - Plan: buspirone as prescribed. toelrating all rx no s/e Congestive Heart Failure - Assessment: Patient reports possible worsening of tiredness and fatigue, which may be related to their heart condition. - Plan: Recommend patient to follow up with their primary care physician or industrial plant custodian for further evaluation and management. Social Support - Assessment: Patient lives alone and has limited family support. Has AA sponsor and 2-3 other members in home group for support. Family members have either or moved to [facility]. - Plan: Encourage patient to continue attending AA meetings and maintain connections with their support network. Cognitive Function - Assessment: Patient's memory score (SLUMS) is 26, which is good for their age (79 years old). - Plan: Repeat cognitive assessment at least once a year or every 6 months if needed. Counseling - Assessment: Patient requires ongoing counseling. Continue monitoring patient's mental health and adjust treatment plan as necessary. 04/10/2025 Essential hypertension (ICD-10 - I10) Depression - Assessment: stable Patient reports depression and anxiety - Plan: Discuss and educated on all rx Continue bupropion XL 300 mg daily. monitor depression, anxiety, mood, Discuss and educated on all rx Reported situations, money and medical, being alone triggers depression and anxiety Monitor patient's progress and and depression s/s discuss and educated on critria TMS and Spravato, forms completed for TMS Continue therapy and work on depresison and situations triggers therapy helping Anxiety - Assessment: Patient reports mild anxiety and depression symptoms buspirone 5 mg three times a day for anxiety and depression - Plan: buspirone as prescribed. tolerating all rx no s/e Congestive Heart Failure - Assessment: Patient reports possible worsening of tiredness and fatigue, which may be related to their heart condition. - Plan: Recommend patient to follow up with their primary care physician or industrial plant custodian for further evaluation and management. Social Support - Assessment: Patient lives alone and has limited family support. Has AA sponsor and 2-3 other members in home group for support. Family members have either or moved to [facility]. - Plan: Encourage patient to continue attending AA meetings and maintain connections with their support network. Cognitive Function - Assessment: Patient's memory score (SLUMS) is 26, which is good for their age (79 years old). - Plan: Repeat cognitive assessment at least once a year or every 6 months if needed. Counseling - Assessment: Patient requires ongoing counseling. Continue monitoring patient's mental health and adjust treatment plan as necessary. 04/10/2025 Negative depression screening (ICD-10 - Z13.31) Depression - Assessment: stable Patient reports depression and anxiety - Plan: Discuss and educated on all rx Continue bupropion XL 300 mg daily. monitor depression, anxiety, mood, Discuss and educated on all rx Reported situations, money and medical, being alone triggers depression and anxiety Monitor patient's progress and and depression s/s discuss and educated on critria TMS and Spravato, forms completed for TMS Continue therapy and work on depresison and situations triggers therapy helping Anxiety - Assessment: Patient reports mild anxiety and depression symptoms buspirone 5 mg three times a day for anxiety and depression - Plan: buspirone as prescribed. tolerating all rx no s/e Congestive Heart Failure - Assessment: Patient reports possible worsening of tiredness and fatigue, which may be related to their heart condition. - Plan: Recommend patient to follow up with their primary care physician or industrial plant custodian for further evaluation and management. Social Support - Assessment: Patient lives alone and has limited family support. Has AA sponsor and 2-3 other members in home group for support. Family members have either or moved to [facility]. - Plan: Encourage patient to continue attending AA meetings and maintain connections with their support network. Cognitive Function - Assessment: Patient's memory score (SLUMS) is 26, which is good for their age (79 years old). - Plan: Repeat cognitive assessment at least once a year or every 6 months if needed. Counseling - Assessment: Patient requires ongoing counseling. Continue monitoring patient's mental health and adjust treatment plan as necessary. 07/13/2024 Other Bupropion Extended Release Oral Tablet (BUPROPION HCL EXTENDED-RELEAS E (ANTIDEPRESSANT ) - ORAL) material was published 1. Mild recurrent major depression - Wellbutrin XL 150 mg daily education on all medications educated on all medications, benefits, side effects and risk, and educated on depression, anxiety, and mood d/o and educated on compliance of medications, metabolic and movement d/o education appointment's, continue therapy discussion with patient about course of treatmentand patient instructions. education on serotonin syndrome 2. Generalized anxiety disorder -therapy Leslee continue Medication Management and Follow-Up- Plan:- Schedule follow-up appointments every 2-3 months to monitor the patient's response to the medication regimen.- Reinforce the importance of avoiding recreational drug use due to potential neurotoxicity and interactions with prescribed medications. 3. Primary insomnia -Trazodone 150 mg prescribed by PCP Melatonin 10 mg at night OTC Insomnia pamphlet given 08/22/2024 Other referral to the local [facility] or national office of the Alzheimer's Association ( ; http://www.alz. org), the Alzheimer's Disease Education and Referral Center (ADEVA) ( ; http://www.mar. nih.gov/Alzheim ers/), , Bupropion Extended Release Oral Tablet (BUPROPION HCL EXTENDED-RELEAS E (ANTIDEPRESSANT ) - ORAL) material was published, Sertraline Oral Tablet (SERTRALINE - ORAL) material was published 1. recurrent major depression - Wellbutrin XL 150 mg daily Discuss and educated on Sertraline 50 mg daily - having increase depression education on all medications educated on all medications, benefits, side effects and risk, and educated on depression, anxiety, and mood d/o and educated on compliance of medications, metabolic and movement d/o education appointment's, continue therapy discussion with patient about course of treatmentand patient instructions. education on serotonin syndrome 2. Generalized anxiety disorder -therapy Leslee continue Medication Management and Follow-Up- Plan:- Schedule follow-up appointments every 2-3 months to monitor the patient's response to the medication regimen.- Reinforce the importance of avoiding recreational drug use due to potential neurotoxicity and interactions with prescribed medications. 3. Primary insomnia - Melatonin 10 mg at night OTC Insomnia pamphlet given 04/05/2025 Other referral to the local [facility] or national office of the Alzheimer's Association ( ; http://www.alz. org), the Alzheimer's Disease Education and Referral Center (ADEVA) ( ; http://www.mar. nih.gov/Alzheim ers/), Depression - Assessment: Patient reports depression and anxiety - Plan: Discuss and educated on all rx Continue bupropion XL 300 mg daily. monitor depression, anxiety, mood, Discuss and educated on all rx Reported situations, money and medical, being alone triggers depression and anxiety Monitor patient's progress and and depression s/s discuss and educated on critria TMS and Spravato, forms completed for TMS Continue therapy and work on depresison and situations triggers therapy helping Anxiety - Assessment: Patient reports anxiety and depression symptoms buspirone 5 mg three times a day for anxiety and depression - Plan: buspirone as prescribed. toelrating all rx no s/e Congestive Heart Failure - Assessment: Patient reports possible worsening of tiredness and fatigue, which may be related to their heart condition. - Plan: Recommend patient to follow up with their primary care physician or industrial plant custodian for further evaluation and management. Social Support - Assessment: Patient lives alone and has limited family support. Has AA sponsor and 2-3 other members in home group for support. Family members have either or moved to [facility]. - Plan: Encourage patient to continue attending AA meetings and maintain connections with their support network. Cognitive Function - Assessment: Patient's memory score (SLUMS) is 26, which is good for their age (79 years old). - Plan: Repeat cognitive assessment at least once a year or every 6 months if needed. Counseling - Assessment: Patient requires ongoing counseling. Continue monitoring patient's mental health and adjust treatment plan as necessary. Plan Of Treatment Next Appt Details Provider Name:Leslee Novak, 07/03/2025 03:00:00 PM, [address], [place] [address], [place], [address], Provider Name:Mallory Conner , 07/06/2025 03:45:00 PM, [address], [facility] [address], [place], [address], Insurance Providers Payer Name Payer Address Payer Phone Subscriber Number Group Number Insured Name Patient Relationship to Insured Coverage Start Date Coverage End Date Medicare-I l Medicare [address] [place] [phone] [id number] S[employer] G[employer] Self - patient is the insured Medicaid-I l Medicaid [address] [address] [place] [address] [id number] S[employer] Self - patient is the insured Medical (General) History Medical History History ICD Code Problems: Alcohol dependence remission Generalized anxiety disorder History of SARS-CoV-2 Mild recurrent major depression Primary insomnia Recurrent major depression in partial re mission Severe recurrent major depression withou t psychotic features ECT age 17 Surgical History Surgery Date(Month/Year) Total knee replacement (961240347) Xcapsl ctrc rmvl cplx wo ecp (25704) Hernia repair ([id number]) Any surgical history 11/22/1999 Cardiac surgery ring- 11/22/2007 Any surgical history 11/22/2011 Cataract surgery (11663) 11/22/2017 Removal of gallbladder (36408) 1 Cholecystectomy ([id number]) 01/25/2021
--- OUTSIDE RECORDS SUMMARY | 2025-07-02 18:06 | XMS_ITS | Clinical Summary ---
Author Organization [facility] [address] Address [address] [place] [id number] Care Team Providers Care Astrophysics Teacher Name Role Phone Reece Varela MD Unavailable [phone] Itz Arevalo MD Primary Care Provide r Allergies Active Allergy Reactions Criticality Noted Date Comments Hydromorphone Hallucinations Medium 11/16/2018 nightmares Medications sildenafil, antihypertensiv e, (REVATIO) 20 mg tabletIndicatio ns:Pulmonary Arterial Hypertension Take 1 tablet (20 mg total) by mouth as needed Active tamsulosin (FLOMAX) 0.4 mg extended release capsule Take 1 capsule (0.4 mg total) by mouth nightly 022 Active carboxymethylce llulose (REFRESH CELLUVISC) 1 % dropperette,gel Administer 1 drop into both eyes daily Active Gemtesa 75 mg tablet Take 75 mg by mouth nightly 023 Active traMADoL (ULTRAM) 50 mg tablet Take 1 tablet (50 mg total) by mouth every 6 (six) hours as needed for pain 024 Active melatonin 3 mg tablet,disinteg rating Take 3 mg by mouth nightly as needed Active clopidogreL (PLAVIX) 75 mg tablet TAKE 1 TABLET BY MOUTH EVERY DAY 90 tablet 2 025 Active empagliflozin (Jardiance) 10 mg tablet Take 1 tablet (10 mg total) by mouth daily 90 tablet 3 025 Active midodrine (PROAMATINE) 2.5 mg tablet TAKE 1 TABLET BY MOUTH 2 TIMES A DAY LAST DOSE SHOULD BE TAKEN MID-AFTERNOON TO PREVENT SUPINE HYPERTENSION 180 tablet 1 025 Active sacubitriL-vals iain (Entresto) 24-26 mg tablet TAKE 1 TABLET BY MOUTH TWICE A DAY 60 tablet 025 Active metoprolol XL (TOPROL-XL) 50 mg extended release tablet TAKE 1 TABLET BY MOUTH EVERY DAY 90 tablet 1 025 Active albuterol HFA (PROVENTIL HFA,VENTOLIN HFA,PROAIR HFA) 90 mcg/actuation inhaler Inhale 2 puffs 3 (three) times a day Active busPIRone (BUSPAR) 5 mg tablet TAKE 1 TABLET BY MOUTH THREE TIMES A DAY FOR 90 DAYS Active Trelegy Ellipta 100-62.5-25 mcg inhaler INHALED 1 PUFF DAILY RINSE MOUTH AND SPIT AFTER EACH USE 025 Active oxyBUTYnin XL (DITROPAN XL) 15 mg 24 hr tablet Take 1 tablet (15 mg total) by mouth daily 025 Active buPROPion XL (WELLBUTRIN XL) 300 mg 24 hr tablet Take 1 tablet (300 mg total) by mouth daily 025 Active buPROPion XL (WELLBUTRIN XL) 150 mg 24 hr tablet Take 1 tablet (150 mg total) by mouth every morning 022 2024 Discontinued(A lternate therapy) Anoro Ellipta 62.5-25 mcg/actuation blister with device INHALE ONE PUFF EVERY 24 HOURS 024 2024 Discontinued(A lternate therapy) metoprolol XL (TOPROL-XL) 50 mg extended release tablet TAKE 1 TABLET BY MOUTH EVERY DAY 90 tablet 1 024 2024 Discontinued Active Problems Problem Noted Date Diagnosed Date Presence of Amulet left atrial appendage closure device 02/25/2024 Atrial fibrillation 02/07/2024 HFrEF (heart failure with reduced ejection fract ion) 04/29/2022 Overview (04/29/2022): Added automatically from request for surgery [id number] LV dysfunction 04/29/2022 Overview (04/29/2022): Added automatically from request for surgery [id number] Severe malnutrition 11/10/2018 Depression 11/09/2018 COPD (chronic obstructive pulmonary disease) 03/2018 Hypertension 10/26/2018 Spinal stenosis 10/26/2018 Colovesical fistula 10/21/2018 Overview (10/21/2018): Added automatically from request for surgery [id number] Smokes tobacco daily 02/16/2012 Overview (03/04/2018): Description: 02-16-2012 Chronic hepatitis C virus infection 03/21/2011 Overview (03/04/2018): Description: Chronic Hepatitis, C Virus Encounters Date Type Department Care Team Description 06/20/2025 11:30 AM CDT Office Visit [facility] [address] [place] [id number] Mitchell Echeverria MD Longstanding persistent atrial fibrillation (HCC) (Primary Dx); Presence of Amulet left atrial appendage closure device; HFrEF (heart failure with reduced ejection fraction) (HCC); Nonischemic cardiomyopathy (HCC); History of subdural hematoma from Last 3 Months Surgical History Surgery Date Site/Laterality Comments REPLACEMENT TOTAL KNEE Left HERNIA REPAIR double CHOLECYSTECTOMY CATARACT EXTRACTION, BILATERAL KNEE ARTHROSCOPY Left as a kid Medical History Medical History Date Comments Hypertension Emphysema of lung Infectious viral hepatitis Hepat itis C Kidney stone pt denies this d iagnosis Depression Cancer (HCC) Prostate Arthritis Sleep apnea SOB (shortness of breath) Personal history of COVID-19 CHF (congestive heart failure) (HCC) Atrial fibrillation (HCC) Frequent urination Urinary leakage Wears partial dentures upper and lowers Use of cane as ambulatory aid History of alcohol abuse ED (erectile dysfunction) Enlarged prostate Brain bleed Hx of Cataract Family History Medical History Relation Name Comments Depression Father Young Heart attack Father Young Suicide Completion Father Young Diverticulitis Mother Daniella Pancreatic cancer Mother Daniella Relation Name Status Comments Father Young Mother Daniella Social History Tobacco Use Types Packs/Day Years Used Date Smoking Tobacco: Former Cigarettes 0.5 50 1 12/29/1967 - 10/28/2018 Smokeless Tobacco: Never Tobacco Cessation:Counseling Given: Not Answered Alcohol Use Standard Drinks/Week Comments No 0 (1 standard drink = 0.6 oz pur e alcohol) [facility] Utilities Answer Date Recorded In the past 12 months has th e electric, gas, oil, or water company threatened to shut off services in your home? No 02/28/2024 Social Connection and Isolation Panel Answer Date Recorded In a typical week, how many times do you talk on the phone with family, friends, or neighbors? Once a week 02/28/2024 How often do you get togethe r with friends or relatives? Once a week 02/28/2024 How often do you attend chur ch or religion services? More than 4 times per year 02/28/2024 Do you belong to any clubs o r organizations such as mandaeism groups, unions, fraternal or athletic groups, or school groups? No 02/28/2024 How often do you attend meet ings of the clubs or organizations you belong to? Never 02/28/2024 Are you , , di vorced, , never , or living with a partner? 02/28/2024 AUDIT-C Answer Date Recorded Q1: How often do you have a drink containing alc ohol? Never 04/27/2024 Average Number of Drinks Not on file 024 Frequency of Binge Drinking Not on file 04/2024 Overall Financial Resource Strain (CARDIA) Answe r Date Recorded How hard is it for you to pa y for the very basics like food, housing, medical care, and heating? Somewhat hard 02/28/2024 Hunger Vital Sign Answer Date Recorded Within the past 12 months, y ou worried that your food would run out before you got the money to buy more. Never true 02/28/20 24 Within the past 12 months, t he food you bought just didn't last and you didn't have money to get more. Never true 02/28/2024 PRAPARE - Transportation Answer Date Re corded In the past 12 months, has l ack of transportation kept you from medical appointments or from getting medications? No 06/2024 In the past 12 months, has l ack of transportation kept you from meetings, work, or from getting things needed for daily living? No 02/28/2024 Housing Stability Vital Sign Answer Eduardo e Recorded In the last 12 months, was t here a time when you were not able to pay the mortgage or rent on time? No 02/28/2024 In the last 12 months, how many places have you lived? 1 02/28/2024 In the last 12 months, was t here a time when you did not have a steady place to sleep or slept in a fci (including now)? No 02/28/2024 Personal Safety Answer Date Recorded Have you ever been in or are you currently in a harmful physical or emotional relationship or is someone making you feel afraid or unsafe? Denies 04/27/2024 Sex and Gender Information Value Date Recorded Sex Assigned at Not on file Legal Sex Male 11:58 PM [employer] Gender Identity Not on file Sexual Orientation Not on file Obstetrics History Last Filed Vital Signs Vital Sign Reading Time Taken Comments Blood Pressure 96/68 06/20/2025 11:36 AM CDT Pulse 86 06/20/2025 11:36 AM CDT Temperature 36.8 C (98.2 F) 04/27/2024 10:23 AM CDT Respiratory Rate 14 04/27/2024 12:46 PM CDT Oxygen Saturation 98% 06/20/2025 11:36 AM CDT Inhaled Oxygen Concentration - - Weight 59 kg (130 lb) 06/20/2025 11:36 AM CDT Height 172.7 cm (5' 8) 06/20/2025 11:36 AM CDT Body Mass Index 19.77 06/20/2025 11:36 AM CDT Plan of Treatment Health Maintenance Due Date Last Done Comments Depression Screening 1944 Hepatitis B Screening 1962 Well Visit 65+ 2009 Pneumococcal vaccine 65+ (2 of 2 - PPSV23, PCV20, or PCV21) 01/18/2015 11/23/2014 Covid-19 Vaccine (5 - 2023-2 5 season) 2024 08/02/2022, 03/01/2022, 03/01/2022, Additional history exists Fall Risk Assessment 04/27/2025 04/27/2024 Influenza Vaccine (#1) 2025 , 07/31/2021, 08/21/2020, Additional history exists DTaP/Tdap/Td Vaccine (2 - Td or Tdap) 07/08/2030 07/08/2020 Abdominal Aortic Aneurysm (A AA) Screen Completed 11/08/2018 Zoster Vaccine Completed 09/17/2020, 07/09/2019 Medical Devices Implanted Type Area Luggage Maker Device Identifier Shelf Expiration Date Model / Serial / Lot [employer] Device Clsr Perclose Prostyle Sut-Mediatd Closure-Repair Sys [id number] - [id number] Implanted:Qty: 1 on 02/25/2024 by Mitchell Echeverria MD at [facility] Right: Femoral Vein [employer] 11/21/2025 [id number] / / [id number] [employer] Percutaneous Transcatheter Amplatzer Amulet 25mm [id number] - [id number] Implanted:Qty: 1 on 02/25/2024 by Mitchell Echeverria MD at [facility] Left: Femoral Vein [employer] 02/20/2028 [id number] / / [id number] [employer] Vascade Mvp 6-12fr Venous Closure [id number] - [id number] Implanted:Qty: 1 on 02/25/2024 by Mitchell Echeverria MD at [facility] Right: Femoral Vein [employer] 11/26/2025 [id number] / / [id number] Procedures Procedure Name Priority Date/Time Associated Diagnosis Comments CT ABDOMEN PELVIS W CONTRAST ED Urgent/IP Urgent 11/08/2018 1:01 PM [employer] from Last 3 Months or Most Recently Relevant to Health Maintenance Results * CT abdomen pelvis with contrast (11/08/2018 1:01 PM [employer]) Anatomical Region Laterality Modality Body N/A Computed Tomogra phy 11/08/2018 1:32 PM [employer] Impressions 11/08/2018 1:51 PM [employer] 1. Fluid-filled dilated loops of proximal and small bowel seen with decompressed distal small bowel. The findings raise concern for small bowel obstruction. 2. There is a 1.2 cm right hepatic liver lesion that is incompletely characterized. Consider nonemergent evaluation with MRI. 3. Mildly dilated left-sided intrahepatic biliary ducts. Correlate with the bilirubin. 4. Small amount of gas noted within the bladder, which is likely postoperative. 5. No definite loculated fluid collection identified. Small foci of free intraperitoneal air may be due to recent surgery. 6. The prostate gland is mildly enlarged. Correlate with the PSA. Electronically signed by: LORRI Diaz 11/08/2018 1:51 PM [employer] TE[employer] EXAM: CT ABDOMEN PELVIS W CONTRAST CLINICAL HISTORY: Post-op leukocytosis, look for abscess , robotic sigmoidectomy and colovesical fistula takedown COMPARISON: None TECHNIQUE: CT abdomen pelvis performed with contrast. FINDINGS: Emphysematous changes seen in the lung bases. Prominent left-sided intrahepatic biliary ducts. Several low-density liver lesions seen. There is a 1.2 cm right hepatic liver lesion (series 2, image 22). Subcentimeter low-density liver lesions such as on series 2, image 31 are too small to characterize. Normal spleen. No gallstones. Normal pancreas. Normal adrenal glands. No hydronephrosis or hydroureter. There is body wall edema. There are fluid-filled loops of proximal and mid small bowel loops. More distally loops of small bowel appear decompressed. The exact transition point is not identified with certainty. Findings raise concern for small bowel obstruction. Left lower quadrant anastomotic suture line noted. Small foci of free intraperitoneal may be due to recent surgery. No secondary signs of appendicitis. Atherosclerotic changes of the abdominal aorta and branch vessels noted. There is gas within the bladder. The prostate gland is enlarged and measures 4 x 3.6 cm. There is subcutaneous emphysema in the anterior abdominal pelvic body wall. No acute osseous abnormality. Degenerative changes of the thoracolumbar spine noted. Procedure Note Lorri Faustin MD - 11/08/2018 EXAM: CT ABDOMEN PELVIS W CONTRAST CLINICAL HISTORY: Post-op leukocytosis, look for abscess , robotic sigmoidectomy and colovesical fistula takedown COMPARISON: None TECHNIQUE: CT abdomen pelvis performed with contrast. FINDINGS: Emphysematous changes seen in the lung bases. Prominent left-sided intrahepatic biliary ducts. Several low-density liver lesions seen. There is a 1.2 cm right hepatic liver lesion (series 2, image 22). Subcentimeter low-density liver lesions such as on series 2, image 31 are too small to characterize. Normal spleen. No gallstones. Normal pancreas. Normal adrenal glands. No hydronephrosis or hydroureter. There is body wall edema. There are fluid-filled loops of proximal and mid small bowel loops. More distally loops of small bowel appear decompressed. The exact transition point is not identified with certainty. Findings raise concern for small bowel obstruction. Left lower quadrant anastomotic suture line noted. Small foci of free intraperitoneal may be due to recent surgery. No secondary signs of appendicitis. Atherosclerotic changes of the abdominal aorta and branch vessels noted. There is gas within the bladder. The prostate gland is enlarged and measures 4 x 3.6 cm. There is subcutaneous emphysema in the anterior abdominal pelvic body wall. No acute osseous abnormality. Degenerative changes of the thoracolumbar spine noted. IMPRESSION: 1. Fluid-filled dilated loops of proximal and small bowel seen with decompressed distal small bowel. The findings raise concern for small bowel obstruction. 2. There is a 1.2 cm right hepatic liver lesion that is incompletely characterized. Consider nonemergent evaluation with MRI. 3. Mildly dilated left-sided intrahepatic biliary ducts. Correlate with the bilirubin. 4. Small amount of gas noted within the bladder, which is likely postoperative. 5. No definite loculated fluid collection identified. Small foci of free intraperitoneal air may be due to recent surgery. 6. The prostate gland is mildly enlarged. Correlate with the PSA. Electronically signed by: LORRI FAUSTIN Zamzam [place] [facility] PROCEDURES F inal Result from Last 3 Months or Most Recently Relevant to Health Maintenance Insurance MEDICARE [facility] MEDICARE [facility] MEDICARE IDPA MEDICARE IDPA Advance Directives For more information, please contact: [phone] * Full Code (Latest Code Status on File) Date Activated Date Inactivated Comments 11/16/2018 11:11 AM 11/19/2018 6:08 PM * Full Code Date Activated Date Inactivated Comments 10/27/2018 4:40 PM 11/16/2018 11:11 AM Care Teams Astrophysics Teacher Relationship Specialty Start Date End Date Itz Arevalo MD [address] [place] [address] PCP - General Emergency Medicine 06/20/25 Reece Varela MD [address] [address] Consulting Physician Colon and Rectal Surgery 11/18/18
--- OUTSIDE RECORDS SUMMARY | 2025-07-02 18:06 | XMS_ITS | Clinical Summary ---
Author Organization [facility] Address [address] [place] [address] Care Team Providers Care Lead Custodian Name Role Phone Marcio Askew Primary Care Provider Unavailabl e Source Comments [facility],non-owned Affiliates and Associated Physician Practices is amultiple site organization consisting of ambulatory clinics and hospital sitesin [place], [place], [place] and [place]. This disclosure is being madepursuant to the Care Everywhere program and may not contain all information available regarding this patient. Last updated 18.[facility] Allergies Active Allergy Reactions Criticality Noted Date Comments Hydromorphone Psychiatric Medium 09/23/2023 Medications * Be aware that medications may not be up to date on this document. Alwaysverify current medications with the patient. metoprolol succinate XL 24hr (Toprol XL) 50 MG tablet Take 1 (one) tablet by mouth once daily 3 Active gabapentin (Neurontin) 300 MG capsule Take 1 (one) capsule by mouth 3 Active Myrbetriq 50 MG tablet Take 1 (one) tablet by mouth 3 Active Entresto 24-26 MG tablet Take 1 (one) tablet by mouth 2 times daily 3 Active sildenafil (Revatio) 20 MG tablet TAKE 1 TO 2 TABLETS BY MOUTH ONCE DAILY 3 Active tamsulosin (Flomax) 0.4 MG capsule TAKE 1 CAPSULE BY MOUTH EVERYDAY AT BEDTIME 3 Active traMADol (Ultram) 50 MG tablet 3 Active traZODone (Desyrel) 100 MG tablet Take 1 (one) tablet by mouth nightly as needed FOR SLEEP 3 Active triamcinolone acetonide (Kenalog) 0.1 % ointment APPLY TOPICALLY TWICE A DAY 3 Active Anoro Ellipta 62.5-25 MCG/ACT inhaler 3 Active Gemtesa 75 MG tablet Take 1 (one) tablet by mouth 3 Active mupirocin (Bactroban) 2 % ointment Apply to affected area 3 times daily 3 Active Jardiance 10 MG tablet 3 Active cephalexin (Keflex) 500 MG capsule TAKE 1 CAPSULE BY MOUTH EVERY 8 HOURS 3 Active buPROPion XL 24hr (Wellbutrin-XL) 150 MG tablet Take 1 (one) tablet by mouth every morning 3 Active albuterol HFA (Proventil; Ventolin; Proair) 108 (90 Base) MCG/ACT inhaler Inhale 1 (one) puff to 2 (two) puffs by mouth every 4 hours as needed Active multivitamin with iron (Ultra Solo) capsule Take 1 (one) capsule by mouth once daily Active carboxymethylcell ulose sodium PF 1 % ophthalmic gel 1 (one) drop by Ophthalmic route once daily Active sildenafil (Revatio) 20 MG tablet Take 1 (one) tablet by mouth as needed Active levETIRAcetam (Keppra) 500 MG tablet Take 1 (one) tablet by mouth 2 times daily for 60 days 60 tablet 1 3 Active traZODone (Desyrel) 150 MG tablet 3 Active levETIRAcetam (Keppra) 500 MG tabletIndications :SDH (subdural hematoma) (HCC) Take 1 (one) tablet by mouth 2 times daily 180 tablet 4 4 Active Sallie Low Dose 81 MG chew tablet Take 1 (one) tablet by mouth once daily 4 Active Cholecalciferol 125 MCG (5000 UT) Take 1 (one) tablet by mouth once daily Active clopidogrel (plaVIX) 75 MG tablet Take 1 (one) tablet by mouth once daily 4 Active midodrine (Proamatine) 2.5 MG tablet PLEASE SEE ATTACHED FOR DETAILED DIRECTIONS 4 Active silver sulfADIAZINE (Silvadene) 1 % cream 4 Active Active Problems Problem Noted Date Diagnosed Date Subdural hematoma 09/23/2023 Persistent atrial fibrillation 09/23/2023 1 01/10/2023 Sleep apnea 11/22/2022 11/09/2023 Mixed hyperlipidemia 11/22/2022 11/09/2023 HFrEF (heart failure with reduced ejection fract ion) 04/29/2022 11/09/2023 Overview (11/09/2023): Added automatically from request for surgery [id number] Depression 11/09/2018 11/09/2023 Hypertension 10/26/2018 11/09/2023 COPD (chronic obstructive pulmonary disease) 03/201811/09/2023 Chronic hepatitis C virus infection 03/21/2011 11/09/2023 Overview (11/09/2023): Description: Chronic Hepatitis, C Virus Family History Relation Name Status Comments Brother Social History Tobacco Use Types Packs/Day Years Used Date Smoking Tobacco: Never Smokeless Tobacco: Never Tobacco Cessation:Counseling Given: No Alcohol Use Standard Drinks/Week Comments Never 0 (1 standard drink = 0.6 oz pur e alcohol) AUDIT-C Answer Date Recorded Q1: How often do you have a drink containing alcohol? Never 09/24/2023 Q2: How many drinks containi ng alcohol do you have on a typical day when you are drinking? Patient does not drink Q3: How often do you have si x or more drinks on one occasion? Never 09/24/2023 Overall Financial Resource Strain (CARDIA) Answe r Date Recorded How hard is it for you to pa y for the very basics like food, housing, medical care, and heating? Not hard at all 09/24/2023 [facility] of Occupat ional Health - Occupational Stress Questionnaire Answer Date Recorded Do you feel stress - tense, restless, nervous, or anxious, or unable to sleep at night because your mind is troubled all the time - these days? Only a little 09/24/2023 Hunger Vital Sign Answer Date Recorded Within the past 12 months, y ou worried that your food would run out before you got the money to buy more. Never true 09/24/20 23 Within the past 12 months, t he food you bought just didn't last and you didn't have money to get more. Never true 09/24/2023 PRAPARE - Transportation Answer Date Re corded In the past 12 months, has l ack of transportation kept you from medical appointments or from getting medications? No 01/2023 In the past 12 months, has l ack of transportation kept you from meetings, work, or from getting things needed for daily living? No 09/24/2023 Housing Stability Vital Sign Answer Eduardo e Recorded In the last 12 months, was t here a time when you were not able to pay the mortgage or rent on time? No 09/24/2023 In the last 12 months, how many places have you lived? 1 09/24/2023 In the last 12 months, was t here a time when you did not have a steady place to sleep or slept in a care home (including now)? No 09/24/2023 Housing Stability Vital Sign Answer Eduardo e Recorded In the last 12 months, was t here a time when you were not able to pay the mortgage or rent on time? No 09/24/2023 Number of Times Moved in the Last Year Not on fi le 09/24/2023 Homeless in the Last Year Not on file 2022 Sex and Gender Information Value Date Recorded Sex Assigned at Not on file Legal Sex Male 5:39 AM CDT Gender Identity Not on file Sexual Orientation Not on file Last Filed Vital Signs Vital Sign Reading Time Taken Comments Blood Pressure 130/96 03/28/2024 10:43 AM CDT Pulse 76 03/28/2024 10:43 AM CDT Temperature 36.4 C (97.6 F) 03/28/2024 10:43 AM CDT Respiratory Rate 16 09/29/2023 12:01 PM DIRECTOR DIGITAL SALES Oxygen Saturation 96% 03/28/2024 10:43 AM CDT Inhaled Oxygen Concentration 21% 09/29/2023 1 2:01 PM DIRECTOR D[employer]ITAL SALES Weight 61.7 kg (136 lb) 03/28/2024 10:43 AM CDT Height 165.1 cm (5' 5) 03/28/2024 10:43 AM CDT Body Mass Index 22.63 03/28/2024 10:43 AM CDT Plan of Treatment Health Maintenance Due Date Last Done Comments MEDICARE AWV 12 MONTHS 1944 DTAP/TDAP/TD VACCINES (1 - Tdap) 1963 PNEUMOCOCCAL VACCINE 50+ (1 of 2 - PCV) 1963 ZOSTER VACCINE (1 of 2) 1994 HEPATITIS B VACCINE (1 of 3 - Risk 3-dose series) 2004 Respiratory Syncytial Virus (RSV) Vaccine Pt: or over 60 yrs (1 - 1-dose 75+ series) 2019 COVID-19 VACCINE ( season) 2024 08/18/2023, 03/13/2023, 08/02/2022, Additional history exists DEPRESSION SCREENING 11/22/2024 INFLUENZA VACCINE (#1) 2025 , 08/02/2022, 07/31/2021, Additional history exists HIB VACCINE Aged Out No longer eligi ble based on patient's age to complete this topic HPV VACCINE Aged Out No longer eligi ble based on patient's age to complete this topic MENINGOCOCCAL (Group B) VACCINE SHARED DECISION-MAKING Aged Out No longer eligible based on patient's age to complete this topic MENINGOCOCCAL GROUPS A/C/Y/W VACCINE Aged Out No longer eligible based on patient's age to complete this topic Insurance MEDICARE [facility] MEDICARE [facility] Advance Directives * DNR - IF PULSELESS NO CPR, NO SHOCK (Latest Code Status on File) Date Activated Date Inactivated Comments 09/25/2023 2:41 PM 09/29/2023 4:48 PM Question Answer Comments : DO NOT discontinue a ny active orders without asking attending physician. * Full Code Date Activated Date Inactivated Comments 09/25/2023 2:39 PM 09/25/2023 2:41 PM Care Teams Lead Custodian Relationship Specialty Start Date End Date Marcio Askew PCP - General 11/09/23
--- OUTSIDE RECORDS SUMMARY | 2025-07-02 18:50 | XMS_ITS | Clinical Summary ---
Author Organization [facility] [place] [place] [address] Address [address] [place] [id number] Care Team Providers Care Biomedical Repair Technician Name Role Phone Reece Varela MD Unavailable [phone] Itz Arevalo MD Primary Care Provide r [...] (04/29/2022): Added automatically from request for surgery [id number] LV dysfunction 04/29/2022 Overview (04/29/2022): Added automatically from request for surgery [id number] Severe malnutrition 11/10/2018 Depression 11/09/2018 COPD (chronic obstructive pulmonary disease) 03/2018 Hypertension 10/26/2018 Spinal stenosis 10/26/2018 Colovesical fistula 10/21/2018 Overview (10/21/2018): Added automatically from request for surgery [id number] Smokes tobacco daily 02/16/2012 Overview (03/04/2018): Description: 02-16-2012 Chronic hepatitis C virus infection 03/21/2011 Overview (03/04/2018): Description: Chronic Hepatitis, C Virus Encounters Date Type Department Care Team Description 06/20/2025 11:30 AM CDT Office Visit [facility] Card[facility] [address] [place] [id number] Mitchell Echeverria MD Longstanding persistent atrial fibrillation [...] drink = 0.6 oz pur e alcohol) [facility] Utilities Answer Date Recorded In the past [...] often do you attend chur ch or caodaism services? More than 4 times per year 02/28/2024 Do you belong to any clubs o r organizations such as yazdanism groups, unions, fraternal or athletic groups, or [...] place to sleep or slept in a snf (including now)? No 02/28/2024 Personal Safety Answer Date Recorded Have you ever been in or are you currently in a harmful physical or emotional relationship or is someone making you feel afraid or unsafe? Denies 04/27/2024 Sex and Gender Information Value Date Recorded Sex Assigned at Not on file Legal Sex Male 11:58 PM STEAM SHOVELMAN Gender Identity Not on file Sexual Orientation [...] 09/17/2020, 07/09/2019 Medical Devices Implanted Type Area Pile Driving Superintendent Device Identifier Shelf Expiration Date Model / Serial / Lot [employer] Device Clsr Perclose Prostyle Sut-Mediatd Closure-Repair Sys [id number] - [id number] Implanted:Qty: 1 on 02/25/2024 by Mitchell Echeverria MD at [facility] Right: Femoral Vein [employer] 11/21/2025 [id number] / / [id number] [employer] Percutaneous Transcatheter Amplatzer Amulet 25mm [id number] - [id number] Implanted:Qty: 1 on 02/25/2024 by Mitchell Echeverria MD at [facility] Left: Femoral Vein [employer] 02/20/2028 [id number] / / [id number] [employer] Vascade Mvp 6-12fr Venous Closure [id number] - [id number] Implanted:Qty: 1 on 02/25/2024 by Mitchell Echeverria MD at [facility] Right: Femoral Vein [employer] 11/26/2025 [id number] / / [id number] Procedures Procedure Name Priority Date/Time Associated Diagnosis Comments CT ABDOMEN PELVIS W CONTRAST ED Urgent/IP Urgent 11/08/2018 1:01 PM STEAM SHOVELMAN from Last 3 Months or Most Recently Relevant to Health Maintenance Results * CT abdomen pelvis with contrast (11/08/2018 1:01 PM STEAM SHOVELMAN) Anatomical Region Laterality Modality Body N/A Computed Tomogra phy 11/08/2018 1:32 PM STEAM SHOVELMAN Impressions 11/08/2018 1:51 PM STEAM SHOVELMAN 1. Fluid-filled dilated loops of proximal and [...] signed by: LORRI Diaz 11/08/2018 1:51 PM STEAM SHOVELMAN EXAM: CT ABDOMEN PELVIS W CONTRAST CLINICAL [...] Recently Relevant to Health Maintenance Insurance MEDICARE [facility] MEDICARE [facility] MEDICARE [employer] MEDICARE [employer] Advance Directives For more information, please contact: [phone] * Full Code (Latest Code Status on File) Date Activated Date Inactivated Comments 11/16/2018 11:11 AM 11/19/2018 6:08 PM * Full Code Date Activated Date Inactivated Comments 10/27/2018 4:40 PM 11/16/2018 11:11 AM Care Teams Biomedical Repair Technician Relationship Specialty Start Date End Date Itz Arevalo MD [address] [place] [address] PCP - General Emergency Medicine 06/20/25 Reece Varela MD [address] [address] Consulting Physician Colon and Rectal Surgery 11/18/18
--- OUTSIDE RECORDS SUMMARY | 2025-07-02 18:50 | XMS_ITS | Clinical Summary ---
Author Organization [facility] Address [address] [place] [address] Care Team Providers Care Freight Forwarder Name Role Phone Marcio Askew Primary Care Provider Unavailabl e Source Comments [facility],non-owned Affiliates and Associated Physician Practices is amultiple site organization consisting of ambulatory clinics and hospital sitesin [place], [place], [place] and [place]. This disclosure is being madepursuant to the Care Everywhere program and may not contain all information available regarding this patient. Last updated 18.[facility] Allergies Active Allergy Reactions Criticality Noted Date [...] (11/09/2023): Added automatically from request for surgery [id number] Depression 11/09/2018 11/09/2023 Hypertension 10/26/2018 11/09/2023 COPD [...] and heating? Not hard at all 09/24/2023 [facility] of Occupat ional Health - Occupational Stress [...] place to sleep or slept in a skilled nursing (including now)? No 09/24/2023 Housing Stability Vital [...] CDT Respiratory Rate 16 09/29/2023 12:01 PM MANAGER HIV Oxygen Saturation 96% 03/28/2024 10:43 AM CDT Inhaled Oxygen Concentration 21% 09/29/2023 1 2:01 PM MANAGER HIV Weight 61.7 kg (136 lb) 03/28/2024 10:43 [...] age to complete this topic Insurance MEDICARE [facility] MEDICARE [facility] Advance Directives * DNR - IF PULSELESS NO CPR, NO SHOCK (Latest Code Status on File) Date Activated Date Inactivated Comments 09/25/2023 2:41 PM 09/29/2023 4:48 PM Question Answer Comments : DO NOT discontinue a ny active orders without asking attending physician. * Full Code Date Activated Date Inactivated Comments 09/25/2023 2:39 PM 09/25/2023 2:41 PM Care Teams Freight Forwarder Relationship Specialty Start Date End Date Marcio Askew PCP - General 11/09/23
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
== END 2025-07-02 20:18 | disposition home or self-care (01) ==
PROVIDERS: Emergency Provider Emergency Medicine; PCP Emergency Medicine
DX: S00.81XA Abrasion of other part of head, initial encounter (principal); I50.9 Heart failure, unspecified; I27.20 Pulmonary hypertension, unspecified; I48.91 Unspecified atrial fibrillation; I48.92 Unspecified atrial flutter; I11.0 Hypertensive heart disease with heart failure; J43.9 Emphysema, unspecified; E78.2 Mixed hyperlipidemia; G47.33 Obstructive sleep apnea (adult) (pediatric); M17.11 Unilateral primary osteoarthritis, right knee; Z96.652 Presence of left artificial knee joint; Z87.01 Personal history of pneumonia (recurrent); Z86.16 Personal history of COVID-19; Z85.828 Personal history of other malignant neoplasm of skin; Z86.19 Personal history of other infectious and parasitic diseases; Z87.891 Personal history of nicotine dependence; Z90.49 Acquired absence of other specified parts of digestive tract; Z79.899 Other long term (current) drug therapy; Z79.84 Long term (current) use of oral hypoglycemic drugs; Z79.02 Long term (current) use of antithrombotics/antiplatelets; W18.09XA Striking against other object with subsequent fall, initial encounter
CPT/HCPCS: 70450; 99284

== ENCOUNTER 2025-08-09 08:42 | Emergency (ER) | payer MEDICARE, MEDICAID, SELFPAY ==
--- NOTE | ~2025-08-09 | XR_ITS ---
X-rays left shoulder Indication: Fall Comparison: 07/23/2020. Technique: 4 views left shoulder Findings/Impression: 1. No fracture or dislocation left shoulder. 2. Mild glenohumeral joint degenerative changes. 3. Moderate AC joint degenerative changes. Reviewed, dictated and finalized at location R.
[2025-08-09 08:56] VITALS: BP 134/86; PULSE 76; RESP 16; TEMP 36.2; O2SAT 96
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
== END 2025-08-09 10:25 | disposition home or self-care (01) ==
PROVIDERS: Emergency Provider Registered Nurse; PCP Emergency Medicine
DX: M25.512 Pain in left shoulder (principal); I11.0 Hypertensive heart disease with heart failure; I50.9 Heart failure, unspecified; I27.20 Pulmonary hypertension, unspecified; I48.91 Unspecified atrial fibrillation; E78.2 Mixed hyperlipidemia; M17.11 Unilateral primary osteoarthritis, right knee; F32.9 Major depressive disorder, single episode, unspecified; Z85.828 Personal history of other malignant neoplasm of skin; Z96.642 Presence of left artificial hip joint; Z90.49 Acquired absence of other specified parts of digestive tract
CPT/HCPCS: 73030; 99213; G0463

== ENCOUNTER 2025-08-20 14:04 | Emergency (ER) | payer MEDICARE, OTHER, SELFPAY ==
--- NOTE | ~2025-08-20 | XR_ITS ---
EXAMINATION: XR chest 2V 08/20/2025 15:20 INDICATION: Shortness of breath TECHNIQUE:Frontal and lateral images of the chest were obtained. COMPARISON: 09/23/2023 FINDINGS: Lungs are hyperexpanded. Heart is enlarged, unchanged. No pneumothorax. No free air under the diaphragm. Small to moderate size opacities in the mid and lower lungs. IMPRESSION: 1: Small to moderate-sized opacities in the mid and lower lungs which represents atelectasis/scarring or infiltrates. 2. Lungs are hyperinflated. If symptoms persist or worsen, consider a short-term follow-up study or chest CT imaging for further assessment. Reviewed, dictated and finalized at location Q. IMPRESSION: 1: Small to moderate-sized opacities in the mid and lower lungs which represen ts atelectasis/scarring or infiltrates. 2. Lungs are hyperinflated. If symptoms persist or worsen, consider a short-term follow-up study or chest C T imaging for further assessment.
[2025-08-20 14:09] VITALS: BP 117/87; PULSE 85; RESP 20; TEMP 36.7; O2SAT 96
--- NOTE | 2025-08-20 14:09 | ECG_ITS ---
Test Date: 2025-08-20 14:11:17 Measurements Intervals [place] Rate: 78 P: 0 WI: 0 QRS: -70 QRSD: 106 T: 28 QT: 327 QTc: 374 Interpretive Statements ATRIAL FIBRILLATION LEFT ANTERIOR FASCICULAR BLOCK [QRS AXIS <= -45, QR IN I, RS IN II] NONSPECIFIC ST & T-WAVE ABNORMALITY No previous ECG available for comparison Electronically Signed On 08-20-2025 15:06:24 CDT by Remington Salazar M.D.
[2025-08-20 14:16] VITALS: O2SAT 96
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
[2025-08-20 14:23] LABS: Hematocrit 49.3 % (42.0-52.0); Hemoglobin 16.2 g/dL (14.0-18.0); Immature Granulocyte Percent A 0.4 % (0-0.5); Lymphocytes Absolute Auto 1.40 K/mm3 (0.9-3.2); Mean Corpuscular HGB Conc 32.9 g/dl (32-36); Mean Corpuscular Hemoglobin 31.2 pg (26-34); Mean Corpuscular Volume 94.8 fl (80-100); Nucleated Red Blood Cells Absolute Auto 0.000 K/mm3 (0.0-0.012); Nucleated Red Blood Cells Perc 0.0 % (0.0-0.2); Platelet Count Result 274 k/mm3 (150-375); Red Blood Count 5.20 M/mm3 (4.6-6.20); White Blood Count 8.5 K/mm3 (4.5-10.0)
[2025-08-20] MEDS: IPRATROPIUM 0.5 MG/ALBUTEROL SULFATE 2.5 MG AMPUL.NEB 3 ML INHALATION (14:30)
[2025-08-20 14:31] VITALS: PULSE 80; RESP 16
[2025-08-20 14:38] VITALS: PULSE 77; RESP 16
--- OUTSIDE RECORDS SUMMARY | 2025-08-20 14:39 | XMS_ITS | Clinical Summary ---
Author Organization [address] Address [address] [place] [id number] Care Team Providers Care Core Shaper Top Name Role Phone Reece Varela MD Unavailable [phone] Itz Arevalo MD Primary Care Provide r Allergies Active Allergy Reactions Criticality Noted Date Comments Hydromorphone Hallucinations Medium 11/16/2018 nightmares Medications sildenafil, antihypertensive , (REVATIO) 20 mg tabletIndication s:Pulmonary Arterial Hypertension Take 1 tablet (20 mg total) by mouth as needed Active tamsulosin (FLOMAX) 0.4 mg extended release capsule Take 1 capsule (0.4 mg total) by mouth nightly 2 Active carboxymethylcel lulose (REFRESH CELLUVISC) 1 % dropperette,gel Administer 1 drop into both eyes daily Active Gemtesa 75 mg tablet Take 75 mg by mouth nightly 3 Active traMADoL (ULTRAM) 50 mg tablet Take 1 tablet (50 mg total) by mouth every 6 (six) hours as needed for pain 4 Active melatonin 3 mg tablet,disintegr ating Take 3 mg by mouth nightly as needed Active clopidogreL (PLAVIX) 75 mg tablet TAKE 1 TABLET BY MOUTH EVERY DAY 90 tablet 2 5 Active empagliflozin (Jardiance) 10 mg tablet Take 1 tablet (10 mg total) by mouth daily 90 tablet 3 5 Active midodrine (PROAMATINE) 2.5 mg tablet TAKE 1 TABLET BY MOUTH 2 TIMES A DAY LAST DOSE SHOULD BE TAKEN MID-AFTERNOON TO PREVENT SUPINE HYPERTENSION 180 tablet 1 5 Active metoprolol XL (TOPROL-XL) 50 mg extended release tablet TAKE 1 TABLET BY MOUTH EVERY DAY 90 tablet 1 5 Active albuterol HFA (PROVENTIL HFA,VENTOLIN HFA,PROAIR HFA) 90 mcg/actuation inhaler Inhale 2 puffs 3 (three) times a day Active busPIRone (BUSPAR) 5 mg tablet TAKE 1 TABLET BY MOUTH THREE TIMES A DAY FOR 90 DAYS Active Trelegy Ellipta 100-62.5-25 mcg inhaler INHALED 1 PUFF DAILY RINSE MOUTH AND SPIT AFTER EACH USE 5 Active oxyBUTYnin XL (DITROPAN XL) 15 mg 24 hr tablet Take 1 tablet (15 mg total) by mouth daily 5 Active buPROPion XL (WELLBUTRIN XL) 300 mg 24 hr tablet Take 1 tablet (300 mg total) by mouth daily 5 Active sacubitriL-valsa rtan (Entresto) 24-26 mg tablet TAKE 1 TABLET BY MOUTH TWICE A DAY 60 tablet 3 5 Active Active Problems Problem Noted Date Diagnosed Date Presence of Amulet left atrial appendage closure device 02/25/2024 Atrial fibrillation 02/07/2024 HFrEF (heart failure with reduced ejection fract ion) 04/29/2022 Overview (04/29/2022): Added automatically from request for surgery [id number] LV dysfunction 04/29/2022 Overview (04/29/2022): Added automatically from request for surgery [id number] Severe malnutrition 11/10/2018 Depression 11/09/2018 COPD (chronic obstructive pulmonary disease) 03/2018 Hypertension 10/26/2018 Spinal stenosis 10/26/2018 Colovesical fistula 10/21/2018 Overview (10/21/2018): Added automatically from request for surgery [id number] Smokes tobacco daily 02/16/2012 Overview (03/04/2018): Description: 02-16-2012 Chronic hepatitis C virus infection 03/21/2011 Overview (03/04/2018): Description: Chronic Hepatitis, C Virus Encounters Date Type Department Care Team Description 06/20/2025 11:30 AM CDT Office Visit [facility] Card[facility] [address] [place] [address] Mitchell Echeverria MD Longstanding persistent atrial fibrillation [...] drink = 0.6 oz pur e alcohol) [facility] Utilities Answer Date Recorded In the past 12 months has [employer], gas, oil, or water [employer] threatened to shut off services in your home? No 02/28/2024 Social Connection and Isolation Panel Answer Date Recorded In a typical week, how many times do you talk on the phone with family, friends, or neighbors? Once a week 02/28/2024 How often do you get togethe r with friends or relatives? Once a week 02/28/2024 How often do you attend [facility] or [facility] services? More than 4 times per year 02/28/2024 Do you belong to any clubs o r organizations such as hinduism groups, unions, fraternal or athletic groups, or [...] place to sleep or slept in a [place] [facility] [place] facility (including now)? No 02/28/2024 Personal Safety Answer Date Recorded Have you ever been in or are you currently in a harmful physical or emotional relationship or is someone making you feel afraid or unsafe? Denies 04/27/2024 Sex and Gender Information Value Date Recorded Sex Assigned at Not on file Legal Sex Male 11:58 PM [facility] Gender Identity Not on file Sexual Orientation [...] - PPSV23, PCV20, or PCV21) 01/18/2015 11/23/2014 Fall Risk Assessment 04/27/2025 04/27/2024 Covid-19 Vaccine (5 - 2024-2 6 season) 2025 08/02/2022, 03/01/2022, 03/01/2022, Additional history exists Influenza Vaccine (#1) 2025 , 07/31/2021, 08/21/2020, Additional history exists DTaP/Tdap/Td Vaccine (2 - Td or Tdap) 07/08/2030 07/08/2020 Abdominal Aortic Aneurysm (A AA) Screen Completed 11/08/2018 Zoster Vaccine Completed 09/17/2020, 07/09/2019 Medical Devices Implanted Type Area Lapidary Apprentice Device Identifier Shelf Expiration Date Model / Serial / Lot [employer] Device Clsr Perclose Prostyle Sut-Mediatd Closure-Repair Sys [id number] - [id number] Implanted:Qty: 1 on 02/25/2024 by Mitchell Echeverria MD at [facility] Right: Femoral Vein [employer] 11/21/2025 [id number] / / [id number] [employer] Percutaneous Transcatheter Amplatzer Amulet 25mm [id number] - [id number] Implanted:Qty: 1 on 02/25/2024 by Mitchell Echeverria MD at [facility] Left: Femoral Vein [employer] 02/20/2028 [id number] / / [id number] [employer] Vascade Mvp 6-12fr Venous Closure [id number] - [id number] Implanted:Qty: 1 on 02/25/2024 by Mitchell Echeverria MD at [facility] Right: Femoral Vein [employer] 11/26/2025 [id number] / / [id number] Procedures Procedure Name Priority Date/Time Associated Diagnosis Comments CT ABDOMEN PELVIS W CONTRAST ED Urgent/IP Urgent 11/08/2018 1:01 PM TRUCKSM[facility] from Last 3 Months or Most Recently Relevant to Health Maintenance Results * CT abdomen pelvis with contrast (11/08/2018 1:01 PM [facility]) Anatomical Region Laterality Modality Body N/A Computed Tomogra phy 11/08/2018 1:32 PM [facility] Impressions 11/08/2018 1:51 PM [facility] 1. Fluid-filled dilated loops of proximal and [...] signed by: LORRI Diaz 11/08/2018 1:51 PM [facility] EXAM: CT ABDOMEN PELVIS W CONTRAST CLINICAL [...] Recently Relevant to Health Maintenance Insurance [facility]ICARE [facility] MEDICARE [employer] MEDICARE [employer] MEDICARE [employer] Advance Directives For more information, please contact: [phone] * Full Code (Latest Code Status on File) Date Activated Date Inactivated Comments 11/16/2018 11:11 AM 11/19/2018 6:08 PM * Full Code Date Activated Date Inactivated Comments 10/27/2018 4:40 PM 11/16/2018 11:11 AM Care Teams Core Shaper Top Relationship Specialty Start Date End Date Itz Arevalo MD [address] [place] [address] PCP - General Emergency Medicine 06/20/25 Reece Varela MD [address] [address] Consulting Physician Colon and Rectal Surgery 11/18/18
--- OUTSIDE RECORDS SUMMARY | 2025-08-20 14:39 | XMS_ITS | Clinical Summary ---
Author Organization [facility] Address [address] [place] [address] Care Team Providers Care Environmental Technical Officer Name Role Phone Marcio Askew Primary Care Provider Unavailabl e Source Comments [facility],non-owned Affiliates and Associated Physician Practices is amultiple site organization consisting of ambulatory clinics and hospital sitesin [place], [place], [place] and [place]. This disclosure is being madepursuant to the Care Everywhere program and may not contain all information available regarding this patient. Last updated 18.[facility] Allergies Active Allergy Reactions Criticality Noted Date [...] (11/09/2023): Added automatically from request for surgery [id number] Depression 11/09/2018 11/09/2023 Hypertension 10/26/2018 11/09/2023 COPD [...] and heating? Not hard at all 09/24/2023 [facility] of Occupat ional Health - Occupational Stress [...] place to sleep or slept in a detention (including now)? No 09/24/2023 Housing Stability Vital [...] CDT Respiratory Rate 16 09/29/2023 12:01 PM JEWELRY ESTIMATOR Oxygen Saturation 96% 03/28/2024 10:43 AM CDT Inhaled Oxygen Concentration 21% 09/29/2023 1 2:01 PM JEWELRY ESTIMATOR Weight 61.7 kg (136 lb) 03/28/2024 10:43 [...] yrs (1 - 1-dose 75+ series) 2019 DEPRESSION SCREENING 11/22/2024 COVID-19 VACCINE (2024- season) 2025 08/18/2023, 03/13/2023, 08/02/2022, Additional history exists INFLUENZA VACCINE (#1) 2025 , 08/02/2022, 07/31/2021, [...] age to complete this topic Insurance MEDICARE [facility] MEDICARE [facility] Advance Directives * DNR - IF PULSELESS NO CPR, NO SHOCK (Latest Code Status on File) Date Activated Date Inactivated Comments 09/25/2023 2:41 PM 09/29/2023 4:48 PM Question Answer Comments : DO NOT discontinue a ny active orders without asking attending physician. * Full Code Date Activated Date Inactivated Comments 09/25/2023 2:39 PM 09/25/2023 2:41 PM Care Teams Environmental Technical Officer Relationship Specialty Start Date End Date Marcio Askew PCP - General 11/09/23
[2025-08-20 14:56] LABS: Alanine Aminotransferase 21 U/L (6-50); Albumin Level 3.2 g/dL (3.5-5.1); Alkaline Phosphatase 48 U/L (38-126); Anion Gap 5 mmol/L (4-12); Aspartate Amino Transferase 24 U/L (17-59); Bilirubin,Total 0.7 mg/dL (0.2-1.3); Blood Urea Nitrogen 30 mg/dL (9-20); Calcium 8.4 mg/dL (8.4-10.2); Carbon Dioxide 28 mmol/L (22-30); Chloride 104 mmol/L (98-107); Estimated CRCL calculation 45 ml/min; Estimated Glomerular Filt Rate > 60; Glucose 99 mg/dL (65-110); Potassium 3.9 mmol/L (3.4-5.0); Sodium 137 mmol/L (137-145); Total Protein 5.8 g/dL (6.3-8.2)
[2025-08-20 15:07] LABS: NT Pro B Type Natriuretic Pept 2850 pg/mL (19.9-100); Troponin I < 0.012 ng/mL (0.000-0.034)
[2025-08-20 15:40] LABS: INR 1.4; Prothrombin Time 16.6 Seconds (11.1-14.7)
[2025-08-20 15:41] LABS: Partial Thromboplastin Time 27.9 Seconds (22.3-36.8)
[2025-08-20] MEDS: FUROSEMIDE INJ 40 MG/4 ML VIAL IV PUSH (17:38)
== END 2025-08-20 17:59 | disposition home or self-care (01) ==
PROVIDERS: Emergency Medicine; Emergency Provider General Practice; PCP Emergency Medicine
DX: J44.1 Chronic obstructive pulmonary disease with (acute) exacerbation (principal); I48.20 Chronic atrial fibrillation, unspecified; I49.3 Ventricular premature depolarization; Z87.891 Personal history of nicotine dependence
CPT/HCPCS: 36415; 71046; 80053; 83880; 84484; 85025; 85610; 85730; 93005; 94640; 96374; 99284; J1938

== ENCOUNTER 2025-09-27 10:54 | Emergency (ER) | payer MEDICARE, OTHER, SELFPAY ==
--- NOTE | ~2025-09-27 | XR_ITS ---
EXAMINATION: XR finger 3rd LT min 2V DATE: 09/27/2025 11:30 INDICATION: Swelling at the third proximal interphalangeal joint TECHNIQUE: Dorsal palmar, lateral and 2 oblique views of the left third digit were obtained COMPARISON: None FINDINGS: Diffuse osteopenia. Alignment is normal. No fracture. Polyarticular osteoarthritis, severe at the triscaphe and first carpal metacarpal joints, moderate to severe at the second carpal phalangeal and third distal interphalangeal joints, moderate severity at the third metacarpophalangeal, second proximal interphalangeal and third distal interphalangeal joints and mild at the wrist and remaining visualized interphalangeal joints. No cortical erosions or periosteal reaction. Comment calcinosis in the region of the triangular fibrocartilage complex. Mild diffuse soft tissue swelling about the third digit. IMPRESSION: 1. 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 No acute osseous abnormality. Reviewed, dictated and finalized at location [facility]. [facility] IMPRESSION: 1. 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 No acute o sseous abnormality.
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
[2025-09-27 11:04] VITALS: BP 121/81; PULSE 84; RESP 16; TEMP 36.1; O2SAT 97
== END 2025-09-27 11:43 | disposition home or self-care (01) ==
PROVIDERS: Emergency Provider Nurse Practitioner Family; PCP Emergency Medicine
DX: M25.442 Effusion, left hand (principal); I11.0 Hypertensive heart disease with heart failure; I50.9 Heart failure, unspecified; I48.91 Unspecified atrial fibrillation; E78.2 Mixed hyperlipidemia; F17.210 Nicotine dependence, cigarettes, uncomplicated; Z79.1 Long term (current) use of non-steroidal anti-inflammatories (NSAID); Z79.899 Other long term (current) drug therapy
CPT/HCPCS: 73140; 99213; G0463